=== PATIENT | female | born 1960 | race Caucasian/White ===

== ENCOUNTER 2019-08-27 16:49 | Observation (INO) ==
[2019-08-27 16:56] VITALS: BMI 25.0
[2019-08-27] MEDS ORDERED: NS 1000 ML 1,000 ML ONE ×2 (16:59→19:25)
[2019-08-27] MEDS ORDERED: NS 1000 ML 1,000 ML IV ONE ×2 (17:19→19:25)
--- NOTE | 2019-08-27 17:24 | DR.GENAD ---
HPI Time Seen Time Seen by Provider: 08/27/19 17:20 PCP Primary Care Physician: CHELA HPI Comment HPI Comment: PATIENT IS 59YR OLD FEMALE IN ER FOR EVALUATION FOR LOW BLOOD PRESSURE AND FREQUENT FALLS FOR 2 WEEKS. ALSO HAVING LEFT HIP PAIN. DENIES CHEST PAIN OR HEADACHE. NO FEVER OR DYSURIA. PATIENTS SYMTOMS GETTING WORSE. Complaint/Symptoms Chief Complaint Doctors Comments: LOW BLOOD PRESSURE AND FREQUENT FALLS FOR 2 WEEKS. Chief Complaint:: TIA FROM DR YORK OFFICE CALLED AND WANTED PATIENT WORKED UP FOR DEHYRATION AND LOW BLOOD PRESSURE. PT STATED SE HAS BEEN FALLING SEVERAL TIMES Nurses notes reviewed Nurses Notes Review: Yes Source History Provided: Patient Mode of Arrival Mode of Arrival: Ambulatory Timing Onset of Chief Complaint: 08/12/19 Came on: Suddenly Duration Duration: Constant Duration: Days Severity Severity: Moderate Modifying Factors Worsens:: EXERTION. Improves:: REST. PMH PMH Past Medical History: Yes Past Medical History: Hypothyroidism Past Surgical History: Yes Surgical History: , Cholecystectomy, Hysterectomy and Ortho Surgery Family History History of Family Medical Conditions: No Social History Does patient currently use any type of tobacco product: No Have you used tobacco products in the last 12 months: No Type of Tobacco Use: None Does any household member use tobacco: No Alcohol Use: None Do you use any recreational Drugs:: No Lives With: Family Lives Where: Home infectious screening In the last 2 months have you had wt loss of >10#?: NO Have you had fever, night sweats or hemotysis?: No Have you traveled outside the country in the last 6 months?: No Isolation: Standard ROS Review of Systems Constitutional: No Symptoms Reported and See HPI; negative Fever, Weakness and Fatigue Eyes: No Symptoms Reported and See HPI; negative Discharge ENTM: No Symptoms Reported and See HPI; negative Ear Pain, Nose Discharge, Nose Congestion and Throat Pain Respiratoy: No Symptoms Reported and See HPI; negative Moist Cough, Short of Breath and Wheezing Cardiovascular: No Symptoms Reported and See HPI; negative Chest Pain, Edema and Palpitations Gastrointestinal/Abdominal: No Symptoms Reported and See HPI; negative Abdominal Pain, Diarrhea, Nausea and Vomiting Genitourinary: No Symptoms Reported and See HPI; negative Dysuria, Frequency and Hematuria Neurological: See HPI, Headache, Weakness and Dizziness Musculoskeletal: No Symptoms Reported and See HPI Integumentary: No Symptoms Reported and See HPI; negative Change in Color, Rash and Juandice Hematologic/Lymphatic: No Symptoms Reported and See HPI Endocrine: No Symptoms Reported and See HPI; negative Increased Thirst, Increased Urine and Decreased Appetite Psychiatric: No Symptoms Reported and See HPI All Other Systems: Reviewed and Negative PE Vital Signs Vitals: Temperature 98.6 F Pulse Rate 55 Respiratory Rate 43 Blood Pressure 93/47 O2 Sat by Pulse Oximetry 99 General Limitations: No Limitations General Appearance: Alert and In No Apparent Distress Head Head Exam: Normal Inspection and Atraumatic Eyes Eye exam: Normal Appearance and PERRL; negative Scleral Icterus and Conjunctival Injection ENT ENT Exam: Normal Exam, Normal Oropharynx, Normal External Ear Exam and TM's Normal Bilaterally External Ear Exam: Normal External Inspection; negative Mastoid Tenderness TM/Canal Exam: Bilateral: Normal Nose Exam: Normal Nose Exam; negative Sinus Tenderness, Nasal Deviation and Septal Hematoma Mouth Exam: Normal Inspection Throat Exam: Normal Inspection; negative Tonsillar Erythema, Tonsillomegaly and Tonsillar Exudate Neck Neck Exam: Normal Inspection and Trachea Midline; negative Tenderness, Meningismus and Lymphadenopathy Chest Chest Inspection: Normal Inspection and Symmetric Chest Wall Rise; negative Tenderness Respiratory Respiratory Exam: Normal Lung Sounds Bilat; negative Accessory Muscle Use, Chest Wall Tenderness and Respiratory Distress Respiratory Exam: Bilateral: Rhonchi and Lower: Rhonchi Cardiovascular Cardiovascular Exam: Regular Rate, Normal Rhythm and Normal Heart Sounds; negative Systolic Murmur and Diastolic Murmur Abdominal Exam Abdominal Exam: Normal Inspection, Normal Bowel Sounds and Soft; negative Tenderness Extremities Extremities Exam: Full ROM (LEFT HIP WILDA.), Tenderness (LEFT HIP TENDER.) and Normal Capillary Refill; negative Calf Tenderness Back Back Exam: Normal Inspection Neurologic Neurological Exam: Alert, Oriented X3 and CN II-XII Intact; negative Motor Sensory Deficit Psychiatric Psychiatric Exam: Normal Affect and Normal Mood Skin Skin Exam: Warm, Dry, Intact and Normal Color MDM Differential Diagnosis Differential Diagnosis: SEVERE HYPOTENSION, DIZZINESS, LEFT HIP PAIN, UT, PNEUMONIA COURSE Treatment Treatment: see orders. Education/Counseling Education/Counseling: Patient Educated On: Diagnosis ROR Labs Reviewed Laboratory Results Reviewed?: Yes Result Diagrams: 08/29/19 05:30 08/29/19 05:30 Laboratory: WBC 7.0 X10^3/uL (3.6-10.0) 08/27/19 17:16 RBC 3.96 X10^6/uL (3.5-5.4) 08/27/19 17:16 Hgb 12.0 g/dL (12.0-16.0) 08/27/19 17:16 Hct 35.3 % (36.0-47.0) L 08/27/19 17:16 MCV 89.1 fL (80.0-100.0) 08/27/19 17:16 MCH 30.2 pg (27.0-34.0) 08/27/19 17:16 MCHC 33.9 g/dL (33.0-35.0) 08/27/19 17:16 RDW 12.6 % (11.6-16.5) 08/27/19 17:16 Plt Count 337 X10^3/uL (150.0-450.0) 08/27/19 17:16 MPV 8.0 fL (7.4-11.0) 08/27/19 17:16 Neut % (Auto) 64.1 % (42.0-75.0) 08/27/19 17:16 Lymph % (Auto) 25.9 % (21.0-51.0) 08/27/19 17:16 [place] % (Auto) 7.0 % (0.0-13.0) 08/27/19 17:16 Eos % (Auto) 1.3 % (0.9-2.9) 08/27/19 17:16 Baso % (Auto) 1.7 % (0.2-1.0) H 08/27/19 17:16 Neut # (Auto) 4.5 x10^3/uL (2.2-4.8) 08/27/19 17:16 Lymph # (Auto) 1.8 X10^3/uL (1.3-2.9) 08/27/19 17:16 [place] # (Auto) 0.5 x10^3/uL (0.3-0.8) 08/27/19 17:16 Eos # (Auto) 0.1 x10^3/uL (0.0-0.2) 08/27/19 17:16 Baso # (Auto) 0.1 X10^3/uL (0.0-0.1) 08/27/19 17:16 Absolute Nucleated RBC 0.0 /100WBC 08/27/19 17:16 Sodium 139 mmol/L (136-145) 08/27/19 17:16 Corrected Sodium 140 mmol/L (136-145) 08/27/19 17:16 Potassium 4.2 mmol/L (3.5-5.1) 08/27/19 17:16 Chloride 102 mmol/L (98-107) 08/27/19 17:16 Carbon Dioxide 26.4 mmol/L (21-32) 08/27/19 17:16 BUN 12 mg/dL (7-18) 08/27/19 17:16 Creatinine 1.27 mg/dL (0.55-1.02) H 08/27/19 17:16 Est GFR (MDRD) Af Amer 55 (>60) L 08/27/19 17:16 Est GFR (MDRD) Non-Af 45 (>60) L 08/27/19 17:16 Glucose 142 mg/dL (65-99) H 08/27/19 17:16 Calcium 8.5 mg/dL (8.5-10.1) 08/27/19 17:16 Corrected Calcium TNP 08/27/19 17:16 Total Bilirubin 0.30 mg/dL (0.2-1.0) 08/27/19 17:16 AST 19 Units/L (15-37) 08/27/19 17:16 ALT 18 Units/L (12-78) 08/27/19 17:16 Alkaline Phosphatase 76 Units/L (46-116) 08/27/19 17:16 Creatine Kinase 78 Units/L (26-192) 08/27/19 17:16 CK-MB (CK-2) < 1.0 ng/mL (0-4.0) 08/27/19 17:16 CK/CKMB % Calc 1.3 % (<4) 08/27/19 17:16 Troponin I < 0.02 ng/mL (0-1.5) 08/27/19 17:16 Total Protein 6.7 g/dL (6.4-8.2) 08/27/19 17:16 Albumin 3.5 g/dL (3.4-5.0) 08/27/19 17:16 Globulin 3.2 g/dL (2.5-4.5) 08/27/19 17:16 Albumin/Globulin Ratio 1.1 Ratio (1.1-2.1) 08/27/19 17:16 Specimen Type Clean catch urine 08/27/19 17:14 Urine Color Yellow (YELLOW) 08/27/19 17:14 Urine Appearance Clear (CLEAR) 08/27/19 17:14 Urine pH 6.0 (5.0 - 8.0) 08/27/19 17:14 Ur Specific [place] 1.015 (1.000-1.030) 08/27/19 17:14 Urine Protein Negative (NEGATIVE) 08/27/19 17:14 Urine Glucose (UA) Negative (NEGATIVE) 08/27/19 17:14 Urine Ketones Negative (NEGATIVE) 08/27/19 17:14 Urine Occult Blood Negative (NEGATIVE) 08/27/19 17:14 Urine Nitrite Negative (NEGATIVE) 08/27/19 17:14 Urine Bilirubin Negative (NEGATIVE) 08/27/19 17:14 Urine Urobilinogen Normal (NORMAL) 08/27/19 17:14 Ur Leukocyte Esterase Negative (NEGATIVE) 08/27/19 17:14 Other Results Comments: IMPRESSION: 1. No acute cardiopulmonary abnormality. XRAY XRAY Interpreted by: Radiologist and Self (no acute findings.) XRAY Findings: report noted and discussed with patient. EKG Rate: 52 [place]: Normal Rhythm: SB Block: None Hypertrophy: None ST: Old, Ant and Nonsp Opioid Opioid Risk Tool Age (Pratik box if 16-45): No Total: 0 Total Score Risk Category: Low Risk Copyright: [facility] predicting aberrant behaviors Diagnosis Discharge Problem: Severe hypotension, Dizziness, Hip pain, left Instructions Instructions: Hip Pain Hypotension, [id number] Dizziness, [id number] Forms: Excuse From Work or School Patient Portal
[2019-08-27 17:26] LABS: BILIRUBIN,URINE NEGATIVE (NEGATIVE); BLOOD/HEMOGLOBIN,URINE NEGATIVE (NEGATIVE); GLUCOSE, URINE NEGATIVE (NEGATIVE); KETONES,URINE NEGATIVE (NEGATIVE); LEUKOCYTE ESTERASE ,URINE NEGATIVE (NEGATIVE); NITRITES,URINE NEGATIVE (NEGATIVE); PROTEIN,URINE NEGATIVE (NEGATIVE); UROBILINOGEN,URINE NORMAL (NORMAL)
[2019-08-27 17:36] LABS: BASOPHILS # (AUTO) 0.1 X10^3/uL (0.0-0.1); BASOPHILS % (AUTO) 1.7 % (0.2-1.0); EOSINOPHILS # (AUTO) 0.1 x10^3/uL (0.0-0.2); EOSINOPHILS % (AUTO) 1.3 % (0.9-2.9); HEMATOCRIT 35.3 % (36.0-47.0); LYMPHOCYTES # (AUTO) 1.8 X10^3/uL (1.3-2.9); LYMPHOCYTES % (AUTO) 25.9 % (21.0-51.0); MEAN CORPUSCULAR HEMOGLOBIN 30.2 pg (27.0-34.0); MEAN CORPUSCULAR HGB CONC 33.9 g/dL (33.0-35.0); MEAN CORPUSCULAR VOLUME 89.1 fL (80.0-100.0); MONOCYTES # (AUTO) 0.5 x10^3/uL (0.3-0.8); NEUTROPHILS # (AUTO) 4.5 x10^3/uL (2.2-4.8); NEUTROPHILS % (AUTO) 64.1 % (42.0-75.0); PLATELET COUNT 337 X10^3/uL (150.0-450.0); RED BLOOD COUNT 3.96 X10^6/uL (3.5-5.4); RED CELL DISTRIBUTION WIDTH 12.6 % (11.6-16.5)
[2019-08-27 17:38] LABS: APPEARANCE,URINE CLEAR (CLEAR); COLOR,URINE YELLOW (YELLOW)
[2019-08-27 17:50] LABS: BLOOD UREA NITROGEN 12 mg/dL (7-18); CALCIUM 8.5 mg/dL (8.5-10.1); CARBON DIOXIDE 26.4 mmol/L (21-32); CHLORIDE 102 mmol/L (98-107); COR NA(FOR HYPERGLY) 140 mmol/L (136-145); CREATININE 1.27 mg/dL (0.55-1.02); SODIUM 139 mmol/L (136-145); TROPONIN I < 0.02 ng/mL (0-1.5); eGFR NON BLACK RACES 45 (>60)
[2019-08-27 17:54] LABS: ALANINE AMINOTRANSFERASE 18 Units/L (12-78); ALBUMIN 3.5 g/dL (3.4-5.0); ALKALINE PHOSPHATASE 76 Units/L (46-116); ASPARTATE AMINO TRANSFERASE 19 Units/L (15-37); CKMB % 1.3 % (<4); CREATINE KINASE 78 Units/L (26-192); CREATINE KINASE MB < 1.0 ng/mL (0-4.0); TOTAL PROTEIN 6.7 g/dL (6.4-8.2)
--- NOTE | 2019-08-27 18:14 | RAD ---
HISTORY:Cough, dehydratedStudy: Single view chestComparison:NoneFindings:No infiltrate, effusion, or pneumothorax identified .Cardiac and mediastinal contours are within normal limits .The soft tissues are intact .IMPRESSION:1. No acute cardiopulmonary abnormality.Electronically signed by: TYE AUGUSTE (Aug 27, 2019 18:12:51)
--- NOTE | 2019-08-27 18:46 | RAD ---
HISTORY:Pain after fallStudy:Two views left hipComparison: NoneFindings:Allignment is normal. No acute fracture or dislocation identified. The soft tissues are intact.IMPRESSION:1. No acute osseous abnormality.Electronically signed by: TYE AUGUSTE (Aug 27, 2019 18:44:51)
[2019-08-27] MEDS ORDERED: ZANAFLEX PO PRN (19:57)
[2019-08-27] MEDS: ATIVAN TAB 1 MG PO SCH (20:59)
[2019-08-27] MEDS: BUSPAR PO SCH (21:10)
[2019-08-27] MEDS: NEURONTIN CAP 100 MG PO SCH (21:10)
[2019-08-27] MEDS: NS 1000 ML 1,000 ML IV SCH (21:11)
[2019-08-27] MEDS ORDERED: TYLENOL 325 MG TAB PO PRN (22:06)
[2019-08-28] MEDS: NEURONTIN CAP 100 MG PO SCH ×3 (05:05→21:15)
[2019-08-28] MEDS: NS 1000 ML 1,000 ML IV SCH ×3 (05:31→23:08)
[2019-08-28 07:16] LABS: ALANINE AMINOTRANSFERASE 17 Units/L (12-78); ALBUMIN 3.1 g/dL (3.4-5.0); ALKALINE PHOSPHATASE 74 Units/L (46-116); ASPARTATE AMINO TRANSFERASE 12 Units/L (15-37); BLOOD UREA NITROGEN 11 mg/dL (7-18); CALCIUM 7.8 mg/dL (8.5-10.1); CARBON DIOXIDE 22.6 mmol/L (21-32); CHLORIDE 108 mmol/L (98-107); COR CA(FOR HYPOALB) 8.5 mg/dL (8.5-10.1); CREATININE 0.91 mg/dL (0.55-1.02); MAGNESIUM 1.8 mg/dL (1.7-2.9); SODIUM 142 mmol/L (136-145); eGFR NON BLACK RACES > 60 (>60)
[2019-08-28] MEDS: ESTRACE PO SCH (09:32)
[2019-08-28] MEDS: BUSPAR PO SCH ×2 (09:33→20:29)
[2019-08-28] MEDS: PAXIL PO SCH (09:33)
[2019-08-28] MEDS: ATIVAN TAB 1 MG PO SCH ×2 (09:33→20:29)
[2019-08-28] MEDS: PROTONIX INJ 40 MG VIAL IVP SCH ×2 (10:52→20:29)
--- NOTE | 2019-08-28 11:06 | DR.H&P ---
H&P - History & Physical for Day of: H&P Date: 08/27/19 - Chief Complaint Chief Complaint: LOW BLOOD PRESSURE, DIZZINESS, FREQUENT FALLS - History of Present Illness History of Present Illness: IS A 59 YEAR OLD PATIENT OF OURS WHO PRE SENTED TO THE ER WITH COMPLAINTS OF LOW BLOOD PRESSURE, DIZZINESS, AND FREQUENT FALLS AT HOME. SYMPOTMS STARTED APPROXIMATELY TWO WEEKS AGO AND HAVE PROGRESSIVELY GOTTEN WORSE. SHE ALSO REPORTS LEFT HIP PAIN. SHE HAS A PMH OF HYPOTHYROIDISM, ANXIETY, AND DEPRESSION. SHE HAS HAD A CHOLECYSTECTOMY, AND HYSTERECTOMY IN THE PAST. ON ARRIVAL TO THE HOSPITAL, VITALS WERE 98.8-00-90-98-68/39. LABS WERE OBTAINED. ABNORMAL LAB VALUES INCLUDE THE FOLLOWING: HCT 35.3, CREATININE 1.27, GLUCOSE 142. CARDIAC ENZYMES WITHIN NORMAL LIMITS. URINALYSIS IS UNREMARKABLE. A CHEST XRAY WAS OBTAINED AND REVEALED: NO ACUTE CARDIOPULMONARY ABNORMALITY. A LEFT HIP XRAY WAS OBTAINED AND REVEALED: NO ACUTE OSSEOUS ABNORMALITY. EKG REVEALED: SINUS RHYTHM WITH HR 52. SHE WAS GIVEN TWO NORMAL SALINE LITER BOLUSES. BLOOD PRESSURE DID INCREASE TO 110/54. SHE WAS ADMITTED FOR FURTHER EVALUATION AND TREATMENT OF SEVERE HYPOTENSION, DIZZINESS, AND LEFT HIP PAIN. SHE WAS STARTED ON NORMAL SALINE AT 125ML/HR, TORADOL 30MG IV Q6H PRN PAIN, PROTONIX 40MG IV BID, AND HOME MEDICATIOSN WERE RESUMED. WE WILL OBTAIN AN ECHO TODAY. OTHERWISE, WE WILL FOLLOW UP WITH AM LABS AND CONTINUE TO MONITOR. - Past Medical History Past Medical History: Anxiety, Depression, Hypothyroidism - Past Surgical History Surgical History: Abdominal Surgery, , Cholecystectomy, Hysterectomy, Ortho Surgery - Family History Family Medical History: Cancer, Coronary Artery Disease - Social History Does patient currently use any type of tobacco product: No Have you used tobacco products in the last 12 months: No Type of Tobacco Use: None Does any household member use tobacco: No Alcohol Use: None Drug Use: None - Medications Home Medications: No Known Drug Allergies Allergy (Verified 08/27/19 22:19) CONTINUE taking the following medications buspirone 15 mg PO BID 08/27/19 [History] estradiol 1 mg PO DAILY 08/27/19 [History] gabapentin 100 mg PO TID 08/27/19 [History] levothyroxine 100 mcg PO DAILY 08/27/19 [History] lorazepam 1 mg PO BID 08/27/19 [History] paroxetine HCl [Paxil] 20 mg PO DAILY 08/27/19 [History] quetiapine [Seroquel] 100 mg PO HS 08/27/19 [History] tizanidine 4 mg PO Q8H PRN 08/27/19 [History] - Review of Systems Constitutional: Weakness Eyes: No Symptoms Reported ENT: No Symptoms Reported Respiratory: No Symptoms Reported Cardiovascular: No Symptoms Reported, Light Headedness Gastrointestinal: No Symptoms Reported Genitourinary: No Symptoms Reported Musculoskeletal: No Symptoms Reported Skin: No Symptoms Reported Neurological: Weakness - Physical Exam Vital Signs: Temperature 97.7 F Pulse Rate [Left Brachial] 76 Pulse Rate [Right Radial] 59 Pulse Rate 54 Respiratory Rate 18 Blood Pressure [Left Arm] 126/59 Blood Pressure 110/54 O2 Sat by Pulse Oximetry 98 Oriented: Normal Eyes: Normal Ear: Normal Nose: Normal Throat: Normal Respiratory: Diminished Throughout Cardiovascular: Normal. negative: S3, S4, Murmur : Normal Auscultation: Bowel Sounds: Normal Palpation: Normal Tenderness: Normal Skin: Normal Musculoskeletal: Normal Psychiatric: Normal Mood Description: Calm Affect: Normal Speech Pattern: Clear - Assessment/Plan (1) Hypotension Qualifiers: Hypotension type: unspecified hypotension type Qualified Code(s): I95.9 - Hypotension, unspecified Status: Acute Plan: NORMAL SALINE AT 125ML/HR, OBTAIN ECHO, CONTINUE TO MONITOR (2) Dizziness Status: Acute (3) Left hip pain Status: Acute Plan: TORADOL 30MG IV Q6H PRN, CONTINUE TO MONITOR - Allergies Allergies/Adverse Reactions: Allergies Allergy/AdvReac Type Severity Reaction Status Date / Time No Known Drug Allergies Allergy Verified 08/27/19 22:19
[2019-08-28] MEDS: TORADOL 30 MG VIAL IVP PRN ×2 (13:33→21:19)
[2019-08-28] MEDS ORDERED: SYNTHROID 100 mcg TAB PO SCH (16:30)
[2019-08-29] MEDS: NEURONTIN CAP 100 MG PO SCH ×2 (05:17→13:03)
[2019-08-29 05:55] LABS: BASOPHILS % (AUTO) 0.3 % (0.2-1.0); EOSINOPHILS # (AUTO) 0.2 x10^3/uL (0.0-0.2); EOSINOPHILS % (AUTO) 5.2 % (0.9-2.9); HEMATOCRIT 29.6 % (36.0-47.0); HEMOGLOBIN 10.5 g/dL (12.0-16.0); LYMPHOCYTES # (AUTO) 1.5 X10^3/uL (1.3-2.9); LYMPHOCYTES % (AUTO) 32.6 % (21.0-51.0); MEAN CORPUSCULAR HEMOGLOBIN 30.9 pg (27.0-34.0); MEAN CORPUSCULAR HGB CONC 35.3 g/dL (33.0-35.0); MEAN CORPUSCULAR VOLUME 87.5 fL (80.0-100.0); MEAN PLATELET VOLUME 7.6 fL (7.4-11.0); MONOCYTES # (AUTO) 0.3 x10^3/uL (0.3-0.8); MONOCYTES % (AUTO) 7.5 % (0.0-13.0); NEUTROPHILS # (AUTO) 2.4 x10^3/uL (2.2-4.8); NEUTROPHILS % (AUTO) 54.4 % (42.0-75.0); PLATELET COUNT 233 X10^3/uL (150.0-450.0); RED BLOOD COUNT 3.39 X10^6/uL (3.5-5.4); RED CELL DISTRIBUTION WIDTH 12.9 % (11.6-16.5); WHITE BLOOD COUNT 4.5 X10^3/uL (3.6-10.0)
[2019-08-29 06:14] LABS: ALANINE AMINOTRANSFERASE 15 Units/L (12-78); ALBUMIN 2.9 g/dL (3.4-5.0); ALKALINE PHOSPHATASE 71 Units/L (46-116); ASPARTATE AMINO TRANSFERASE 13 Units/L (15-37); BLOOD UREA NITROGEN 8 mg/dL (7-18); CALCIUM 7.4 mg/dL (8.5-10.1); CARBON DIOXIDE 22.1 mmol/L (21-32); CHLORIDE 106 mmol/L (98-107); COR CA(FOR HYPOALB) 8.3 mg/dL (8.5-10.1); CREATININE 0.79 mg/dL (0.55-1.02); SODIUM 138 mmol/L (136-145); TOTAL PROTEIN 5.7 g/dL (6.4-8.2); eGFR NON BLACK RACES > 60 (>60)
[2019-08-29] MEDS: ESTRACE PO SCH (08:41)
[2019-08-29] MEDS: BUSPAR PO SCH (08:41)
[2019-08-29] MEDS: PROTONIX INJ 40 MG VIAL IVP SCH (08:42)
[2019-08-29] MEDS: ATIVAN TAB 1 MG PO SCH (08:42)
[2019-08-29] MEDS: PAXIL PO SCH (08:42)
[2019-08-29] MEDS: NS 1000 ML 1,000 ML IV SCH ×2 (08:44→13:03)
[2019-08-29 08:45] VITALS: BP 120/60
== END 2019-08-29 11:55 | disposition home or self-care (01) ==
LOC: MED/SURG 17:03 → ER 17:03 → MED/SURG 19:55
PROVIDERS: ADMIT Internal Medicine; ATTEND Internal Medicine
CPT/HCPCS: 36415; 71010; 71045; 73501; 80053; 81003; 82550; 82553; 83735; 84484; 85025; 85610; 93005; 93306; 94760; 96360; 96361; 96365; 96367; 96374; 99284; A4216; A4222; C9113; G0378; J1885; J7030

== ENCOUNTER 2019-12-13 14:00 | Observation (INO) ==
--- NOTE | 2019-12-13 14:55 | DR.DIZZY ---
HPI Time seen Time Seen by Provider: 12/13/19 14:30 PCP Primary Care Physician: CHELA Complaint Chief Complaint Doctor Comments: Patient is a 59 year old female who presents to the Ed with dizziness and syncopal episodes. She states these started in August and she has had them throughout her life. She states that over the past week she has had several syncopal episodes where she stood up from a seated position felt dizzy and was awoken by her trying to get her off the floor. Patient states that she does have some palpitations during the episodes but denies significant pain. She states that she cannot predict when these episodes happen ed. She states that she does have severe hypertension episodes and tracks them at home. This is correlated with her last admission which she was in the 60s over the 40s when she was admitted. She was scheduled and referred to Dr. Fransisco Hunter. The patient She was worked up and admitted in August 28 2019. At that time her EKG with sinus Marcial and her echocardiogram revealed an ejection fraction of 65%,no other significant abnormalities found during that admission. The patient also takes several sedating medications including Does apenes, muscle relaxers, SNRIs, and gabapentin. She has no other complaints and states she feels well otherwise. Chief Complaint:: PATIENT STATES " A COUPLE OF DAYS AGO I STARTED PASSING OUT AND FALLING DOWN FOR NO REASON. THIS HAPPENS OFTEN WITH ME. I HAVE BEEN ADMITTED FOT THE SAME THING IN THE PAST AND DR YORK TOLD ME TO COME HER IF IT STARTS HAPPENING AGAIN. THEN TODAY I STARTED GETTING A HEADACHE AND VOMITING." COVID-19 Coronavirus risk:travel/contact w/high risk person: No Has patient experienced Coronavirus symptoms: No Nurses Notes Reviewed Nurses Notes Review: Yes Source History Provided: Patient Mode of Arrival Mode of Arrival: Ambulatory Timing Onset of Chief Complaint: 12/13/19 Context Stroke Symptoms: Dizziness PMH PMH Past Medical History: Yes Past Medical History: Anemia, Anxiety, COPD, Depression and Hypothyroidism Past Surgical History: Yes Surgical History: Abdominal Surgery, , Cholecystectomy, Hysterectomy and Ortho Surgery Family History History of Family Medical Conditions: Yes Family Medical History: Cancer and Coronary Artery Disease Social History Do you use any recreational Drugs:: No Travel Risk Coronavirus risk:travel/contact w/high risk person: No Has patient experienced Coronavirus symptoms: No Infectious screening Have you traveled outside the country in the last 6 months?: No Isolation: Standard ROS Review of Systems Constitutional: Weakness Eyes: No Symptoms Reported ENTM: No Symptoms Reported Respiratoy: No Symptoms Reported Cardiovascular: No Symptoms Reported Gastrointestinal/Abdominal: No Symptoms Reported Genitourinary: No Symptoms Reported Neurological: No Symptoms Reported Musculoskeletal: No Symptoms Reported Integumentary: No Symptoms Reported Hematologic/Lymphatic: No Symptoms Reported Endocrine: No Symptoms Reported Psychiatric: No Symptoms Reported All Other Systems: Reviewed and Negative PE Vital Signs Vitals: Temperature 98.1 F Pulse Rate 96 Respiratory Rate 17 Blood Pressure [Right Arm] 120/60 Blood Pressure 116/59 O2 Sat by Pulse Oximetry 67 General Limitations: No Limitations General Appearance: Alert and In No Apparent Distress Head Head Exam: Normal Inspection, Atraumatic and Normocephalic Eyes Eye exam: Normal Appearance, PERRL and EOMI Pupils: Regular, Round: Bilateral and Reactive: Bilateral ENT ENT Exam: Normal Exam, Normal Oropharynx and Normal External Ear Exam Neck Neck Exam: Normal Inspection and Full ROM Chest Chest Inspection: Normal Inspection and Symmetric Chest Wall Rise Respiratory Respiratory Exam: Normal Lung Sounds Bilat and Accessory Muscle Use Respiratory Exam: Bilateral: Clear to Auscultation Cardiovascular Cardiovascular Exam: Regular Rate (70 bpm on assessment ) Abdominal Exam Abdominal Exam: Normal Inspection, Normal Bowel Sounds and Soft Extremeties Extremities Exam: Normal Inspection and Full ROM Back Back Exam: Normal Inspection, Full ROM and Tenderness Neurologic Neurological Exam: Alert, Oriented X3, CN II-XII Intact, Normal Gait and Motor Sensory Deficit Patient Oriented To: Person, Place and Time Speech: Fluid Speech Cerebellar Function: Normal Gait (pt assessed getting up and trying to walk to bathroom. I told pt to please let us know if she need to use the bathroom and we can help her get to the bathroom, she agreed and was helped to the bathroom, she did not show any signs of symptoms syncope. ) Motor Strength - LUE: 5/5 Motor Strength - RUE: 5/5 Motor Strength - LLE: 5/5 Motor Strength - RLE: 5/5 Psychiatric Psychiatric Exam: Normal Affect and Normal Mood Skin Skin Exam: Warm, Dry, Intact and Normal Color MDM Additional Information Obtained Additional Information Obtained From: Old Records Differential Diagnosis Differential Diagnosis: Anemia, Dehydration, Dysrhythmia, Electrolyte disorder, Hypoglycemia, Labyrinthitis, Myocardial infarction and TIA COURSE Treatment Treatment: IVF bolus, discussed case with Dr. York. Reevaluation 1st: Unchanged (15:20pt statbel ) 2nd: Unchanged (15:55 stable ) 3rd: Unchanged (16:30 pt stable ) Consultation Consultation Comments: Dr. York @ 16:20 discussed case and advised observation Education/Counseling Education/Counseling: Patient, Family, Education and Counseling Educated On: Treatment, Diagnosis, Prognosis and Needs for Follow Up ROR Labs Reviewed Laboratory Results Reviewed?: Yes Result Diagrams: 12/13/19 15:13 12/13/19 15:13 Laboratory: WBC 5.8 X10^3/uL (3.6-10.0) 12/13/19 15:13 RBC 4.11 X10^6/uL (3.5-5.4) 12/13/19 15:13 Hgb 12.5 g/dL (12.0-16.0) 12/13/19 15:13 Hct 35.9 % (36.0-47.0) L 12/13/19 15:13 MCV 87.2 fL (80.0-100.0) 12/13/19 15:13 MCH 30.4 pg (27.0-34.0) 12/13/19 15:13 MCHC 34.9 g/dL (33.0-35.0) 12/13/19 15:13 RDW 12.0 % (11.6-16.5) 12/13/19 15:13 Plt Count 256 X10^3/uL (150.0-450.0) 12/13/19 15:13 MPV 8.5 fL (7.4-11.0) 12/13/19 15:13 Neut % (Auto) 66.7 % (42.0-75.0) 12/13/19 15:13 Lymph % (Auto) 20.1 % (21.0-51.0) L 12/13/19 15:13 [place] % (Auto) 7.0 % (0.0-13.0) 12/13/19 15:13 Eos % (Auto) 3.5 % (0.9-2.9) H 12/13/19 15:13 Baso % (Auto) 2.7 % (0.2-1.0) H 12/13/19 15:13 Neut # (Auto) 3.9 x10^3/uL (2.2-4.8) 12/13/19 15:13 Lymph # (Auto) 1.2 X10^3/uL (1.3-2.9) L 12/13/19 15:13 [place] # (Auto) 0.4 x10^3/uL (0.3-0.8) 12/13/19 15:13 Eos # (Auto) 0.2 x10^3/uL (0.0-0.2) 12/13/19 15:13 Baso # (Auto) 0.2 X10^3/uL (0.0-0.1) H 12/13/19 15:13 Absolute Nucleated RBC 0.1 /100WBC 12/13/19 15:13 Sodium 136 mmol/L (136-145) 12/13/19 15:13 Corrected Sodium TNP 12/13/19 15:13 Potassium 4.6 mmol/L (3.5-5.1) 12/13/19 15:13 Chloride 100 mmol/L (98-107) 12/13/19 15:13 Carbon Dioxide 26.5 mmol/L (21-32) 12/13/19 15:13 BUN 12 mg/dL (7-18) 12/13/19 15:13 Creatinine 1.08 mg/dL (0.55-1.02) H 12/13/19 15:13 Est GFR (MDRD) Af Amer > 60 (>60) 12/13/19 15:13 Est GFR (MDRD) Non-Af 55 (>60) L 12/13/19 15:13 Glucose 100 mg/dL (65-99) H 12/13/19 15:13 Calcium 9.1 mg/dL (8.5-10.1) 12/13/19 15:13 Corrected Calcium TNP 12/13/19 15:13 Total Bilirubin 0.20 mg/dL (0.2-1.0) 12/13/19 15:13 AST 17 Units/L (15-37) 12/13/19 15:13 ALT 17 Units/L (12-78) 12/13/19 15:13 Alkaline Phosphatase 56 Units/L (46-116) 12/13/19 15:13 Creatine Kinase 81 Units/L (26-192) 12/13/19 15:13 CK-MB (CK-2) 1.1 ng/mL (0-4.0) 12/13/19 15:13 CK/CKMB % Calc 1.4 % (<4) 12/13/19 15:13 Troponin I < 0.02 ng/mL (0-1.5) 12/13/19 15:13 Total Protein 7.0 g/dL (6.4-8.2) 12/13/19 15:13 Albumin 3.6 g/dL (3.4-5.0) 12/13/19 15:13 Globulin 3.4 g/dL (2.5-4.5) 12/13/19 15:13 Albumin/Globulin Ratio 1.1 Ratio (1.1-2.1) 12/13/19 15:13 XRAY XRAY Interpreted by: Both X-ray Results: Chest AP xray: no acute pathology seen, mild cardiomega EKG Compared to prior EKG Dated: 08/27/19 (repeat EKG @ 16:04 sinus rhythm, rate 50 bpm, axis normal, no block or hypertrophy, normal ST -T waves both EKG's read by Shilo Melgar ) Rate: 49 [place]: Normal Rhythm: SB Block: None Hypertrophy: None ST: Normal Opioid Opioid Risk Tool Age (Pratik box if 16-45): No History of Preadolescent Sexual Abuse: No Total: 0 Total Score Risk Category: Low Risk Copyright: [facility] predicting aberrant behaviors Diagnosis Discharge Problem: Symptomatic bradycardia, Syncope Narrative Support Text: Today the patient was seen in the emergency department. All labs, imaging, consults with other specialists, and procedures were discussed with the patient and or patients family. All emergent needs such as pain mgmt, medical mgmt, Procedures, or consultations were addressed. The care plan has been discussed with the patient and or patients family. Patients and or family stated agreement and understanding of risks and benefits of care plans. Dr. York admitted to observation status
[2019-12-13] MEDS ORDERED: NS 1000 ML 1,000 ML IV ONE (15:04)
[2019-12-13] MEDS ORDERED: NS 1000 ML 1,000 ML ONE ×2 (15:07→16:58)
[2019-12-13 15:25] LABS: BASOPHILS # (AUTO) 0.2 X10^3/uL (0.0-0.1); BASOPHILS % (AUTO) 2.7 % (0.2-1.0); EOSINOPHILS # (AUTO) 0.2 x10^3/uL (0.0-0.2); EOSINOPHILS % (AUTO) 3.5 % (0.9-2.9); HEMATOCRIT 35.9 % (36.0-47.0); HEMOGLOBIN 12.5 g/dL (12.0-16.0); LYMPHOCYTES # (AUTO) 1.2 X10^3/uL (1.3-2.9); LYMPHOCYTES % (AUTO) 20.1 % (21.0-51.0); MEAN CORPUSCULAR HEMOGLOBIN 30.4 pg (27.0-34.0); MEAN CORPUSCULAR HGB CONC 34.9 g/dL (33.0-35.0); MEAN CORPUSCULAR VOLUME 87.2 fL (80.0-100.0); MEAN PLATELET VOLUME 8.5 fL (7.4-11.0); MONOCYTES # (AUTO) 0.4 x10^3/uL (0.3-0.8); NEUTROPHILS # (AUTO) 3.9 x10^3/uL (2.2-4.8); NEUTROPHILS % (AUTO) 66.7 % (42.0-75.0); PLATELET COUNT 256 X10^3/uL (150.0-450.0); RED BLOOD COUNT 4.11 X10^6/uL (3.5-5.4); WHITE BLOOD COUNT 5.8 X10^3/uL (3.6-10.0)
[2019-12-13 15:43] LABS: BLOOD UREA NITROGEN 12 mg/dL (7-18); CALCIUM 9.1 mg/dL (8.5-10.1); CARBON DIOXIDE 26.5 mmol/L (21-32); CHLORIDE 100 mmol/L (98-107); CREATININE 1.08 mg/dL (0.55-1.02); SODIUM 136 mmol/L (136-145); TROPONIN I < 0.02 ng/mL (0-1.5); eGFR NON BLACK RACES 55 (>60)
--- NOTE | 2019-12-13 15:43 | CT ---
HISTORYfell hit head x 6 months ago has headache and dizzinessSTUDYCT HEAD WITHOUT CONTRASTCOMPARISONJanuary 2019TECHNIQUEAxial CT of the head is performed from the base of the skull through the vertex without contrast . Multiplaner reformats are generated from the original axial data.FINDINGSNo acute intracranial hemorrhage or extra-axial fluid collection is identified. There is no mass effect or midline shift. There is no evidence of cerebral edema. There is no evidence of an acute stage, large artery territorial infarction. The calvarium is intact. The imaged paranasal sinuses and mastoid air cells are predominantly clear.IMPRESSIONNo acute intracranial abnormalities.Radiation dose reduction was achieved through individualized adjustment of kVP and/or mA, through adaptive statistical iterative reconstruction, and/or through automated tube current modulation.Electronically signed by: MILES TALAVERA (December 13, 2019 15:34:07)
[2019-12-13 15:47] LABS: ALANINE AMINOTRANSFERASE 17 Units/L (12-78); ALBUMIN 3.6 g/dL (3.4-5.0); ALKALINE PHOSPHATASE 56 Units/L (46-116); ASPARTATE AMINO TRANSFERASE 17 Units/L (15-37); CKMB % 1.4 % (<4); CREATINE KINASE 81 Units/L (26-192); CREATINE KINASE MB 1.1 ng/mL (0-4.0)
--- NOTE | 2019-12-13 16:17 | RAD ---
HISTORYSOB, LOCSTUDYCHEST, 1 [id number] is midline. Heart size is normal. Increased prominence of the interstitium without focal airspace opacity, pleural effusion or pneumothorax. No acute osseous abnormalityIMPRESSIONIncreased prominence of the interstitium is consistent with an acute pneumonitis or pulmonary edema. No bronchopneumonia. Clinical correlation is needed.Electronically signed by: SANCHEZ BERRY (December 13, 2019 16:16:13)
[2019-12-13] MEDS: NS 1000 ML 1,000 ML IV SCH (17:18)
[2019-12-13 21:48] LABS: CKMB % 1.1 % (<4); CREATINE KINASE 89 Units/L (26-192); TROPONIN I < 0.02 ng/mL (0-1.5)
[2019-12-13 22:12] LABS: BILIRUBIN,URINE NEGATIVE (NEGATIVE); BLOOD/HEMOGLOBIN,URINE NEGATIVE (NEGATIVE); GLUCOSE, URINE NEGATIVE (NEGATIVE); KETONES,URINE NEGATIVE (NEGATIVE); LEUKOCYTE ESTERASE ,URINE NEGATIVE (NEGATIVE); NITRITES,URINE NEGATIVE (NEGATIVE); PH,URINE 6.5 (5.0 - 8.0); PROTEIN,URINE NEGATIVE (NEGATIVE); UROBILINOGEN,URINE NORMAL (NORMAL)
[2019-12-13 22:21] LABS: APPEARANCE,URINE CLEAR (CLEAR); COLOR,URINE PALE YELLOW (YELLOW)
[2019-12-13] MEDS ORDERED: AMBIEN PO PRN (22:21)
[2019-12-13] MEDS: TYLENOL 325 MG TAB PO PRN (22:34)
[2019-12-14] MEDS: NS 1000 ML 1,000 ML IV SCH ×2 (05:45→18:02)
[2019-12-14] MEDS ORDERED: ZOFRAN INJ 4 MG VIAL IVP PRN (06:48)
[2019-12-14 07:20] LABS: BASOPHILS % (AUTO) 1.4 % (0.2-1.0); EOSINOPHILS # (AUTO) 0.2 x10^3/uL (0.0-0.2); EOSINOPHILS % (AUTO) 6.8 % (0.9-2.9); HEMATOCRIT 34.8 % (36.0-47.0); LYMPHOCYTES # (AUTO) 1.2 X10^3/uL (1.3-2.9); MEAN CORPUSCULAR HEMOGLOBIN 30.5 pg (27.0-34.0); MEAN CORPUSCULAR HGB CONC 34.6 g/dL (33.0-35.0); MEAN PLATELET VOLUME 8.4 fL (7.4-11.0); MONOCYTES # (AUTO) 0.3 x10^3/uL (0.3-0.8); MONOCYTES % (AUTO) 9.9 % (0.0-13.0); NEUTROPHILS # (AUTO) 1.6 x10^3/uL (2.2-4.8); NEUTROPHILS % (AUTO) 46.9 % (42.0-75.0); PLATELET COUNT 219 X10^3/uL (150.0-450.0); RED BLOOD COUNT 3.95 X10^6/uL (3.5-5.4); RED CELL DISTRIBUTION WIDTH 12.2 % (11.6-16.5); WHITE BLOOD COUNT 3.4 X10^3/uL (3.6-10.0)
[2019-12-14 07:54] LABS: ALANINE AMINOTRANSFERASE 14 Units/L (12-78); ALBUMIN 3.1 g/dL (3.4-5.0); ALKALINE PHOSPHATASE 50 Units/L (46-116); ASPARTATE AMINO TRANSFERASE 15 Units/L (15-37); BLOOD UREA NITROGEN 10 mg/dL (7-18); CALCIUM 8.3 mg/dL (8.5-10.1); CARBON DIOXIDE 27.8 mmol/L (21-32); CHLORIDE 106 mmol/L (98-107); CKMB % 1.7 % (<4); CREATINE KINASE 59 Units/L (26-192); CREATINE KINASE MB < 1.0 ng/mL (0-4.0); CREATININE 0.98 mg/dL (0.55-1.02); SODIUM 140 mmol/L (136-145); TOTAL PROTEIN 6.1 g/dL (6.4-8.2); TROPONIN I < 0.02 ng/mL (0-1.5); eGFR NON BLACK RACES > 60 (>60)
[2019-12-14] MEDS ORDERED: ZOFRAN TAB 4 MG PO PRN (08:51)
[2019-12-14 09:42] LABS: CKMB % 1.6 % (<4); CREATINE KINASE 63 Units/L (26-192); TROPONIN I < 0.02 ng/mL (0-1.5)
[2019-12-14] MEDS: BUSPAR PO SCH ×2 (10:23→20:28)
[2019-12-14] MEDS: CYMBALTA PO SCH (10:23)
[2019-12-14] MEDS: SYNTHROID 100 mcg TAB PO SCH (10:23)
--- NOTE | 2019-12-14 17:21 | DR.H&P ---
H&P - History & Physical for Day of: H&P Date: 12/13/19 - Chief Complaint Chief Complaint: DIZZINESS, SYNCOPE, HEADACHE, NAUSEA, VOMITING, PALPATATIONS - History of Present Illness History of Present Illness: IS A 59 YEAR OLD PATIENT OF OURS WHO PRESENTED TO THE ER WITH REPORTS OF DIZZINESS AND A SYNCOPAL EPISODE. SHE REPORTS PASSING OUT SEVERAL TIMES OVER THE PAST WEEK. SHE REPORTS THAT SHE FIRST PASSED OUT AFTER STANDING UP FROM A SEATED POSITION. SHE REPORTS PALPATATIONS, HEADACHES, NAUSEA, AND VOMITING. SHE REPORTS A HISTORY OF HYPOTENSION. SHE WAS IN THE HOSPITAL IN AUGUST FOR THE SAME SYMPTOMS. AT THAT TIME, , MILITARY TECHNOLOGY SPECIALIST CONSULTED WITH PATIENT. AT THAT TIME, EKG REVEALED SINUS BRADYCARDIA. ECHO REVEALED AN EJECTION FRACTION OF 65%. SHE IS CURRENTLY ON SEVERAL MEDICATIONS THAT COULD CONTRIBUTE TO THE DIZZINESS, SUCH CLONAZEPAM, GABAPENTIN, TIZANIDINE, AND QUETIAPINE. ON ARRIVAL TO THE ER, VITALS WERE 98.1-67-17-96%-116/59. LABS WERE OBTAINED. ABNORMAL LAB VALUES INCLUDE THE FOLLOWING: HCT 35.9, CREATININE 1.08, GLUCOSE 100. CARDIAC ENZYMES WITHIN NORMAL LIMITS. URINALYSIS WAS UNREMARKABLE. A URINE CULTURE WAS SET UP. A BRAIN CT WITHOUT CONTRAST WAS OBTAINED AND REVEALED NO ACUTE INTRACRANIAL ABNORMALITIES. AN EKG WAS OBTAINED AND REVEALED: SINUS BRADYCARDIA WITH HR 49. A CHEST XRAY WAS OBTAINED AND REVEALED: Increased prominence of the interstitium is consistent with an acute pneumonitis or pulmonary edema. No bronchopneumonia. SHE WAS GIVEN A NORMAL SALINE BOLUS WHILE IN THE ER. SHE WAS ADMITTED FOR FURTHER EVALUATION AND TREATMENT OF RECURRENT SYNCOPAL EPISODES AND SYMPTOMATIC BRADYCARDIA. SHE WAS STARTED ON NS AT 80 ML/HR, CYMBALTA 60MG PO DAILY, SEROQUEL WAS DECREASED TO 200MG PO HS, AND HER OTHER HOME MEDICATIONS WERE RESUMED. WE PLAN TO OBTAIN AM LABS AND CONTINUE TO MONITOR. - Past Medical History Past Medical History: Depression, Anxiety, Hypothyroidism, Anemia, COPD - Past Surgical History Surgical History: , Cholecystectomy, Hysterectomy, Ortho Surgery - Family History Family Medical History: Diabetes Mellitus, Cancer, Coronary Artery Disease, Heart Failure, Sudden Cardiac , Hypertension - Social History Does patient currently use any type of tobacco product: No Does any household member use tobacco: No Alcohol Use: None Drug Use: None - Medications Home Medications: No Known Drug Allergies Allergy (Verified 08/27/19 22:19) CONTINUE taking the following medications buspirone 15 mg PO BID 12/13/19 [History] duloxetine 30 mg PO DAILY 12/13/19 [History] gabapentin 100 mg PO TID 12/13/19 [History] levothyroxine [Euthyrox] 100 mcg PO DAILY 12/13/19 [History] quetiapine 400 mg PO DAILY 12/13/19 [History] tizanidine 4 mg PO BID 12/13/19 [History] clonazepam 1 mg PO BID 12/14/19 [History] estradiol 1 mg PO DAILY 12/14/19 [History] trihexyphenidyl 4 mg PO HS 12/14/19 [History] - Review of Systems Constitutional: See HPI, Weakness Eyes: No Symptoms Reported ENT: No Symptoms Reported Respiratory: No Symptoms Reported Cardiovascular: See HPI, Palpitations, Light Headedness Gastrointestinal: See HPI, Nausea, Vomiting Genitourinary: No Symptoms Reported Musculoskeletal: No Symptoms Reported Skin: No Symptoms Reported Neurological: See HPI, Weakness - Physical Exam Vital Signs: Temperature 97.8 F Pulse Rate [Left Brachial] 60 Pulse Rate [Brachial] 59 Pulse Rate 50 Respiratory Rate 18 Blood Pressure [Left Arm] 92/51 Blood Pressure [Right Arm] 83/45 Blood Pressure 116/59 O2 Sat by Pulse Oximetry 96 Oriented: Normal Eyes: Normal Ear: Normal Nose: Normal Throat: Normal Respiratory: Diminished Throughout Cardiovascular: Bradycardia. negative: S3, S4, Murmur : Normal Auscultation: Bowel Sounds: Normal Palpation: Normal Tenderness: Normal Skin: Normal Musculoskeletal: Normal Psychiatric: Normal Mood Description: Calm Affect: Normal Speech Pattern: Clear - Assessment/Plan (1) Syncope Qualifiers: Syncope type: unspecified Qualified Code(s): R55 - Syncope and collapse Status: Acute Plan: ADMIT, SERIAL CARDIAC ENZYMES AND EKGS, NS AT 80 ML/HR, CYMBALTA 60MG PO DAILY, SEROQUEL WAS DECREASED TO 200MG PO HS, AND HER OTHER HOME MEDICATIONS WERE RESUMED (2) Symptomatic bradycardia Status: Acute (3) Hypotension Qualifiers: Hypotension type: unspecified hypotension type Qualified Code(s): I95.9 - Hypotension, unspecified Status: Acute - Review Patient was examined?: Yes - Allergies Allergies/Adverse Reactions: Allergies Allergy/AdvReac Type Severity Reaction Status Date / Time No Known Drug Allergies Allergy Verified 08/27/19 22:19
[2019-12-15] MEDS: TYLENOL 325 MG TAB PO PRN (03:15)
[2019-12-15] MEDS: NS 1000 ML 1,000 ML IV SCH (05:54)
[2019-12-15 06:51] LABS: BASOPHILS # (AUTO) 0.1 X10^3/uL (0.0-0.1); BASOPHILS % (AUTO) 1.3 % (0.2-1.0); EOSINOPHILS # (AUTO) 0.2 x10^3/uL (0.0-0.2); EOSINOPHILS % (AUTO) 4.5 % (0.9-2.9); HEMATOCRIT 33.4 % (36.0-47.0); HEMOGLOBIN 11.8 g/dL (12.0-16.0); LYMPHOCYTES # (AUTO) 1.2 X10^3/uL (1.3-2.9); LYMPHOCYTES % (AUTO) 26.8 % (21.0-51.0); MEAN CORPUSCULAR HEMOGLOBIN 31.1 pg (27.0-34.0); MEAN CORPUSCULAR HGB CONC 35.4 g/dL (33.0-35.0); MEAN CORPUSCULAR VOLUME 87.7 fL (80.0-100.0); MEAN PLATELET VOLUME 8.8 fL (7.4-11.0); MONOCYTES # (AUTO) 0.4 x10^3/uL (0.3-0.8); MONOCYTES % (AUTO) 8.3 % (0.0-13.0); NEUTROPHILS # (AUTO) 2.6 x10^3/uL (2.2-4.8); NEUTROPHILS % (AUTO) 59.1 % (42.0-75.0); PLATELET COUNT 213 X10^3/uL (150.0-450.0); WHITE BLOOD COUNT 4.4 X10^3/uL (3.6-10.0)
[2019-12-15 06:55] LABS: ALANINE AMINOTRANSFERASE 14 Units/L (12-78); ALBUMIN 2.9 g/dL (3.4-5.0); ALKALINE PHOSPHATASE 44 Units/L (46-116); ASPARTATE AMINO TRANSFERASE 15 Units/L (15-37); BLOOD UREA NITROGEN 10 mg/dL (7-18); CALCIUM 8.3 mg/dL (8.5-10.1); CARBON DIOXIDE 25.7 mmol/L (21-32); CHLORIDE 107 mmol/L (98-107); COR CA(FOR HYPOALB) 9.2 mg/dL (8.5-10.1); CREATININE 1.03 mg/dL (0.55-1.02); SODIUM 141 mmol/L (136-145); TOTAL PROTEIN 5.7 g/dL (6.4-8.2); eGFR NON BLACK RACES 58 (>60)
[2019-12-15 08:56] VITALS: BP 113/55
[2019-12-15] MEDS: BUSPAR PO SCH (08:58)
[2019-12-15] MEDS: CYMBALTA PO SCH (08:59)
[2019-12-15] MEDS: SYNTHROID 100 mcg TAB PO SCH (08:59)
== END 2019-12-15 10:45 | disposition home or self-care (01) ==
LOC: ER 14:13 → OBS 14:13
PROVIDERS: ADMIT Internal Medicine; ATTEND Internal Medicine
DX: R00.1 Bradycardia, unspecified; R42 Dizziness and giddiness; R55 Syncope and collapse; R06.02 Shortness of breath; E03.8 Other specified hypothyroidism; I95.89 Other hypotension; R94.31 Abnormal electrocardiogram [ECG] [EKG]; J44.9 Chronic obstructive pulmonary disease, unspecified; R51 Headache; R11.2 Nausea with vomiting, unspecified; I10 Essential (primary) hypertension
CPT/HCPCS: 36415; 70450; 71010; 71045; 80053; 81003; 82550; 82553; 84484; 85025; 87086; 93005; 96360; 96361; 96365; 96367; 96374; 99284; A4222; G0378; J3490; J7030; S0119; S0181

== ENCOUNTER 2020-02-21 08:53 | Observation (INO) ==
[2020-02-21] MEDS ORDERED: ZOFRAN INJ 4 MG VIAL IVP PRN (10:02)
[2020-02-21 10:32] LABS: BASOPHILS % (AUTO) 0.8 % (0.2-1.0); EOSINOPHILS # (AUTO) 0.2 x10^3/uL (0.0-0.2); EOSINOPHILS % (AUTO) 3.2 % (0.9-2.9); HEMATOCRIT 32.5 % (36.0-47.0); HEMOGLOBIN 11.3 g/dL (12.0-16.0); LYMPHOCYTES % (AUTO) 18.5 % (21.0-51.0); MEAN CORPUSCULAR HGB CONC 34.7 g/dL (33.0-35.0); MEAN CORPUSCULAR VOLUME 86.4 fL (80.0-100.0); MEAN PLATELET VOLUME 7.4 fL (7.4-11.0); MONOCYTES # (AUTO) 0.5 x10^3/uL (0.3-0.8); MONOCYTES % (AUTO) 9.2 % (0.0-13.0); NEUTROPHILS # (AUTO) 3.6 x10^3/uL (2.2-4.8); NEUTROPHILS % (AUTO) 68.3 % (42.0-75.0); PLATELET COUNT 262 X10^3/uL (150.0-450.0); RED BLOOD COUNT 3.76 X10^6/uL (3.5-5.4); RED CELL DISTRIBUTION WIDTH 12.5 % (11.6-16.5); WHITE BLOOD COUNT 5.2 X10^3/uL (3.6-10.0)
[2020-02-21] MEDS: NS 1000 ML 1,000 ML IV SCH ×2 (10:39→19:53)
[2020-02-21 10:47] LABS: ALANINE AMINOTRANSFERASE 20 Units/L (12-78); ALBUMIN 3.3 g/dL (3.4-5.0); ALKALINE PHOSPHATASE 57 Units/L (46-116); AMYLASE 64 Units/L (25-115); ASPARTATE AMINO TRANSFERASE 15 Units/L (15-37); BLOOD UREA NITROGEN 17 mg/dL (7-18); CARBON DIOXIDE 27.8 mmol/L (21-32); CHLORIDE 101 mmol/L (98-107); COR CA(FOR HYPOALB) 9.6 mg/dL (8.5-10.1); COR NA(FOR HYPERGLY) 135 mmol/L (136-145); CREATININE 0.89 mg/dL (0.55-1.02); LIPASE 226 Units/L (73-393); SODIUM 135 mmol/L (136-145); TOTAL PROTEIN 6.4 g/dL (6.4-8.2); eGFR NON BLACK RACES > 60 (>60)
[2020-02-21] MEDS ORDERED: POTASSIUM CHL 40 MEQ/NS 0.45% 500 ML IV PRN (13:32)
[2020-02-21] MEDS ORDERED: MICRO K EXTEN CAP 10 MEQ PO PRN (13:32)
[2020-02-21] MEDS ORDERED: POTASSIUM CHLORIDE LIQ 20 MEQ UDC PO PRN (13:32)
[2020-02-21] MEDS ORDERED: K-RIDER 10 MEQ/NS 100 ML 10 MEQ/100 ML BAG IV PRN (13:32)
[2020-02-21] MEDS ORDERED: POTASSIUM CHL 60 MEQ/NS 0.45% 500 ML IV PRN (13:32)
[2020-02-21] MEDS ORDERED: KLOR-CON PO PRN (13:32)
[2020-02-21] MEDS ORDERED: K-DUR TAB 20 MEQ PO ONE (13:42)
[2020-02-21] MEDS ORDERED: MORPHINE SULFATE INJ 2 MG INJ ONE (13:42)
[2020-02-21] MEDS ORDERED: PHENERGAN INJ 25 MG IM ONE (13:42)
[2020-02-21] MEDS: MORPHINE SULFATE INJ 2 MG INJ IVP PRN ×2 (13:55→19:30)
[2020-02-21] MEDS: K-DUR TAB 20 MEQ PO PRN (13:55)
[2020-02-21] MEDS: PHENERGAN INJ 25 MG IM PRN ×2 (13:57→23:58)
--- NOTE | 2020-02-21 14:08 | DR.H&P ---
H&P - History & Physical for Day of: H&P Date: 02/21/20 - Chief Complaint Chief Complaint: NAUSEA, VOMITING, AND DIARRHEA - History of Present Illness History of Present Illness: IS A 59 YEAR OLD PATIENT OF OURS WHO PRESENTED TO THE HOSPITAL A DIRECT ADMISSION DUE TO DEHDRATION, AND INTRACTABLE NAUSEA, VOMITING, AND DIARRHEA. SYMPTOMS STARTED APPROXIMATELY 6 DAYS AGO AND HAVE PROGRESSIVELY GOTTEN WORSE. SHE ALSO ADMITS TO HEADACHE AND INTERMITTENT CHEST PAIN. CHEST PAIN IS DESCRIBED DULL AND IS RATED 4/10. THERE IS NO RADIATION OF PAIN. SHE WAS SWABBED FOR COVID-19 IN THE ER ON 02/18/20. RESULTS ARE PENDING. HER PMH INCLUDES: MV PROLAPSE, HYPOTENSION, COPD, GERD, KIDNEY STONES, HYSTERECTOMY, ARTHRITIS, DDD, HYPOTHYROIDISM, ANEMIA, CHOLECYSTECTOMY, AND . ON ARRIVAL, LABS WERE OBTAINED. ABNORMAL LAB VALUES INCLUDE THE FOLLOWING: HGB 11.3, HCT 32.5, SODIUM 135, POTASSIUM 3.2, GLUCOSE 114, ALBUMIN 3.3. WE STARTED HER ON NS AT 125 ML/HR, THE POTASSIUM AND MAGNESIUM PROTOCOL, MORPHINE 1-2MG IV Q4H PRN, PHENERGAN 12.5MG IM Q6H PRN, ZOFRAN 4MG IV Q4H PRN, PEPCID 40MG IV BID, AND PROTONIX 40MG IV BID. WE WILL OBTAIN STOOL STUDIES. OTHERWISE, WE WILL FOLLOW UP WITH AM LABS AND CONTINUE TO MONITOR. - Past Medical History Past Medical History: Hypothyroidism - Past Surgical History Surgical History: Cholecystectomy, , Hysterectomy - Family History Family Medical History: Hypertension - Social History Does patient currently use any type of tobacco product: No Have you used tobacco products in the last 12 months: No Type of Tobacco Use: None Does any household member use tobacco: No Alcohol Use: None Drug Use: None - Medications Home Medications: No Known Drug Allergies Allergy (Verified 08/27/19 22:19) CONTINUE taking the following medications hydroxyzine pamoate 50 mg PO HS 02/21/20 [History] lorazepam 1 mg PO BID 02/21/20 [History] - Review of Systems Constitutional: Weakness Eyes: No Symptoms Reported ENT: No Symptoms Reported Respiratory: No Symptoms Reported Cardiovascular: No Symptoms Reported Gastrointestinal: See HPI, Nausea, Vomiting, Diarrhea Genitourinary: No Symptoms Reported Musculoskeletal: No Symptoms Reported Skin: No Symptoms Reported Neurological: See HPI, Weakness - Physical Exam Vital Signs: Respiratory Rate 18 Blood Pressure [Left Arm] 148/80 - Allergies Allergies/Adverse Reactions: Allergies Allergy/AdvReac Type Severity Reaction Status Date / Time No Known Drug Allergies Allergy Verified 08/27/19 22:19
[2020-02-21] MEDS ORDERED: MAALOX or MYLANTA PO PRN (19:50)
[2020-02-21] MEDS ORDERED: VISTARIL PO PRN (22:12)
[2020-02-21] MEDS ORDERED: ATIVAN TAB 1 MG ONE (22:15)
[2020-02-21] MEDS ORDERED: VISTARIL PO ONE (22:15)
[2020-02-21] MEDS: ATIVAN TAB 1 MG PO SCH (22:45)
[2020-02-22] MEDS: MORPHINE SULFATE INJ 2 MG INJ IVP PRN ×5 (02:08→20:50)
[2020-02-22] MEDS: NS 1000 ML 1,000 ML IV SCH ×3 (04:37→20:46)
[2020-02-22 07:02] VITALS: BMI 28.6
[2020-02-22 07:10] LABS: ALANINE AMINOTRANSFERASE 22 Units/L (12-78); ALKALINE PHOSPHATASE 53 Units/L (46-116); ASPARTATE AMINO TRANSFERASE 26 Units/L (15-37); BLOOD UREA NITROGEN 11 mg/dL (7-18); CALCIUM 8.3 mg/dL (8.5-10.1); CARBON DIOXIDE 22.3 mmol/L (21-32); CHLORIDE 106 mmol/L (98-107); COR CA(FOR HYPOALB) 9.1 mg/dL (8.5-10.1); CREATININE 0.79 mg/dL (0.55-1.02); SODIUM 138 mmol/L (136-145); TOTAL PROTEIN 5.6 g/dL (6.4-8.2); eGFR NON BLACK RACES > 60 (>60)
[2020-02-22 07:12] LABS: BASOPHILS % (AUTO) 1.1 % (0.2-1.0); EOSINOPHILS # (AUTO) 0.2 x10^3/uL (0.0-0.2); EOSINOPHILS % (AUTO) 3.7 % (0.9-2.9); HEMATOCRIT 31.5 % (36.0-47.0); HEMOGLOBIN 10.8 g/dL (12.0-16.0); LYMPHOCYTES # (AUTO) 1.3 X10^3/uL (1.3-2.9); LYMPHOCYTES % (AUTO) 29.5 % (21.0-51.0); MEAN CORPUSCULAR HEMOGLOBIN 29.7 pg (27.0-34.0); MEAN CORPUSCULAR HGB CONC 34.2 g/dL (33.0-35.0); MEAN CORPUSCULAR VOLUME 86.7 fL (80.0-100.0); MEAN PLATELET VOLUME 7.5 fL (7.4-11.0); MONOCYTES # (AUTO) 0.4 x10^3/uL (0.3-0.8); MONOCYTES % (AUTO) 9.5 % (0.0-13.0); NEUTROPHILS # (AUTO) 2.4 x10^3/uL (2.2-4.8); NEUTROPHILS % (AUTO) 56.2 % (42.0-75.0); PLATELET COUNT 248 X10^3/uL (150.0-450.0); RED BLOOD COUNT 3.63 X10^6/uL (3.5-5.4); RED CELL DISTRIBUTION WIDTH 12.4 % (11.6-16.5); WHITE BLOOD COUNT 4.3 X10^3/uL (3.6-10.0)
[2020-02-22] MEDS: PHENERGAN INJ 25 MG IM PRN (10:08)
[2020-02-22] MEDS: ATIVAN TAB 1 MG PO SCH ×2 (10:08→20:47)
--- NOTE | 2020-02-22 11:20 | PCM.PROG ---
Progress Note Progress Note for Day of Date of Exam: 02/22/20 Subjective Subjective: Patient seen at bedside, no overnight events. She was admitted for dehydration with nausea, vomiting and diarrhea. Patient states she continues to have vomiting and diarrhea. COVID was checked on 02/18/20 which is still pending. She denies abdominal pain, fever or chills. No sick exposure. Patient reports having intermittent headaches, improved with morphine. Labs: K: 3.9 Mg: Hgb: 10.8 Stool WBC (-) Plan: follow up COVID testing, continue IVF, replace electrolytes as per protocol, check stool studies for culture and C.diff. Monitor AM labs. Past Medical Family Social History Past Med/Fam/Surg Hx: No changes since H&P Allergies: Allergies No Known Drug Allergies Allergy (Verified 08/27/19 22:19) Review of Systems ROS: No change since H&P Vital Signs and I&O's Vital Signs: Temperature 98.9 F Pulse Rate [Right Brachial] 61 Respiratory Rate 18 Blood Pressure [Left Arm] 97/52 O2 Sat by Pulse Oximetry 100 Intake and Output: Intake & Output 02/19/20 02/20/20 02/21/20 02/22/20 23:59 23:59 23:59 23:59 Intake Total 960 / 960 1220 / 1220 Output Total 2 / 2 Balance 958 / 958 1220 / 1220 Physical Exam Oriented: Normal Eyes: Normal Throat: Normal Respiratory: Diminished Cardiovascular: Normal Auscultation: Bowel Sounds: Normal Tenderness: Normal Skin: Normal Musculoskeletal: Normal Psychiatric: Normal Mood Description: Calm Affect: Normal Speech Pattern: Clear and Appropriate Laboratory and Diagnostics Result Diagrams: 02/22/20 06:47 02/22/20 06:47 Labs: Laboratory WBC 4.3 X10^3/uL (3.6-10.0) 02/22/20 06:47 RBC 3.63 X10^6/uL (3.5-5.4) 02/22/20 06:47 Hgb 10.8 g/dL (12.0-16.0) L 02/22/20 06:47 Hct 31.5 % (36.0-47.0) L 02/22/20 06:47 MCV 86.7 fL (80.0-100.0) 02/22/20 06:47 MCH 29.7 pg (27.0-34.0) 02/22/20 06:47 MCHC 34.2 g/dL (33.0-35.0) 02/22/20 06:47 RDW 12.4 % (11.6-16.5) 02/22/20 06:47 Plt Count 248 X10^3/uL (150.0-450.0) 02/22/20 06:47 MPV 7.5 fL (7.4-11.0) 02/22/20 06:47 Neut % (Auto) 56.2 % (42.0-75.0) 02/22/20 06:47 Lymph % (Auto) 29.5 % (21.0-51.0) 02/22/20 06:47 [place] % (Auto) 9.5 % (0.0-13.0) 02/22/20 06:47 Eos % (Auto) 3.7 % (0.9-2.9) H 02/22/20 06:47 Baso % (Auto) 1.1 % (0.2-1.0) H 02/22/20 06:47 Neut # (Auto) 2.4 x10^3/uL (2.2-4.8) 02/22/20 06:47 Lymph # (Auto) 1.3 X10^3/uL (1.3-2.9) 02/22/20 06:47 [place] # (Auto) 0.4 x10^3/uL (0.3-0.8) 02/22/20 06:47 Eos # (Auto) 0.2 x10^3/uL (0.0-0.2) 02/22/20 06:47 Baso # (Auto) 0.0 X10^3/uL (0.0-0.1) 02/22/20 06:47 Absolute Nucleated RBC 0.0 /100WBC 02/22/20 06:47 Sodium 138 mmol/L (136-145) 02/22/20 06:47 Corrected Sodium TNP 02/22/20 06:47 Potassium 3.9 mmol/L (3.5-5.1) 02/22/20 06:47 Chloride 106 mmol/L (98-107) 02/22/20 06:47 Carbon Dioxide 22.3 mmol/L (21-32) 02/22/20 06:47 BUN 11 mg/dL (7-18) 02/22/20 06:47 Creatinine 0.79 mg/dL (0.55-1.02) 02/22/20 06:47 Est GFR (MDRD) Af Amer > 60 (>60) 02/22/20 06:47 Est GFR (MDRD) Non-Af > 60 (>60) 02/22/20 06:47 Glucose 92 mg/dL (65-99) 02/22/20 06:47 Calcium 8.3 mg/dL (8.5-10.1) L 02/22/20 06:47 Corrected Calcium 9.1 mg/dL (8.5-10.1) 02/22/20 06:47 Magnesium 1.5 mg/dL (1.7-2.9) L 02/22/20 06:53 Ferritin 111 ng/mL (8-252) 02/21/20 10:17 Total Bilirubin 0.20 mg/dL (0.2-1.0) 02/22/20 06:47 AST 26 Units/L (15-37) 02/22/20 06:47 ALT 22 Units/L (12-78) 02/22/20 06:47 Alkaline Phosphatase 53 Units/L (46-116) 02/22/20 06:47 C-Reactive Protein 34.70 mg/L (0-3.0) H 02/21/20 10:17 Total Protein 5.6 g/dL (6.4-8.2) L 02/22/20 06:47 Albumin 3.0 g/dL (3.4-5.0) L 02/22/20 06:47 Globulin 2.6 g/dL (2.5-4.5) 02/22/20 06:47 Albumin/Globulin Ratio 1.2 Ratio (1.1-2.1) 02/22/20 06:47 Amylase 64 Units/L (25-115) 02/21/20 10:17 Lipase 226 Units/L (73-393) 02/21/20 10:17 Plan (1) Suspected COVID-19 virus infection: Status: Acute (2) Dehydration: Status: Acute (3) Nausea & vomiting: Status: Acute Qualifiers: Vomiting Intractability: non-intractable Vomiting type: unspecified Qualified Code(s): R11.2 - Nausea with vomiting, unspecified (4) Headache: Status: Acute Qualifiers: Headache chronicity pattern: acute headache Headache type: unspecified Intractability: not intractable Qualified Code(s): R51 - Headache (5) Diarrhea: Status: Acute Qualifiers: Diarrhea type: unspecified type Qualified Code(s): R19.7 - Diarrhea, unspecified
[2020-02-22] MEDS: PEPCID TAB 20 MG PO SCH (12:29)
[2020-02-22] MEDS ORDERED: ZANAFLEX ONE (20:02)
[2020-02-22] MEDS: ZANAFLEX PO SCH (20:48)
[2020-02-22] MEDS: TRIHEXYPHENIDYL PO SCH (20:49)
[2020-02-22] MEDS: MAGNESIUM SULFATE 1 GRAM/100 mL PREMIX 1 GM/100 ML BAG IV PRN (23:00)
[2020-02-22 23:30] LABS: BILIRUBIN,URINE NEGATIVE (NEGATIVE); BLOOD/HEMOGLOBIN,URINE NEGATIVE (NEGATIVE); GLUCOSE, URINE NEGATIVE (NEGATIVE); KETONES,URINE NEGATIVE (NEGATIVE); LEUKOCYTE ESTERASE ,URINE NEGATIVE (NEGATIVE); NITRITES,URINE NEGATIVE (NEGATIVE); PROTEIN,URINE NEGATIVE (NEGATIVE); UROBILINOGEN,URINE NORMAL (NORMAL)
[2020-02-22 23:31] LABS: APPEARANCE,URINE CLEAR (CLEAR); COLOR,URINE YELLOW (YELLOW)
[2020-02-23] MEDS: MAGNESIUM SULFATE 1 GRAM/100 mL PREMIX 1 GM/100 ML BAG IV PRN (00:12)
[2020-02-23] MEDS: NS 1000 ML 1,000 ML IV SCH ×5 (04:24→23:54)
[2020-02-23 09:05] LABS: ALANINE AMINOTRANSFERASE 31 Units/L (12-78); ALBUMIN 2.9 g/dL (3.4-5.0); ALKALINE PHOSPHATASE 59 Units/L (46-116); ASPARTATE AMINO TRANSFERASE 25 Units/L (15-37); BLOOD UREA NITROGEN 6 mg/dL (7-18); CALCIUM 7.8 mg/dL (8.5-10.1); CARBON DIOXIDE 26.6 mmol/L (21-32); CHLORIDE 107 mmol/L (98-107); COR CA(FOR HYPOALB) 8.7 mg/dL (8.5-10.1); CREATININE 0.77 mg/dL (0.55-1.02); SODIUM 140 mmol/L (136-145); TOTAL PROTEIN 5.6 g/dL (6.4-8.2); eGFR NON BLACK RACES > 60 (>60)
[2020-02-23] MEDS ORDERED: CYMBALTA PO ONE (09:26)
[2020-02-23] MEDS: PEPCID TAB 20 MG PO SCH (09:48)
[2020-02-23] MEDS: SYNTHROID 100 mcg TAB PO SCH (09:48)
[2020-02-23] MEDS: ATIVAN TAB 1 MG PO SCH ×2 (09:48→20:53)
[2020-02-23] MEDS: K-DUR TAB 20 MEQ PO PRN (09:49)
[2020-02-23] MEDS: CYMBALTA PO SCH (09:49)
[2020-02-23] MEDS: ZANAFLEX PO SCH ×2 (09:49→20:53)
[2020-02-23 10:29] LABS: BASOPHILS % (AUTO) 0.8 % (0.2-1.0); EOSINOPHILS # (AUTO) 0.2 x10^3/uL (0.0-0.2); EOSINOPHILS % (AUTO) 3.5 % (0.9-2.9); HEMOGLOBIN 11.1 g/dL (12.0-16.0); LYMPHOCYTES # (AUTO) 1.1 X10^3/uL (1.3-2.9); LYMPHOCYTES % (AUTO) 25.5 % (21.0-51.0); MEAN CORPUSCULAR HEMOGLOBIN 29.8 pg (27.0-34.0); MEAN CORPUSCULAR HGB CONC 33.8 g/dL (33.0-35.0); MEAN CORPUSCULAR VOLUME 88.4 fL (80.0-100.0); MONOCYTES # (AUTO) 0.4 x10^3/uL (0.3-0.8); NEUTROPHILS # (AUTO) 2.6 x10^3/uL (2.2-4.8); NEUTROPHILS % (AUTO) 61.2 % (42.0-75.0); PLATELET COUNT 244 X10^3/uL (150.0-450.0); RED BLOOD COUNT 3.73 X10^6/uL (3.5-5.4); RED CELL DISTRIBUTION WIDTH 12.6 % (11.6-16.5); WHITE BLOOD COUNT 4.3 X10^3/uL (3.6-10.0)
[2020-02-23] MEDS ORDERED: VENTOLIN or PROAIR HFA IN PRN (11:23)
[2020-02-23] MEDS ORDERED: MORPHINE SULFATE INJ 2 MG INJ IVP PRN (11:25)
[2020-02-23] MEDS ORDERED: IMODIUM CAP 2 MG PO PRN (11:26)
--- NOTE | 2020-02-23 11:30 | PCM.PROG ---
Progress Note Progress Note for Day of Date of Exam: 02/23/20 Subjective Subjective: Patient seen at bedside, overnight her BP did drop to SBP in 60s but this morning it is 91/50. She continues to have diarrhea, 4 BM's so far today. She states it has slowed down a bit but still watery. She states appetite is better. She has nausea with greasy foods. She also reports sore throat and congestion. She has been having dry cough and feels like she cannot cough up the mucus. She has been afebrile. Labs: Hgb: 11.1 Stool WBC (-) [place] (-) C.diff (-) Plan: follow up COVID testing, continue IVF, replace electrolytes as per protocol, will order CXR, muccinex, albuterol prn. Add loperamide for diarrhea. Will change diet to full liquids for now. Past Medical Family Social History Past Med/Fam/Surg Hx: No changes since H&P Allergies: Allergies No Known Drug Allergies Allergy (Verified 08/27/19 22:19) Review of Systems ROS: No change since H&P Vital Signs and I&O's Vital Signs: Temperature 97.5 F Pulse Rate [Right Brachial] 78 Respiratory Rate 18 Blood Pressure [Left Arm] 104/66 O2 Sat by Pulse Oximetry 99 Intake and Output: Intake & Output 02/20/20 02/21/20 02/22/20 02/23/20 23:59 23:59 23:59 23:59 Intake Total 960 / 960 2380 / 2380 1560 / 1560 Output Total 2 / 2 Balance 958 / 958 2380 / 2380 1560 / 1560 Physical Exam Oriented: Normal Eyes: Normal Throat: Normal Respiratory: Generalized, Diminished and Rhonchi Cardiovascular: Normal Auscultation: Bowel Sounds: Normal Tenderness: Normal Skin: Normal Musculoskeletal: Normal Psychiatric: Normal Mood Description: Calm Affect: Normal Speech Pattern: Clear and Appropriate Laboratory and Diagnostics Result Diagrams: 02/23/20 07:55 02/23/20 07:55 Labs: 02/22/20 21:41 Stool - Final Laboratory WBC 4.3 X10^3/uL (3.6-10.0) 02/23/20 07:55 RBC 3.73 X10^6/uL (3.5-5.4) 02/23/20 07:55 Hgb 11.1 g/dL (12.0-16.0) L 02/23/20 07:55 Hct 33.0 % (36.0-47.0) L 02/23/20 07:55 MCV 88.4 fL (80.0-100.0) 02/23/20 07:55 MCH 29.8 pg (27.0-34.0) 02/23/20 07:55 MCHC 33.8 g/dL (33.0-35.0) 02/23/20 07:55 RDW 12.6 % (11.6-16.5) 02/23/20 07:55 Plt Count 244 X10^3/uL (150.0-450.0) 02/23/20 07:55 MPV 8.0 fL (7.4-11.0) 02/23/20 07:55 Neut % (Auto) 61.2 % (42.0-75.0) 02/23/20 07:55 Lymph % (Auto) 25.5 % (21.0-51.0) 02/23/20 07:55 [place] % (Auto) 9.0 % (0.0-13.0) 02/23/20 07:55 Eos % (Auto) 3.5 % (0.9-2.9) H 02/23/20 07:55 Baso % (Auto) 0.8 % (0.2-1.0) 02/23/20 07:55 Neut # (Auto) 2.6 x10^3/uL (2.2-4.8) 02/23/20 07:55 Lymph # (Auto) 1.1 X10^3/uL (1.3-2.9) L 02/23/20 07:55 [place] # (Auto) 0.4 x10^3/uL (0.3-0.8) 02/23/20 07:55 Eos # (Auto) 0.2 x10^3/uL (0.0-0.2) 02/23/20 07:55 Baso # (Auto) 0.0 X10^3/uL (0.0-0.1) 02/23/20 07:55 Absolute Nucleated RBC 0.0 /100WBC 02/23/20 07:55 Sodium 140 mmol/L (136-145) 02/23/20 07:55 Corrected Sodium TNP 02/23/20 07:55 Potassium 3.6 mmol/L (3.5-5.1) 02/23/20 07:55 Chloride 107 mmol/L (98-107) 02/23/20 07:55 Carbon Dioxide 26.6 mmol/L (21-32) 02/23/20 07:55 BUN 6 mg/dL (7-18) L 02/23/20 07:55 Creatinine 0.77 mg/dL (0.55-1.02) 02/23/20 07:55 Est GFR (MDRD) Af Amer > 60 (>60) 02/23/20 07:55 Est GFR (MDRD) Non-Af > 60 (>60) 02/23/20 07:55 Glucose 82 mg/dL (65-99) 02/23/20 07:55 Calcium 7.8 mg/dL (8.5-10.1) L 02/23/20 07:55 Corrected Calcium 8.7 mg/dL (8.5-10.1) 02/23/20 07:55 Magnesium 1.5 mg/dL (1.7-2.9) L 02/22/20 06:53 Ferritin 111 ng/mL (8-252) 02/21/20 10:17 Total Bilirubin 0.10 mg/dL (0.2-1.0) L 02/23/20 07:55 AST 25 Units/L (15-37) 02/23/20 07:55 ALT 31 Units/L (12-78) 02/23/20 07:55 Alkaline Phosphatase 59 Units/L (46-116) 02/23/20 07:55 C-Reactive Protein 34.70 mg/L (0-3.0) H 02/21/20 10:17 Total Protein 5.6 g/dL (6.4-8.2) L 02/23/20 07:55 Albumin 2.9 g/dL (3.4-5.0) L 02/23/20 07:55 Globulin 2.7 g/dL (2.5-4.5) 02/23/20 07:55 Albumin/Globulin Ratio 1.1 Ratio (1.1-2.1) 02/23/20 07:55 Amylase 64 Units/L (25-115) 02/21/20 10:17 Lipase 226 Units/L (73-393) 02/21/20 10:17 Specimen Type Cancelled 02/22/20 23:18 Specimen Type Clean catch urine 02/22/20 23:18 Urine Color Cancelled 02/22/20 23:18 Urine Color Yellow (YELLOW) 02/22/20 23:18 Urine Appearance Cancelled 02/22/20 23:18 Urine Appearance Clear (CLEAR) 02/22/20 23:18 Urine pH 6.0 (5.0 - 8.0) 02/22/20 23:18 Urine pH Cancelled 02/22/20 23:18 Ur Specific [place] 1.010 (1.000-1.030) 02/22/20 23:18 Ur Specific [place] Cancelled 02/22/20 23:18 Urine Protein Cancelled 02/22/20 23:18 Urine Protein Negative (NEGATIVE) 02/22/20 23:18 Urine Glucose (UA) Cancelled 02/22/20 23:18 Urine Glucose (UA) Negative (NEGATIVE) 02/22/20 23:18 Urine Ketones Cancelled 02/22/20 23:18 Urine Ketones Negative (NEGATIVE) 02/22/20 23:18 Urine Occult Blood Cancelled 02/22/20 23:18 Urine Occult Blood Negative (NEGATIVE) 02/22/20 23:18 Urine Nitrite Cancelled 02/22/20 23:18 Urine Nitrite Negative (NEGATIVE) 02/22/20 23:18 Urine Bilirubin Cancelled 02/22/20 23:18 Urine Bilirubin Negative (NEGATIVE) 02/22/20 23:18 Urine Urobilinogen Cancelled 02/22/20 23:18 Urine Urobilinogen Normal (NORMAL) 02/22/20 23:18 Ur Leukocyte Esterase Cancelled 02/22/20 23:18 Ur Leukocyte Esterase Negative (NEGATIVE) 02/22/20 23:18 Stl C. diff Tox B Gene Negative (NEGATIVE) 02/22/20 21:41 Stl C. diff [id number] Negative (NEGATIVE) 02/22/20 21:41 Plan (1) Suspected COVID-19 virus infection: Status: Acute (2) Dehydration: Status: Acute (3) Nausea & vomiting: Status: Acute Qualifiers: Vomiting Intractability: non-intractable Vomiting type: unspecified Qualified Code(s): R11.2 - Nausea with vomiting, unspecified (4) Headache: Status: Acute Qualifiers: Headache chronicity pattern: acute headache Headache type: unspecified Intractability: not intractable Qualified Code(s): R51 - Headache (5) Diarrhea: Status: Acute Qualifiers: Diarrhea type: unspecified type Qualified Code(s): R19.7 - Diarrhea, unspecified (6) Hypokalemia: Status: Acute (7) Hypomagnesemia: Status: Acute
[2020-02-23] MEDS: MUCINEX EXPECTORANT PO SCH ×2 (15:11→20:53)
--- NOTE | 2020-02-23 15:11 | RAD ---
HISTORYSuspected COVID, coughSTUDYCHEST, 1 VIEWCOMPARISONMay 2019FINDINGSThe trachea is midline. The cardiac silhouette is unremarkable . The lungs are clear without focal infiltrate or effusion. The bony thorax is unremarkable.IMPRESSIONNo acute cardiopulmonary disease.Electronically signed by: SHANNAN ZHANG (Feb 23, 2020 15:09:48)
[2020-02-23] MEDS ORDERED: NORCO 5/325 MG TAB ONE (18:08)
[2020-02-23] MEDS: NORCO 5/325 MG TAB PO PRN (18:10)
[2020-02-23] MEDS: TRIHEXYPHENIDYL PO SCH (20:53)
[2020-02-24] MEDS: NS 1000 ML 1,000 ML IV SCH ×3 (03:40→11:26)
[2020-02-24 06:22] LABS: BASOPHILS % (AUTO) 1.2 % (0.2-1.0); EOSINOPHILS # (AUTO) 0.2 x10^3/uL (0.0-0.2); EOSINOPHILS % (AUTO) 5.2 % (0.9-2.9); HEMATOCRIT 30.3 % (36.0-47.0); HEMOGLOBIN 10.4 g/dL (12.0-16.0); LYMPHOCYTES % (AUTO) 31.5 % (21.0-51.0); MEAN CORPUSCULAR HEMOGLOBIN 29.9 pg (27.0-34.0); MEAN CORPUSCULAR HGB CONC 34.2 g/dL (33.0-35.0); MEAN CORPUSCULAR VOLUME 87.3 fL (80.0-100.0); MONOCYTES # (AUTO) 0.3 x10^3/uL (0.3-0.8); MONOCYTES % (AUTO) 10.7 % (0.0-13.0); NEUTROPHILS # (AUTO) 1.6 x10^3/uL (2.2-4.8); NEUTROPHILS % (AUTO) 51.4 % (42.0-75.0); PLATELET COUNT 216 X10^3/uL (150.0-450.0); RED BLOOD COUNT 3.47 X10^6/uL (3.5-5.4); RED CELL DISTRIBUTION WIDTH 12.6 % (11.6-16.5); WHITE BLOOD COUNT 3.2 X10^3/uL (3.6-10.0)
[2020-02-24 06:43] LABS: ALANINE AMINOTRANSFERASE 48 Units/L (12-78); ALBUMIN 2.7 g/dL (3.4-5.0); ALKALINE PHOSPHATASE 99 Units/L (46-116); ASPARTATE AMINO TRANSFERASE 46 Units/L (15-37); BLOOD UREA NITROGEN 9 mg/dL (7-18); CALCIUM 7.5 mg/dL (8.5-10.1); CARBON DIOXIDE 24.6 mmol/L (21-32); CHLORIDE 107 mmol/L (98-107); COR CA(FOR HYPOALB) 8.5 mg/dL (8.5-10.1); CREATININE 0.74 mg/dL (0.55-1.02); SODIUM 139 mmol/L (136-145); TOTAL PROTEIN 5.4 g/dL (6.4-8.2); eGFR NON BLACK RACES > 60 (>60)
[2020-02-24] MEDS: ATIVAN TAB 1 MG PO SCH (08:52)
[2020-02-24] MEDS: SYNTHROID 100 mcg TAB PO SCH (08:52)
[2020-02-24] MEDS: MUCINEX EXPECTORANT PO SCH (08:52)
[2020-02-24] MEDS: ZANAFLEX PO SCH (08:52)
[2020-02-24] MEDS: CYMBALTA PO SCH (08:52)
[2020-02-24] MEDS: PEPCID TAB 20 MG PO SCH (08:53)
[2020-02-24 11:40] VITALS: BP 100/57
[2020-02-24] MEDS: NORCO 5/325 MG TAB PO PRN (11:46)
== END 2020-02-24 14:45 | disposition home or self-care (01) ==
LOC: MED/SURG
PROVIDERS: ADMIT Internal Medicine; ATTEND Internal Medicine
DX: R79.82 Elevated C-reactive protein (CRP); R51 Headache; J44.9 Chronic obstructive pulmonary disease, unspecified; E83.42 Hypomagnesemia; R19.7 Diarrhea, unspecified; E87.6 Hypokalemia; R11.2 Nausea with vomiting, unspecified; E86.0 Dehydration; R07.89 Other chest pain; K21.9 Gastro-esophageal reflux disease without esophagitis; I95.89 Other hypotension; E03.8 Other specified hypothyroidism
CPT/HCPCS: 36415; 71010; 71045; 80053; 81003; 82150; 82728; 83690; 83735; 85025; 86140; 87045; 87427; 87449; 87493; 87899; A4216; A4222; G0378; J2270; J2550; J3475; J7030; Q0177

== ENCOUNTER 2020-08-18 11:21 | Inpatient (IN) ==
[2020-08-18] MEDS ORDERED: NS 1000 ML 1,000 ML ONE (11:38)
[2020-08-18] MEDS ORDERED: ZOFRAN INJ 4 MG VIAL IVP ONE (11:48)
[2020-08-18] MEDS ORDERED: NS 1000 ML 1,000 ML IV ONE (11:48)
--- NOTE | 2020-08-18 11:48 | DR.NAUSEAF ---
HPI Time Seen Time Seen by Provider: 08/18/20 11:47 Primary Care Physician Primary Care Physician: DR YORK HPI Comment HPI Comment: PATIENT COMPLAINS OF ACUTE ONSET OF NAUSEA, DRY HEAVES, EMESIS, DIARRHEA X 2 WEEKS, HAS ASSOCIATED ABDOMINAL PAIN, ALSO COMPLAINS OF A NONPRODUCTIVE COUGH, DYSPNEA AT REST AND MARKED GENERALIZED WEAKNESS. HAS POOR ORAL INTAKE, UNABLE TO TOLERATE ORAL LIQUIDS. Complaints Chief Complaint Doctors Comments: DYSPNEA, DRY COUGH, NAUSEA, EMESIS, DIARRHEA AND WEAKNESS PMH PMH Past Medical History: Hypothyroidism Past Surgical History: Yes Surgical History: , Cholecystectomy and Hysterectomy Family History Family Medical History: Hypertension Social History Do you use any recreational Drugs:: No ROS Review of Systems Constitutional: See HPI, Chills, Malaise, Weakness, Fatigue and Loss of Appetite Respiratoy: See HPI, Non-Productive Cough and Short of Breath Cardiovascular: No Symptoms Reported Gastrointestinal/Abdominal: See HPI, Abdominal Pain, Diarrhea, Nausea and Vomiting Neurological: Weakness PE Vital Signs Vitals: Temperature 99.4 F Pulse Rate 78 Respiratory Rate 20 Blood Pressure [Left Arm] 100/57 Blood Pressure 105/59 O2 Sat by Pulse Oximetry 95 General Limitations: No Limitations General Appearance: Alert and In No Apparent Distress Head Head Exam: Normal Inspection Eyes Eye exam: Normal Appearance, PERRL and EOMI ENT ENT Exam: Normal Exam Neck Neck Exam: Normal Inspection and Full ROM Chest Chest Inspection: Normal Inspection Respiratory Respiratory Exam: Normal Lung Sounds Bilat Respiratory Exam: Bilateral: Clear to Auscultation Cardiovascular Cardiovascular Exam: Normal Rhythm and Tachycardia Abdominal Exam Abdominal Exam: Normal Inspection, Normal Bowel Sounds, Soft and Tenderness Abdominal Tenderness: Diffuse Rectal Rectal Exam: Deferred External Exam: Female: Normal External Exam : Speculum Exam (Female): Deferred : Bimanual Exam (female): Deferred Extremities Extremities Exam: Normal Inspection Back Back Exam: Normal Inspection and Full ROM Neurologic Neurological Exam: Alert and Oriented X3 Psychiatric Psychiatric Exam: Normal Affect and Normal Mood Skin Skin Exam: Warm, Dry, Intact and Normal Color MDM Differential Diagnosis Differential Diagnosis: Considerations may Include:: Bowel Obstruction, Gastroenteritis, Inflammatory BD and Urolithiasis Differential Diagnosis Comment: COVID PNEUMONIA, DEHYDRATION, INTRACTABLE EMESIS COURSE Treatment Treatment: IV BOLUS NORMAL SALINE 1LITER/HR, ZOFRAN 4MG IV, AFTER 1 LITER NORMAL SALINE BP 88/42 IMPROVED TO BP 114/72, ROR Labs Reviewed Result Diagrams: 08/18/20 11:40 08/18/20 11:40 Laboratory: WBC 12.6 X10^3/uL (3.6-10.0) H 08/18/20 11:40 RBC 3.75 X10^6/uL (3.5-5.4) 08/18/20 11:40 Hgb 11.0 g/dL (12.0-16.0) L 08/18/20 11:40 Hct 32.1 % (36.0-47.0) L 08/18/20 11:40 MCV 85.7 fL (80.0-100.0) 08/18/20 11:40 MCH 29.3 pg (27.0-34.0) 08/18/20 11:40 MCHC 34.2 g/dL (33.0-35.0) 08/18/20 11:40 RDW 12.5 % (11.6-16.5) 08/18/20 11:40 Plt Count 650 X10^3/uL (150.0-450.0) H 08/18/20 11:40 MPV 7.2 fL (7.4-11.0) L 08/18/20 11:40 Neut % (Auto) 88.8 % (42.0-75.0) H 08/18/20 11:40 Lymph % (Auto) 5.0 % (21.0-51.0) L 08/18/20 11:40 [place] % (Auto) 5.4 % (0.0-13.0) 08/18/20 11:40 Eos % (Auto) 0.4 % (0.9-2.9) L 08/18/20 11:40 Baso % (Auto) 0.4 % (0.2-1.0) 08/18/20 11:40 Neut # (Auto) 11.2 x10^3/uL (2.2-4.8) H 08/18/20 11:40 Lymph # (Auto) 0.6 X10^3/uL (1.3-2.9) L 08/18/20 11:40 [place] # (Auto) 0.7 x10^3/uL (0.3-0.8) 08/18/20 11:40 Eos # (Auto) 0.1 x10^3/uL (0.0-0.2) 08/18/20 11:40 Baso # (Auto) 0.1 X10^3/uL (0.0-0.1) 08/18/20 11:40 Absolute Nucleated RBC 0.1 /100WBC 08/18/20 11:40 D-Dimer 1.17 ug/ml (0.0-0.57) H* 08/18/20 11:40 Sample Site Left radial 08/18/20 11:46 ABG pH 7.530 (7.35-7.45) H 08/18/20 11:46 ABG pCO2 31.0 mmHg (35.0-45.0) L 08/18/20 11:46 ABG pO2 44.0 mmHg (80.0-100.0) L* 08/18/20 11:46 ABG HCO3 25.9 mmol/L (22-26) 08/18/20 11:46 ABG O2 Saturation 86.0 % (90-100) L 08/18/20 11:46 ABG Base Excess 3.6 mmol/L (-2.0-2.0) H 08/18/20 11:46 Juan Test Pos 08/18/20 11:46 A-a Gradient 67.0 mmHg 08/18/20 11:46 FiO2 21.0 08/18/20 11:46 Blood Gas Comments [place] well aw 08/18/20 11:46 Sodium 137 mmol/L (136-145) 08/18/20 11:40 Corrected Sodium TNP 08/18/20 11:40 Potassium 3.4 mmol/L (3.5-5.1) L 08/18/20 11:40 Chloride 100 mmol/L (98-107) 08/18/20 11:40 Carbon Dioxide 23.7 mmol/L (21-32) 08/18/20 11:40 BUN 23 mg/dL (7-18) H 08/18/20 11:40 Creatinine 1.12 mg/dL (0.55-1.02) H 08/18/20 11:40 Est GFR (MDRD) Af Amer > 60 (>60) 08/18/20 11:40 Est GFR (MDRD) Non-Af 52 (>60) L 08/18/20 11:40 Glucose 101 mg/dL (65-99) H 08/18/20 11:40 Lactic Acid 1.0 mmol/L (0.4-2.0) 08/18/20 11:40 Calcium 8.6 mg/dL (8.5-10.1) 08/18/20 11:40 Corrected Calcium 10.1 mg/dL (8.5-10.1) 08/18/20 11:40 Magnesium 2.0 mg/dL (1.7-2.9) 08/18/20 11:40 Total Bilirubin 0.50 mg/dL (0.2-1.0) 08/18/20 11:40 AST 50 Units/L (15-37) H 08/18/20 11:40 ALT 41 Units/L (12-78) 08/18/20 11:40 Alkaline Phosphatase 85 Units/L (46-116) 08/18/20 11:40 Troponin I < 0.02 ng/mL (0-1.5) 08/18/20 11:40 C-Reactive Protein 207.90 mg/L (0-3.0) H 08/18/20 11:40 Total Protein 7.2 g/dL (6.4-8.2) 08/18/20 11:40 Albumin 2.1 g/dL (3.4-5.0) L 08/18/20 11:40 Globulin 5.1 g/dL (2.5-4.5) H 08/18/20 11:40 Albumin/Globulin Ratio 0.4 Ratio (1.1-2.1) L 08/18/20 11:40 Amylase 50 Units/L (25-115) 08/18/20 11:40 Lipase 137 Units/L (73-393) 08/18/20 11:40 Influenza Type A (PCR) Negative (NEGATIVE) 08/18/20 12:46 Influenza Type B (PCR) Negative (NEGATIVE) 08/18/20 12:46 XRAY XRAY Interpreted by: Radiologist (CHEST XRAY -DIFFUSE BILATERAL OPACITIES, ABDOMINAL PELVIC CT WITHOUT IV CONTRAST CONSISTENT WITH A SMALL HIATAL HERNIA, NO BOWEL OBSTRUCTION OR FREE AIR) EKG Rate: 87 [place]: Normal Rhythm: NSR Block: None Hypertrophy: None ST: Normal Opioid Opioid Risk Tool Age (Pratik box if 16-45): No History of Preadolescent Sexual Abuse: No Total: 0 Total Score Risk Category: Low Risk Copyright: Omar PARRY predicting aberrant behaviors Diagnosis Discharge Problem: Pneumonia due to COVID-19 virus, Intractable vomiting Instructions Forms: Precautions for COVID19 Patient Portal Social Distancing
[2020-08-18 11:52] LABS: ABG BASE EXCESS 3.6 mmol/L (-2.0-2.0); ABG HCO3 25.9 mmol/L (22-26)
[2020-08-18 11:53] LABS: ABG ALLEN TEST POS
[2020-08-18 11:56] VITALS: BMI 28.3
[2020-08-18 12:20] LABS: BASOPHILS # (AUTO) 0.1 X10^3/uL (0.0-0.1); BASOPHILS % (AUTO) 0.4 % (0.2-1.0); EOSINOPHILS # (AUTO) 0.1 x10^3/uL (0.0-0.2); EOSINOPHILS % (AUTO) 0.4 % (0.9-2.9); HEMATOCRIT 32.1 % (36.0-47.0); LYMPHOCYTES # (AUTO) 0.6 X10^3/uL (1.3-2.9); MEAN CORPUSCULAR HEMOGLOBIN 29.3 pg (27.0-34.0); MEAN CORPUSCULAR HGB CONC 34.2 g/dL (33.0-35.0); MEAN CORPUSCULAR VOLUME 85.7 fL (80.0-100.0); MEAN PLATELET VOLUME 7.2 fL (7.4-11.0); MONOCYTES # (AUTO) 0.7 x10^3/uL (0.3-0.8); MONOCYTES % (AUTO) 5.4 % (0.0-13.0); NEUTROPHILS # (AUTO) 11.2 x10^3/uL (2.2-4.8); NEUTROPHILS % (AUTO) 88.8 % (42.0-75.0); PLATELET COUNT 650 X10^3/uL (150.0-450.0); RED BLOOD COUNT 3.75 X10^6/uL (3.5-5.4); RED CELL DISTRIBUTION WIDTH 12.5 % (11.6-16.5); WHITE BLOOD COUNT 12.6 X10^3/uL (3.6-10.0)
[2020-08-18] MEDS ORDERED: ZOFRAN INJ 4 MG VIAL ONE (12:24)
[2020-08-18 12:40] LABS: ALANINE AMINOTRANSFERASE 41 Units/L (12-78); ALKALINE PHOSPHATASE 85 Units/L (46-116); AMYLASE 50 Units/L (25-115); ASPARTATE AMINO TRANSFERASE 50 Units/L (15-37); BLOOD UREA NITROGEN 23 mg/dL (7-18); CALCIUM 8.6 mg/dL (8.5-10.1); CARBON DIOXIDE 23.7 mmol/L (21-32); CHLORIDE 100 mmol/L (98-107); CREATININE 1.12 mg/dL (0.55-1.02); LIPASE 137 Units/L (73-393); SODIUM 137 mmol/L (136-145); TOTAL PROTEIN 7.2 g/dL (6.4-8.2); TROPONIN I < 0.02 ng/mL (0-1.5); eGFR NON BLACK RACES 52 (>60)
[2020-08-18] MEDS ORDERED: ROBITUSSIN DM PO STA (12:41)
--- NOTE | 2020-08-18 12:44 | RAD ---
HISTORYnausea,vomiting, and diarrhea with a history of covid positive on a rapid test. non productive coughSTUDYCHEST, 1 [id number]/12/2020FINDINGSThe trachea is midline. The cardiac silhouette is stable. Diffuse bilateral airspace opacities. The bony thorax is unremarkable.IMPRESSIONBilateral airspace opacities consistent with history of COVID-19.Electronically signed by: BEN ONTIVEROS (Aug 18, 2020 12:43:34)
[2020-08-18] MEDS ORDERED: ROBITUSSIN DM ONE (12:45)
--- NOTE | 2020-08-18 12:52 | CT ---
HISTORYnausea,vomiting, and diarrhea with a history of covid positive on a rapid test. non productive coughSTUDYABDOMEN/PELVIS without IV contrastCOMPARISONX-rays 02/18/2020TECHNIQUEMultiple axial images of the abdomen and pelvis were obtained from the lung bases to the pubic symphysis without the administration of IV contrast. Dose reduction techniques including Automated Exposure Control (AEC) and adjustment of mA and kV were utilized.FINDINGSThe visualized portions of the lung bases reveal bilateral ground-glass and interstitial infiltrates with subpleural sparing. Findings are concerning for moderate to prominent COVID-19 pneumonia. Patient has breast implants. Adjacent to the right implant is a rounded 2.6 cm focus could be from leak of implant. Abnormal appearance of the soft tissues adjacent to the left breast implant may be from leak or prior silicone ejection.The liver and spleen display no abnormalities.Prior cholecystectomy. No biliary ductal dilation.No pancreatic abnormality is seen.The adrenal glands appear normal.No hydronephrosis or renal abnormality is seen. Ureters and bladder appear normal. Multiple phleboliths are seen in the pelvis.Appendix is not seen but no pericecal inflammation is seen. No suggestion of diverticulitis or colitis. No small bowel obstruction. Small hiatus hernia. No obvious enteritis changes.No adnexal masses.Abdominal aorta is normal in size.No suspicious lymphadenopathy.No free intraperitoneal air or fluid is seen.No acute bony abnormality is seen. Likely benign bone island in the right sacral ala, unchanged from prior x-ray.IMPRESSIONModerate to prominent bilateral COVID-19 pneumonia is suspected.Possible changes associated with breast implant leaks are seen.Small hiatus hernia is seen but no acute abdomen or pelvic abnormality is seen.Electronically signed by: Beau Galvan (Aug 18, 2020 12:50:38)
[2020-08-18 12:58] LABS: ALBUMIN 2.1 g/dL (3.4-5.0); COR CA(FOR HYPOALB) 10.1 mg/dL (8.5-10.1)
[2020-08-18] MEDS ORDERED: ROCEPHIN 1 GRAM IV PREMIX 1 G/50 ML IV.SOLN. IV ONE ×2 (14:55→15:17)
[2020-08-18] MEDS ORDERED: TUSSIONEX PENNKINETIC SUSP PO PRN (18:17)
[2020-08-18 19:45] LABS: CKMB % 1.2 % (<4); CREATINE KINASE 83 Units/L (26-192); TROPONIN I < 0.02 ng/mL (0-1.5)
[2020-08-18] MEDS ORDERED: SOLU-Medrol 125 MG VIAL ONE (19:58)
[2020-08-18] MEDS ORDERED: PEPCID TAB 20 MG ONE (19:58)
[2020-08-18] MEDS ORDERED: REMDESIVIR IV ONE (19:59)
[2020-08-18] MEDS ORDERED: NS 250 ML IV 250 ML IV ONE (19:59)
[2020-08-18] MEDS ORDERED: LOVENOX INJ 30 MG SYR SC ONE (19:59)
[2020-08-18] MEDS ORDERED: TESSALON PERLES PO ONE (19:59)
[2020-08-18] MEDS: NS 1/2 1000 ML IV 1,000 ML IV SCH (20:00)
[2020-08-18] MEDS ORDERED: LEVAQUIN PREMIX IV 750 MG 750 MG/150 ML BAG IV ONE (20:00)
[2020-08-18] MEDS ORDERED: REMDESIVIR 200 MG in NS 250 ML IV 250 ML IV ONE (20:00)
[2020-08-18] MEDS ORDERED: ASCORBIC ACID INJ MULTI-DOSE VIAL IV ONE (20:00)
[2020-08-18] MEDS ORDERED: NS 100 ML IV 100 ML IV ONE (20:01)
[2020-08-18] MEDS ORDERED: NS 1/2 1000 ML IV 1,000 ML IV ONE (20:12)
[2020-08-18] MEDS: SOLU-Medrol 125 MG VIAL IVP SCH (20:30)
[2020-08-18] MEDS: ASCORBIC ACID INJ MULTI-DOSE VIAL 1,500 MG in NS 50 ML IV 50 ML IV SCH ×3 (20:38→21:00)
[2020-08-18] MEDS: PEPCID TAB 20 MG PO SCH (20:39)
[2020-08-18] MEDS: LEVAQUIN PREMIX IV 750 MG 750 MG/150 ML BAG IV SCH (20:42)
[2020-08-18] MEDS ORDERED: MELATONIN PO SCH (21:00)
[2020-08-18] MEDS ORDERED: LOVENOX INJ 30 MG SYR SC SCH (21:00)
[2020-08-18] MEDS ORDERED: MUCOMYST 20% 200 MG/ML ONE (21:41)
[2020-08-18] MEDS ORDERED: DUONEB 0.5 MG/3 MG (3 mL) NEB ONE (21:41)
[2020-08-18] MEDS: MUCOMYST 20% 200 MG/ML NEB SCH (21:50)
[2020-08-18] MEDS: DUONEB 0.5 MG/3 MG (3 mL) NEB SCH (21:50)
[2020-08-18] MEDS: TESSALON PERLES PO SCH (22:40)
[2020-08-18 23:15] LABS: BILIRUBIN,URINE NEGATIVE (NEGATIVE); BLOOD/HEMOGLOBIN,URINE NEGATIVE (NEGATIVE); GLUCOSE, URINE NEGATIVE (NEGATIVE); KETONES,URINE 1+ (NEGATIVE); LEUKOCYTE ESTERASE ,URINE NEGATIVE (NEGATIVE); NITRITES,URINE NEGATIVE (NEGATIVE); PROTEIN,URINE 2+ (NEGATIVE); UROBILINOGEN,URINE 1+ (NORMAL)
[2020-08-18 23:25] LABS: APPEARANCE,URINE CLEAR (CLEAR); COLOR,URINE DARK YELLOW (YELLOW)
[2020-08-18 23:26] LABS: BACTERIA,URINE NEGATIVE /HPF (NEGATIVE); RBC,URINE NONE SEEN /HPF (0-3); SQUAMOUS EPITHELIAL CELL,UR RARE /HPF (NEGATIVE)
[2020-08-18] MEDS: VSL#3 PO SCH (23:49)
[2020-08-18] MEDS: VITAMIN D3 125 mcg (5,000 UNITS) PO SCH (23:49)
[2020-08-19] MEDS ORDERED: DUONEB 0.5 MG/3 MG (3 mL) NEB ONE (00:02)
[2020-08-19] MEDS: DUONEB 0.5 MG/3 MG (3 mL) NEB SCH ×2 (00:22→21:15)
[2020-08-19] MEDS ORDERED: TYLENOL 325 MG TAB PO PRN (00:26)
[2020-08-19] MEDS ORDERED: TYLENOL 325 MG TAB PO ONE (00:32)
[2020-08-19] MEDS ORDERED: ASCORBIC ACID INJ MULTI-DOSE VIAL IV ONE (02:44)
[2020-08-19] MEDS ORDERED: NS 100 ML IV 100 ML IV ONE (02:48)
[2020-08-19] MEDS: ASCORBIC ACID INJ MULTI-DOSE VIAL 1,500 MG in NS 50 ML IV 50 ML IV SCH ×4 (03:18→21:05)
[2020-08-19 05:13] LABS: ABG BASE EXCESS 0.3 mmol/L (-2.0-2.0); ABG HCO3 24.6 mmol/L (22-26)
[2020-08-19 05:14] LABS: ABG ALLEN TEST POS
[2020-08-19] MEDS ORDERED: SOLU-Medrol 125 MG VIAL ONE (05:29)
[2020-08-19] MEDS ORDERED: TESSALON PERLES PO ONE (05:30)
[2020-08-19] MEDS: SOLU-Medrol 125 MG VIAL IVP SCH ×4 (06:14→23:23)
[2020-08-19] MEDS: TESSALON PERLES PO SCH ×3 (06:15→22:13)
[2020-08-19 06:52] LABS: BASOPHILS % (AUTO) 0.3 % (0.2-1.0); EOSINOPHILS % (AUTO) 0.1 % (0.9-2.9); HEMATOCRIT 28.9 % (36.0-47.0); HEMOGLOBIN 10.2 g/dL (12.0-16.0); LYMPHOCYTES # (AUTO) 0.2 X10^3/uL (1.3-2.9); LYMPHOCYTES % (AUTO) 2.4 % (21.0-51.0); MEAN CORPUSCULAR HEMOGLOBIN 30.1 pg (27.0-34.0); MEAN CORPUSCULAR HGB CONC 35.3 g/dL (33.0-35.0); MEAN CORPUSCULAR VOLUME 85.1 fL (80.0-100.0); MONOCYTES # (AUTO) 0.1 x10^3/uL (0.3-0.8); MONOCYTES % (AUTO) 1.2 % (0.0-13.0); NEUTROPHILS # (AUTO) 8.5 x10^3/uL (2.2-4.8); PLATELET COUNT 612 X10^3/uL (150.0-450.0); RED CELL DISTRIBUTION WIDTH 12.5 % (11.6-16.5); WHITE BLOOD COUNT 8.8 X10^3/uL (3.6-10.0)
[2020-08-19 07:06] LABS: ALANINE AMINOTRANSFERASE 34 Units/L (12-78); ALKALINE PHOSPHATASE 93 Units/L (46-116); ASPARTATE AMINO TRANSFERASE 44 Units/L (15-37); BLOOD UREA NITROGEN 13 mg/dL (7-18); CALCIUM 7.8 mg/dL (8.5-10.1); CARBON DIOXIDE 22.6 mmol/L (21-32); CHLORIDE 103 mmol/L (98-107); COR CA(FOR HYPOALB) 9.4 mg/dL (8.5-10.1); COR NA(FOR HYPERGLY) 139 mmol/L (136-145); CREATININE 0.89 mg/dL (0.55-1.02); SODIUM 138 mmol/L (136-145); TOTAL PROTEIN 6.7 g/dL (6.4-8.2); eGFR NON BLACK RACES > 60 (>60)
--- NOTE | 2020-08-19 07:29 | RAD ---
HISTORYSOBSTUDYCHEST, 1 VIEWCOMPARISONOne day prior.TECHNIQUEAP view of the chestFINDINGSCardiac and mediastinal contours are within normal limits. Mild improvement in bilateral airspace and interstitial opacities. No definite pleural effusion or pneumothorax.IMPRESSIONMild improved bilateral airspace disease.Electronically signed by: Jose M Stockton (Aug 19, 2020 07:24:34)
[2020-08-19 07:51] LABS: BAND NEUTROPHILS % 2 % (0-10); PLATELET MORPHOLOGY COMMENT NORMAL (NORMAL)
[2020-08-19] MEDS: PROTONIX TAB 40 MG PO SCH (09:07)
[2020-08-19] MEDS: PEPCID TAB 20 MG PO SCH ×2 (09:07→21:04)
[2020-08-19] MEDS: NS 1/2 1000 ML IV 1,000 ML IV SCH ×2 (09:07→23:41)
[2020-08-19] MEDS: VITAMIN D3 125 mcg (5,000 UNITS) PO SCH (09:08)
[2020-08-19] MEDS: VSL#3 PO SCH (09:08)
[2020-08-19] MEDS: ZINC SULFATE PO SCH (09:47)
[2020-08-19] MEDS ORDERED: IVERMECTIN PO SCH ×2 (10:58→15:00)
--- NOTE | 2020-08-19 14:17 | DR.H&P ---
H&P - History & Physical for Day of: H&P Date: 08/18/20 - Chief Complaint Chief Complaint: COUGH, SOB, FEVER, WEAKNESS, N/V/D - History of Present Illness History of Present Illness: IS A 60 YEAR OLD PATIENT OF OURS. SHE PRESENTED TO THE ER WITH COMPLAINTS OF COUGH, SHORTNESS OF BREATH, FEVER, NAUSEA, VOMITING, DIARRHEA, AND WEAKNESS. HER SYMPTOMS STARTED ABOUT TWO WEEKS AGO. SHE HAS HAD POOR INTAKE AND HAS BEEN UNABLE TO TOLERATE ORAL LIQUIDS. AUSCULTATION OF LUNG HERNANDEZ REVEALED DIMINISHED LUNG SOUNDS THROUGHOUT. ON ARRIVAL, VITALS WERE 99.4-97-13-79%-83/54. LABS WERE OBTAINED. ABNORMAL LAB VALUES INCLUDE THE FOLLOWING: WBC 12.6, HGB 11.0, HCT 32.1, PLT COUNT 650, D- DIMER 1.17, POTASSIUM 3.4, BUN 23, CREATININE 1.12, GLUCOSE 101, AST 50, ALBUMIN 2.1, GLOBULIN 5.1, CRP 207.90. CARDIAC ENZYMES ARE WITHIN NORMAL LIMITS. AN ABG WAS OBTAINED AND REVEALED: PH 7.530, PC02 31, P02 44, HC03 25.9, 02 SAT 86, BASE EXCESS 3.6, A-A GRADIENT 67, FI02 21. URINALYSIS IS UNRAMARKABLE. INFLUENZA NEGATIVE. COVID-19 POSITIVE. BLOOD CULTURES WERE SET UP. EKG REVEALED: SINUS RHYTHM WITH HR 87. A CHEST XRAY WAS OBTAINED AND REVEALED: BILATERAL AIRSPACE OPACITIES CONSISTENT WITH HISTORY OF COVID-19. ABDOMEN/PELVIS CT WAS OBTAINED AND REVEALED: Moderate to prominent bilateral COVID-19 pneumonia is suspected. Possible changes associated with breast implant leaks are seen. Small hiatus hernia is seen but no acute abdomen or pelvic abnormality is seen. OXYGEN VIA NASAL CANNULA WAS APPLIED AT 2 LPM. HER OXYGEN SATURATIONS INCREASED TO 94%. IN THE ER, SHE WAS GIVEN A NORMAL SALINE BOLUS, ROBITUSSIN DM 10 ML PO X 1 DOSE, AND REMDESIVIR 200MG IV X 1 DOSE. SHE WAS ADMITTED TO THE HOSPITAL FOR FURTHER EVALUATION AND TREATMENT OF PNEUMONIA DUE TO COVID-19. SHE WAS STARTED ON 1/2NS AT 75 ML/HR, REMDESIVIR 100MG IV DAILY, LEVAQUIN 750MG IV HS, ASCORBIC ACID 1500MG IV Q6H, DUONEBS QID, MUCOMYST IN NEBS BID, SOLU-MEDROL 125 MG IV Q6H, PROTONIX 40MG PO DAILY, PEPCID 20MG PO BID, VSL 2 CAPS PO DAILY, TUSSIONEX 5ML PO Q12H PRN, TESSALON PERLES 200MG PO TID, IVERMECTIN 15MG PO EVERY OTHER DAY, AND ZINC SULFATE 220MG PO DAILY. WE WILL OBTAIN AN ECHOCARDIOGRAM AND A CHEST CTA. OTHERWISE, WE WILL FOLLOW UP WITH AM LABS, CHEST XRAY, ABG, AND CONTINUE TO MONITOR. TIME SPENT ON CLINICAL ASSESSMENT, REVIEWING LABS AND IMAGING, DECISION MAKING, AND DOCUMENTATION GREATER THAN 75 MINUTES. - Past Medical History Past Medical History: Depression, Hypothyroidism - Past Surgical History Surgical History: , Cholecystectomy, Hysterectomy - Family History Family Medical History: Hypertension - Social History Does patient currently use any type of tobacco product: No Have you used tobacco products in the last 12 months: No Type of Tobacco Use: None Does any household member use tobacco: No Alcohol Use: None Drug Use: None - Medications Home Medications: No Known Drug Allergies Allergy (Verified 08/27/19 22:19) CONTINUE taking the following medications albuterol sulfate [Proventil HFA] 2 puff INHALATION BID 08/18/20 [History] - Review of Systems Constitutional: Fever, Chills, Weakness Eyes: No Symptoms Reported ENT: No Symptoms Reported Respiratory: See HPI, Cough, Shortness of Breath, SOB with Excertion. denies: Sputum, Wheezing Cardiovascular: No Symptoms Reported Gastrointestinal: Nausea, Vomiting, Abdominal Pain Genitourinary: No Symptoms Reported Musculoskeletal: No Symptoms Reported Skin: No Symptoms Reported Neurological: Weakness - Physical Exam Vital Signs: Temperature 98.1 F Pulse Rate [Bilateral Radial] 75 Pulse Rate 90 Respiratory Rate 26 Blood Pressure [Left Arm] 142/74 Blood Pressure 101/49 O2 Sat by Pulse Oximetry 91 Oriented: Normal Eyes: Normal Ear: Normal Nose: Normal Throat: Normal Respiratory: Diminished Throughout Cardiovascular: Normal : Normal Auscultation: Bowel Sounds: Normal Palpation: Normal Tenderness: Normal Skin: Normal Musculoskeletal: Normal Psychiatric: Normal Mood Description: Calm Affect: Normal Speech Pattern: Clear - Assessment/Plan (1) Pneumonia due to 2019 novel coronavirus Status: Acute Plan: ADMIT, 1/2NS AT 75 ML/HR, REMDESIVIR 100MG IV DAILY, LEVAQUIN 750MG IV HS, ASCORBIC ACID 1500MG IV Q6H, DUONEBS QID, MUCOMYST IN NEBS BID, SOLU-MEDROL 125 MG IV Q6H, PROTONIX 40MG PO DAILY, PEPCID 20MG PO BID, VSL 2 CAPS PO DAILY, TUSSIONEX 5ML PO Q12H PRN, TESSALON PERLES 200MG PO TID, IVERMECTIN 15MG PO EVERY OTHER DAY, AND ZINC SULFATE 220MG PO DAILY. ECHO AND CHEST CTA. SUPPLEMENTAL OXYGEN (2) Hypoxia Status: Acute - Allergies Allergies/Adverse Reactions: Allergies Allergy/AdvReac Type Severity Reaction Status Date / Time No Known Drug Allergies Allergy Verified 08/27/19 22:19
[2020-08-19] MEDS: LOVENOX INJ 30 MG SYR SC SCH ×2 (14:58→21:07)
[2020-08-19] MEDS ORDERED: NS 1/2 1000 ML IV 1,000 ML IV ONE (15:30)
[2020-08-19] MEDS: REMDESIVIR 100 MG in NS 250 ML IV 250 ML IV SCH (20:00)
[2020-08-19] MEDS ORDERED: NS 50 ML IV 50 ML IV ONE (20:48)
[2020-08-19] MEDS ORDERED: MELATONIN PO SCH (21:00)
[2020-08-19] MEDS: MELATONIN PO SCH (21:04)
[2020-08-19] MEDS: MUCOMYST 20% 200 MG/ML NEB SCH (21:15)
[2020-08-19] MEDS: LEVAQUIN PREMIX IV 750 MG 750 MG/150 ML BAG IV SCH (22:12)
[2020-08-20] MEDS ORDERED: TYLENOL 325 MG TAB PO PRN (00:05)
[2020-08-20] MEDS ORDERED: NS 50 ML IV 50 ML IV ONE (02:27)
[2020-08-20] MEDS: ASCORBIC ACID INJ MULTI-DOSE VIAL 1,500 MG in NS 50 ML IV 50 ML IV SCH ×4 (02:35→21:28)
[2020-08-20] MEDS: SOLU-Medrol 125 MG VIAL IVP SCH ×4 (04:55→22:13)
[2020-08-20] MEDS: TESSALON PERLES PO SCH ×3 (05:50→21:30)
[2020-08-20 06:03] LABS: ABG BASE EXCESS 2.2 mmol/L (-2.0-2.0); ABG HCO3 26.5 mmol/L (22-26)
[2020-08-20 06:05] LABS: ABG ALLEN TEST POSS
--- NOTE | 2020-08-20 06:51 | RAD ---
HISTORYSOBSTUDYCHEST, 1 VIEWCOMPARISONOne day prior.TECHNIQUEAP view of the chestFINDINGSCardiac and mediastinal contours are within normal limits. No significant change in bilateral airspace and interstitial opacities. No definite pleural effusion or pneumothorax.IMPRESSIONNo significant change.Electronically signed by: Jose M Stockton (Aug 20, 2020 06:50:12)
[2020-08-20 07:48] LABS: BASOPHILS % (AUTO) 0.2 % (0.2-1.0); EOSINOPHILS % (AUTO) 0.2 % (0.9-2.9); HEMATOCRIT 30.2 % (36.0-47.0); HEMOGLOBIN 10.3 g/dL (12.0-16.0); LYMPHOCYTES # (AUTO) 0.3 X10^3/uL (1.3-2.9); LYMPHOCYTES % (AUTO) 2.5 % (21.0-51.0); MEAN CORPUSCULAR HEMOGLOBIN 29.3 pg (27.0-34.0); MEAN CORPUSCULAR HGB CONC 34.2 g/dL (33.0-35.0); MEAN CORPUSCULAR VOLUME 85.7 fL (80.0-100.0); MONOCYTES # (AUTO) 0.4 x10^3/uL (0.3-0.8); NEUTROPHILS # (AUTO) 10.3 x10^3/uL (2.2-4.8); NEUTROPHILS % (AUTO) 93.1 % (42.0-75.0); PLATELET COUNT 650 X10^3/uL (150.0-450.0); RED BLOOD COUNT 3.52 X10^6/uL (3.5-5.4); RED CELL DISTRIBUTION WIDTH 12.2 % (11.6-16.5); WHITE BLOOD COUNT 11.1 X10^3/uL (3.6-10.0)
[2020-08-20 07:58] LABS: ALANINE AMINOTRANSFERASE 34 Units/L (12-78); ALBUMIN 1.9 g/dL (3.4-5.0); ALKALINE PHOSPHATASE 81 Units/L (46-116); ASPARTATE AMINO TRANSFERASE 33 Units/L (15-37); BLOOD UREA NITROGEN 15 mg/dL (7-18); CALCIUM 7.8 mg/dL (8.5-10.1); CARBON DIOXIDE 26.4 mmol/L (21-32); CHLORIDE 103 mmol/L (98-107); COR CA(FOR HYPOALB) 9.5 mg/dL (8.5-10.1); COR NA(FOR HYPERGLY) 139 mmol/L (136-145); CREATININE 0.73 mg/dL (0.55-1.02); SODIUM 138 mmol/L (136-145); TOTAL PROTEIN 6.4 g/dL (6.4-8.2); eGFR NON BLACK RACES > 60 (>60)
[2020-08-20 08:02] LABS: BAND NEUTROPHILS % 2 % (0-10); PLATELET MORPHOLOGY COMMENT NORMAL (NORMAL)
[2020-08-20] MEDS ORDERED: ZOFRAN INJ 4 MG VIAL IVP PRN (09:16)
[2020-08-20] MEDS: DUONEB 0.5 MG/3 MG (3 mL) NEB SCH ×4 (10:05→20:55)
[2020-08-20] MEDS: MUCOMYST 20% 200 MG/ML NEB SCH ×2 (10:05→20:55)
[2020-08-20] MEDS ORDERED: NS 1/2 1000 ML IV 1,000 ML IV ONE (10:48)
[2020-08-20] MEDS: ZINC SULFATE PO SCH (11:40)
[2020-08-20] MEDS: ESTRACE PO SCH (11:40)
[2020-08-20] MEDS: ATIVAN TAB 1 MG PO SCH ×2 (11:40→21:28)
[2020-08-20] MEDS: VITAMIN D3 125 mcg (5,000 UNITS) PO SCH (11:41)
[2020-08-20] MEDS: PEPCID TAB 20 MG PO SCH ×2 (11:41→21:29)
[2020-08-20] MEDS: CYMBALTA PO SCH (11:42)
[2020-08-20] MEDS: VSL#3 PO SCH (11:42)
[2020-08-20] MEDS: SYNTHROID 100 mcg TAB PO SCH (11:42)
[2020-08-20] MEDS: LOVENOX INJ 30 MG SYR SC SCH ×2 (11:43→21:29)
[2020-08-20] MEDS: PROTONIX TAB 40 MG PO SCH (11:43)
--- NOTE | 2020-08-20 14:14 | DR.UPDATE ---
H&P Update History and Physical Update: History and Physical reviewed and patient examined. Changes noted: NO Yes with the following:will place central line H&P Reviewed: Yes Patient was examined?: Yes Procedures (ALL) - Central Line Placement PCM.CLCO: written consent Time out performed: Yes Patient placed pm monitor/pulse ox: Yes MD prep: mask, gown, gloves, other Centrial line prep: povidone-iodine 1%, sterile drapes applied Local anesthsia used: lidocane 1% Ultrasound used for placement: Yes (right ij id'd via u/s) Central line lumen ininserted: triple Post procedure: sutured in place, good blood return, all ports aspirated, flushed,capped, sterile dressing applied Post procedure xray: tip oc catheter in good position, no pneumothorax seen Patient tolerated procedure: Yes Complications: none
--- NOTE | 2020-08-20 14:21 | RAD ---
HISTORYCENTRAL LINE PLACEMENTSTUDYCHEST, 1 VIEWCOMPARISONPortable chest August 20, 2020 at 3:40 a.m.FINDINGSThe trachea is midline. The cardiac silhouette is unremarkable. A new right internal jugular central venous catheter is been placed tip in the superior aspect of the right atrium. There is no pneumothorax. The bilateral predominantly central and peripheral infiltrates are stable compared to this morning's film. There is no pneumothorax effusions the lungs are clear without focal infiltrate or effusion. The bony thorax is unremarkable.IMPRESSIONStable appearance of the bilateral central and peripheral infiltrates compared to this morning's film.Right internal jugular line placed without pneumothorax.Electronically signed by: PATY CONTRERAS (Aug 20, 2020 14:18:58)
[2020-08-20] MEDS: ALBUMIN HUMAN 25%- 100 ML 100 ML IV SCH (15:34)
[2020-08-20] MEDS: NS 1/2 1000 ML IV 1,000 ML IV SCH (15:37)
[2020-08-20] MEDS: REMDESIVIR 100 MG in NS 250 ML IV 250 ML IV SCH (21:00)
[2020-08-20] MEDS: LEVAQUIN PREMIX IV 750 MG 750 MG/150 ML BAG IV SCH (21:28)
[2020-08-20] MEDS: MELATONIN PO SCH (21:29)
[2020-08-21] MEDS: ASCORBIC ACID INJ MULTI-DOSE VIAL 1,500 MG in NS 50 ML IV 50 ML IV SCH ×4 (03:00→22:35)
[2020-08-21] MEDS: NS 1/2 1000 ML IV 1,000 ML IV SCH ×3 (03:27→16:55)
[2020-08-21] MEDS: SOLU-Medrol 125 MG VIAL IVP SCH ×4 (04:36→23:05)
[2020-08-21] MEDS: TESSALON PERLES PO SCH ×3 (05:21→23:10)
[2020-08-21 05:33] LABS: ABG BASE EXCESS 4.2 mmol/L (-2.0-2.0); ABG HCO3 28.4 mmol/L (22-26)
[2020-08-21 05:34] LABS: ABG ALLEN TEST POS
[2020-08-21 07:21] LABS: BASOPHILS % (AUTO) 0.1 % (0.2-1.0); HEMATOCRIT 26.1 % (36.0-47.0); HEMOGLOBIN 8.8 g/dL (12.0-16.0); LYMPHOCYTES # (AUTO) 0.2 X10^3/uL (1.3-2.9); LYMPHOCYTES % (AUTO) 1.9 % (21.0-51.0); MEAN CORPUSCULAR HEMOGLOBIN 28.9 pg (27.0-34.0); MEAN CORPUSCULAR HGB CONC 33.7 g/dL (33.0-35.0); MEAN CORPUSCULAR VOLUME 85.7 fL (80.0-100.0); MEAN PLATELET VOLUME 7.1 fL (7.4-11.0); MONOCYTES # (AUTO) 0.7 x10^3/uL (0.3-0.8); MONOCYTES % (AUTO) 5.9 % (0.0-13.0); NEUTROPHILS # (AUTO) 11.7 x10^3/uL (2.2-4.8); NEUTROPHILS % (AUTO) 92.1 % (42.0-75.0); PLATELET COUNT 522 X10^3/uL (150.0-450.0); RED BLOOD COUNT 3.04 X10^6/uL (3.5-5.4); RED CELL DISTRIBUTION WIDTH 12.6 % (11.6-16.5); WHITE BLOOD COUNT 12.7 X10^3/uL (3.6-10.0)
[2020-08-21 07:32] LABS: ALANINE AMINOTRANSFERASE 25 Units/L (12-78); ALBUMIN 2.2 g/dL (3.4-5.0); ALKALINE PHOSPHATASE 65 Units/L (46-116); ASPARTATE AMINO TRANSFERASE 29 Units/L (15-37); BLOOD UREA NITROGEN 16 mg/dL (7-18); CALCIUM 7.5 mg/dL (8.5-10.1); CARBON DIOXIDE 26.6 mmol/L (21-32); CHLORIDE 105 mmol/L (98-107); COR CA(FOR HYPOALB) 8.9 mg/dL (8.5-10.1); COR NA(FOR HYPERGLY) 141 mmol/L (136-145); CREATININE 0.77 mg/dL (0.55-1.02); SODIUM 140 mmol/L (136-145); TOTAL PROTEIN 5.5 g/dL (6.4-8.2); eGFR NON BLACK RACES > 60 (>60)
--- NOTE | 2020-08-21 07:33 | RAD ---
HISTORYSOBSTUDYCHEST, 1 VIEWCOMPARISONJanuary 7thTECHNIQUEPortable chest x-rayFINDINGSHeart size is normal. There are persistent diffuse bilateral airspace opacities consisting of coarsened interstitial infiltrates as well as peribronchial and peripheral ground-glass opacities with intervening areas of more dense consolidation in the setting of an atypical pneumonia pattern. No accumulating pleural fluid collections are identified. There is no evidence of free air or pneumothorax. Right internal jugular central venous catheter position remains adequate.IMPRESSIONUnchanged diffuse bilateral pulmonary opacities/infiltrates favoring an atypical pneumonia patternElectronically signed by: MILES TALAVERA (Aug 21, 2020 07:33:44)
[2020-08-21] MEDS: MUCOMYST 20% 200 MG/ML NEB SCH (08:00)
[2020-08-21] MEDS: DUONEB 0.5 MG/3 MG (3 mL) NEB SCH ×4 (08:00→20:50)
[2020-08-21 08:08] LABS: BAND NEUTROPHILS % 2 % (0-10)
[2020-08-21 08:09] LABS: PLATELET MORPHOLOGY COMMENT NORMAL (NORMAL)
[2020-08-21] MEDS: PEPCID TAB 20 MG PO SCH ×2 (10:39→22:35)
[2020-08-21] MEDS: PROTONIX TAB 40 MG PO SCH (10:49)
[2020-08-21] MEDS: VITAMIN D3 125 mcg (5,000 UNITS) PO SCH (10:50)
[2020-08-21] MEDS: VSL#3 PO SCH (10:50)
[2020-08-21] MEDS: ZINC SULFATE PO SCH (10:50)
--- NOTE | 2020-08-21 11:01 | PCM.PROG ---
Progress Note - Progress Note for Day of Date of Exam: 08/20/20 - Subjective Subjective: IS BEING TREATED FOR PNEUMONIA DUE TO COVID-19 AND HYPOXIA. TODAY, SHE IS ALERT, LYING IN BED ON MORNING ROUNDS. SHE CONTINUES WITH COMPLAINTS OF COUGH, SHORNTESS OF BREATH, NAUSEA, AND GENERALIZED WEAKNESS. SHE REPORTS FEELING MORE SHORT OF BREATH TODAY. 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 HER OXYGEN SATURATIONS HAVE BEEN 96-100% THIS MORNING AND THROUGHOUT THE NIGHT. ON EXAMINATION, HEART IS REGULAR IN RATE AND RHYTHM. BILATERAL LUNGS ARE NOTED WITH RALES THROUGHOUT. ABDOMEN IS ROUND, SOFT, AND NON-TENDER WITH NORMAL BOWEL SOUNDS NOTED IN ALL QUADRANTS. NO EDEMA NOTED TO UPPER OR LOWER EXTREMITIES. HER VITALS THIS MORNING ARE: 97.6-78-22-100%-125/62. LABS WERE OBTAINED. ABNORMAL LAB VALUES INCLUDE THE FOLLOWING: WBC 11.1, HGB 10.3, HCT 30.2, PLT COUNT 650, GLUCOSE 160, CALCIUM 7.8, FERRITIN 763, CRP 104.80, ALBUMIN 1.9. ABG REVEALED: PH 7.440, PC02 39, P02 180, HC03 26.5, 02 SAT 100, BASE EXCESS 2.2, A-A GRADIENT 484, FI02 100. BLOOD CULTURES ARE PENDING. A CHEST XRAY WAS OBTAINED AND REVEALED: Cardiac and mediastinal contours are within normal limits. No significant change in bilateral airspace and interstitial opacities. No definite pleural effusion or pneumothorax. AN ECHO WAS OBTAINED YESTERDAY AND REVEALED AN EJECTION FRACTION OF 72% AND MILD PULMONARY HYPERTENSION. SHE IS CURRENTLY RECEIVING 1/2NS AT 75 ML/HR, REMDESIVIR 100MG IV DAILY, LEVAQUIN 750MG IV HS, ASCORBIC ACID 1500MG IV Q6H, DUONEBS QID, MUCOMYST IN NEBS BID, SOLU-MEDROL 125 MG IV Q6H, PROTONIX 40MG PO DAILY, PEPCID 20MG PO BID, VSL 2 CAPS PO DAILY, TUSSIONEX 5ML PO Q12H PRN, TESSALON PERLES 200MG PO TID, IVERMECTIN 15MG PO EVERY OTHER DAY, AND ZINC SULFATE 220MG PO DAILY. TODAY, WE WILL ADD ZOFRAN 4MG IV Q4H PRN AND ATTEMPT TO WEAN OXYGEN DOWN HER SATURATIONS PERMIT. OTHERWISE, WE WILL FOLLOW UP WITH AM LABS, CHEST XRAY, ABG, AND CONTINUE TO MONITOR. TIME SPENT ON CLINICAL ASSESSMENT, REVIEWING LABS AND IMAGING, DECISION MAKING, AND DOCUMENTATION GREATER THAN 75 MINUTES. - Past Medical Family Social History Past Med/Fam/Surg Hx: No changes since H&P Allergies: Allergies No Known Drug Allergies Allergy (Verified 08/27/19 22:19) - Review of Systems ROS: No change since H&P - Vital Signs and I&O's Vital Signs: Temperature 98.0 F Pulse Rate [Bilateral Radial] 79 Pulse Rate 93 Respiratory Rate 22 Blood Pressure [Left Arm] 96/51 Blood Pressure 101/49 O2 Sat by Pulse Oximetry 96 Intake and Output: Intake & Output 08/18/20 08/19/20 08/20/20 08/21/20 11:59 11:59 11:59 11:59 Intake Total 1342 / 1342 3413 / 3413 2899 / 2899 Output Total 450 / 450 1625 / 1625 1025 / 1025 Balance 892 / 892 1788 / 1788 1874 / 1874 - Physical Exam Oriented: Normal Eyes: Normal Ear: Normal Nose: Normal Throat: Normal Respiratory: Generalized, Diminished, Rales Cardiovascular: Normal : Normal Auscultation: Bowel Sounds: Normal Palpation: Normal Tenderness: Normal Skin: Normal Musculoskeletal: Normal Psychiatric: Normal Mood Description: Calm Affect: Normal Speech Pattern: Clear - Laboratory and Diagnostics Result Diagrams: 08/21/20 05:26 08/21/20 05:26 Labs: 08/18/20 12:00 Blood Blood Culture - Preliminary 08/18/20 11:40 Blood Blood Culture - Preliminary Laboratory WBC 12.7 X10^3/uL (3.6-10.0) H 08/21/20 05:26 RBC 3.04 X10^6/uL (3.5-5.4) L 08/21/20 05:26 Hgb 8.8 g/dL (12.0-16.0) L 08/21/20 05:26 Hct 26.1 % (36.0-47.0) L 08/21/20 05:26 MCV 85.7 fL (80.0-100.0) 08/21/20 05:26 MCH 28.9 pg (27.0-34.0) 08/21/20 05:26 MCHC 33.7 g/dL (33.0-35.0) 08/21/20 05:26 RDW 12.6 % (11.6-16.5) 08/21/20 05:26 Plt Count 522 X10^3/uL (150.0-450.0) H 08/21/20 05:26 Plt Count Comment Increased (ADEQUATE) A 08/21/20 05:26 MPV 7.1 fL (7.4-11.0) L 08/21/20 05:26 Neut % (Auto) 92.1 % (42.0-75.0) H 08/21/20 05:26 Lymph % (Auto) 1.9 % (21.0-51.0) L 08/21/20 05:26 [place] % (Auto) 5.9 % (0.0-13.0) 08/21/20 05:26 Eos % (Auto) 0.0 % (0.9-2.9) L 08/21/20 05:26 Baso % (Auto) 0.1 % (0.2-1.0) L 08/21/20 05:26 Neut # (Auto) 11.7 x10^3/uL (2.2-4.8) H 08/21/20 05:26 Lymph # (Auto) 0.2 X10^3/uL (1.3-2.9) L 08/21/20 05:26 [place]ergus # (Auto) 0.7 x10^3/uL (0.3-0.8) 08/21/20 05:26 Eos # (Auto) 0.0 x10^3/uL (0.0-0.2) 08/21/20 05:26 Baso # (Auto) 0.0 X10^3/uL (0.0-0.1) 08/21/20 05:26 Absolute Nucleated RBC 0.1 /100WBC 08/21/20 05:26 Total Counted 100 08/21/20 05:26 Neutrophils % (Manual) 91 % (39-76) H 08/21/20 05:26 Band Neutrophils % 2 % (0-10) 08/21/20 05:26 Lymphocytes % (Manual) 1 % (13-43) L 08/21/20 05:26 Monocytes % (Manual) 6 % (4-9) 08/21/20 05:26 Plt Morphology Comment Normal (NORMAL) 08/21/20 05:26 RBC Morphology Normal (NORMAL) 08/21/20 05:26 D-Dimer 1.25 ug/ml (0.0-0.57) H* 08/21/20 05:26 Sample Site Lr 08/21/20 05:25 ABG pH 7.460 (7.35-7.45) H 08/21/20 05:25 ABG pCO2 40.0 mmHg (35.0-45.0) 08/21/20 05:25 ABG pO2 59.0 mmHg (80.0-100.0) L 08/21/20 05:25 ABG HCO3 28.4 mmol/L (22-26) H 08/21/20 05:25 ABG O2 Saturation 92.0 % (90-100) 08/21/20 05:25 ABG Base Excess 4.2 mmol/L (-2.0-2.0) H 08/21/20 05:25 Juan Test Pos 08/21/20 05:25 A-a Gradient 604.0 mmHg 08/21/20 05:25 FiO2 100.0 08/21/20 05:25 Blood Gas Comments [place] well ae 08/21/20 05:25 Sodium 140 mmol/L (136-145) 08/21/20 05:26 Corrected Sodium 141 mmol/L (136-145) 08/21/20 05:26 Potassium 3.6 mmol/L (3.5-5.1) 08/21/20 05:26 Chloride 105 mmol/L (98-107) 08/21/20 05:26 Carbon Dioxide 26.6 mmol/L (21-32) 08/21/20 05:26 BUN 16 mg/dL (7-18) 08/21/20 05:26 Creatinine 0.77 mg/dL (0.55-1.02) 08/21/20 05:26 Est GFR (MDRD) Af Amer > 60 (>60) 08/21/20 05:26 Est GFR (MDRD) Non-Af > 60 (>60) 08/21/20 05:26 Glucose 133 mg/dL (65-99) H 08/21/20 05:26 Lactic Acid 1.0 mmol/L (0.4-2.0) 08/18/20 11:40 Calcium 7.5 mg/dL (8.5-10.1) L 08/21/20 05:26 Corrected Calcium 8.9 mg/dL (8.5-10.1) 08/21/20 05:26 Magnesium 2.0 mg/dL (1.7-2.9) 08/18/20 11:40 Ferritin 475 ng/mL (8-252) H 08/21/20 05:26 Total Bilirubin 0.20 mg/dL (0.2-1.0) 08/21/20 05:26 AST 29 Units/L (15-37) 08/21/20 05:26 ALT 25 Units/L (12-78) 08/21/20 05:26 Alkaline Phosphatase 65 Units/L (46-116) 08/21/20 05:26 Creatine Kinase 83 Units/L (26-192) 08/18/20 19:07 CK-MB (CK-2) 1.0 ng/mL (0-4.0) 08/18/20 19:07 CK/CKMB % Calc 1.2 % (<4) 08/18/20 19:07 Troponin I < 0.02 ng/mL (0-1.5) 08/18/20 19:07 C-Reactive Protein 32.50 mg/L (0-3.0) H 08/21/20 05:26 B-Natriuretic Peptide 36.0 pg/mL (0-79) 08/18/20 19:07 Total Protein 5.5 g/dL (6.4-8.2) L 08/21/20 05:26 Albumin 2.2 g/dL (3.4-5.0) L 08/21/20 05:26 Globulin 3.3 g/dL (2.5-4.5) 08/21/20 05:26 Albumin/Globulin Ratio 0.7 Ratio (1.1-2.1) L 08/21/20 05:26 Amylase 50 Units/L (25-115) 08/18/20 11:40 Lipase 137 Units/L (73-393) 08/18/20 11:40 Specimen Type Catherized urine 08/18/20 23:07 Urine Color Dark yellow (YELLOW) 08/18/20 23:07 Urine Appearance Clear (CLEAR) 08/18/20 23:07 Urine pH 7.0 (5.0 - 8.0) 08/18/20 23:07 Ur Specific Gardner 1.010 (1.000-1.030) 08/18/20 23:07 Urine Protein 2+ (NEGATIVE) 08/18/20 23:07 Urine Glucose (UA) Negative (NEGATIVE) 08/18/20 23:07 Urine Ketones 1+ (NEGATIVE) 08/18/20 23:07 Urine Occult Blood Negative (NEGATIVE) 08/18/20 23:07 Urine Nitrite Negative (NEGATIVE) 08/18/20 23:07 Urine Bilirubin Negative (NEGATIVE) 08/18/20 23:07 Urine Urobilinogen 1+ (NORMAL) 08/18/20 23:07 Ur Leukocyte Esterase Negative (NEGATIVE) 08/18/20 23:07 Urine RBC None seen /HPF (0-3) 08/18/20 23:07 Urine WBC None seen /HPF (0-5) 08/18/20 23:07 Ur Squamous Epith Cells Rare /HPF (NEGATIVE) 08/18/20 23:07 Urine Bacteria Negative /HPF (NEGATIVE) 08/18/20 23:07 Ur Culture Indicated? No/not indicated 08/18/20 23:07 Influenza Type A (PCR) Negative (NEGATIVE) 08/18/20 12:46 Influenza Type B (PCR) Negative (NEGATIVE) 08/18/20 12:46 SARS CoV-2 RNA Rapid LUIS Positive (NEGATIVE) A 08/18/20 18:12 - Plan (1) Pneumonia due to 2019 novel coronavirus Status: Acute Plan: 1/2NS AT 75 ML/HR, REMDESIVIR 100MG IV DAILY, LEVAQUIN 750MG IV HS, ASCORBIC ACID 1500MG IV Q6H, DUONEBS QID, MUCOMYST IN NEBS BID, SOLU-MEDROL 125 MG IV Q6H, PROTONIX 40MG PO DAILY, PEPCID 20MG PO BID, VSL 2 CAPS PO DAILY, TUSSIONEX 5ML PO Q12H PRN, TESSALON PERLES 200MG PO TID, ZOFRAN 4MG IV Q4H PRN, IVERMECTIN 15MG PO EVERY OTHER DAY, AND ZINC SULFATE 220MG PO DAILY. (2) Hypoxia Status: Acute
--- NOTE | 2020-08-21 11:07 | PCM.PROG ---
Progress Note - Progress Note for Day of Date of Exam: 08/21/20 - Subjective Subjective: IS BEING TREATED FOR PNEUMONIA DUE TO COVID-19 AND HYPOXIA. TODAY, SHE IS ALERT, LYING IN BED ON MORNING ROUNDS. SHE CONTINUES WITH COMPLAINTS OF COUGH, SHORNTESS OF BREATH, NAUSEA, AND GENERALIZED WEAKNESS. SHE DENIES SIGNIFICANT IMPROVEMENT IN SYMPTOMS SINCE ONE DAY PRIOR. SHE IS CURRENTLY UTILIZING THE NON-REBREATHER AT 10 LPM. HER OXYGEN SATURATIONS HAVE BEEN 94-100% THIS MORNING AND THROUGHOUT THE NIGHT. ON EXAMINATION, HEART IS REGULAR IN RATE AND RHYTHM. BILATERAL LUNGS ARE NOTED WITH RALES THROUGHOUT. ABDOMEN IS ROUND, SOFT, AND NON-TENDER WITH NORMAL BOWEL SOUNDS NOTED IN ALL QUADRANTS. NO EDEMA NOTED TO UPPER OR LOWER EXTREMITIES. HER VITALS THIS MORNING ARE: 98.0-79-22-96%-96/51. LABS WERE OBTAINED. ABNORMAL LAB VALUES INCLUDE THE FOLLOWING: WBC 12.7, RBC 3.04, HGB 8.8, HCT 26.1, PLT COUNT 522, D-DIMER 1.25, GLUCOSE 133, CALCIUM 7.5, FERRITIN 475, CRP 32.50, TOTAL PROTEIN 5.5, ALBUMIN 2.2. BLOOD CULTURES ARE PENDING. ABG WAS OBTAINED AND REVEALED: PH 7.460, PC02 40, PC02 59, HC03 28.4, 02 SAT 92, BASE EXCESS 4.2, A-A GRADIENT 604, FI02 100. A CHEST XRAY WAS OBTAINED AND REVEALED: Unchanged diffuse bilateral pulmonary opacities/infiltrates favoring an atypical pneumonia pattern. SHE IS CURRENTLY RECEIVING 1/2NS AT 75 ML/HR, REMDESIVIR 100MG IV DAILY, LEVAQUIN 750MG IV HS, ASCORBIC ACID 1500MG IV Q6H, DUONEBS QID, MUCOMYST IN NEBS BID, SOLU-MEDROL 125 MG IV Q6H, PROTONIX 40MG PO DAILY, PEPCID 20MG PO BID, VSL 2 CAPS PO DAILY, TUSSIONEX 5ML PO Q12H PRN, TESSALON PERLES 200MG PO TID, ZOFRAN 4MG IV Q4H PRN, AND ZINC SULFATE 220MG PO DAILY. WE WILL CONTINUE TO DECREASE OXYGEN HER SATURATIONS PERMIT. OTHERWISE, WE WILL FOLLOW UP WITH AM LABS, CHEST XRAY, ABG, AND CONTINUE TO MONITOR. TIME SPENT ON CLINICAL ASSESSMENT, REVIEWING LABS AND IMAGING, DECISION MAKING, AND DOCUMENTATION GREATER THAN 75 MINUTES. - Past Medical Family Social History Past Med/Fam/Surg Hx: No changes since H&P Allergies: Allergies No Known Drug Allergies Allergy (Verified 08/27/19 22:19) - Review of Systems ROS: No change since H&P - Vital Signs and I&O's Vital Signs: Temperature 98.0 F Pulse Rate [Bilateral Radial] 79 Pulse Rate 93 Respiratory Rate 22 Blood Pressure [Left Arm] 96/51 Blood Pressure 101/49 O2 Sat by Pulse Oximetry 96 Intake and Output: Intake & Output 08/18/20 08/19/20 08/20/20 08/21/20 11:59 11:59 11:59 11:59 Intake Total 1342 / 1342 3413 / 3413 2899 / 2899 Output Total 450 / 450 1625 / 1625 1025 / 1025 Balance 892 / 892 1788 / 1788 1874 / 1874 - Physical Exam Oriented: Normal Eyes: Normal Ear: Normal Nose: Normal Throat: Normal Respiratory: Generalized, Diminished, Rales Cardiovascular: Normal : Normal Auscultation: Bowel Sounds: Normal Palpation: Normal Tenderness: Normal Skin: Normal Musculoskeletal: Normal Psychiatric: Normal Mood Description: Calm Affect: Normal Speech Pattern: Clear - Laboratory and Diagnostics Result Diagrams: 08/21/20 05:26 08/21/20 05:26 Labs: 08/18/20 12:00 Blood Blood Culture - Preliminary 08/18/20 11:40 Blood Blood Culture - Preliminary Laboratory WBC 12.7 X10^3/uL (3.6-10.0) H 08/21/20 05:26 RBC 3.04 X10^6/uL (3.5-5.4) L 08/21/20 05:26 Hgb 8.8 g/dL (12.0-16.0) L 08/21/20 05:26 Hct 26.1 % (36.0-47.0) L 08/21/20 05:26 MCV 85.7 fL (80.0-100.0) 08/21/20 05:26 MCH 28.9 pg (27.0-34.0) 08/21/20 05:26 MCHC 33.7 g/dL (33.0-35.0) 08/21/20 05:26 RDW 12.6 % (11.6-16.5) 08/21/20 05:26 Plt Count 522 X10^3/uL (150.0-450.0) H 08/21/20 05:26 Plt Count Comment Increased (ADEQUATE) A 08/21/20 05:26 MPV 7.1 fL (7.4-11.0) L 08/21/20 05:26 Neut % (Auto) 92.1 % (42.0-75.0) H 08/21/20 05:26 Lymph % (Auto) 1.9 % (21.0-51.0) L 08/21/20 05:26 [place] % (Auto) 5.9 % (0.0-13.0) 08/21/20 05:26 Eos % (Auto) 0.0 % (0.9-2.9) L 08/21/20 05:26 Baso % (Auto) 0.1 % (0.2-1.0) L 08/21/20 05:26 Neut # (Auto) 11.7 x10^3/uL (2.2-4.8) H 08/21/20 05:26 Lymph # (Auto) 0.2 X10^3/uL (1.3-2.9) L 08/21/20 05:26 [place] # (Auto) 0.7 x10^3/uL (0.3-0.8) 08/21/20 05:26 Eos # (Auto) 0.0 x10^3/uL (0.0-0.2) 08/21/20 05:26 Baso # (Auto) 0.0 X10^3/uL (0.0-0.1) 08/21/20 05:26 Absolute Nucleated RBC 0.1 /100WBC 08/21/20 05:26 Total Counted 100 08/21/20 05:26 Neutrophils % (Manual) 91 % (39-76) H 08/21/20 05:26 Band Neutrophils % 2 % (0-10) 08/21/20 05:26 Lymphocytes % (Manual) 1 % (13-43) L 08/21/20 05:26 Monocytes % (Manual) 6 % (4-9) 08/21/20 05:26 Plt Morphology Comment Normal (NORMAL) 08/21/20 05:26 RBC Morphology Normal (NORMAL) 08/21/20 05:26 D-Dimer 1.25 ug/ml (0.0-0.57) H* 08/21/20 05:26 Sample Site Lr 08/21/20 05:25 ABG pH 7.460 (7.35-7.45) H 08/21/20 05:25 ABG pCO2 40.0 mmHg (35.0-45.0) 08/21/20 05:25 ABG pO2 59.0 mmHg (80.0-100.0) L 08/21/20 05:25 ABG HCO3 28.4 mmol/L (22-26) H 08/21/20 05:25 ABG O2 Saturation 92.0 % (90-100) 08/21/20 05:25 ABG Base Excess 4.2 mmol/L (-2.0-2.0) H 08/21/20 05:25 Juan Test Pos 08/21/20 05:25 A-a Gradient 604.0 mmHg 08/21/20 05:25 FiO2 100.0 08/21/20 05:25 Blood Gas Comments [place] well ae 08/21/20 05:25 Sodium 140 mmol/L (136-145) 08/21/20 05:26 Corrected Sodium 141 mmol/L (136-145) 08/21/20 05:26 Potassium 3.6 mmol/L (3.5-5.1) 08/21/20 05:26 Chloride 105 mmol/L (98-107) 08/21/20 05:26 Carbon Dioxide 26.6 mmol/L (21-32) 08/21/20 05:26 BUN 16 mg/dL (7-18) 08/21/20 05:26 Creatinine 0.77 mg/dL (0.55-1.02) 08/21/20 05:26 Est GFR (MDRD) Af Amer > 60 (>60) 08/21/20 05:26 Est GFR (MDRD) Non-Af > 60 (>60) 08/21/20 05:26 Glucose 133 mg/dL (65-99) H 08/21/20 05:26 Lactic Acid 1.0 mmol/L (0.4-2.0) 08/18/20 11:40 Calcium 7.5 mg/dL (8.5-10.1) L 08/21/20 05:26 Corrected Calcium 8.9 mg/dL (8.5-10.1) 08/21/20 05:26 Magnesium 2.0 mg/dL (1.7-2.9) 08/18/20 11:40 Ferritin 475 ng/mL (8-252) H 08/21/20 05:26 Total Bilirubin 0.20 mg/dL (0.2-1.0) 08/21/20 05:26 AST 29 Units/L (15-37) 08/21/20 05:26 ALT 25 Units/L (12-78) 08/21/20 05:26 Alkaline Phosphatase 65 Units/L (46-116) 08/21/20 05:26 Creatine Kinase 83 Units/L (26-192) 08/18/20 19:07 CK-MB (CK-2) 1.0 ng/mL (0-4.0) 08/18/20 19:07 CK/CKMB % Calc 1.2 % (<4) 08/18/20 19:07 Troponin I < 0.02 ng/mL (0-1.5) 08/18/20 19:07 C-Reactive Protein 32.50 mg/L (0-3.0) H 08/21/20 05:26 B-Natriuretic Peptide 36.0 pg/mL (0-79) 08/18/20 19:07 Total Protein 5.5 g/dL (6.4-8.2) L 08/21/20 05:26 Albumin 2.2 g/dL (3.4-5.0) L 08/21/20 05:26 Globulin 3.3 g/dL (2.5-4.5) 08/21/20 05:26 Albumin/Globulin Ratio 0.7 Ratio (1.1-2.1) L 08/21/20 05:26 Amylase 50 Units/L (25-115) 08/18/20 11:40 Lipase 137 Units/L (73-393) 08/18/20 11:40 Specimen Type Catherized urine 08/18/20 23:07 Urine Color Dark yellow (YELLOW) 08/18/20 23:07 Urine Appearance Clear (CLEAR) 08/18/20 23:07 Urine pH 7.0 (5.0 - 8.0) 08/18/20 23:07 Ur Specific [place] 1.010 (1.000-1.030) 08/18/20 23:07 Urine Protein 2+ (NEGATIVE) 08/18/20 23:07 Urine Glucose (UA) Negative (NEGATIVE) 08/18/20 23:07 Urine Ketones 1+ (NEGATIVE) 08/18/20 23:07 Urine Occult Blood Negative (NEGATIVE) 08/18/20 23:07 Urine Nitrite Negative (NEGATIVE) 08/18/20 23:07 Urine Bilirubin Negative (NEGATIVE) 08/18/20 23:07 Urine Urobilinogen 1+ (NORMAL) 08/18/20 23:07 Ur Leukocyte Esterase Negative (NEGATIVE) 08/18/20 23:07 Urine RBC None seen /HPF (0-3) 08/18/20 23:07 Urine WBC None seen /HPF (0-5) 08/18/20 23:07 Ur Squamous Epith Cells Rare /HPF (NEGATIVE) 08/18/20 23:07 Urine Bacteria Negative /HPF (NEGATIVE) 08/18/20 23:07 Ur Culture Indicated? No/not indicated 08/18/20 23:07 Influenza Type A (PCR) Negative (NEGATIVE) 08/18/20 12:46 Influenza Type B (PCR) Negative (NEGATIVE) 08/18/20 12:46 SARS CoV-2 RNA Rapid LUIS Positive (NEGATIVE) A 08/18/20 18:12 - Plan (1) Pneumonia due to 2019 novel coronavirus Status: Acute Plan: 1/2NS AT 75 ML/HR, REMDESIVIR 100MG IV DAILY, LEVAQUIN 750MG IV HS, ASCORBIC ACID 1500MG IV Q6H, DUONEBS QID, MUCOMYST IN NEBS BID, SOLU-MEDROL 125 MG IV Q6H, PROTONIX 40MG PO DAILY, PEPCID 20MG PO BID, VSL 2 CAPS PO DAILY, TUSSIONEX 5ML PO Q12H PRN, TESSALON PERLES 200MG PO TID, ZOFRAN 4MG IV Q4H PRN, AND ZINC SULFATE 220MG PO DAILY. (2) Hypoxia Status: Acute
[2020-08-21] MEDS ORDERED: NS 1/2 1000 ML IV 1,000 ML IV ONE ×2 (11:28→11:56)
[2020-08-21] MEDS: ALBUMIN HUMAN 25%- 100 ML 100 ML IV SCH (12:27)
[2020-08-21] MEDS: FORTAZ or TAZICEF VIAL INJ 1 G in NS 100 ML IV + SPIKE MINIBAG* 100 ML IV SCH ×3 (12:28→23:10)
[2020-08-21] MEDS: ELIQUIS PO SCH ×2 (12:28→22:35)
[2020-08-21] MEDS: ESTRACE PO SCH (12:28)
[2020-08-21] MEDS: ATIVAN TAB 1 MG PO SCH ×2 (12:28→22:35)
[2020-08-21] MEDS: SYNTHROID 100 mcg TAB PO SCH (12:29)
[2020-08-21] MEDS: CYMBALTA PO SCH (12:31)
[2020-08-21] MEDS: MUCOMYST (RESPIRATORY USE ONLY) NEB SCH (20:50)
[2020-08-21] MEDS: REMDESIVIR 100 MG in NS 250 ML IV 250 ML IV SCH (21:31)
[2020-08-21] MEDS: MELATONIN PO SCH (22:35)
[2020-08-22] MEDS: LEVAQUIN PREMIX IV 750 MG 750 MG/150 ML BAG IV SCH ×2 (00:05→22:15)
[2020-08-22] MEDS ORDERED: NS 1/2 1000 ML IV 1,000 ML IV ONE (01:04)
[2020-08-22] MEDS: ASCORBIC ACID INJ MULTI-DOSE VIAL 1,500 MG in NS 50 ML IV 50 ML IV SCH ×4 (02:56→21:45)
[2020-08-22] MEDS: SOLU-Medrol 125 MG VIAL IVP SCH ×4 (05:00→22:15)
[2020-08-22] MEDS: FORTAZ or TAZICEF VIAL INJ 1 G in NS 100 ML IV + SPIKE MINIBAG* 100 ML IV SCH ×2 (05:00→13:59)
[2020-08-22] MEDS: TESSALON PERLES PO SCH ×3 (05:00→21:30)
[2020-08-22 05:16] LABS: ABG ALLEN TEST POS; ABG BASE EXCESS 5.5 mmol/L (-2.0-2.0); ABG HCO3 29.9 mmol/L (22-26)
[2020-08-22] MEDS: NS 1/2 1000 ML IV 1,000 ML IV SCH ×2 (05:56→10:13)
--- NOTE | 2020-08-22 06:20 | RAD ---
Chest AP portableIndication: COVID-19 pneumonia. DyspneaFINDINGSThere is no pneumothorax. Right IJ catheter tip is over the cavoatrial junction. Heart size is prominent. Bilateral pulmonary opacities are similar to the prior.IMPRESSIONUnchanged dense bilateral pulmonary opacities, compatible with viral pneumonitis/ARDS.Electronically signed by: RODRICK TUBBS (Aug 22, 2020 06:18:15)
[2020-08-22 06:50] LABS: BASOPHILS % (AUTO) 0.1 % (0.2-1.0); HEMATOCRIT 26.9 % (36.0-47.0); HEMOGLOBIN 9.2 g/dL (12.0-16.0); LYMPHOCYTES # (AUTO) 0.2 X10^3/uL (1.3-2.9); MEAN CORPUSCULAR HEMOGLOBIN 29.3 pg (27.0-34.0); MEAN CORPUSCULAR HGB CONC 34.2 g/dL (33.0-35.0); MEAN CORPUSCULAR VOLUME 85.7 fL (80.0-100.0); MONOCYTES # (AUTO) 0.5 x10^3/uL (0.3-0.8); MONOCYTES % (AUTO) 5.2 % (0.0-13.0); NEUTROPHILS # (AUTO) 9.2 x10^3/uL (2.2-4.8); NEUTROPHILS % (AUTO) 92.7 % (42.0-75.0); PLATELET COUNT 311 X10^3/uL (150.0-450.0); RED BLOOD COUNT 3.14 X10^6/uL (3.5-5.4); RED CELL DISTRIBUTION WIDTH 12.8 % (11.6-16.5); WHITE BLOOD COUNT 9.9 X10^3/uL (3.6-10.0)
[2020-08-22 07:08] LABS: ALANINE AMINOTRANSFERASE 21 Units/L (12-78); ALBUMIN 2.4 g/dL (3.4-5.0); ALKALINE PHOSPHATASE 78 Units/L (46-116); ASPARTATE AMINO TRANSFERASE 22 Units/L (15-37); BLOOD UREA NITROGEN 17 mg/dL (7-18); CALCIUM 7.5 mg/dL (8.5-10.1); CARBON DIOXIDE 28.3 mmol/L (21-32); CHLORIDE 104 mmol/L (98-107); COR CA(FOR HYPOALB) 8.8 mg/dL (8.5-10.1); COR NA(FOR HYPERGLY) 141 mmol/L (136-145); SODIUM 140 mmol/L (136-145); TOTAL PROTEIN 5.5 g/dL (6.4-8.2); eGFR NON BLACK RACES > 60 (>60)
[2020-08-22 07:51] LABS: BAND NEUTROPHILS % 2 % (0-10); PLATELET MORPHOLOGY COMMENT NORMAL (NORMAL)
[2020-08-22] MEDS: ALBUMIN HUMAN 25%- 100 ML 100 ML IV SCH (10:13)
[2020-08-22] MEDS: ZINC SULFATE PO SCH (10:14)
[2020-08-22] MEDS: ATIVAN TAB 1 MG PO SCH ×2 (10:14→21:30)
[2020-08-22] MEDS: SYNTHROID 100 mcg TAB PO SCH (10:15)
[2020-08-22] MEDS: PEPCID TAB 20 MG PO SCH ×2 (10:20→21:30)
[2020-08-22] MEDS: VSL#3 PO SCH (10:20)
[2020-08-22] MEDS: CYMBALTA PO SCH (10:20)
[2020-08-22] MEDS: ELIQUIS PO SCH (10:21)
[2020-08-22] MEDS: PROTONIX TAB 40 MG PO SCH (10:25)
[2020-08-22] MEDS: ESTRACE PO SCH (10:26)
[2020-08-22] MEDS: VITAMIN D3 125 mcg (5,000 UNITS) PO SCH (10:26)
[2020-08-22] MEDS: MUCOMYST (RESPIRATORY USE ONLY) NEB SCH ×2 (10:30→20:50)
[2020-08-22] MEDS: DUONEB 0.5 MG/3 MG (3 mL) NEB SCH (10:30)
[2020-08-22] MEDS: DIFLUCAN PO SCH (13:00)
[2020-08-22] MEDS: MAGIC MOUTHWASH MT SCH ×2 (13:00→17:31)
[2020-08-22] MEDS ORDERED: MUCOMYST (RESPIRATORY USE ONLY) NEB SCH (13:00)
[2020-08-22] MEDS ORDERED: NS 100 ML IV 100 ML IV ONE ×2 (13:57→20:24)
--- NOTE | 2020-08-22 14:18 | PCM.PROG ---
Progress Note Progress Note for Day of Date of Exam: 08/22/20 Subjective Subjective: IS BEING TREATED FOR PNEUMONIA DUE TO COVID-19 AND HYPOXIA. THIS MORNING SHE REPORTS MINIMAL IMPROVEMENT IN HER BREATHING. SHE CONTINUES TO HAVE COUGH AND SHORTNESS OF BREATH. SHE IS CURRENTLY UTILIZING THE NON-REBREATHER AT 24 LPM. HER OXYGEN SATURATIONS HAVE BEEN 87-90% ON EXAMINATION, HEART IS REGULAR IN RATE AND RHYTHM. BILATERAL LUNGS ARE NOTED WITH RALES THROUGHOUT. ABDOMEN IS ROUND, SOFT, AND NON-TENDER WITH NORMAL BOWEL SOUNDS NOTED IN ALL QUADRANTS. NO EDEMA NOTED TO UPPER OR LOWER EXTREMITIES. HER VITALS THIS MORNING ARE: 98.2-93-20-89%-131/62. LABS/IMAGING INCLUDE THE FOLLOWING: WBC 9.9, HGB 9.2, HCT 26, PLT COUNT 311, D-DIMER 18, NA 140, K 3.6, CR 0.70, GLUCOSE 134, CRP 37, BLOOD CULTURES ARE PENDING. ABG WAS OBTAINED AND REVEALED: PH 7.46, PC02 42, PC02 61, HC03 29, 02 SAT 92, FI02 100. A CHEST XRAY WAS OBTAINED AND REVEALED: Unchanged dense bilateral pulmonary opacities, compatible with viral pneumonitis/ARDS. HER HOSPITAL/TREATMENT COURSE INCLUDES RECEIVING 1/2NS AT 75 ML/HR, REMDESIVIR 100MG IV DAILY, LEVAQUIN 750MG IV HS, ASCORBIC ACID 1500MG IV Q6H, DUONEBS QID, MUCOMYST IN NEBS BID, SOLU-MEDROL 125 MG IV Q6H, PROTONIX 40MG PO DAILY, PEPCID 20MG PO BID, VSL 2 CAPS PO DAILY, TUSSIONEX 5ML PO Q12H PRN, TESSALON PERLES 200MG PO TID, ZOFRAN 4MG IV Q4H PRN, AND ZINC SULFATE 220MG PO DAILY. CONTINUE TO DECREASE OXYGEN HER SATURATIONS PERMIT. D-DIMER SIGNIFICANTLY ELEVATED, WILL GET CTA CHEST TO EVALUATE FOR PULMONARY EMBOLISM. OTHERWISE, CONTINUE WITH CURRENT TREATMENT PLAN. WILL CONTINUE TO MONITOR AND FOLLOW UP LABS/IMAGING IN THE MORNING. Past Medical Family Social History Past Med/Fam/Surg Hx: No changes since H&P Allergies: Allergies No Known Drug Allergies Allergy (Verified 08/27/19 22:19) Review of Systems ROS: No change since H&P Vital Signs and I&O's Vital Signs: Temperature 98.2 F Pulse Rate [Bilateral Radial] 93 Pulse Rate 99 Respiratory Rate 20 Blood Pressure [Left Arm] 131/62 Blood Pressure 101/49 O2 Sat by Pulse Oximetry 87 Intake and Output: Intake & Output 08/19/20 08/20/20 08/21/20 08/22/20 23:59 23:59 23:59 23:59 Intake Total 3659 / 3659 2556 / 2556 3401 / 3401 1081 / 1081 Output Total 1850 / 1850 750 / 750 1400 / 1400 450 / 450 Balance 1809 / 1809 1806 / 1806 2000 631 / 631 Physical Exam Oriented: Normal Eyes: Normal Ear: Normal Nose: Normal Throat: Normal Respiratory: Generalized, Diminished and Rales Cardiovascular: Normal : Normal Auscultation: Bowel Sounds: Normal Tenderness: Normal Skin: Normal Musculoskeletal: Normal Psychiatric: Normal Mood Description: Calm Affect: Normal Speech Pattern: Clear Laboratory and Diagnostics Result Diagrams: 08/22/20 05:48 08/22/20 05:48 Labs: 08/18/20 12:00 Blood Blood Culture - Preliminary 08/18/20 11:40 Blood Blood Culture - Preliminary Laboratory WBC 9.9 X10^3/uL (3.6-10.0) 08/22/20 05:48 RBC 3.14 X10^6/uL (3.5-5.4) L 08/22/20 05:48 Hgb 9.2 g/dL (12.0-16.0) L 08/22/20 05:48 Hct 26.9 % (36.0-47.0) L 08/22/20 05:48 MCV 85.7 fL (80.0-100.0) 08/22/20 05:48 MCH 29.3 pg (27.0-34.0) 08/22/20 05:48 MCHC 34.2 g/dL (33.0-35.0) 08/22/20 05:48 RDW 12.8 % (11.6-16.5) 08/22/20 05:48 Plt Count 311 X10^3/uL (150.0-450.0) 08/22/20 05:48 Plt Count Comment Adequate (ADEQUATE) 08/22/20 05:48 MPV 7.0 fL (7.4-11.0) L 08/22/20 05:48 Neut % (Auto) 92.7 % (42.0-75.0) H 08/22/20 05:48 Lymph % (Auto) 2.0 % (21.0-51.0) L 08/22/20 05:48 [place] % (Auto) 5.2 % (0.0-13.0) 08/22/20 05:48 Eos % (Auto) 0.0 % (0.9-2.9) L 08/22/20 05:48 Baso % (Auto) 0.1 % (0.2-1.0) L 08/22/20 05:48 Neut # (Auto) 9.2 x10^3/uL (2.2-4.8) H 08/22/20 05:48 Lymph # (Auto) 0.2 X10^3/uL (1.3-2.9) L 08/22/20 05:48 [place] # (Auto) 0.5 x10^3/uL (0.3-0.8) 08/22/20 05:48 Eos # (Auto) 0.0 x10^3/uL (0.0-0.2) 08/22/20 05:48 Baso # (Auto) 0.0 X10^3/uL (0.0-0.1) 08/22/20 05:48 Absolute Nucleated RBC 0.0 /100WBC 08/22/20 05:48 Total Counted 100 08/22/20 05:48 Neutrophils % (Manual) 92 % (39-76) H 08/22/20 05:48 Band Neutrophils % 2 % (0-10) 08/22/20 05:48 Lymphocytes % (Manual) 2 % (13-43) L 08/22/20 05:48 Monocytes % (Manual) 4 % (4-9) 08/22/20 05:48 Plt Morphology Comment Normal (NORMAL) 08/22/20 05:48 RBC Morphology Normal (NORMAL) 08/22/20 05:48 D-Dimer 18.59 ug/ml (0.0-0.57) H* 08/22/20 05:54 Sample Site Lr 08/22/20 05:00 ABG pH 7.460 (7.35-7.45) H 08/22/20 05:00 ABG pCO2 42.0 mmHg (35.0-45.0) 08/22/20 05:00 ABG pO2 61.0 mmHg (80.0-100.0) L 08/22/20 05:00 ABG HCO3 29.9 mmol/L (22-26) H 08/22/20 05:00 ABG O2 Saturation 92.0 % (90-100) 08/22/20 05:00 ABG Base Excess 5.5 mmol/L (-2.0-2.0) H 08/22/20 05:00 Juan Test Pos 08/22/20 05:00 A-a Gradient 600.0 mmHg 08/22/20 05:00 FiO2 100.0 08/22/20 05:00 Blood Gas Comments [place] well sw 08/22/20 05:00 Sodium 140 mmol/L (136-145) 08/22/20 05:48 Corrected Sodium 141 mmol/L (136-145) 08/22/20 05:48 Potassium 3.6 mmol/L (3.5-5.1) 08/22/20 05:48 Chloride 104 mmol/L (98-107) 08/22/20 05:48 Carbon Dioxide 28.3 mmol/L (21-32) 08/22/20 05:48 BUN 17 mg/dL (7-18) 08/22/20 05:48 Creatinine 0.70 mg/dL (0.55-1.02) 08/22/20 05:48 Est GFR (MDRD) Af Amer > 60 (>60) 08/22/20 05:48 Est GFR (MDRD) Non-Af > 60 (>60) 08/22/20 05:48 Glucose 134 mg/dL (65-99) H 08/22/20 05:48 Lactic Acid 1.0 mmol/L (0.4-2.0) 08/18/20 11:40 Calcium 7.5 mg/dL (8.5-10.1) L 08/22/20 05:48 Corrected Calcium 8.8 mg/dL (8.5-10.1) 08/22/20 05:48 Magnesium 2.0 mg/dL (1.7-2.9) 08/18/20 11:40 Ferritin 337 ng/mL (8-252) H 08/22/20 05:48 Total Bilirubin 0.30 mg/dL (0.2-1.0) 08/22/20 05:48 AST 22 Units/L (15-37) 08/22/20 05:48 ALT 21 Units/L (12-78) 08/22/20 05:48 Alkaline Phosphatase 78 Units/L (46-116) 08/22/20 05:48 Creatine Kinase 83 Units/L (26-192) 08/18/20 19:07 CK-MB (CK-2) 1.0 ng/mL (0-4.0) 08/18/20 19:07 CK/CKMB % Calc 1.2 % (<4) 08/18/20 19:07 Troponin I < 0.02 ng/mL (0-1.5) 08/18/20 19:07 C-Reactive Protein 37.70 mg/L (0-3.0) H 08/22/20 05:48 B-Natriuretic Peptide 36.0 pg/mL (0-79) 08/18/20 19:07 Total Protein 5.5 g/dL (6.4-8.2) L 08/22/20 05:48 Albumin 2.4 g/dL (3.4-5.0) L 08/22/20 05:48 Globulin 3.1 g/dL (2.5-4.5) 08/22/20 05:48 Albumin/Globulin Ratio 0.8 Ratio (1.1-2.1) L 08/22/20 05:48 Amylase 50 Units/L (25-115) 08/18/20 11:40 Lipase 137 Units/L (73-393) 08/18/20 11:40 Specimen Type Catherized urine 08/18/20 23:07 Urine Color Dark yellow (YELLOW) 08/18/20 23:07 Urine Appearance Clear (CLEAR) 08/18/20 23:07 Urine pH 7.0 (5.0 - 8.0) 08/18/20 23:07 Ur Specific [place] 1.010 (1.000-1.030) 08/18/20 23:07 Urine Protein 2+ (NEGATIVE) 08/18/20 23:07 Urine Glucose (UA) Negative (NEGATIVE) 08/18/20 23:07 Urine Ketones 1+ (NEGATIVE) 08/18/20 23:07 Urine Occult Blood Negative (NEGATIVE) 08/18/20 23:07 Urine Nitrite Negative (NEGATIVE) 08/18/20 23:07 Urine Bilirubin Negative (NEGATIVE) 08/18/20 23:07 Urine Urobilinogen 1+ (NORMAL) 08/18/20 23:07 Ur Leukocyte Esterase Negative (NEGATIVE) 08/18/20 23:07 Urine RBC None seen /HPF (0-3) 08/18/20 23:07 Urine WBC None seen /HPF (0-5) 08/18/20 23:07 Ur Squamous Epith Cells Rare /HPF (NEGATIVE) 08/18/20 23:07 Urine Bacteria Negative /HPF (NEGATIVE) 08/18/20 23:07 Ur Culture Indicated? No/not indicated 08/18/20 23:07 Influenza Type A (PCR) Negative (NEGATIVE) 08/18/20 12:46 Influenza Type B (PCR) Negative (NEGATIVE) 08/18/20 12:46 SARS CoV-2 RNA Rapid LUIS Positive (NEGATIVE) A 08/18/20 18:12 Blood Type B POSITIVE 08/21/20 14:30 Plan (1) Pneumonia due to 2019 novel coronavirus: Status: Acute Plan: 1/2NS AT 75 ML/HR, REMDESIVIR 100MG IV DAILY, LEVAQUIN 750MG IV HS, ASCORBIC ACID 1500MG IV Q6H, DUONEBS QID, MUCOMYST IN NEBS BID, SOLU-MEDROL 125 MG IV Q6H, PROTONIX 40MG PO DAILY, PEPCID 20MG PO BID, VSL 2 CAPS PO DAILY, TUSSIONEX 5ML PO Q12H PRN, TESSALON PERLES 200MG PO TID, ZOFRAN 4MG IV Q4H PRN, AND ZINC SULFATE 220MG PO DAILY. (2) Hypoxia: Status: Acute
[2020-08-22] MEDS ORDERED: HEPARIN SODIUM IN D5W 25,000 UNITS/500 ML BAG IV ONE (15:42)
[2020-08-22] MEDS: ACCUNEB 1.25 MG NEBULE NEB SCH ×3 (17:25→20:50)
[2020-08-22] MEDS ORDERED: BENADRYL INJ 50 MG VIAL IVP ONE (18:06)
[2020-08-22] MEDS: PULMICORT NEB TX 0.5 MG NEB SCH ×2 (18:06→20:50)
[2020-08-22] MEDS ORDERED: NS 250 ML IV 250 ML IV ONE (20:24)
[2020-08-22] MEDS: REMDESIVIR 100 MG in NS 250 ML IV 250 ML IV SCH (20:40)
[2020-08-22] MEDS: MELATONIN PO SCH (21:30)
[2020-08-22] MEDS ORDERED: HEPARIN SODIUM INJ 5000 UNITS IVP ONE (23:04)
[2020-08-23] MEDS: NS 1/2 1000 ML IV 1,000 ML IV SCH ×3 (00:10→17:12)
[2020-08-23] MEDS: FORTAZ or TAZICEF VIAL INJ 1 G in NS 100 ML IV + SPIKE MINIBAG* 100 ML IV SCH ×4 (00:13→21:34)
[2020-08-23] MEDS: HEPARIN SODIUM IN D5W 25,000 UNITS/500 ML BAG IV PRN ×3 (00:50→22:01)
[2020-08-23] MEDS: ASCORBIC ACID INJ MULTI-DOSE VIAL 1,500 MG in NS 50 ML IV 50 ML IV SCH ×4 (02:10→21:30)
[2020-08-23] MEDS: MAGIC MOUTHWASH MT SCH ×5 (03:08→21:32)
[2020-08-23] MEDS ORDERED: NS 1/2 1000 ML IV 1,000 ML IV ONE ×2 (03:09→19:50)
[2020-08-23] MEDS: TESSALON PERLES PO SCH ×3 (06:19→21:34)
[2020-08-23] MEDS: SOLU-Medrol 125 MG VIAL IVP SCH ×4 (06:19→22:00)
--- NOTE | 2020-08-23 06:35 | RAD ---
Chest AP portableIndication: COVID-19 infection.Comparison August 22, 2020FINDINGSPatchy bilateral pulmonary opacities are fairly dense, similar to the prior. Monitor leads obscure detail. Right IJ catheter tip is over the SVC. There is no pneumothorax.IMPRESSIONPersistent pulmonary opacities, compatible with ARDS/viral pneumonitis.Electronically signed by: RODRICK TUBBS (Aug 23, 2020 06:34:02)
[2020-08-23 07:33] LABS: BASOPHILS % (AUTO) 0 % (0.2-1.0); HEMATOCRIT 26.8 % (36.0-47.0); HEMOGLOBIN 9.2 g/dL (12.0-16.0); LYMPHOCYTES # (AUTO) 0.2 X10^3/uL (1.3-2.9); LYMPHOCYTES % (AUTO) 2.3 % (21.0-51.0); MEAN CORPUSCULAR HEMOGLOBIN 29.5 pg (27.0-34.0); MEAN CORPUSCULAR HGB CONC 34.5 g/dL (33.0-35.0); MEAN CORPUSCULAR VOLUME 85.6 fL (80.0-100.0); MEAN PLATELET VOLUME 7.3 fL (7.4-11.0); MONOCYTES # (AUTO) 0.4 x10^3/uL (0.3-0.8); MONOCYTES % (AUTO) 4.5 % (0.0-13.0); NEUTROPHILS # (AUTO) 8.9 x10^3/uL (2.2-4.8); NEUTROPHILS % (AUTO) 93.2 % (42.0-75.0); PLATELET COUNT 215 X10^3/uL (150.0-450.0); RED BLOOD COUNT 3.13 X10^6/uL (3.5-5.4); RED CELL DISTRIBUTION WIDTH 12.7 % (11.6-16.5); WHITE BLOOD COUNT 9.6 X10^3/uL (3.6-10.0)
[2020-08-23 07:35] LABS: ALANINE AMINOTRANSFERASE 16 Units/L (12-78); ALBUMIN 2.6 g/dL (3.4-5.0); ALKALINE PHOSPHATASE 112 Units/L (46-116); ASPARTATE AMINO TRANSFERASE 23 Units/L (15-37); BLOOD UREA NITROGEN 20 mg/dL (7-18); CALCIUM 7.6 mg/dL (8.5-10.1); CARBON DIOXIDE 27.1 mmol/L (21-32); CHLORIDE 105 mmol/L (98-107); COR CA(FOR HYPOALB) 8.7 mg/dL (8.5-10.1); COR NA(FOR HYPERGLY) 144 mmol/L (136-145); SODIUM 143 mmol/L (136-145); TOTAL PROTEIN 5.4 g/dL (6.4-8.2); eGFR NON BLACK RACES > 60 (>60)
[2020-08-23 08:03] LABS: BAND NEUTROPHILS % 4 % (0-10); PLATELET MORPHOLOGY COMMENT NORMAL (NORMAL)
[2020-08-23] MEDS: PULMICORT NEB TX 0.5 MG NEB SCH ×2 (08:27→20:45)
[2020-08-23] MEDS: MUCOMYST (RESPIRATORY USE ONLY) NEB SCH ×2 (08:27→20:45)
[2020-08-23] MEDS: ACCUNEB 1.25 MG NEBULE NEB SCH ×4 (08:27→20:45)
[2020-08-23] MEDS: ESTRACE PO SCH (09:30)
[2020-08-23] MEDS: DIFLUCAN PO SCH (09:30)
[2020-08-23] MEDS: SYNTHROID 100 mcg TAB PO SCH (09:30)
[2020-08-23] MEDS: ATIVAN TAB 1 MG PO SCH ×2 (09:30→21:31)
[2020-08-23] MEDS: VITAMIN D3 125 mcg (5,000 UNITS) PO SCH (09:30)
[2020-08-23] MEDS: PROTONIX TAB 40 MG PO SCH (09:30)
[2020-08-23] MEDS: ZINC SULFATE PO SCH (09:30)
[2020-08-23] MEDS: VSL#3 PO SCH (09:30)
[2020-08-23] MEDS: CYMBALTA PO SCH (09:30)
[2020-08-23 10:19] LABS: ABG BASE EXCESS 6.6 mmol/L (-2.0-2.0)
[2020-08-23 10:20] LABS: ABG ALLEN TEST POS; ABG HCO3 30.5 mmol/L (22-26)
--- NOTE | 2020-08-23 11:20 | PCM.PROG ---
Progress Note Progress Note for Day of Date of Exam: 08/23/20 Subjective Subjective: IS ADMITTED AND BEING TREATED FOR PNEUMONIA DUE TO COVID-19 AND HYPOXIA. THIS MORNING SHE REPORTS HER BREATHING HAS WORSENED AND REMAINS VERY SHORT OF BREATH. SHE HAD TO BE PLACED ON BIPAP SUPPORT YESTERDAY. SHE IS OXGENATING WELL ON BIPAP. ON EXAMINATION, HEART IS REGULAR IN RATE AND RHYTHM. BILATERAL LUNGS ARE NOTED WITH RALES THROUGHOUT. ABDOMEN IS ROUND, SOFT, AND NON-TENDER WITH NORMAL BOWEL SOUNDS NOTED IN ALL QUADRANTS. NO EDEMA NOTED TO UPPER OR LOWER EXTREMITIES. HER VITALS THIS MORNING ARE: 98-91-45-96%-131/62. LABS/IMAGING INCLUDE THE FOLLOWING: WBC 9.6, HGB 9.2, HCT 26, PLT COUNT 215, D- DIMER 18.91, NA 143, K 3.4, CR 0.70, GLUCOSE 145, CRP 37, BLOOD CULTURES NO GROWTH TO DATE. ABG WAS OBTAINED AND REVEALED: PH 7.49, PC02 40, PC02 78, HC03 30.5, 02 SAT 96, FI02 100. A CHEST XRAY WAS OBTAINED AND REVEALED: Persistent pulmonary opacities, compatible with ARDS/viral pneumonitis. HER HOSPITAL/TREATMENT COURSE INCLUDES RECEIVING 1/2NS AT 75 ML/HR, REMDESIVIR 100MG IV DAILY, LEVAQUIN 750MG IV HS, ASCORBIC ACID 1500MG IV Q6H, DUONEBS QID, MUCOMYST IN NEBS BID, SOLU-MEDROL 125 MG IV Q6H, PROTONIX 40MG PO DAILY, PEPCID 20MG PO BID, VSL 2 CAPS PO DAILY, TUSSIONEX 5ML PO Q12H PRN, TESSALON PERLES 200MG PO TID, ZOFRAN 4MG IV Q4H PRN, AND ZINC SULFATE 220MG PO DAILY. SHE DOES HAVE CONVALESCENT PLASMA ORDERED. RADIOLOGY DEPARTEMENT STATES UNABLE TO DO CTA OF CHEST DUE TO CENTRAL LINE PLACEMENT. PATIENT IS CURRENTLY ON HEPARIN GTT, AND BIPAP SUPPORT WITH FIO2 100%. WILL CONTINUE WITH CURRENT TREATMENT PLAN, MONITOR, AND FOLLOW UP LABS/IMAGING IN THE MORNING. CRITICAL CARE TIME SPENT 30-74 MINUTES IN CLINCAL ASSESSMENT, REVIEWING LABS/IMAGING, DECISION MAKING, AND DOCUMENTATION. Past Medical Family Social History Past Med/Fam/Surg Hx: No changes since H&P Allergies: Allergies No Known Drug Allergies Allergy (Verified 08/27/19 22:19) Review of Systems ROS: No change since H&P Vital Signs and I&O's Vital Signs: Temperature 98.1 F Pulse Rate [Left] 91 Pulse Rate [Bilateral Radial] 92 Pulse Rate 98 Respiratory Rate 45 Blood Pressure [Left Arm] 131/62 Blood Pressure 101/49 O2 Sat by Pulse Oximetry 96 Intake and Output: Intake & Output 08/20/20 08/21/20 08/22/20 08/23/20 23:59 23:59 23:59 23:59 Intake Total 2556 / 2556 3401 / 3401 3062 / 3062 500 / 500 Output Total 750 / 750 1400 / 1400 1850 / 1850 300 / 300 Balance 1806 / 1806 2000 / 2000 1212 / 1212 200 / 200 Physical Exam Oriented: Normal Eyes: Normal Ear: Normal Nose: Normal Throat: Normal Respiratory: Generalized, Diminished and Rales Cardiovascular: Normal : Normal Auscultation: Bowel Sounds: Normal Tenderness: Normal Skin: Normal Musculoskeletal: Normal Psychiatric: Normal Mood Description: Calm Affect: Normal Speech Pattern: Clear Laboratory and Diagnostics Result Diagrams: 08/23/20 07:08 08/23/20 07:08 Labs: 08/18/20 12:00 Blood Blood Culture - Preliminary 08/18/20 11:40 Blood Blood Culture - Preliminary Laboratory WBC 9.6 X10^3/uL (3.6-10.0) 08/23/20 07:08 RBC 3.13 X10^6/uL (3.5-5.4) L 08/23/20 07:08 Hgb 9.2 g/dL (12.0-16.0) L 08/23/20 07:08 Hct 26.8 % (36.0-47.0) L 08/23/20 07:08 MCV 85.6 fL (80.0-100.0) 08/23/20 07:08 MCH 29.5 pg (27.0-34.0) 08/23/20 07:08 MCHC 34.5 g/dL (33.0-35.0) 08/23/20 07:08 RDW 12.7 % (11.6-16.5) 08/23/20 07:08 Plt Count 215 X10^3/uL (150.0-450.0) 08/23/20 07:08 Plt Count Comment Adequate (ADEQUATE) 08/23/20 07:08 MPV 7.3 fL (7.4-11.0) L 08/23/20 07:08 Neut % (Auto) 93.2 % (42.0-75.0) H 08/23/20 07:08 Lymph % (Auto) 2.3 % (21.0-51.0) L 08/23/20 07:08 [place] % (Auto) 4.5 % (0.0-13.0) 08/23/20 07:08 Eos % (Auto) 0.0 % (0.9-2.9) L 08/23/20 07:08 Baso % (Auto) 0 % (0.2-1.0) L 08/23/20 07:08 Neut # (Auto) 8.9 x10^3/uL (2.2-4.8) H 08/23/20 07:08 Lymph # (Auto) 0.2 X10^3/uL (1.3-2.9) L 08/23/20 07:08 [place] # (Auto) 0.4 x10^3/uL (0.3-0.8) 08/23/20 07:08 Eos # (Auto) 0.0 x10^3/uL (0.0-0.2) 08/23/20 07:08 Baso # (Auto) 0.0 X10^3/uL (0.0-0.1) 08/23/20 07:08 Absolute Nucleated RBC 0.0 /100WBC 08/23/20 07:08 Total Counted 100 08/23/20 07:08 Neutrophils % (Manual) 90 % (39-76) H 08/23/20 07:08 Band Neutrophils % 4 % (0-10) 08/23/20 07:08 Lymphocytes % (Manual) 5 % (13-43) L 08/23/20 07:08 Monocytes % (Manual) 1 % (4-9) L 08/23/20 07:08 Plt Morphology Comment Normal (NORMAL) 08/23/20 07:08 RBC Morphology Normal (NORMAL) 08/23/20 07:08 PT 17.9 SECONDS (11.8-14.3) 08/22/20 17:00 INR Target Range - 08/22/20 17:00 INR 1.53 (0.8-1.3) H 08/22/20 17:00 APTT 73.7 SECONDS (22.9-36.5) H 08/23/20 07:08 PTT Comment - 08/23/20 07:08 D-Dimer 18.91 ug/ml (0.0-0.57) H* 08/23/20 07:08 Sample Site Lr 08/23/20 10:15 ABG pH 7.490 (7.35-7.45) H 08/23/20 10:15 ABG pCO2 40.0 mmHg (35.0-45.0) 08/23/20 10:15 ABG pO2 78.0 mmHg (80.0-100.0) L 08/23/20 10:15 ABG HCO3 30.5 mmol/L (22-26) H* 08/23/20 10:15 ABG O2 Saturation 96.0 % (90-100) 08/23/20 10:15 ABG Base Excess 6.6 mmol/L (-2.0-2.0) H 08/23/20 10:15 Juan Test Pos 08/23/20 10:15 A-a Gradient 585.0 mmHg 08/23/20 10:15 FiO2 100.0 08/23/20 10:15 Blood Gas Comments [place] well cb lj 08/23/20 10:15 Sodium 143 mmol/L (136-145) 08/23/20 07:08 Corrected Sodium 144 mmol/L (136-145) 08/23/20 07:08 Potassium 3.4 mmol/L (3.5-5.1) L 08/23/20 07:08 Chloride 105 mmol/L (98-107) 08/23/20 07:08 Carbon Dioxide 27.1 mmol/L (21-32) 08/23/20 07:08 BUN 20 mg/dL (7-18) H 08/23/20 07:08 Creatinine 0.70 mg/dL (0.55-1.02) 08/23/20 07:08 Est GFR (MDRD) Af Amer > 60 (>60) 08/23/20 07:08 Est GFR (MDRD) Non-Af > 60 (>60) 08/23/20 07:08 Glucose 145 mg/dL (65-99) H 08/23/20 07:08 Lactic Acid 1.0 mmol/L (0.4-2.0) 08/18/20 11:40 Calcium 7.6 mg/dL (8.5-10.1) L 08/23/20 07:08 Corrected Calcium 8.7 mg/dL (8.5-10.1) 08/23/20 07:08 Magnesium 2.0 mg/dL (1.7-2.9) 08/18/20 11:40 Ferritin 353 ng/mL (8-252) H 08/23/20 07:08 Total Bilirubin 0.30 mg/dL (0.2-1.0) 08/23/20 07:08 AST 23 Units/L (15-37) 08/23/20 07:08 ALT 16 Units/L (12-78) 08/23/20 07:08 Alkaline Phosphatase 112 Units/L (46-116) 08/23/20 07:08 Creatine Kinase 83 Units/L (26-192) 08/18/20 19:07 CK-MB (CK-2) 1.0 ng/mL (0-4.0) 08/18/20 19:07 CK/CKMB % Calc 1.2 % (<4) 08/18/20 19:07 Troponin I < 0.02 ng/mL (0-1.5) 08/18/20 19:07 C-Reactive Protein 37.00 mg/L (0-3.0) H 08/23/20 07:08 B-Natriuretic Peptide 36.0 pg/mL (0-79) 08/18/20 19:07 Total Protein 5.4 g/dL (6.4-8.2) L 08/23/20 07:08 Albumin 2.6 g/dL (3.4-5.0) L 08/23/20 07:08 Globulin 2.8 g/dL (2.5-4.5) 08/23/20 07:08 Albumin/Globulin Ratio 0.9 Ratio (1.1-2.1) L 08/23/20 07:08 Amylase 50 Units/L (25-115) 08/18/20 11:40 Lipase 137 Units/L (73-393) 08/18/20 11:40 Specimen Type Catherized urine 08/18/20 23:07 Urine Color Dark yellow (YELLOW) 08/18/20 23:07 Urine Appearance Clear (CLEAR) 08/18/20 23:07 Urine pH 7.0 (5.0 - 8.0) 08/18/20 23:07 Ur Specific [place] 1.010 (1.000-1.030) 08/18/20 23:07 Urine Protein 2+ (NEGATIVE) 08/18/20 23:07 Urine Glucose (UA) Negative (NEGATIVE) 08/18/20 23:07 Urine Ketones 1+ (NEGATIVE) 08/18/20 23:07 Urine Occult Blood Negative (NEGATIVE) 08/18/20 23:07 Urine Nitrite Negative (NEGATIVE) 08/18/20 23:07 Urine Bilirubin Negative (NEGATIVE) 08/18/20 23:07 Urine Urobilinogen 1+ (NORMAL) 08/18/20 23:07 Ur Leukocyte Esterase Negative (NEGATIVE) 08/18/20 23:07 Urine RBC None seen /HPF (0-3) 08/18/20 23:07 Urine WBC None seen /HPF (0-5) 08/18/20 23:07 Ur Squamous Epith Cells Rare /HPF (NEGATIVE) 08/18/20 23:07 Urine Bacteria Negative /HPF (NEGATIVE) 08/18/20 23:07 Ur Culture Indicated? No/not indicated 08/18/20 23:07 Influenza Type A (PCR) Negative (NEGATIVE) 08/18/20 12:46 Influenza Type B (PCR) Negative (NEGATIVE) 08/18/20 12:46 SARS CoV-2 RNA Rapid LUIS Positive (NEGATIVE) A 08/18/20 18:12 Blood Type B POSITIVE 08/21/20 14:30 Plan (1) Pneumonia due to 2019 novel coronavirus: Status: Acute Plan: 1/2NS AT 75 ML/HR, REMDESIVIR 100MG IV DAILY, LEVAQUIN 750MG IV HS, ASCORBIC ACID 1500MG IV Q6H, DUONEBS QID, MUCOMYST IN NEBS BID, SOLU-MEDROL 125 MG IV Q6H, PROTONIX 40MG PO DAILY, PEPCID 20MG PO BID, VSL 2 CAPS PO DAILY, TUSSIONEX 5ML PO Q12H PRN, TESSALON PERLES 200MG PO TID, ZOFRAN 4MG IV Q4H PRN, AND ZINC SULFATE 220MG PO DAILY. (2) Hypoxia: Status: Acute
[2020-08-23] MEDS: ALBUMIN HUMAN 25%- 100 ML 100 ML IV SCH (13:16)
[2020-08-23] MEDS ORDERED: HEPARIN SODIUM INJ 5000 UNITS IVP ONE (15:01)
[2020-08-23] MEDS: PEPCID 20 MG IV PREMIX* 20 MG/50 ML BAG IV SCH (21:31)
[2020-08-23] MEDS: COLACE CAP 100 MG PO SCH (21:31)
[2020-08-23] MEDS: LEVAQUIN PREMIX IV 750 MG 750 MG/150 ML BAG IV SCH (21:32)
[2020-08-23] MEDS: MELATONIN PO SCH (21:32)
[2020-08-23] MEDS: MILK OF MAGNESIA PO SCH (21:33)
[2020-08-24] MEDS: NS 1/2 1000 ML IV 1,000 ML IV SCH ×2 (00:47→17:34)
[2020-08-24] MEDS: ASCORBIC ACID INJ MULTI-DOSE VIAL 1,500 MG in NS 50 ML IV 50 ML IV SCH ×4 (02:23→21:15)
[2020-08-24 04:22] LABS: BASOPHILS % (AUTO) 0.3 % (0.2-1.0); EOSINOPHILS # (AUTO) 0.1 x10^3/uL (0.0-0.2); EOSINOPHILS % (AUTO) 0.6 % (0.9-2.9); HEMATOCRIT 26.4 % (36.0-47.0); HEMOGLOBIN 8.8 g/dL (12.0-16.0); LYMPHOCYTES # (AUTO) 0.3 X10^3/uL (1.3-2.9); LYMPHOCYTES % (AUTO) 2.3 % (21.0-51.0); MEAN CORPUSCULAR HEMOGLOBIN 28.8 pg (27.0-34.0); MEAN CORPUSCULAR HGB CONC 33.4 g/dL (33.0-35.0); MEAN CORPUSCULAR VOLUME 86.2 fL (80.0-100.0); MEAN PLATELET VOLUME 7.6 fL (7.4-11.0); MONOCYTES # (AUTO) 0.4 x10^3/uL (0.3-0.8); MONOCYTES % (AUTO) 3.5 % (0.0-13.0); NEUTROPHILS # (AUTO) 11.1 x10^3/uL (2.2-4.8); NEUTROPHILS % (AUTO) 93.3 % (42.0-75.0); PLATELET COUNT 224 X10^3/uL (150.0-450.0); RED BLOOD COUNT 3.06 X10^6/uL (3.5-5.4); RED CELL DISTRIBUTION WIDTH 12.6 % (11.6-16.5); WHITE BLOOD COUNT 11.9 X10^3/uL (3.6-10.0)
[2020-08-24 04:29] LABS: ALANINE AMINOTRANSFERASE 17 Units/L (12-78); ALBUMIN 2.7 g/dL (3.4-5.0); ALKALINE PHOSPHATASE 129 Units/L (46-116); ASPARTATE AMINO TRANSFERASE 22 Units/L (15-37); BLOOD UREA NITROGEN 19 mg/dL (7-18); CALCIUM 7.5 mg/dL (8.5-10.1); CARBON DIOXIDE 27.3 mmol/L (21-32); CHLORIDE 104 mmol/L (98-107); COR CA(FOR HYPOALB) 8.5 mg/dL (8.5-10.1); COR NA(FOR HYPERGLY) 143 mmol/L (136-145); CREATININE 0.81 mg/dL (0.55-1.02); SODIUM 142 mmol/L (136-145); TOTAL PROTEIN 5.4 g/dL (6.4-8.2); eGFR NON BLACK RACES > 60 (>60)
[2020-08-24] MEDS ORDERED: HEPARIN SODIUM INJ 5000 UNITS IVP ONE ×2 (05:08→13:46)
[2020-08-24 05:11] LABS: ABG ALLEN TEST POS; ABG BASE EXCESS 7.1 mmol/L (-2.0-2.0); ABG HCO3 31.3 mmol/L (22-26)
[2020-08-24] MEDS ORDERED: MICRO K EXTEN CAP 10 MEQ PO PRN (05:19)
[2020-08-24] MEDS ORDERED: K-DUR TAB 20 MEQ PO PRN (05:19)
[2020-08-24] MEDS ORDERED: POTASSIUM CHLORIDE LIQ 20 MEQ UDC PO PRN (05:19)
[2020-08-24] MEDS ORDERED: POTASSIUM CHL 40 MEQ/NS 0.45% 500 ML IV PRN (05:19)
[2020-08-24] MEDS ORDERED: KLOR-CON PO PRN (05:19)
[2020-08-24] MEDS ORDERED: POTASSIUM CHL 60 MEQ/NS 0.45% 500 ML IV PRN (05:19)
[2020-08-24 05:22] LABS: PLATELET MORPHOLOGY COMMENT NORMAL (NORMAL)
[2020-08-24] MEDS: FORTAZ or TAZICEF VIAL INJ 1 G in NS 100 ML IV + SPIKE MINIBAG* 100 ML IV SCH ×3 (05:35→21:43)
[2020-08-24] MEDS: SOLU-Medrol 125 MG VIAL IVP SCH ×4 (05:35→23:18)
[2020-08-24] MEDS: TESSALON PERLES PO SCH ×3 (05:35→21:44)
--- NOTE | 2020-08-24 05:43 | RAD ---
PROCEDURE: Chest X-ray 1 View .HISTORY: COVID19 .TECHNIQUE: AP view .COMPARISON: 08/23/2020.TECHNICAL QUALITY: Satisfactory .FINDINGS:Right internal jugular central venous line tip projected over the superior cavoatrial junction.Unchanged cardiomediastinal silhouette.Bilateral moderate diffuse consolidation both lung tarango that appears similar to previous studies study allowing for technical differences. No pleural fluid or pneumothorax.IMPRESSION:Unchanged bilateral pneumonia.Electronically signed by: Pasha Werner (Aug 24, 2020 05:41:34)
[2020-08-24] MEDS: ALBUMIN HUMAN 25%- 100 ML 100 ML IV SCH (08:17)
[2020-08-24] MEDS: ESTRACE PO SCH (08:18)
[2020-08-24] MEDS: ATIVAN TAB 1 MG PO SCH ×2 (08:18→21:40)
[2020-08-24] MEDS: ZINC SULFATE PO SCH (08:19)
[2020-08-24] MEDS: VSL#3 PO SCH (08:19)
[2020-08-24] MEDS: VITAMIN D3 125 mcg (5,000 UNITS) PO SCH (08:20)
[2020-08-24] MEDS: SYNTHROID 100 mcg TAB PO SCH (08:20)
[2020-08-24] MEDS: CYMBALTA PO SCH (08:21)
[2020-08-24] MEDS: MAGIC MOUTHWASH MT SCH ×4 (08:21→21:41)
[2020-08-24] MEDS: PROTONIX TAB 40 MG PO SCH (08:21)
[2020-08-24] MEDS: PEPCID 20 MG IV PREMIX* 20 MG/50 ML BAG IV SCH ×2 (08:21→21:42)
[2020-08-24] MEDS: MUCOMYST (RESPIRATORY USE ONLY) NEB SCH ×4 (08:49→21:01)
[2020-08-24] MEDS: PULMICORT NEB TX 0.5 MG NEB SCH ×2 (08:49→21:01)
[2020-08-24] MEDS: ACCUNEB 1.25 MG NEBULE NEB SCH ×4 (08:49→21:01)
[2020-08-24] MEDS: DIFLUCAN PO SCH (11:00)
--- NOTE | 2020-08-24 13:14 | PCM.PROG ---
Progress Note - Progress Note for Day of Date of Exam: 08/24/20 - Subjective Subjective: IS BEING TREATED FOR PNEUMONIA DUE TO COVID-19 AND HYPOXIA. TODAY, SHE IS ALERT, LYING IN BED ON MORNING ROUNDS. SHE CONTINUES WITH COMPLAINTS OF COUGH, SHORTNESS OF BREATH, AND WEAKNESS. SHE ADMITS TO SLIGHT IMPROVEMENT IN SYMPTOMS SINCE YESTERDAY. SHE IS CURRENTLY UTILIZING THE BIPAP WITH FI02 87-96% THIS MORNING AND THROUGHOUT THE NIGHT. ON EXAMINATION, HEART IS REGULAR IN RATE AND RHYTHM. BILATERAL LUNGS ARE NOTED WITH RALES THROUGHOUT. ABDOMEN IS ROUND, SOFT, AND NON-TENDER WITH NORMAL BOWEL SOUNDS NOTED IN ALL QUADRANTS. NO EDEMA NOTED TO UPPER OR LOWER EXTREMITIES. HER VITALS THIS MORNING ARE: 98.7-81-26-90%-131/61. LABS WERE OBTAINED. ABNORMAL LAB VALUES INCLUDE THE FOLLOWING: WBC 11.9, RBC 3.06, HGB 8.8, HCT 26.4, D-DIMER 7.70, POTASSIUM 3.0, BUN 19, GLUCOSE 143, CALCIUM 7.5, ALK PHOS 129, CRP 36.80, TOTAL PROTEIN 5.4, ALBUMIN 2.7. BLOOD CULTURES ARE PENDING. ABG WAS OBTAINED THIS MORNING AND REVEALED: PH 7.480, PC02 42, P02 61, HC03 31.3, 02 SAT 93, BASE EXCESS 7.1, A-A GRADIENT 600, FI02 100. A CHEST XRAY WAS OBTAINED AND REVEALED: Unchanged bilateral pneumonia. SHE IS CURRENTLY RECEIVING 1/2NS AT 75 ML/HR, LEVAQUIN 750MG IV HS, FORTAZ 1G IV Q8H, ASCORBIC ACID 1500MG IV Q6H, ALBUTEROL NEBS QID, MUCOMYST IN NEBS BID, SOLU-MEDROL 125 MG IV Q6H, PROTONIX 40MG PO DAILY, PEPCID 20MG PO BID, VSL 2 CAPS PO DAILY, TUSSIONEX 5ML PO Q12H PRN, TESSALON PERLES 200MG PO TID, ZOFRAN 4MG IV Q4H PRN, ZINC SULFATE 220MG PO DAILY, DIFLUCAN 100MG PO DAILY, MAGIC MOUTHWASH QID, HEPARIN DRIP, AND POTASSIUM AND MAGNESIUM PROTOCOLS. WE WILL CONTINUE WITH CURRENT PLAN OF CARE TODAY AND ADD ROBITUSSIN DM 10 ML QID, SINGULAIR 10MG PO HS, ZYRTEC 10MG PO DAILY, AND THIAMINE 200MG IV BID. OTHERWISE, WE WILL FOLLOW UP WITH AM LABS, CHEST XRAY, ABG, AND CONTINUE TO MONITOR. TIME SPENT ON CLINICAL ASSESSMENT, REVIEWING LABS AND IMAGING, DECISION MAKING, AND DOCUMENTATION GREATER THAN 75 MINUTES. - Past Medical Family Social History Past Med/Fam/Surg Hx: No changes since H&P Allergies: Allergies No Known Drug Allergies Allergy (Verified 08/27/19 22:19) - Review of Systems ROS: No change since H&P - Vital Signs and I&O's Vital Signs: Temperature 98.7 F Pulse Rate [Left] 86 Pulse Rate [Bilateral Radial] 92 Pulse Rate 88 Respiratory Rate 27 Blood Pressure [Left Arm] 155/68 Blood Pressure 101/49 O2 Sat by Pulse Oximetry 86 Intake and Output: Intake & Output 08/22/20 08/23/20 08/24/20 08/25/20 11:59 11:59 11:59 11:59 Intake Total 3608 / 3608 2481 / 2481 5468 / 5468 Output Total 1350 / 1350 1700 / 1700 1260 / 1260 Balance 2258 / 2258 781 / 781 4208 / 4208 - Physical Exam Oriented: Normal Eyes: Normal Ear: Normal Nose: Normal Throat: Normal Respiratory: Generalized, Diminished, Rales Cardiovascular: Normal : Normal Auscultation: Bowel Sounds: Normal Palpation: Normal Tenderness: Normal Skin: Normal Musculoskeletal: Normal Psychiatric: Normal Mood Description: Calm Affect: Normal Speech Pattern: Clear - Laboratory and Diagnostics Result Diagrams: 08/24/20 04:00 08/24/20 04:00 Labs: 08/18/20 11:40 Blood Blood Culture - Final 08/18/20 12:00 Blood Blood Culture - Final Laboratory WBC 11.9 X10^3/uL (3.6-10.0) H 08/24/20 04:00 RBC 3.06 X10^6/uL (3.5-5.4) L 08/24/20 04:00 Hgb 8.8 g/dL (12.0-16.0) L 08/24/20 04:00 Hct 26.4 % (36.0-47.0) L 08/24/20 04:00 MCV 86.2 fL (80.0-100.0) 08/24/20 04:00 MCH 28.8 pg (27.0-34.0) 08/24/20 04:00 MCHC 33.4 g/dL (33.0-35.0) 08/24/20 04:00 RDW 12.6 % (11.6-16.5) 08/24/20 04:00 Plt Count 224 X10^3/uL (150.0-450.0) 08/24/20 04:00 Plt Count Comment Adequate (ADEQUATE) 08/24/20 04:00 MPV 7.6 fL (7.4-11.0) 08/24/20 04:00 Neut % (Auto) 93.3 % (42.0-75.0) H 08/24/20 04:00 Lymph % (Auto) 2.3 % (21.0-51.0) L 08/24/20 04:00 [place] % (Auto) 3.5 % (0.0-13.0) 08/24/20 04:00 Eos % (Auto) 0.6 % (0.9-2.9) L 08/24/20 04:00 Baso % (Auto) 0.3 % (0.2-1.0) 08/24/20 04:00 Neut # (Auto) 11.1 x10^3/uL (2.2-4.8) H 08/24/20 04:00 Lymph # (Auto) 0.3 X10^3/uL (1.3-2.9) L 08/24/20 04:00 [place] # (Auto) 0.4 x10^3/uL (0.3-0.8) 08/24/20 04:00 Eos # (Auto) 0.1 x10^3/uL (0.0-0.2) 08/24/20 04:00 Baso # (Auto) 0.0 X10^3/uL (0.0-0.1) 08/24/20 04:00 Absolute Nucleated RBC 0.1 /100WBC 08/24/20 04:00 Total Counted 100 08/24/20 04:00 Neutrophils % (Manual) 95 % (39-76) H 08/24/20 04:00 Band Neutrophils % 4 % (0-10) 08/23/20 07:08 Lymphocytes % (Manual) 4 % (13-43) L 08/24/20 04:00 Monocytes % (Manual) 1 % (4-9) L 08/24/20 04:00 Plt Morphology Comment Normal (NORMAL) 08/24/20 04:00 RBC Morphology Normal (NORMAL) 08/24/20 04:00 PT 17.9 SECONDS (11.8-14.3) 08/22/20 17:00 INR Target Range - 08/22/20 17:00 INR 1.53 (0.8-1.3) H 08/22/20 17:00 APTT 60.4 SECONDS (22.9-36.5) H 08/24/20 12:31 PTT Comment - 08/24/20 12:31 D-Dimer 7.70 ug/ml (0.0-0.57) H* 08/24/20 04:00 Sample Site Rrad 08/24/20 05:08 ABG pH 7.480 (7.35-7.45) H 08/24/20 05:08 ABG pCO2 42.0 mmHg (35.0-45.0) 08/24/20 05:08 ABG pO2 61.0 mmHg (80.0-100.0) L 08/24/20 05:08 ABG HCO3 31.3 mmol/L (22-26) H* 08/24/20 05:08 ABG O2 Saturation 93.0 % (90-100) 08/24/20 05:08 ABG Base Excess 7.1 mmol/L (-2.0-2.0) H 08/24/20 05:08 Juan Test Pos 08/24/20 05:08 A-a Gradient 600.0 mmHg 08/24/20 05:08 FiO2 100.0 08/24/20 05:08 Blood Gas Comments [place] abg well-mtf 08/24/20 05:08 Sodium 142 mmol/L (136-145) 08/24/20 04:00 Corrected Sodium 143 mmol/L (136-145) 08/24/20 04:00 Potassium 3.3 mmol/L (3.5-5.1) L 08/24/20 04:00 Chloride 104 mmol/L (98-107) 08/24/20 04:00 Carbon Dioxide 27.3 mmol/L (21-32) 08/24/20 04:00 BUN 19 mg/dL (7-18) H 08/24/20 04:00 Creatinine 0.81 mg/dL (0.55-1.02) 08/24/20 04:00 Est GFR (MDRD) Af Amer > 60 (>60) 08/24/20 04:00 Est GFR (MDRD) Non-Af > 60 (>60) 08/24/20 04:00 Glucose 143 mg/dL (65-99) H 08/24/20 04:00 Lactic Acid 1.0 mmol/L (0.4-2.0) 08/18/20 11:40 Calcium 7.5 mg/dL (8.5-10.1) L 08/24/20 04:00 Corrected Calcium 8.5 mg/dL (8.5-10.1) 08/24/20 04:00 Magnesium 2.1 mg/dL (1.7-2.9) 08/24/20 04:00 Ferritin 353 ng/mL (8-252) H 08/23/20 07:08 Total Bilirubin 0.40 mg/dL (0.2-1.0) 08/24/20 04:00 AST 22 Units/L (15-37) 08/24/20 04:00 ALT 17 Units/L (12-78) 08/24/20 04:00 Alkaline Phosphatase 129 Units/L (46-116) H 08/24/20 04:00 Creatine Kinase 83 Units/L (26-192) 08/18/20 19:07 CK-MB (CK-2) 1.0 ng/mL (0-4.0) 08/18/20 19:07 CK/CKMB % Calc 1.2 % (<4) 08/18/20 19:07 Troponin I < 0.02 ng/mL (0-1.5) 08/18/20 19:07 C-Reactive Protein 36.80 mg/L (0-3.0) H 08/24/20 04:00 B-Natriuretic Peptide 203 pg/mL (0-79) H 08/24/20 04:00 Total Protein 5.4 g/dL (6.4-8.2) L 08/24/20 04:00 Albumin 2.7 g/dL (3.4-5.0) L 08/24/20 04:00 Globulin 2.7 g/dL (2.5-4.5) 08/24/20 04:00 Albumin/Globulin Ratio 1.0 Ratio (1.1-2.1) L 08/24/20 04:00 Amylase 50 Units/L (25-115) 08/18/20 11:40 Lipase 137 Units/L (73-393) 08/18/20 11:40 Specimen Type Catherized urine 08/18/20 23:07 Urine Color Dark yellow (YELLOW) 08/18/20 23:07 Urine Appearance Clear (CLEAR) 08/18/20 23:07 Urine pH 7.0 (5.0 - 8.0) 08/18/20 23:07 Ur Specific [place] 1.010 (1.000-1.030) 08/18/20 23:07 Urine Protein 2+ (NEGATIVE) 08/18/20 23:07 Urine Glucose (UA) Negative (NEGATIVE) 08/18/20 23:07 Urine Ketones 1+ (NEGATIVE) 08/18/20 23:07 Urine Occult Blood Negative (NEGATIVE) 08/18/20 23:07 Urine Nitrite Negative (NEGATIVE) 08/18/20 23:07 Urine Bilirubin Negative (NEGATIVE) 08/18/20 23:07 Urine Urobilinogen 1+ (NORMAL) 08/18/20 23:07 Ur Leukocyte Esterase Negative (NEGATIVE) 08/18/20 23:07 Urine RBC None seen /HPF (0-3) 08/18/20 23:07 Urine WBC None seen /HPF (0-5) 08/18/20 23:07 Ur Squamous Epith Cells Rare /HPF (NEGATIVE) 08/18/20 23:07 Urine Bacteria Negative /HPF (NEGATIVE) 08/18/20 23:07 Ur Culture Indicated? No/not indicated 08/18/20 23:07 Influenza Type A (PCR) Negative (NEGATIVE) 08/18/20 12:46 Influenza Type B (PCR) Negative (NEGATIVE) 08/18/20 12:46 SARS CoV-2 RNA Rapid LUIS Positive (NEGATIVE) A 08/18/20 18:12 Blood Type B POSITIVE 08/21/20 14:30 - Plan (1) Pneumonia due to 2019 novel coronavirus Status: Acute Plan: 1/2NS AT 75 ML/HR, LEVAQUIN 750MG IV HS, FORTAZ 1G IV Q8H, ASCORBIC ACID 1500MG IV Q6H, ALBUTEROL NEBS QID, MUCOMYST IN NEBS BID, SOLU-MEDROL 125 MG IV Q6H, PROTONIX 40MG PO DAILY, PEPCID 20MG PO BID, VSL 2 CAPS PO DAILY, TUSSIONEX 5ML PO Q12H PRN, TESSALON PERLES 200MG PO TID, ZOFRAN 4MG IV Q4H PRN, ZINC SULFATE 220MG PO DAILY, DIFLUCAN 100MG PO DAILY, MAGIC MOUTHWASH QID, HEPARIN DRIP, ROBITUSSIN DM 10 ML QID, SINGULAIR 10MG PO HS, ZYRTEC 10MG PO DAILY, AND THIAMINE 200MG IV BID, AND POTASSIUM AND MAGNESIUM PROTOCOLS. (2) Hypoxia Status: Acute
[2020-08-24] MEDS: HEPARIN SODIUM IN D5W 25,000 UNITS/500 ML BAG IV PRN (16:03)
[2020-08-24] MEDS ORDERED: NS 1/2 1000 ML IV 1,000 ML IV ONE (17:14)
[2020-08-24] MEDS: ROBITUSSIN DM PO SCH ×2 (17:34→21:42)
[2020-08-24] MEDS ORDERED: SINGULAIR TAB 10 MG PO SCH (21:00)
[2020-08-24] MEDS: MELATONIN PO SCH (21:41)
[2020-08-24] MEDS: LEVAQUIN PREMIX IV 750 MG 750 MG/150 ML BAG IV SCH (21:41)
[2020-08-24] MEDS: COLACE CAP 100 MG PO SCH (21:41)
[2020-08-24] MEDS: MILK OF MAGNESIA PO SCH (21:42)
[2020-08-24] MEDS: THIAMINE HCL INJ IVP SCH (21:43)
[2020-08-25] MEDS: ASCORBIC ACID INJ MULTI-DOSE VIAL 1,500 MG in NS 50 ML IV 50 ML IV SCH ×2 (02:00→09:18)
[2020-08-25] MEDS: ATIVAN TAB 1 MG PO SCH (03:18)
[2020-08-25 03:20] LABS: BASOPHILS % (AUTO) 0.3 % (0.2-1.0); HEMATOCRIT 29.2 % (36.0-47.0); HEMOGLOBIN 9.6 g/dL (12.0-16.0); LYMPHOCYTES # (AUTO) 0.2 X10^3/uL (1.3-2.9); LYMPHOCYTES % (AUTO) 1.4 % (21.0-51.0); MEAN CORPUSCULAR HEMOGLOBIN 28.5 pg (27.0-34.0); MEAN CORPUSCULAR VOLUME 86.6 fL (80.0-100.0); MEAN PLATELET VOLUME 7.8 fL (7.4-11.0); MONOCYTES # (AUTO) 0.6 x10^3/uL (0.3-0.8); MONOCYTES % (AUTO) 4.2 % (0.0-13.0); NEUTROPHILS # (AUTO) 14.2 x10^3/uL (2.2-4.8); NEUTROPHILS % (AUTO) 94.1 % (42.0-75.0); PLATELET COUNT 233 X10^3/uL (150.0-450.0); RED BLOOD COUNT 3.37 X10^6/uL (3.5-5.4); RED CELL DISTRIBUTION WIDTH 12.7 % (11.6-16.5); WHITE BLOOD COUNT 15.1 X10^3/uL (3.6-10.0)
[2020-08-25 03:28] LABS: ALANINE AMINOTRANSFERASE 17 Units/L (12-78); ALKALINE PHOSPHATASE 246 Units/L (46-116); ASPARTATE AMINO TRANSFERASE 22 Units/L (15-37); BLOOD UREA NITROGEN 17 mg/dL (7-18); CALCIUM 7.9 mg/dL (8.5-10.1); CARBON DIOXIDE 25.9 mmol/L (21-32); CHLORIDE 104 mmol/L (98-107); COR CA(FOR HYPOALB) 8.7 mg/dL (8.5-10.1); COR NA(FOR HYPERGLY) 143 mmol/L (136-145); CREATININE 0.82 mg/dL (0.55-1.02); SODIUM 142 mmol/L (136-145); TOTAL PROTEIN 5.8 g/dL (6.4-8.2); eGFR NON BLACK RACES > 60 (>60)
[2020-08-25] MEDS ORDERED: HEPARIN SODIUM INJ 5000 UNITS IVP ONE (03:33)
[2020-08-25 03:47] LABS: PLATELET MORPHOLOGY COMMENT NORMAL (NORMAL)
[2020-08-25] MEDS: HEPARIN SODIUM IN D5W 25,000 UNITS/500 ML BAG IV PRN ×2 (04:05→12:53)
[2020-08-25] MEDS: NS 1/2 1000 ML IV 1,000 ML IV SCH ×2 (04:12→23:28)
[2020-08-25] MEDS: SOLU-Medrol 125 MG VIAL IVP SCH ×4 (05:10→23:27)
[2020-08-25] MEDS: TESSALON PERLES PO SCH (05:11)
[2020-08-25] MEDS: FORTAZ or TAZICEF VIAL INJ 1 G in NS 100 ML IV + SPIKE MINIBAG* 100 ML IV SCH (05:11)
[2020-08-25 05:25] LABS: ABG BASE EXCESS 8.8 mmol/L (-2.0-2.0)
[2020-08-25 05:26] LABS: ABG ALLEN TEST POS; ABG HCO3 32.7 mmol/L (22-26)
--- NOTE | 2020-08-25 06:24 | RAD ---
HISTORYSOBSTUDYCHEST, 1 VIEWCOMPARISONOne day prior.TECHNIQUEAP view of the chestFINDINGSRight IJ central line in good position. Cardiac silhouette is partially obscured but appears stable in size compared to prior. No significant change in diffuse bilateral airspace and interstitial opacities. No definite pleural effusion or pneumothorax.IMPRESSIONNo significant change.Electronically signed by: Jose M Stockton (Aug 25, 2020 06:22:18)
[2020-08-25] MEDS: PEPCID 20 MG IV PREMIX* 20 MG/50 ML BAG IV SCH ×2 (08:30→23:28)
[2020-08-25] MEDS: ALBUMIN HUMAN 25%- 100 ML 100 ML IV SCH (08:30)
[2020-08-25] MEDS ORDERED: ZyrTEC TAB 10 MG PO SCH (09:00)
[2020-08-25] MEDS: THIAMINE HCL INJ IVP SCH ×2 (09:19→21:22)
[2020-08-25] MEDS: ACCUNEB 1.25 MG NEBULE NEB SCH ×4 (09:55→20:15)
[2020-08-25] MEDS: MUCOMYST (RESPIRATORY USE ONLY) NEB SCH ×4 (09:55→20:15)
[2020-08-25] MEDS: PULMICORT NEB TX 0.5 MG NEB SCH ×2 (09:55→20:15)
[2020-08-25] MEDS ORDERED: NS IV PRN (10:07)
[2020-08-25] MEDS ORDERED: ZEMURON IV PRN (10:07)
[2020-08-25] MEDS ORDERED: QUELICIN (OR ANECTINE) IVP NR (11:00)
[2020-08-25] MEDS ORDERED: KETALAR ONE (11:50)
[2020-08-25] MEDS ORDERED: NS 500 ML IV 500 ML IV ONE (11:50)
[2020-08-25] MEDS ORDERED: DIPRIVAN VIAL ONE (11:50)
[2020-08-25] MEDS ORDERED: NORCURON INJ 10 MG VIAL ONE (11:50)
[2020-08-25] MEDS ORDERED: QUELICIN (OR ANECTINE) ONE (11:50)
[2020-08-25] MEDS: VERSED 100 MG in NS 100 ML IV 80 ML IV SCH (12:01)
--- NOTE | 2020-08-25 12:30 | RAD ---
HISTORYET TUBE PLACEMENTSTUDYCHEST, 1 VIEWCOMPARISONSame day chest radiographTECHNIQUEAP view of the chestFINDINGSET tube in good position. Right IJ central line in good position. Cardiac and mediastinal contours are within normal limits. Mildly improved diffuse airspace disease. No definite pleural effusion or pneumothorax.IMPRESSIONET tube in good position. Mildly improved diffuse airspace disease.Electronically signed by: Jose M Stockton (Aug 25, 2020 12:28:50)
[2020-08-25] MEDS: ZEMURON IV PRN ×2 (12:57→23:26)
[2020-08-25] MEDS: NS IV PRN ×2 (12:57→23:26)
--- NOTE | 2020-08-25 13:48 | DR.UPDATE ---
H&P Update History and Physical Update: History and Physical reviewed and patient examined. Changes noted: NO Yes with the following:will intubate and place arterial line H&P Reviewed: Yes Patient was examined?: Yes Procedures (ALL) - Arterial Line Consent obtained: verbal consent Time out performed: Yes Size(gauge): 20 Technique used: guided wire technique Post-procedure: dry sterile dressing placed Patient tolerated procedure: Yes Site: right, radial - Intubation Time out performed: Yes Sedative: ketamine Mg given: 50mg, propofol 70mg paralytic: succinylchline (100mg, then norcuron 8mg after return of spontaneous resp) Laryngoscope: fiber optic video scope (glidescope 3, grade 1 view) ET tube size: 7.5 Tube secured depth: 21 Tube secured location: teeth Tube placement confirmation: visualized tube passing through cords, equal breath sounds bilaterally, no breath sounds over epigastrium, comfirmation by capnometer Patient tolerated procedure: Yes Intubation complications: none
[2020-08-25 14:16] LABS: ABG BASE EXCESS 7.3 mmol/L (-2.0-2.0)
[2020-08-25 14:17] LABS: ABG HCO3 32.6 mmol/L (22-26)
[2020-08-25] MEDS: AMINOPHYLLINE INJ 1,000 MG in DEXTROSE 5% 460 ML IV PRN (14:38)
--- NOTE | 2020-08-25 20:21 | PCM.PROG ---
Progress Note - Progress Note for Day of Date of Exam: 08/25/20 - Subjective Subjective: IS BEING TREATED FOR PNEUMONIA DUE TO COVID-19 AND HYPOXIA. TODAY, SHE IS ALERT, LYING IN BED ON MORNING ROUNDS. SHE CONTINUES WITH COMPLAINTS OF COUGH, SHORTNESS OF BREATH, AND WEAKNESS. SHE REPORTS INCREASE IN SHORTNESS OF BREATH THIS MORNING AND IS NOTED WITH LABORED BREATHING. HER SATURATIONS HAVE FALLEN TO THE 70s WHILE ON THE BIPAP THIS MORNING. SHE DID RECOVER TO THE 80s. SHE IS CURRENTLY ON 100% FIO2. ON EXAMINATION, HEART IS REGULAR IN RATE AND RHYTHM. BILATERAL LUNGS ARE NOTED WITH RALES THROUGHOUT. ABDOMEN IS ROUND, SOFT, AND NON-TENDER WITH NORMAL BOWEL SOUNDS NOTED IN ALL QUADRANTS. NO EDEMA NOTED TO UPPER OR LOWER EXTREMITIES. HER VITALS THIS MORNING ARE: 98.4-85-17-84%-150/68. LABS WERE OBTAINED. ABNORMAL LAB VALUES INCLUDE THE FOLLOWING: WBC 15.1, RBC 3.37, HGB 9.6, HCT 29.2, D-DIMER 5.36, POTASSIUM 3.3, GLUCSOE 149, CALCIUM 7.9, ALK PHOS 246, CRP 64.30, BNP 262, TOTAL PROTEIN 5.8, ALBUMIN 3.0. BLOOD CULTURES ARE PENDING. ABG WAS OBTAINED THIS MORNING AND REVEALED: PH 7.440, PC02 48, P02 76, HC03 32.6, 02 SAT 96, BASE EXCESS 7.3, A-A GRADIENT 577, FI02 100. A CHEST XRAY WAS OBTAINED AND REVEALED: Right IJ central line in good position. Cardiac silhouette is partially obscured but appears stable in size compared to prior. No significant change in diffuse bilateral airspace and interstitial opacities. No definite pleural effusion or pneumothorax. SHE IS CURRENTLY RECEIVING 1/2NS AT 75 ML/HR, LEVAQUIN 750MG IV HS, FORTAZ 1G IV Q8H, ASCORBIC ACID 1500MG IV Q6H, ALBUTEROL NEBS QID, MUCOMYST IN NEBS BID, SOLU-MEDROL 125 MG IV Q6H, PROTONIX 40MG PO DAILY, PEPCID 20MG PO BID, VSL 2 CAPS PO DAILY, TUSSIONEX 5ML PO Q12H PRN, TESSALON PERLES 200MG PO TID, ROBITUSSIN DM 10 ML QID, SINGULAIR 10MG PO HS, ZYRTEC 10MG PO DAILY, THIAMINE 200MG IV BID, ZOFRAN 4MG IV Q4H PRN, ZINC SULFATE 220MG PO DAILY, DIFLUCAN 100MG PO DAILY, MAGIC MOUTHWASH QID, HEPARIN DRIP, AND POTASSIUM AND MAGNESIUM PROTOCOLS. WE WILL CONSULT ANESTHESIA AND RESPIRATORY THERAPY FOR INTUBATION OF PATIENT THIS MORNING. WE WILL ADD AN AMINOPHYLLINE DRIP AND CONVERT MOST MEDS TO IV. OTHERWISE, WE WILL FOLLOW UP WITH AM LABS, CHEST XRAY, ABG, AND CONTINUE TO MONITOR. TIME SPENT ON CLINICAL ASSESSMENT, REVIEWING LABS AND IMAGING, DECISION MAKING, AND DOCUMENTATION GREATER THAN 75 MINUTES. - Past Medical Family Social History Past Med/Fam/Surg Hx: No changes since H&P Allergies: Allergies No Known Drug Allergies Allergy (Verified 08/27/19 22:19) - Review of Systems ROS: No change since H&P - Vital Signs and I&O's Vital Signs: Temperature 98.0 F Pulse Rate [Left] 100 Pulse Rate [Bilateral Radial] 92 Pulse Rate 88 Respiratory Rate 25 Blood Pressure [Right Radial 161/63 Artery] Blood Pressure [Left Arm] 156/73 Blood Pressure 101/49 O2 Sat by Pulse Oximetry 99 Intake and Output: Intake & Output 08/23/20 08/24/20 08/25/20 08/26/20 11:59 11:59 11:59 11:59 Intake Total 2481 / 2481 5468 / 5468 3032 / 3032 2508 / 2508 Output Total 1700 / 1700 1260 / 1260 1700 / 1700 400 / 400 Balance 781 / 781 4208 / 4208 1332 / 1332 2108 / 2108 - Physical Exam Oriented: Normal Eyes: Normal Ear: Normal Nose: Normal Throat: Normal Respiratory: Generalized, Diminished, Rales Cardiovascular: Normal : Normal Auscultation: Bowel Sounds: Normal Palpation: Normal Tenderness: Normal Skin: Normal Musculoskeletal: Normal Psychiatric: Normal Mood Description: Calm Affect: Normal Speech Pattern: Clear - Laboratory and Diagnostics Result Diagrams: 08/25/20 02:50 08/25/20 02:50 Labs: 08/18/20 11:40 Blood Blood Culture - Final 08/18/20 12:00 Blood Blood Culture - Final Laboratory WBC 15.1 X10^3/uL (3.6-10.0) H 08/25/20 02:50 RBC 3.37 X10^6/uL (3.5-5.4) L 08/25/20 02:50 Hgb 9.6 g/dL (12.0-16.0) L 08/25/20 02:50 Hct 29.2 % (36.0-47.0) L 08/25/20 02:50 MCV 86.6 fL (80.0-100.0) 08/25/20 02:50 MCH 28.5 pg (27.0-34.0) 08/25/20 02:50 MCHC 33.0 g/dL (33.0-35.0) 08/25/20 02:50 RDW 12.7 % (11.6-16.5) 08/25/20 02:50 Plt Count 233 X10^3/uL (150.0-450.0) 08/25/20 02:50 Plt Count Comment Adequate (ADEQUATE) 08/25/20 02:50 MPV 7.8 fL (7.4-11.0) 08/25/20 02:50 Neut % (Auto) 94.1 % (42.0-75.0) H 08/25/20 02:50 Lymph % (Auto) 1.4 % (21.0-51.0) L 08/25/20 02:50 [place] % (Auto) 4.2 % (0.0-13.0) 08/25/20 02:50 Eos % (Auto) 0.0 % (0.9-2.9) L 08/25/20 02:50 Baso % (Auto) 0.3 % (0.2-1.0) 08/25/20 02:50 Neut # (Auto) 14.2 x10^3/uL (2.2-4.8) H 08/25/20 02:50 Lymph # (Auto) 0.2 X10^3/uL (1.3-2.9) L 08/25/20 02:50 [place] # (Auto) 0.6 x10^3/uL (0.3-0.8) 08/25/20 02:50 Eos # (Auto) 0.0 x10^3/uL (0.0-0.2) 08/25/20 02:50 Baso # (Auto) 0.0 X10^3/uL (0.0-0.1) 08/25/20 02:50 Absolute Nucleated RBC 0.1 /100WBC 08/25/20 02:50 Total Counted 100 08/25/20 02:50 Neutrophils % (Manual) 94 % (39-76) H 08/25/20 02:50 Band Neutrophils % 4 % (0-10) 08/23/20 07:08 Lymphocytes % (Manual) 2 % (13-43) L 08/25/20 02:50 Monocytes % (Manual) 4 % (4-9) 08/25/20 02:50 Plt Morphology Comment Normal (NORMAL) 08/25/20 02:50 RBC Morphology Normal (NORMAL) 08/25/20 02:50 PT 17.9 SECONDS (11.8-14.3) 08/22/20 17:00 INR Target Range - 08/22/20 17:00 INR 1.53 (0.8-1.3) H 08/22/20 17:00 APTT 120.6 SECONDS (22.9-36.5) H 08/25/20 17:30 PTT Comment - 08/25/20 17:30 D-Dimer 5.36 ug/ml (0.0-0.57) H* 08/25/20 02:50 Sample Site A-line 08/25/20 14:11 ABG pH 7.440 (7.35-7.45) 08/25/20 14:11 ABG pCO2 48.0 mmHg (35.0-45.0) H 08/25/20 14:11 ABG pO2 76.0 mmHg (80.0-100.0) L 08/25/20 14:11 ABG HCO3 32.6 mmol/L (22-26) H* 08/25/20 14:11 ABG O2 Saturation 96.0 % (90-100) 08/25/20 14:11 ABG Base Excess 7.3 mmol/L (-2.0-2.0) H 08/25/20 14:11 Juan Test Na 08/25/20 14:11 A-a Gradient 577.0 mmHg 08/25/20 14:11 FiO2 100.0 08/25/20 14:11 Blood Gas Comments Arianna flushed 08/25/20 14:11 Sodium 142 mmol/L (136-145) 08/25/20 02:50 Corrected Sodium 143 mmol/L (136-145) 08/25/20 02:50 Potassium 3.3 mmol/L (3.5-5.1) L 08/25/20 02:50 Chloride 104 mmol/L (98-107) 08/25/20 02:50 Carbon Dioxide 25.9 mmol/L (21-32) 08/25/20 02:50 BUN 17 mg/dL (7-18) 08/25/20 02:50 Creatinine 0.82 mg/dL (0.55-1.02) 08/25/20 02:50 Est GFR (MDRD) Af Amer > 60 (>60) 08/25/20 02:50 Est GFR (MDRD) Non-Af > 60 (>60) 08/25/20 02:50 Glucose 149 mg/dL (65-99) H 08/25/20 02:50 Lactic Acid 1.0 mmol/L (0.4-2.0) 08/18/20 11:40 Calcium 7.9 mg/dL (8.5-10.1) L 08/25/20 02:50 Corrected Calcium 8.7 mg/dL (8.5-10.1) 08/25/20 02:50 Magnesium 2.1 mg/dL (1.7-2.9) 08/24/20 04:00 Ferritin 353 ng/mL (8-252) H 08/23/20 07:08 Total Bilirubin 0.60 mg/dL (0.2-1.0) 08/25/20 02:50 AST 22 Units/L (15-37) 08/25/20 02:50 ALT 17 Units/L (12-78) 08/25/20 02:50 Alkaline Phosphatase 246 Units/L (46-116) H 08/25/20 02:50 Creatine Kinase 83 Units/L (26-192) 08/18/20 19:07 CK-MB (CK-2) 1.0 ng/mL (0-4.0) 08/18/20 19:07 CK/CKMB % Calc 1.2 % (<4) 08/18/20 19:07 Troponin I < 0.02 ng/mL (0-1.5) 08/18/20 19:07 C-Reactive Protein 64.30 mg/L (0-3.0) H 08/25/20 02:50 B-Natriuretic Peptide 262 pg/mL (0-79) H 08/25/20 02:50 Total Protein 5.8 g/dL (6.4-8.2) L 08/25/20 02:50 Albumin 3.0 g/dL (3.4-5.0) L 08/25/20 02:50 Globulin 2.8 g/dL (2.5-4.5) 08/25/20 02:50 Albumin/Globulin Ratio 1.1 Ratio (1.1-2.1) 08/25/20 02:50 Amylase 50 Units/L (25-115) 08/18/20 11:40 Lipase 137 Units/L (73-393) 08/18/20 11:40 Specimen Type Catherized urine 08/18/20 23:07 Urine Color Dark yellow (YELLOW) 08/18/20 23:07 Urine Appearance Clear (CLEAR) 08/18/20 23:07 Urine pH 7.0 (5.0 - 8.0) 08/18/20 23:07 Ur Specific [place] 1.010 (1.000-1.030) 08/18/20 23:07 Urine Protein 2+ (NEGATIVE) 08/18/20 23:07 Urine Glucose (UA) Negative (NEGATIVE) 08/18/20 23:07 Urine Ketones 1+ (NEGATIVE) 08/18/20 23:07 Urine Occult Blood Negative (NEGATIVE) 08/18/20 23:07 Urine Nitrite Negative (NEGATIVE) 08/18/20 23:07 Urine Bilirubin Negative (NEGATIVE) 08/18/20 23:07 Urine Urobilinogen 1+ (NORMAL) 08/18/20 23:07 Ur Leukocyte Esterase Negative (NEGATIVE) 08/18/20 23:07 Urine RBC None seen /HPF (0-3) 08/18/20 23:07 Urine WBC None seen /HPF (0-5) 08/18/20 23:07 Ur Squamous Epith Cells Rare /HPF (NEGATIVE) 08/18/20 23:07 Urine Bacteria Negative /HPF (NEGATIVE) 08/18/20 23:07 Ur Culture Indicated? No/not indicated 08/18/20 23:07 Influenza Type A (PCR) Negative (NEGATIVE) 08/18/20 12:46 Influenza Type B (PCR) Negative (NEGATIVE) 08/18/20 12:46 SARS CoV-2 RNA Rapid LUIS Positive (NEGATIVE) A 08/18/20 18:12 Blood Type B POSITIVE 08/21/20 14:30 - Plan (1) Pneumonia due to 2019 novel coronavirus Status: Acute Plan: INTUBATE TODAY, 1/2NS AT 75 ML/HR, AMINOPHYLLINE DRIP, VERSED DRIP, LE [place]QUIN 750MG IV HS, FORTAZ 1G IV Q8H, ASCORBIC ACID 1500MG IV Q6H, ALBUTEROL NEBS QID, MUCOMYST IN NEBS BID, SOLU-MEDROL 125 MG IV Q6H, PROTONIX 40MG PO DAILY, PEPCID 20MG PO BID, VSL 2 CAPS PO DAILY, TUSSIONEX 5ML PO Q12H PRN, TESSALON PERLES 200MG PO TID, ZOFRAN 4MG IV Q4H PRN, ZINC SULFATE 220MG PO DAILY, DIFLUCAN 100MG PO DAILY, MAGIC MOUTHWASH QID, HEPARIN DRIP, ROBITUSSIN DM 10 ML QID, SINGULAIR 10MG PO HS, ZYRTEC 10MG PO DAILY, AND THIAMINE 200MG IV BID, AND POTASSIUM AND MAGNESIUM PROTOCOLS. (2) Hypoxia Status: Acute
[2020-08-25] MEDS ORDERED: NS 1/2 1000 ML IV 1,000 ML IV ONE (21:11)
[2020-08-25] MEDS: LEVAQUIN PREMIX IV 750 MG 750 MG/150 ML BAG IV SCH ×2 (21:22→23:27)
[2020-08-25] MEDS: LACRI-LUBE S.O.P. AFFEYE SCH (21:22)
[2020-08-25] MEDS ORDERED: ACTIVASE CATHFLO IJ ONE (21:28)
[2020-08-25] MEDS ORDERED: NS 1000 ML 1,000 ML ONE (22:21)
[2020-08-25] MEDS ORDERED: GEODON INJ IM ONE (22:32)
[2020-08-25] MEDS: GEODON INJ IM SCH (23:27)
[2020-08-25] MEDS: FORTAZ or TAZICEF VIAL INJ IVP SCH (23:28)
[2020-08-26 04:11] LABS: ABG BASE EXCESS 7.9 mmol/L (-2.0-2.0)
[2020-08-26 04:12] LABS: ABG HCO3 33.3 mmol/L (22-26)
[2020-08-26] MEDS: SOLU-Medrol 125 MG VIAL IVP SCH ×3 (05:40→19:00)
[2020-08-26] MEDS: FORTAZ or TAZICEF VIAL INJ IVP SCH ×2 (05:40→14:19)
--- NOTE | 2020-08-26 06:06 | RAD ---
HISTORYShortness of breathSTUDYChest AP [id number] is an endotracheal tube in good position. There is a right IJ line in good position. The heart is within normal limits in size. The alicia are normal. Diffuse radha ateral predominantly alveolar infiltrates are unchanged in degree or distribution from the prior exam ination. No pleural effusions are identified. Bony thorax is unremarkable.IMPRESSIONNo change diffuse bilateral alveolar infiltratesElectronically signed by: BEN ONTIVEROS (Aug 26, 2020 06:03:47)
[2020-08-26 06:22] LABS: BASOPHILS % (AUTO) 0.2 % (0.2-1.0); EOSINOPHILS # (AUTO) 0.1 x10^3/uL (0.0-0.2); EOSINOPHILS % (AUTO) 0.4 % (0.9-2.9); HEMATOCRIT 30.9 % (36.0-47.0); HEMOGLOBIN 10.4 g/dL (12.0-16.0); LYMPHOCYTES # (AUTO) 0.3 X10^3/uL (1.3-2.9); LYMPHOCYTES % (AUTO) 1.6 % (21.0-51.0); MEAN CORPUSCULAR HEMOGLOBIN 28.9 pg (27.0-34.0); MEAN CORPUSCULAR HGB CONC 33.7 g/dL (33.0-35.0); MEAN CORPUSCULAR VOLUME 85.9 fL (80.0-100.0); MEAN PLATELET VOLUME 8.3 fL (7.4-11.0); MONOCYTES # (AUTO) 0.6 x10^3/uL (0.3-0.8); MONOCYTES % (AUTO) 3.4 % (0.0-13.0); NEUTROPHILS # (AUTO) 16.3 x10^3/uL (2.2-4.8); NEUTROPHILS % (AUTO) 94.4 % (42.0-75.0); PLATELET COUNT 223 X10^3/uL (150.0-450.0); RED CELL DISTRIBUTION WIDTH 12.9 % (11.6-16.5); WHITE BLOOD COUNT 17.3 X10^3/uL (3.6-10.0)
[2020-08-26 06:26] LABS: ALANINE AMINOTRANSFERASE 10 Units/L (12-78); ALBUMIN 2.8 g/dL (3.4-5.0); ALKALINE PHOSPHATASE 187 Units/L (46-116); ASPARTATE AMINO TRANSFERASE 14 Units/L (15-37); BLOOD UREA NITROGEN 15 mg/dL (7-18); CALCIUM 7.8 mg/dL (8.5-10.1); CARBON DIOXIDE 29.6 mmol/L (21-32); CHLORIDE 99 mmol/L (98-107); COR CA(FOR HYPOALB) 8.8 mg/dL (8.5-10.1); COR NA(FOR HYPERGLY) 140 mmol/L (136-145); SODIUM 138 mmol/L (136-145); TOTAL PROTEIN 5.8 g/dL (6.4-8.2); eGFR NON BLACK RACES > 60 (>60)
[2020-08-26 07:11] LABS: BAND NEUTROPHILS % 3 % (0-10); PLATELET MORPHOLOGY COMMENT NORMAL (NORMAL)
[2020-08-26] MEDS: HEPARIN SODIUM IN D5W 25,000 UNITS/500 ML BAG IV PRN (07:27)
[2020-08-26] MEDS: ALBUMIN HUMAN 25%- 100 ML 100 ML IV SCH (08:45)
[2020-08-26] MEDS: GEODON INJ IM SCH (08:46)
[2020-08-26] MEDS: PEPCID 20 MG IV PREMIX* 20 MG/50 ML BAG IV SCH (08:46)
[2020-08-26] MEDS: LACRI-LUBE S.O.P. AFFEYE SCH (08:46)
[2020-08-26] MEDS: NS 1/2 1000 ML IV 1,000 ML IV SCH (08:46)
[2020-08-26] MEDS: PROTONIX INJ 40 MG VIAL IVP SCH (08:47)
[2020-08-26] MEDS: THIAMINE HCL INJ IVP SCH (08:47)
[2020-08-26] MEDS: SYNTHROID INJ 100 mcg VIAL IM SCH (10:30)
[2020-08-26] MEDS: DIFLUCAN 200 MG IV PREMIX* 200 MG/100 ML BAG IV SCH (10:30)
[2020-08-26] MEDS: AMINOPHYLLINE INJ 1,000 MG in DEXTROSE 5% 460 ML IV PRN (10:42)
[2020-08-26] MEDS: ZEMURON IV SCH (11:13)
[2020-08-26] MEDS: NS IV SCH (11:13)
[2020-08-26] MEDS: K-RIDER 10 MEQ/NS 100 ML 10 MEQ/100 ML BAG IV PRN (13:40)
[2020-08-26] MEDS: ACCUNEB 1.25 MG NEBULE NEB SCH ×4 (14:46→20:50)
[2020-08-26] MEDS: MUCOMYST (RESPIRATORY USE ONLY) NEB SCH ×4 (14:46→20:50)
[2020-08-26] MEDS: PULMICORT NEB TX 0.5 MG NEB SCH ×2 (14:47→20:50)
[2020-08-26] MEDS: VERSED 100 MG in NS 100 ML IV 80 ML IV SCH (15:43)
--- NOTE | 2020-08-26 22:08 | PCM.PROG ---
Progress Note - Progress Note for Day of Date of Exam: 08/26/20 - Subjective Subjective: IS BEING TREATED FOR PNEUMONIA DUE TO COVID-19 AND HYPOXIA. SHE WAS PLACED ON THE MECHANINCAL VENT YESTERDAY. TODAY, HER SETTINGS ON THE VENT ARE: A/C, VENT RATE 22, TIDAL VOLUME 400, PEAK FLOW 31, PEEP 15, FI02 100. HER SATURATIONS HAVE BEEN 97-99% THIS MORNING AND THROUGHOUT THE NIGHT. ON EXAMINATION, HEART IS REGULAR IN RATE AND RHYTHM. BILATERAL LUNGS ARE NOTED WITH RALES THROUGHOUT. ABDOMEN IS ROUND, SOFT, AND NON-TENDER WITH NORMAL BOWEL SOUNDS NOTED IN ALL QUADRANTS. NO EDEMA NOTED TO UPPER OR LOWER EXTREMITIES. HER VITALS THIS MORNING ARE: 97.2-79-22-98%-131/61. LABS WERE OBTAINED. ABNORMAL LAB VALUES INCLUDE THE FOLLOWING: WBC 17.3, HGB 10.4, HCT 30.9, D-DIMER 1.54, POTASSIUM 3.4, GLUCOSE 171, CALCIUM 7.8, FERRITIN 309, AST 14, ALT 10, ALK PHOS 187, CRP 38, BNP 105, TOTAL PROTEIN 5.8, ALBUMIN 2.8. BLOOD CULTURES ARE PENDING. ABG WAS OBTAINED THIS MORNING AND REVEALED: PH 7.440, PC02 48, P02 76, HC03 32.6, 02 SAT 96, BASE EXCESS 7.3, A-A GRADIENT 577, FI02 100. A CHEST XRAY WAS OBTAINED AND REVEALED: There is an endotracheal tube in good position. There is a right IJ line in good position. The heart is within normal limits in size. The alicia are normal. Diffuse bilateral predominantly alveolar infiltrates are unchanged in degree or distribution from the prior examination. No pleural effusions are identified. Bony thorax is unremarkable. SHE IS CU RRENTLY RECEIVING 1/2NS AT 75 ML/HR, LEVAQUIN 750MG IV HS, FORTAZ 1G IV Q8H, AMINOPHYLLINE DRIP, ASCORBIC ACID 1500MG IV Q6H, ALBUTEROL NEBS QID, MUCOMYST IN NEBS BID, SOLU-MEDROL 125 MG IV Q6H, PROTONIX 40MG IV DAILY, PEPCID 20MG IV BID, THIAMINE 200MG IV BID, ZOFRAN 4MG IV Q4H PRN, DIFLUCAN 100MG IV DAILY, HEPARIN DRIP, AND POTASSIUM AND MAGNESIUM PROTOCOLS. WE WILL CONTINUE WITH CURRENT PLAN OF CARE TODAY. OTHERWISE, WE WILL FOLLOW UP WITH AM LABS, CHEST XRAY, ABG, AND CONTINUE TO MONITOR. TIME SPENT ON CLINICAL ASSESSMENT, REVIEWING LABS AND IMAGING, DECISION MAKING, AND DOCUMENTATION GREATER THAN 75 MINUTES. - Past Medical Family Social History Past Med/Fam/Surg Hx: No changes since H&P Allergies: Allergies No Known Drug Allergies Allergy (Verified 08/27/19 22:19) - Review of Systems ROS: No change since H&P - Vital Signs and I&O's Vital Signs: Temperature 97.5 F Pulse Rate [Left] 78 Pulse Rate [Bilateral Radial] 92 Pulse Rate 75 Respiratory Rate 22 Blood Pressure [Right Radial 149/60 Artery] Blood Pressure [Left Arm] 150/71 Blood Pressure 144/67 O2 Sat by Pulse Oximetry 97 Intake and Output: Intake & Output 08/24/20 08/25/20 08/26/20 08/27/20 11:59 11:59 11:59 11:59 Intake Total 5468 / 5468 3032 / 3032 6492 / 6492 1240 / 1240 Output Total 1260 / 1260 1700 / 1700 1900 / 1900 1200 / 1200 Balance 4208 / 4208 1332 / 1332 4592 / 4592 40 / 40 - Physical Exam Oriented: Normal Eyes: Normal Ear: Normal Nose: Normal Throat: Normal Respiratory: Generalized, Diminished, Rales Cardiovascular: Normal : Normal Auscultation: Bowel Sounds: Normal Palpation: Normal Tenderness: Normal Skin: Normal Musculoskeletal: Normal Psychiatric: Normal Mood Description: Calm Affect: Normal Speech Pattern: Artificially Ventilated - Laboratory and Diagnostics Result Diagrams: 08/26/20 04:10 08/26/20 04:10 Labs: 08/18/20 11:40 Blood Blood Culture - Final 08/18/20 12:00 Blood Blood Culture - Final Laboratory WBC 17.3 X10^3/uL (3.6-10.0) H 08/26/20 04:10 RBC 3.60 X10^6/uL (3.5-5.4) 08/26/20 04:10 Hgb 10.4 g/dL (12.0-16.0) L 08/26/20 04:10 Hct 30.9 % (36.0-47.0) L 08/26/20 04:10 MCV 85.9 fL (80.0-100.0) 08/26/20 04:10 MCH 28.9 pg (27.0-34.0) 08/26/20 04:10 MCHC 33.7 g/dL (33.0-35.0) 08/26/20 04:10 RDW 12.9 % (11.6-16.5) 08/26/20 04:10 Plt Count 223 X10^3/uL (150.0-450.0) 08/26/20 04:10 Plt Count Comment Adequate (ADEQUATE) 08/26/20 04:10 MPV 8.3 fL (7.4-11.0) 08/26/20 04:10 Neut % (Auto) 94.4 % (42.0-75.0) H 08/26/20 04:10 Lymph % (Auto) 1.6 % (21.0-51.0) L 08/26/20 04:10 [place] % (Auto) 3.4 % (0.0-13.0) 08/26/20 04:10 Eos % (Auto) 0.4 % (0.9-2.9) L 08/26/20 04:10 Baso % (Auto) 0.2 % (0.2-1.0) 08/26/20 04:10 Neut # (Auto) 16.3 x10^3/uL (2.2-4.8) H 08/26/20 04:10 Lymph # (Auto) 0.3 X10^3/uL (1.3-2.9) L 08/26/20 04:10 [place] # (Auto) 0.6 x10^3/uL (0.3-0.8) 08/26/20 04:10 Eos # (Auto) 0.1 x10^3/uL (0.0-0.2) 08/26/20 04:10 Baso # (Auto) 0.0 X10^3/uL (0.0-0.1) 08/26/20 04:10 Absolute Nucleated RBC 0.0 /100WBC 08/26/20 04:10 Total Counted 100 08/26/20 04:10 Neutrophils % (Manual) 89 % (39-76) H 08/26/20 04:10 Band Neutrophils % 3 % (0-10) 08/26/20 04:10 Lymphocytes % (Manual) 4 % (13-43) L 08/26/20 04:10 Monocytes % (Manual) 4 % (4-9) 08/26/20 04:10 Plt Morphology Comment Normal (NORMAL) 08/26/20 04:10 RBC Morphology Normal (NORMAL) 08/26/20 04:10 PT 17.9 SECONDS (11.8-14.3) 08/22/20 17:00 INR Target Range - 08/22/20 17:00 INR 1.53 (0.8-1.3) H 08/22/20 17:00 APTT 118.0 SECONDS (22.9-36.5) H 08/26/20 20:50 PTT Comment - 08/26/20 20:50 D-Dimer 1.54 ug/ml (0.0-0.57) H* 08/26/20 15:13 Sample Site Drain 08/26/20 04:06 ABG pH 7.440 (7.35-7.45) 08/26/20 04:06 ABG pCO2 49.0 mmHg (35.0-45.0) H 08/26/20 04:06 ABG pO2 92.0 mmHg (80.0-100.0) 08/26/20 04:06 ABG HCO3 33.3 mmol/L (22-26) H* 08/26/20 04:06 ABG O2 Saturation 97.0 % (90-100) 08/26/20 04:06 ABG Base Excess 7.9 mmol/L (-2.0-2.0) H 08/26/20 04:06 Juan Test N/a 08/26/20 04:06 A-a Gradient 560.0 mmHg 08/26/20 04:06 FiO2 100.0 08/26/20 04:06 Blood Gas Comments [place] well ae 08/26/20 04:06 Sodium 138 mmol/L (136-145) 08/26/20 04:10 Corrected Sodium 140 mmol/L (136-145) 08/26/20 04:10 Potassium 3.4 mmol/L (3.5-5.1) L 08/26/20 04:10 Chloride 99 mmol/L (98-107) 08/26/20 04:10 Carbon Dioxide 29.6 mmol/L (21-32) 08/26/20 04:10 BUN 15 mg/dL (7-18) 08/26/20 04:10 Creatinine 0.60 mg/dL (0.55-1.02) 08/26/20 04:10 Est GFR (MDRD) Af Amer > 60 (>60) 08/26/20 04:10 Est GFR (MDRD) Non-Af > 60 (>60) 08/26/20 04:10 Glucose 171 mg/dL (65-99) H 08/26/20 04:10 Lactic Acid 1.0 mmol/L (0.4-2.0) 08/18/20 11:40 Calcium 7.8 mg/dL (8.5-10.1) L 08/26/20 04:10 Corrected Calcium 8.8 mg/dL (8.5-10.1) 08/26/20 04:10 Magnesium 2.1 mg/dL (1.7-2.9) 08/24/20 04:00 Ferritin 309 ng/mL (8-252) H 08/26/20 04:10 Total Bilirubin 0.60 mg/dL (0.2-1.0) 08/26/20 04:10 AST 14 Units/L (15-37) L 08/26/20 04:10 ALT 10 Units/L (12-78) L 08/26/20 04:10 Alkaline Phosphatase 187 Units/L (46-116) H 08/26/20 04:10 Creatine Kinase 83 Units/L (26-192) 08/18/20 19:07 CK-MB (CK-2) 1.0 ng/mL (0-4.0) 08/18/20 19:07 CK/CKMB % Calc 1.2 % (<4) 08/18/20 19:07 Troponin I < 0.02 ng/mL (0-1.5) 08/18/20 19:07 C-Reactive Protein 38.00 mg/L (0-3.0) H 08/26/20 04:10 B-Natriuretic Peptide 105 pg/mL (0-79) H 08/26/20 04:10 Total Protein 5.8 g/dL (6.4-8.2) L 08/26/20 04:10 Albumin 2.8 g/dL (3.4-5.0) L 08/26/20 04:10 Globulin 3.0 g/dL (2.5-4.5) 08/26/20 04:10 Albumin/Globulin Ratio 0.9 Ratio (1.1-2.1) L 08/26/20 04:10 Amylase 50 Units/L (25-115) 08/18/20 11:40 Lipase 137 Units/L (73-393) 08/18/20 11:40 Specimen Type Catherized urine 08/18/20 23:07 Urine Color Dark yellow (YELLOW) 08/18/20 23:07 Urine Appearance Clear (CLEAR) 08/18/20 23:07 Urine pH 7.0 (5.0 - 8.0) 08/18/20 23:07 Ur Specific [place] 1.010 (1.000-1.030) 08/18/20 23:07 Urine Protein 2+ (NEGATIVE) 08/18/20 23:07 Urine Glucose (UA) Negative (NEGATIVE) 08/18/20 23:07 Urine Ketones 1+ (NEGATIVE) 08/18/20 23:07 Urine Occult Blood Negative (NEGATIVE) 08/18/20 23:07 Urine Nitrite Negative (NEGATIVE) 08/18/20 23:07 Urine Bilirubin Negative (NEGATIVE) 08/18/20 23:07 Urine Urobilinogen 1+ (NORMAL) 08/18/20 23:07 Ur Leukocyte Esterase Negative (NEGATIVE) 08/18/20 23:07 Urine RBC None seen /HPF (0-3) 08/18/20 23:07 Urine WBC None seen /HPF (0-5) 08/18/20 23:07 Ur Squamous Epith Cells Rare /HPF (NEGATIVE) 08/18/20 23:07 Urine Bacteria Negative /HPF (NEGATIVE) 08/18/20 23:07 Ur Culture Indicated? No/not indicated 08/18/20 23:07 Theophylline 10.0 ug/mL (10-20) 08/26/20 04:10 Influenza Type A (PCR) Negative (NEGATIVE) 08/18/20 12:46 Influenza Type B (PCR) Negative (NEGATIVE) 08/18/20 12:46 SARS CoV-2 RNA Rapid LUIS Positive (NEGATIVE) A 08/18/20 18:12 Blood Type B POSITIVE 08/21/20 14:30 - Plan (1) Pneumonia due to 2019 novel coronavirus Status: Acute Plan: MECHANICAL VENT, 1/2NS AT 75 ML/HR, LEVAQUIN 750MG IV HS, FORTAZ 1G IV Q8H, AMINOPHYLLINE DRIP, ASCORBIC ACID 1500MG IV Q6H, ALBUTEROL NEBS QID, MUCOMYST IN NEBS BID, SOLU-MEDROL 125 MG IV Q6H, PROTONIX 40MG IV DAILY, PEPCID 20MG IV BID, THIAMINE 200MG IV BID, ZOFRAN 4MG IV Q4H PRN, DIFLUCAN 100MG IV DAILY, HEPARIN DRIP, AND POTASSIUM AND MAGNESIUM PROTOCOLS. (2) Hypoxia Status: Acute
[2020-08-27] MEDS: NS IV SCH ×5 (00:33→22:12)
[2020-08-27] MEDS: ZEMURON IV SCH ×5 (00:33→22:12)
[2020-08-27] MEDS: LEVAQUIN PREMIX IV 750 MG 750 MG/150 ML BAG IV SCH ×2 (00:48→20:30)
[2020-08-27] MEDS: LACRI-LUBE S.O.P. AFFEYE SCH ×3 (00:48→20:00)
[2020-08-27] MEDS: GEODON INJ IM SCH ×3 (00:48→20:00)
[2020-08-27] MEDS: THIAMINE HCL INJ IVP SCH ×3 (00:49→20:00)
[2020-08-27] MEDS: PEPCID 20 MG IV PREMIX* 20 MG/50 ML BAG IV SCH ×3 (00:49→20:00)
[2020-08-27] MEDS: FORTAZ or TAZICEF VIAL INJ IVP SCH ×4 (00:49→22:15)
[2020-08-27] MEDS: NS 1/2 1000 ML IV 1,000 ML IV SCH ×2 (00:51→12:59)
[2020-08-27] MEDS: SOLU-Medrol 125 MG VIAL IVP SCH ×5 (00:51→22:30)
[2020-08-27 03:24] LABS: BASOPHILS % (AUTO) 0 % (0.2-1.0); EOSINOPHILS % (AUTO) 0.1 % (0.9-2.9); HEMATOCRIT 27.9 % (36.0-47.0); HEMOGLOBIN 9.2 g/dL (12.0-16.0); LYMPHOCYTES # (AUTO) 0.3 X10^3/uL (1.3-2.9); LYMPHOCYTES % (AUTO) 1.9 % (21.0-51.0); MEAN CORPUSCULAR HEMOGLOBIN 28.6 pg (27.0-34.0); MEAN CORPUSCULAR VOLUME 86.6 fL (80.0-100.0); MEAN PLATELET VOLUME 8.4 fL (7.4-11.0); MONOCYTES % (AUTO) 6.5 % (0.0-13.0); NEUTROPHILS # (AUTO) 13.9 x10^3/uL (2.2-4.8); NEUTROPHILS % (AUTO) 91.5 % (42.0-75.0); PLATELET COUNT 198 X10^3/uL (150.0-450.0); RED BLOOD COUNT 3.22 X10^6/uL (3.5-5.4); RED CELL DISTRIBUTION WIDTH 12.8 % (11.6-16.5); WHITE BLOOD COUNT 15.2 X10^3/uL (3.6-10.0)
[2020-08-27 03:34] LABS: ALANINE AMINOTRANSFERASE 13 Units/L (12-78); ALBUMIN 2.7 g/dL (3.4-5.0); ALKALINE PHOSPHATASE 102 Units/L (46-116); ASPARTATE AMINO TRANSFERASE 12 Units/L (15-37); BLOOD UREA NITROGEN 15 mg/dL (7-18); CALCIUM 7.8 mg/dL (8.5-10.1); CARBON DIOXIDE 30.9 mmol/L (21-32); CHLORIDE 100 mmol/L (98-107); COR CA(FOR HYPOALB) 8.8 mg/dL (8.5-10.1); COR NA(FOR HYPERGLY) 140 mmol/L (136-145); CREATININE 0.73 mg/dL (0.55-1.02); SODIUM 139 mmol/L (136-145); TOTAL PROTEIN 5.4 g/dL (6.4-8.2); eGFR NON BLACK RACES > 60 (>60)
[2020-08-27 03:38] LABS: PLATELET MORPHOLOGY COMMENT NORMAL (NORMAL)
[2020-08-27] MEDS: HEPARIN SODIUM IN D5W 25,000 UNITS/500 ML BAG IV PRN ×2 (03:47→23:59)
[2020-08-27 05:20] LABS: ABG BASE EXCESS 10.8 mmol/L (-2.0-2.0)
[2020-08-27 05:21] LABS: ABG HCO3 35.1 mmol/L (22-26)
[2020-08-27] MEDS: K-RIDER 10 MEQ/NS 100 ML 10 MEQ/100 ML BAG IV PRN ×4 (06:51→14:06)
--- NOTE | 2020-08-27 07:32 | RAD ---
Chest AP portableIndication: Ventilator protocol.Comparison August 26, 2020FINDINGSETT tip is at the lower border the clavicles. Right IJ catheter tip is over the SVC. There is no pneumothorax. There is patchy bilateral pulmonary opacities, worse in the right lower lung. Left costophrenic angle is obscured. Monitoring leads obscure minimal detail.IMPRESSIONLines and tubes are stable, with patchy pulmonary opacities also relatively unchanged, perhaps slightly improving in the left lung.Electronically signed by: RODRICK TUBBS (Aug 27, 2020 07:29:31)
[2020-08-27] MEDS: PULMICORT NEB TX 0.5 MG NEB SCH ×2 (08:43→20:35)
[2020-08-27] MEDS: ACCUNEB 1.25 MG NEBULE NEB SCH ×4 (08:43→20:35)
[2020-08-27] MEDS: MUCOMYST (RESPIRATORY USE ONLY) NEB SCH ×4 (08:43→20:35)
[2020-08-27] MEDS: DIFLUCAN 200 MG IV PREMIX* 200 MG/100 ML BAG IV SCH (09:40)
[2020-08-27] MEDS: ALBUMIN HUMAN 25%- 100 ML 100 ML IV SCH (09:40)
[2020-08-27] MEDS: SYNTHROID INJ 100 mcg VIAL IM SCH (09:42)
[2020-08-27] MEDS: PROTONIX INJ 40 MG VIAL IVP SCH (09:42)
--- NOTE | 2020-08-27 19:48 | PCM.PROG ---
Progress Note - Progress Note for Day of Date of Exam: 08/27/20 - Subjective Subjective: IS BEING TREATED FOR PNEUMONIA DUE TO COVID-19 AND HYPOXIA. SHE REMAINS ON THE MECHANICAL VENT. TODAY, HER SETTINGS ON THE VENT ARE: A/C, VENT RATE 22, TIDAL VOLUME 400, PEAK FLOW 31, PEEP 15, FI02 80. HER SATURATIONS HAVE BEEN 94-98% THIS MORNING AND THROUGHOUT THE NIGHT. ON EXAMINATION, HEART IS REGULAR IN RATE AND RHYTHM. BILATERAL LUNGS ARE NOTED WITH RALES THROUGHOUT. ABDOMEN IS ROUND, SOFT, AND NON-TENDER WITH NORMAL BOWEL SOUNDS NOTED IN ALL QUADRANTS. NO EDEMA NOTED TO UPPER OR LOWER EXTREMITIES. HER VITALS THIS MORNING ARE: 98.2-79-24-95%-156/67. LABS WERE OBTAINED. ABNORMAL LAB VALUES INCLUDE THE FOLLOWING: WBC 15.2, RBC 3.22, HGB 9.2, HCT 27.9, D-DIMER 1.16, POTASSIUM 3.1, GLUCOSE 155, CALCIUM 7.8, FERRITIN 337, AST 12, CRP 30.20, TOTAL PROTEIN 5.4, ALBUMIN 2.7. BLOOD CULTURES ARE PENDING. ABG WAS OBTAINED THIS MORNING AND REVEALED: PH 7.440, PC02 48, P02 76, HC03 32.6, 02 SAT 96, BASE EXCESS 7.3, A-A GRADIENT 577, FI02 100. A CHEST XRAY WAS OBTAINED AND REVEALED: Lines and tubes are stable, with patchy pulmonary opacities also relatively unchanged, perhaps slightly improving in the left lung. SHE IS CURRENTLY RECEIVING 1/2NS AT 75 ML/HR, LEVAQUIN 750MG IV HS, FORTAZ 1G IV Q8H, AMINOPHYLLINE DRIP, ASCORBIC ACID 1500MG IV Q6H, ALBUTEROL NEBS QID, MUCOMYST IN NEBS BID, SOLU-MEDROL 125 MG IV Q6H, PROTONIX 40MG IV DAILY, PEPCID 20MG IV BID, THIAMINE 200MG IV BID, ZOFRAN 4MG IV Q4H PRN, DIFLUCAN 100MG IV DAILY, HEPARIN DRIP, AND POTASSIUM AND MAGNESIUM PROTOCOLS. WE WILL CONTINUE WITH CURRENT PLAN OF CARE TODAY. OTHERWISE, WE WILL FOLLOW UP WITH AM LABS, CHEST XRAY, ABG, AND CONTINUE TO MONITOR. TIME SPENT ON CLINICAL ASSESSMENT, REVIEWING LABS AND IMAGING, DECISION MAKING, AND DOCUMENTATION GREATER THAN 75 MINUTES. - Past Medical Family Social History Past Med/Fam/Surg Hx: No changes since H&P Allergies: Allergies No Known Drug Allergies Allergy (Verified 08/27/19 22:19) - Review of Systems ROS: No change since H&P - Vital Signs and I&O's Vital Signs: Temperature 97.9 F Pulse Rate [Left] 78 Pulse Rate [Bilateral Radial] 92 Pulse Rate 79 Respiratory Rate 22 Blood Pressure [Right Radial 193/77 Artery] Blood Pressure [Left Arm] 173/62 Blood Pressure 125/61 O2 Sat by Pulse Oximetry 95 Intake and Output: Intake & Output 08/25/20 08/26/20 08/27/20 08/28/20 11:59 11:59 11:59 11:59 Intake Total 3032 / 3032 6492 / 6492 3706 / 3706 1110 / 1110 Output Total 1700 / 1700 1900 / 1900 2200 / 2200 1999 / 1999 Balance 1332 / 1332 4592 / 4592 1506 / 1506 -890 / -890 - Physical Exam Oriented: Unable to test Eyes: Normal Ear: Normal Nose: Normal Throat: Normal Respiratory: Generalized, Diminished, Rales Cardiovascular: Normal : Normal Auscultation: Bowel Sounds: Normal Palpation: Normal Tenderness: Normal Skin: Normal Musculoskeletal: Normal Psychiatric: Other (SEDATED ) Mood Description: Calm Affect: Normal Speech Pattern: Artificially Ventilated - Laboratory and Diagnostics Result Diagrams: 08/27/20 02:55 08/27/20 02:55 Labs: 08/18/20 11:40 Blood Blood Culture - Final 08/18/20 12:00 Blood Blood Culture - Final Laboratory WBC 15.2 X10^3/uL (3.6-10.0) H 08/27/20 02:55 RBC 3.22 X10^6/uL (3.5-5.4) L 08/27/20 02:55 Hgb 9.2 g/dL (12.0-16.0) L 08/27/20 02:55 Hct 27.9 % (36.0-47.0) L 08/27/20 02:55 MCV 86.6 fL (80.0-100.0) 08/27/20 02:55 MCH 28.6 pg (27.0-34.0) 08/27/20 02:55 MCHC 33.0 g/dL (33.0-35.0) 08/27/20 02:55 RDW 12.8 % (11.6-16.5) 08/27/20 02:55 Plt Count 198 X10^3/uL (150.0-450.0) 08/27/20 02:55 Plt Count Comment Adequate (ADEQUATE) 08/27/20 02:55 MPV 8.4 fL (7.4-11.0) 08/27/20 02:55 Neut % (Auto) 91.5 % (42.0-75.0) H 08/27/20 02:55 Lymph % (Auto) 1.9 % (21.0-51.0) L 08/27/20 02:55 [place] % (Auto) 6.5 % (0.0-13.0) 08/27/20 02:55 Eos % (Auto) 0.1 % (0.9-2.9) L 08/27/20 02:55 Baso % (Auto) 0 % (0.2-1.0) L 08/27/20 02:55 Neut # (Auto) 13.9 x10^3/uL (2.2-4.8) H 08/27/20 02:55 Lymph # (Auto) 0.3 X10^3/uL (1.3-2.9) L 08/27/20 02:55 [place] # (Auto) 1.0 x10^3/uL (0.3-0.8) H 08/27/20 02:55 Eos # (Auto) 0.0 x10^3/uL (0.0-0.2) 08/27/20 02:55 Baso # (Auto) 0.0 X10^3/uL (0.0-0.1) 08/27/20 02:55 Absolute Nucleated RBC 0.0 /100WBC 08/27/20 02:55 Total Counted 100 08/27/20 02:55 Neutrophils % (Manual) 91 % (39-76) H 08/27/20 02:55 Band Neutrophils % 3 % (0-10) 08/26/20 04:10 Lymphocytes % (Manual) 6 % (13-43) L 08/27/20 02:55 Monocytes % (Manual) 3 % (4-9) L 08/27/20 02:55 Plt Morphology Comment Normal (NORMAL) 08/27/20 02:55 RBC Morphology Normal (NORMAL) 08/27/20 02:55 PT 17.9 SECONDS (11.8-14.3) 08/22/20 17:00 INR Target Range - 08/22/20 17:00 INR 1.53 (0.8-1.3) H 08/22/20 17:00 APTT 80.3 SECONDS (22.9-36.5) H 08/27/20 16:13 PTT Comment - 08/27/20 16:13 D-Dimer 1.16 ug/ml (0.0-0.57) H* 08/27/20 03:05 Sample Site A line 08/27/20 05:00 ABG pH 7.510 (7.35-7.45) H 08/27/20 05:00 ABG pCO2 44.0 mmHg (35.0-45.0) 08/27/20 05:00 ABG pO2 124.0 mmHg (80.0-100.0) H 08/27/20 05:00 ABG HCO3 35.1 mmol/L (22-26) H* 08/27/20 05:00 ABG O2 Saturation 99.0 % (90-100) 08/27/20 05:00 ABG Base Excess 10.8 mmol/L (-2.0-2.0) H 08/27/20 05:00 Juan Test Na 08/27/20 05:00 A-a Gradient 534.0 mmHg 08/27/20 05:00 FiO2 100.0 08/27/20 05:00 Blood Gas Comments [place] well sw 08/27/20 05:00 Sodium 139 mmol/L (136-145) 08/27/20 02:55 Corrected Sodium 140 mmol/L (136-145) 08/27/20 02:55 Potassium 3.1 mmol/L (3.5-5.1) L 08/27/20 02:55 Chloride 100 mmol/L (98-107) 08/27/20 02:55 Carbon Dioxide 30.9 mmol/L (21-32) 08/27/20 02:55 BUN 15 mg/dL (7-18) 08/27/20 02:55 Creatinine 0.73 mg/dL (0.55-1.02) 08/27/20 02:55 Est GFR (MDRD) Af Amer > 60 (>60) 08/27/20 02:55 Est GFR (MDRD) Non-Af > 60 (>60) 08/27/20 02:55 Glucose 155 mg/dL (65-99) H 08/27/20 02:55 Lactic Acid 1.0 mmol/L (0.4-2.0) 08/18/20 11:40 Calcium 7.8 mg/dL (8.5-10.1) L 08/27/20 02:55 Corrected Calcium 8.8 mg/dL (8.5-10.1) 08/27/20 02:55 Magnesium 2.1 mg/dL (1.7-2.9) 08/27/20 02:55 Ferritin 337 ng/mL (8-252) H 08/27/20 02:55 Total Bilirubin 0.50 mg/dL (0.2-1.0) 08/27/20 02:55 AST 12 Units/L (15-37) L 08/27/20 02:55 ALT 13 Units/L (12-78) 08/27/20 02:55 Alkaline Phosphatase 102 Units/L (46-116) 08/27/20 02:55 Creatine Kinase 83 Units/L (26-192) 08/18/20 19:07 CK-MB (CK-2) 1.0 ng/mL (0-4.0) 08/18/20 19:07 CK/CKMB % Calc 1.2 % (<4) 08/18/20 19:07 Troponin I < 0.02 ng/mL (0-1.5) 08/18/20 19:07 C-Reactive Protein 30.20 mg/L (0-3.0) H 08/27/20 02:55 B-Natriuretic Peptide 105 pg/mL (0-79) H 08/26/20 04:10 Total Protein 5.4 g/dL (6.4-8.2) L 08/27/20 02:55 Albumin 2.7 g/dL (3.4-5.0) L 08/27/20 02:55 Globulin 2.7 g/dL (2.5-4.5) 08/27/20 02:55 Albumin/Globulin Ratio 1.0 Ratio (1.1-2.1) L 08/27/20 02:55 Amylase 50 Units/L (25-115) 08/18/20 11:40 Lipase 137 Units/L (73-393) 08/18/20 11:40 Specimen Type Catherized urine 08/18/20 23:07 Urine Color Dark yellow (YELLOW) 08/18/20 23:07 Urine Appearance Clear (CLEAR) 08/18/20 23:07 Urine pH 7.0 (5.0 - 8.0) 08/18/20 23:07 Ur Specific [place] 1.010 (1.000-1.030) 08/18/20 23:07 Urine Protein 2+ (NEGATIVE) 08/18/20 23:07 Urine Glucose (UA) Negative (NEGATIVE) 08/18/20 23:07 Urine Ketones 1+ (NEGATIVE) 08/18/20 23:07 Urine Occult Blood Negative (NEGATIVE) 08/18/20 23:07 Urine Nitrite Negative (NEGATIVE) 08/18/20 23:07 Urine Bilirubin Negative (NEGATIVE) 08/18/20 23:07 Urine Urobilinogen 1+ (NORMAL) 08/18/20 23:07 Ur Leukocyte Esterase Negative (NEGATIVE) 08/18/20 23:07 Urine RBC None seen /HPF (0-3) 08/18/20 23:07 Urine WBC None seen /HPF (0-5) 08/18/20 23:07 Ur Squamous Epith Cells Rare /HPF (NEGATIVE) 08/18/20 23:07 Urine Bacteria Negative /HPF (NEGATIVE) 08/18/20 23:07 Ur Culture Indicated? No/not indicated 08/18/20 23:07 Theophylline 10.0 ug/mL (10-20) 08/26/20 04:10 Influenza Type A (PCR) Negative (NEGATIVE) 08/18/20 12:46 Influenza Type B (PCR) Negative (NEGATIVE) 08/18/20 12:46 SARS CoV-2 RNA Rapid LUIS Positive (NEGATIVE) A 08/18/20 18:12 Blood Type B POSITIVE 08/21/20 14:30 - Plan (1) Pneumonia due to 2019 novel coronavirus Status: Acute Plan: MECHANICAL VENT, 1/2NS AT 75 ML/HR, LEVAQUIN 750MG IV HS, FORTAZ 1G IV Q8H, AMINOPHYLLINE DRIP, ASCORBIC ACID 1500MG IV Q6H, ALBUTEROL NEBS QID, MUCOMYST IN NEBS BID, SOLU-MEDROL 125 MG IV Q6H, PROTONIX 40MG IV DAILY, PEPCID 20MG IV BID, THIAMINE 200MG IV BID, ZOFRAN 4MG IV Q4H PRN, DIFLUCAN 100MG IV DAILY, HEPARIN DRIP, AND POTASSIUM AND MAGNESIUM PROTOCOLS. (2) Hypoxia Status: Acute
--- NOTE | 2020-08-27 21:36 | RAD ---
KUBHistory: OG TUBE PLACEMENTComparison: NoneFindings/Impression: Tip of the OG tube terminates beneath the left hemidiaphragm with side port just distal to the GE junction. Recommend advancing the tube 5 cm for more optimal positioning. Imaged upper abdominal bowel gas pattern is nonobstructive.Electronically signed by: SHEBA HAMILTON (Aug 27, 2020 21:34:49)
[2020-08-28] MEDS: NS IV SCH (02:12)
[2020-08-28] MEDS: ZEMURON IV SCH (02:12)
[2020-08-28] MEDS: NS 1/2 1000 ML IV 1,000 ML IV SCH (03:23)
[2020-08-28 04:50] LABS: ABG BASE EXCESS 10.4 mmol/L (-2.0-2.0)
[2020-08-28 04:52] LABS: ABG HCO3 35.1 mmol/L (22-26)
[2020-08-28 05:30] LABS: BASOPHILS % (AUTO) 0.2 % (0.2-1.0); EOSINOPHILS % (AUTO) 0.1 % (0.9-2.9); HEMATOCRIT 27.7 % (36.0-47.0); HEMOGLOBIN 9.1 g/dL (12.0-16.0); LYMPHOCYTES # (AUTO) 0.3 X10^3/uL (1.3-2.9); LYMPHOCYTES % (AUTO) 2.3 % (21.0-51.0); MEAN CORPUSCULAR HEMOGLOBIN 28.7 pg (27.0-34.0); MEAN CORPUSCULAR VOLUME 86.9 fL (80.0-100.0); MEAN PLATELET VOLUME 8.4 fL (7.4-11.0); MONOCYTES # (AUTO) 0.2 x10^3/uL (0.3-0.8); MONOCYTES % (AUTO) 2.2 % (0.0-13.0); NEUTROPHILS # (AUTO) 10.4 x10^3/uL (2.2-4.8); NEUTROPHILS % (AUTO) 95.2 % (42.0-75.0); PLATELET COUNT 193 X10^3/uL (150.0-450.0); RED BLOOD COUNT 3.19 X10^6/uL (3.5-5.4); RED CELL DISTRIBUTION WIDTH 13.1 % (11.6-16.5); WHITE BLOOD COUNT 10.9 X10^3/uL (3.6-10.0)
[2020-08-28 05:38] LABS: ALANINE AMINOTRANSFERASE 13 Units/L (12-78); ALBUMIN 2.9 g/dL (3.4-5.0); ALKALINE PHOSPHATASE 75 Units/L (46-116); ASPARTATE AMINO TRANSFERASE 12 Units/L (15-37); BLOOD UREA NITROGEN 14 mg/dL (7-18); CALCIUM 8.2 mg/dL (8.5-10.1); CARBON DIOXIDE 31.3 mmol/L (21-32); CHLORIDE 101 mmol/L (98-107); COR CA(FOR HYPOALB) 9.1 mg/dL (8.5-10.1); COR NA(FOR HYPERGLY) 142 mmol/L (136-145); CREATININE 0.62 mg/dL (0.55-1.02); SODIUM 141 mmol/L (136-145); TOTAL PROTEIN 5.7 g/dL (6.4-8.2); eGFR NON BLACK RACES > 60 (>60)
[2020-08-28] MEDS: SOLU-Medrol 125 MG VIAL IVP SCH ×4 (05:40→22:15)
[2020-08-28] MEDS: FORTAZ or TAZICEF VIAL INJ IVP SCH ×3 (05:46→22:05)
--- NOTE | 2020-08-28 05:57 | RAD ---
HISTORYSOBSTUDYCHEST, 1 [id number]/14/2021FINDINGSAn enteric tube has been placed in the interval, projects beyond the inferior margin of the study. Heart size is stable. Improved aeration of the bilateral upper lung zone with persistent pulmonary opacity/infiltrates of the middle and lower lung zone. No pleural effusion. No pneumothorax.IMPRESSIONImproved aeration of the bilateral upper lung zones.Interval placement of a enteric tube.Electronically signed by: Lauren St (Aug 28, 2020 05:55:27)
[2020-08-28 06:25] LABS: BAND NEUTROPHILS % 3 % (0-10); PLATELET MORPHOLOGY COMMENT NORMAL (NORMAL)
[2020-08-28] MEDS: VERSED 100 MG in NS 100 ML IV 80 ML IV SCH (06:44)
--- NOTE | 2020-08-28 07:11 | RAD ---
HISTORYNG tube [id number]/14/2021FINDINGSNasogastric tube has been advanced. The tip and side hol e or well within the expected position of the stomach. The abdominal gas pattern is nonspecific and n onobstructive. No abnormal masses or abnormal calcifications are identified.IMPRESSIONNG tube tip and side hole well within the expected position of the stomachElectronically signed by: BEN ONTIVEROS (J an 2020 07:08:57)
[2020-08-28] MEDS: THIAMINE HCL INJ IVP SCH ×2 (08:41→22:30)
[2020-08-28] MEDS: DIFLUCAN 200 MG IV PREMIX* 200 MG/100 ML BAG IV SCH (08:41)
[2020-08-28] MEDS: SYNTHROID INJ 100 mcg VIAL IM SCH (08:42)
[2020-08-28] MEDS: PROTONIX INJ 40 MG VIAL IVP SCH (08:43)
[2020-08-28] MEDS: ACCUNEB 1.25 MG NEBULE NEB SCH ×4 (09:31→21:00)
[2020-08-28] MEDS: PULMICORT NEB TX 0.5 MG NEB SCH ×2 (09:31→21:00)
[2020-08-28] MEDS: MUCOMYST (RESPIRATORY USE ONLY) NEB SCH ×4 (09:31→21:00)
[2020-08-28] MEDS: ALBUMIN HUMAN 25%- 100 ML 100 ML IV SCH (09:49)
[2020-08-28] MEDS: LACRI-LUBE S.O.P. AFFEYE SCH ×2 (09:50→20:30)
[2020-08-28] MEDS: GEODON INJ IM SCH ×2 (09:51→20:30)
[2020-08-28] MEDS: AMINOPHYLLINE INJ 1,000 MG in DEXTROSE 5% 460 ML IV PRN (10:00)
[2020-08-28] MEDS: PEPCID 20 MG IV PREMIX* 20 MG/50 ML BAG IV SCH ×2 (10:30→20:30)
[2020-08-28] MEDS: CATAPRES-TTS-2 TD SCH (13:21)
[2020-08-28] MEDS: LEVAQUIN PREMIX IV 750 MG 750 MG/150 ML BAG IV SCH (20:30)
[2020-08-28] MEDS ORDERED: ATIVAN 20 MG/10 ML VIAL ONE (23:59)
[2020-08-29] MEDS ORDERED: NS 100 ML IV 100 ML IV ONE
[2020-08-29] MEDS: ATIVAN 20 MG/10 ML VIAL 20 MG in NS 100 ML IV 90 ML IV PRN ×3 (00:17→18:35)
[2020-08-29] MEDS: HEPARIN SODIUM IN D5W 25,000 UNITS/500 ML BAG IV PRN (00:26)
[2020-08-29] MEDS: NS 1/2 1000 ML IV 1,000 ML IV SCH ×3 (01:38→23:41)
[2020-08-29] MEDS ORDERED: NS 500 ML IV 500 ML IV ONE (03:13)
[2020-08-29] MEDS: NS IV SCH ×2 (03:55→07:14)
[2020-08-29] MEDS: ZEMURON IV SCH ×2 (03:55→07:14)
[2020-08-29 04:21] LABS: BASOPHILS % (AUTO) 0.1 % (0.2-1.0); HEMATOCRIT 28.9 % (36.0-47.0); HEMOGLOBIN 9.6 g/dL (12.0-16.0); LYMPHOCYTES # (AUTO) 0.4 X10^3/uL (1.3-2.9); LYMPHOCYTES % (AUTO) 1.9 % (21.0-51.0); MEAN CORPUSCULAR HEMOGLOBIN 28.6 pg (27.0-34.0); MEAN CORPUSCULAR HGB CONC 33.3 g/dL (33.0-35.0); MEAN CORPUSCULAR VOLUME 85.9 fL (80.0-100.0); MEAN PLATELET VOLUME 8.2 fL (7.4-11.0); MONOCYTES # (AUTO) 0.8 x10^3/uL (0.3-0.8); MONOCYTES % (AUTO) 4.5 % (0.0-13.0); NEUTROPHILS # (AUTO) 17.4 x10^3/uL (2.2-4.8); NEUTROPHILS % (AUTO) 93.5 % (42.0-75.0); PLATELET COUNT 206 X10^3/uL (150.0-450.0); RED BLOOD COUNT 3.36 X10^6/uL (3.5-5.4); RED CELL DISTRIBUTION WIDTH 13.1 % (11.6-16.5); WHITE BLOOD COUNT 18.6 X10^3/uL (3.6-10.0)
[2020-08-29 04:30] LABS: ALANINE AMINOTRANSFERASE 14 Units/L (12-78); ALBUMIN 2.8 g/dL (3.4-5.0); ALKALINE PHOSPHATASE 68 Units/L (46-116); ASPARTATE AMINO TRANSFERASE 12 Units/L (15-37); BLOOD UREA NITROGEN 16 mg/dL (7-18); CARBON DIOXIDE 31.9 mmol/L (21-32); CHLORIDE 100 mmol/L (98-107); COR NA(FOR HYPERGLY) 142 mmol/L (136-145); CREATININE 0.56 mg/dL (0.55-1.02); SODIUM 140 mmol/L (136-145); TOTAL PROTEIN 5.6 g/dL (6.4-8.2); eGFR NON BLACK RACES > 60 (>60)
[2020-08-29 04:37] LABS: BAND NEUTROPHILS % 2 % (0-10); PLATELET MORPHOLOGY COMMENT NORMAL (NORMAL)
[2020-08-29] MEDS: K-RIDER 10 MEQ/NS 100 ML 10 MEQ/100 ML BAG IV PRN ×6 (04:55→18:36)
[2020-08-29 05:24] LABS: ABG HCO3 35.8 mmol/L (22-26)
[2020-08-29] MEDS: SOLU-Medrol 125 MG VIAL IVP SCH ×4 (05:46→22:19)
[2020-08-29] MEDS: FORTAZ or TAZICEF VIAL INJ IVP SCH ×3 (05:47→21:05)
[2020-08-29] MEDS: MAGNESIUM SULFATE 1 GRAM/100 mL PREMIX 1 GM/100 ML BAG IV PRN ×2 (05:59→07:13)
--- NOTE | 2020-08-29 07:37 | RAD ---
History: Shortness of breath, COVID-19Study: Single view chestComparison: 08/28/2020FINDINGS/IMPRESSION:No significant interval change in appearance of lungs and support lines allowing for differences in technique. Stable bilateral infiltrates. No pneumothorax identified. Heart size is normal.Electronically signed by: TYE AUGUSTE (Aug 29, 2020 07:35:56)
[2020-08-29] MEDS: PEPCID 20 MG IV PREMIX* 20 MG/50 ML BAG IV SCH ×3 (08:44→21:30)
[2020-08-29] MEDS: PULMICORT NEB TX 0.5 MG NEB SCH ×2 (09:15→20:57)
[2020-08-29] MEDS: MUCOMYST (RESPIRATORY USE ONLY) NEB SCH ×4 (09:15→20:57)
[2020-08-29] MEDS: ACCUNEB 1.25 MG NEBULE NEB SCH ×4 (09:15→20:57)
[2020-08-29] MEDS: SYNTHROID INJ 100 mcg VIAL IM SCH (09:35)
[2020-08-29] MEDS: PROTONIX INJ 40 MG VIAL IVP SCH (09:35)
[2020-08-29] MEDS: THIAMINE HCL INJ IVP SCH ×2 (09:36→21:10)
[2020-08-29] MEDS: LACRI-LUBE S.O.P. AFFEYE SCH ×2 (09:36→21:00)
[2020-08-29] MEDS: ALBUMIN HUMAN 25%- 100 ML 100 ML IV SCH (09:36)
[2020-08-29] MEDS: DIFLUCAN 200 MG IV PREMIX* 200 MG/100 ML BAG IV SCH (09:37)
[2020-08-29] MEDS: GEODON INJ IM SCH ×2 (09:44→23:44)
[2020-08-29] MEDS: APRESOLINE INJ 20 MG VIAL IVP PRN (15:22)
[2020-08-29] MEDS ORDERED: NS 1/2 1000 ML IV 1,000 ML IV ONE (17:37)
[2020-08-29] MEDS: ELIQUIS PO SCH (21:00)
[2020-08-29] MEDS: LEVAQUIN PREMIX IV 750 MG 750 MG/150 ML BAG IV SCH (21:22)
[2020-08-30] MEDS: AMINOPHYLLINE INJ 1,000 MG in DEXTROSE 5% 460 ML IV PRN (00:53)
[2020-08-30] MEDS: ATIVAN 20 MG/10 ML VIAL 20 MG in NS 100 ML IV 90 ML IV PRN ×3 (04:35→21:50)
[2020-08-30] MEDS: SOLU-Medrol 125 MG VIAL IVP SCH ×4 (04:50→23:11)
[2020-08-30] MEDS: FORTAZ or TAZICEF VIAL INJ IVP SCH ×3 (05:14→21:34)
[2020-08-30 05:25] LABS: ABG BASE EXCESS 12.6 mmol/L (-2.0-2.0)
[2020-08-30 05:28] LABS: ABG HCO3 36.8 mmol/L (22-26)
--- NOTE | 2020-08-30 06:54 | RAD ---
HISTORY:Pneumonia, COVID-19Study: Single view chestComparison:08/29/2020FINDINGS/IMPRESSION:Allowing for differences in positioning, support lines and bilateral lung infiltrates are not significantly changed. No pneumothorax identified. Heart size is normal. Soft tissues are intact.Electronically signed by: TYE AUGUSTE (Aug 30, 2020 06:52:04)
[2020-08-30 07:04] LABS: BASOPHILS % (AUTO) 0.1 % (0.2-1.0); EOSINOPHILS % (AUTO) 0.1 % (0.9-2.9); HEMATOCRIT 26.6 % (36.0-47.0); LYMPHOCYTES # (AUTO) 0.2 X10^3/uL (1.3-2.9); LYMPHOCYTES % (AUTO) 1.2 % (21.0-51.0); MEAN CORPUSCULAR HEMOGLOBIN 29.1 pg (27.0-34.0); MEAN CORPUSCULAR HGB CONC 33.8 g/dL (33.0-35.0); MEAN CORPUSCULAR VOLUME 86.2 fL (80.0-100.0); MEAN PLATELET VOLUME 8.4 fL (7.4-11.0); MONOCYTES # (AUTO) 0.9 x10^3/uL (0.3-0.8); MONOCYTES % (AUTO) 5.3 % (0.0-13.0); NEUTROPHILS # (AUTO) 15.3 x10^3/uL (2.2-4.8); NEUTROPHILS % (AUTO) 93.3 % (42.0-75.0); PLATELET COUNT 191 X10^3/uL (150.0-450.0); RED BLOOD COUNT 3.08 X10^6/uL (3.5-5.4); RED CELL DISTRIBUTION WIDTH 12.9 % (11.6-16.5); WHITE BLOOD COUNT 16.4 X10^3/uL (3.6-10.0)
[2020-08-30 07:12] LABS: ALANINE AMINOTRANSFERASE 13 Units/L (12-78); ALBUMIN 2.9 g/dL (3.4-5.0); ALKALINE PHOSPHATASE 56 Units/L (46-116); ASPARTATE AMINO TRANSFERASE 15 Units/L (15-37); BLOOD UREA NITROGEN 18 mg/dL (7-18); CARBON DIOXIDE 31.2 mmol/L (21-32); CHLORIDE 101 mmol/L (98-107); COR CA(FOR HYPOALB) 8.9 mg/dL (8.5-10.1); COR NA(FOR HYPERGLY) 143 mmol/L (136-145); MAGNESIUM 2.2 mg/dL (1.7-2.9); SODIUM 141 mmol/L (136-145); TOTAL PROTEIN 5.6 g/dL (6.4-8.2); eGFR NON BLACK RACES > 60 (>60)
[2020-08-30] MEDS: K-RIDER 10 MEQ/NS 100 ML 10 MEQ/100 ML BAG IV PRN ×4 (07:35→14:50)
[2020-08-30 07:37] LABS: BAND NEUTROPHILS % 5 % (0-10)
[2020-08-30 07:38] LABS: PLATELET MORPHOLOGY COMMENT NORMAL (NORMAL)
[2020-08-30] MEDS: PEPCID 20 MG IV PREMIX* 20 MG/50 ML BAG IV SCH (08:47)
[2020-08-30] MEDS: ACCUNEB 1.25 MG NEBULE NEB SCH ×3 (09:30→20:30)
[2020-08-30] MEDS: MUCOMYST (RESPIRATORY USE ONLY) NEB SCH (09:30)
[2020-08-30] MEDS: PULMICORT NEB TX 0.5 MG NEB SCH ×2 (09:30→20:30)
[2020-08-30] MEDS: DIFLUCAN 200 MG IV PREMIX* 200 MG/100 ML BAG IV SCH (09:41)
[2020-08-30] MEDS: ALBUMIN HUMAN 25%- 100 ML 100 ML IV SCH (09:44)
[2020-08-30] MEDS: ELIQUIS PO SCH ×2 (09:45→21:30)
[2020-08-30] MEDS: SYNTHROID INJ 100 mcg VIAL IM SCH (09:45)
[2020-08-30] MEDS: THIAMINE HCL INJ IVP SCH ×2 (09:45→21:30)
[2020-08-30] MEDS: LACRI-LUBE S.O.P. AFFEYE SCH ×2 (09:46→21:45)
[2020-08-30] MEDS: PROTONIX INJ 40 MG VIAL IVP SCH (09:46)
[2020-08-30] MEDS: ZEMURON IV SCH (12:51)
[2020-08-30] MEDS: NS IV SCH (12:51)
[2020-08-30] MEDS: GEODON INJ IM SCH ×2 (12:52→23:05)
[2020-08-30] MEDS: APRESOLINE INJ 20 MG VIAL IVP PRN ×2 (15:00→19:45)
[2020-08-30] MEDS: LEVAQUIN PREMIX IV 750 MG 750 MG/150 ML BAG IV SCH (21:50)
[2020-08-30] MEDS: NS 1/2 1000 ML IV 1,000 ML IV SCH (23:04)
[2020-08-31] MEDS: NS 1/2 1000 ML IV 1,000 ML IV SCH ×2 (01:18→21:49)
[2020-08-31] MEDS: APRESOLINE INJ 20 MG VIAL IVP PRN ×2 (01:24→21:15)
[2020-08-31 04:48] LABS: ABG BASE EXCESS 8.7 mmol/L (-2.0-2.0)
[2020-08-31 04:49] LABS: ABG HCO3 34.1 mmol/L (22-26)
[2020-08-31] MEDS: SOLU-Medrol 125 MG VIAL IVP SCH ×4 (05:40→22:48)
[2020-08-31] MEDS: FORTAZ or TAZICEF VIAL INJ IVP SCH ×3 (05:45→21:52)
[2020-08-31] MEDS: ATIVAN 20 MG/10 ML VIAL 20 MG in NS 100 ML IV 90 ML IV PRN ×3 (06:48→16:33)
[2020-08-31 06:50] LABS: ALANINE AMINOTRANSFERASE 14 Units/L (12-78); ALBUMIN 3.5 g/dL (3.4-5.0); ALKALINE PHOSPHATASE 58 Units/L (46-116); ASPARTATE AMINO TRANSFERASE 12 Units/L (15-37); BLOOD UREA NITROGEN 22 mg/dL (7-18); CALCIUM 8.5 mg/dL (8.5-10.1); CARBON DIOXIDE 31.2 mmol/L (21-32); CHLORIDE 102 mmol/L (98-107); COR NA(FOR HYPERGLY) 143 mmol/L (136-145); CREATININE 0.67 mg/dL (0.55-1.02); SODIUM 141 mmol/L (136-145); TOTAL PROTEIN 6.2 g/dL (6.4-8.2); eGFR NON BLACK RACES > 60 (>60)
[2020-08-31 06:56] LABS: BASOPHILS % (AUTO) 0.1 % (0.2-1.0); EOSINOPHILS % (AUTO) 0.1 % (0.9-2.9); HEMATOCRIT 28.9 % (36.0-47.0); HEMOGLOBIN 9.6 g/dL (12.0-16.0); LYMPHOCYTES # (AUTO) 0.3 X10^3/uL (1.3-2.9); LYMPHOCYTES % (AUTO) 1.2 % (21.0-51.0); MEAN CORPUSCULAR HGB CONC 33.2 g/dL (33.0-35.0); MEAN CORPUSCULAR VOLUME 87.4 fL (80.0-100.0); MEAN PLATELET VOLUME 8.4 fL (7.4-11.0); MONOCYTES # (AUTO) 1.1 x10^3/uL (0.3-0.8); MONOCYTES % (AUTO) 5.1 % (0.0-13.0); NEUTROPHILS # (AUTO) 20.7 x10^3/uL (2.2-4.8); NEUTROPHILS % (AUTO) 93.5 % (42.0-75.0); PLATELET COUNT 240 X10^3/uL (150.0-450.0); RED BLOOD COUNT 3.31 X10^6/uL (3.5-5.4); RED CELL DISTRIBUTION WIDTH 13.6 % (11.6-16.5); WHITE BLOOD COUNT 22.2 X10^3/uL (3.6-10.0)
--- NOTE | 2020-08-31 07:42 | RAD ---
HISTORYPNEUMONIA, COVID+STUDYCHEST, 1 [id number]/17/2021FINDINGSThe lungs are not as well inflated as on the prior study. Patchy bronchopneumonia is present. This may have progressed on the right side but improved on the left side.No pneumothorax or pleural effusion.Heart size is normal.Bones are unremarkable.The endotracheal tube is anatomic in position in the trachea. The enteric tube extends into the upper abdomen. Right jugular central venous catheter is in the expected location of the superior vena cava. EKG leads are noted.IMPRESSION1. BronchopneumoniaElectronically signed by: Thiago Naranjo (Aug 31, 2020 07:41:05)
[2020-08-31 07:49] LABS: BAND NEUTROPHILS % 6 % (0-10); METAMYELOCYTES % 2; PLATELET MORPHOLOGY COMMENT NORMAL (NORMAL)
[2020-08-31] MEDS: PULMICORT NEB TX 0.5 MG NEB SCH ×2 (09:20→20:50)
[2020-08-31] MEDS: ACCUNEB 1.25 MG NEBULE NEB SCH ×5 (09:20→22:15)
[2020-08-31] MEDS: ALBUMIN HUMAN 25%- 100 ML 100 ML IV SCH (10:32)
[2020-08-31] MEDS: THIAMINE HCL INJ IVP SCH ×2 (10:35→21:52)
[2020-08-31] MEDS: SYNTHROID INJ 100 mcg VIAL IM SCH (10:35)
[2020-08-31] MEDS: LACRI-LUBE S.O.P. AFFEYE SCH ×2 (10:37→21:51)
[2020-08-31] MEDS: PROTONIX INJ 40 MG VIAL IVP SCH (10:37)
[2020-08-31] MEDS: PEPCID 20 MG IV PREMIX* 20 MG/50 ML BAG IV SCH ×2 (10:37→21:52)
[2020-08-31] MEDS: GEODON INJ IM SCH ×2 (10:38→22:15)
[2020-08-31] MEDS: ELIQUIS PO SCH ×2 (10:38→21:50)
--- NOTE | 2020-08-31 14:52 | PCM.PROG ---
Progress Note - Progress Note for Day of Date of Exam: 08/28/20 - Subjective Subjective: IS BEING TREATED FOR PNEUMONIA DUE TO COVID-19 AND HYPOXIA. SHE REMAINS ON THE MECHANICAL VENT. TODAY, HER SETTINGS ON THE VENT ARE: A/C, VENT RATE 22, TIDAL VOLUME 400, PEEP 15, FI02 70. HER SATURATIONS HAVE BEEN 94-98% THIS MORNING AND THROUGHOUT THE NIGHT. ON EXAMINATION, HEART IS REGULAR IN RATE AND RHYTHM. BILATERAL LUNGS ARE NOTED WITH RALES THROUGHOUT. ABDOMEN IS ROUND, SOFT, AND NON-TENDER WITH NORMAL BOWEL SOUNDS NOTED IN ALL QUADRANTS. NO EDEMA NOTED TO UPPER OR LOWER EXTREMITIES. HER VITALS THIS MORNING ARE: 98.7-83-24-94%-183/88. LABS WERE OBTAINED. ABNORMAL LAB VALUES INCLUDE THE FOLLOWING: WBC 10.9, RBC 3.19, HGB 9.1, HCT 27.7, GLUCOSE 154, CALCIUM 8.2, FERRITIN 351, AST 12, CRP 54.40, TOTAL PROTEIN 5.7, ALBUMIN 2.9. BLOOD CULTURES ARE PENDING. ABG WAS OBTAINED THIS MORNING AND REVEALED: PH 7.490, PC02 46, P02 105, HC03 35.1, 02 SAT 98, BASE EXCESS 10.4, A-A GRADIENT 337, FI02 70. A CHEST XRAY WAS OBTAINED AND REVEALED: IMPROVED AERATION OF THE BILATERAL UPPER LUNG ZONES. INTERVAL PLACEMENT OF A ENTERIC TUBE. SHE IS CURRENTLY RECEIVING 1/2NS AT 75 ML/HR, LEVAQUIN 750MG IV HS, FORTAZ 1G IV Q8H, AMINOPHYLLINE DRIP, ASCORBIC ACID 1500MG IV Q6H, ALBUTEROL NEBS QID, MUCOMYST IN NEBS BID, SOLU-MEDROL 125 MG IV Q6H, PROTONIX 40MG IV DAILY, PEPCID 20MG IV BID, THIAMINE 200MG IV BID, ZOFRAN 4MG IV Q4H PRN, DIFLUCAN 100MG IV DAILY, HEPARIN DRIP, AND POTASSIUM AND MAGNESIUM PROTOCOLS. WE WILL CONTINUE WITH CURRENT PLAN OF CARE TODAY. WE WILL ALSO START PLACING PATIENT IN THE PRONE POSITION. WE WILL PLACE HER IN THE PRONE POSITION FOR APPROXIMATELY 16 HOURS A DAY. WHILE PATIENT IS ON HER BACK, WE SARAH DECREASE HER SEDATION. OTHERWISE, WE WILL FOLLOW UP WITH AM LABS, CHEST XRAY, ABG, AND CONTINUE TO MONITOR. TIME SPENT ON CLINICAL ASSESSMENT, REVIEWING LABS AND IMAGING, DECISION MAKING, AND DOCUMENTATION GREATER THAN 75 MINUTES. - Past Medical Family Social History Past Med/Fam/Surg Hx: No changes since H&P Allergies: Allergies No Known Drug Allergies Allergy (Verified 08/27/19 22:19) - Review of Systems ROS: No change since H&P - Vital Signs and I&O's Vital Signs: Temperature 99.2 F Pulse Rate [Left] 78 Pulse Rate [Bilateral Radial] 92 Pulse Rate 107 Respiratory Rate 27 Blood Pressure [Right Radial 193/77 Artery] Blood Pressure [Left Arm] 173/62 Blood Pressure 157/82 O2 Sat by Pulse Oximetry 80 Intake and Output: Intake & Output 08/29/20 08/30/20 08/31/20 09/01/20 11:59 11:59 11:59 11:59 Intake Total 3296 / 3296 2507 / 2507 4894 / 4894 0 / 0 Output Total 1775 / 1775 3425 / 3425 2189 / 2189 Balance 1521 / 1521 -918 / -918 2705 / 2705 0 / 0 - Physical Exam Oriented: Unable to test Eyes: Normal Ear: Normal Nose: Normal Throat: Normal Respiratory: Generalized, Diminished, Rales Cardiovascular: Normal : Normal Auscultation: Bowel Sounds: Normal Palpation: Normal Tenderness: Normal Skin: Normal Musculoskeletal: Normal Psychiatric: Other (SEDATED ) Mood Description: Calm Affect: Normal Speech Pattern: Artificially Ventilated - Laboratory and Diagnostics Result Diagrams: 08/31/20 05:50 08/31/20 05:50 Labs: 08/18/20 11:40 Blood Blood Culture - Final 08/18/20 12:00 Blood Blood Culture - Final Laboratory WBC 22.2 X10^3/uL (3.6-10.0) H 08/31/20 05:50 RBC 3.31 X10^6/uL (3.5-5.4) L 08/31/20 05:50 Hgb 9.6 g/dL (12.0-16.0) L 08/31/20 05:50 Hct 28.9 % (36.0-47.0) L 08/31/20 05:50 MCV 87.4 fL (80.0-100.0) 08/31/20 05:50 MCH 29.0 pg (27.0-34.0) 08/31/20 05:50 MCHC 33.2 g/dL (33.0-35.0) 08/31/20 05:50 RDW 13.6 % (11.6-16.5) 08/31/20 05:50 Plt Count 240 X10^3/uL (150.0-450.0) 08/31/20 05:50 Plt Count Comment Adequate (ADEQUATE) 08/31/20 05:50 MPV 8.4 fL (7.4-11.0) 08/31/20 05:50 Neut % (Auto) 93.5 % (42.0-75.0) H 08/31/20 05:50 Lymph % (Auto) 1.2 % (21.0-51.0) L 08/31/20 05:50 [place] % (Auto) 5.1 % (0.0-13.0) 08/31/20 05:50 Eos % (Auto) 0.1 % (0.9-2.9) L 08/31/20 05:50 Baso % (Auto) 0.1 % (0.2-1.0) L 08/31/20 05:50 Neut # (Auto) 20.7 x10^3/uL (2.2-4.8) H 08/31/20 05:50 Lymph # (Auto) 0.3 X10^3/uL (1.3-2.9) L 08/31/20 05:50 [place] # (Auto) 1.1 x10^3/uL (0.3-0.8) H 08/31/20 05:50 Eos # (Auto) 0.0 x10^3/uL (0.0-0.2) 08/31/20 05:50 Baso # (Auto) 0.0 X10^3/uL (0.0-0.1) 08/31/20 05:50 Absolute Nucleated RBC 0.0 /100WBC 08/31/20 05:50 Total Counted 100 08/31/20 05:50 Neutrophils % (Manual) 88 % (39-76) H 08/31/20 05:50 Band Neutrophils % 6 % (0-10) 08/31/20 05:50 Lymphocytes % (Manual) 1 % (13-43) L 08/31/20 05:50 Monocytes % (Manual) 2 % (4-9) L 08/31/20 05:50 Eosinophils % (Manual) 1 % (0-6) 08/31/20 05:50 Metamyelocytes % 2 08/31/20 05:50 Plt Morphology Comment Normal (NORMAL) 08/31/20 05:50 RBC Morphology Normal (NORMAL) 08/31/20 05:50 PT 17.9 SECONDS (11.8-14.3) 08/22/20 17:00 INR Target Range - 08/22/20 17:00 INR 1.53 (0.8-1.3) H 08/22/20 17:00 APTT 22.8 SECONDS (22.9-36.5) L 08/30/20 06:30 PTT Comment - 08/30/20 06:30 D-Dimer 0.70 ug/ml (0.0-0.57) H* 08/31/20 06:50 Sample Site [place] 08/31/20 04:43 ABG pH 7.450 (7.35-7.45) 08/31/20 04:43 ABG pCO2 49.0 mmHg (35.0-45.0) H 08/31/20 04:43 ABG pO2 71.0 mmHg (80.0-100.0) L 08/31/20 04:43 ABG HCO3 34.1 mmol/L (22-26) H* 08/31/20 04:43 ABG O2 Saturation 95.0 % (90-100) 08/31/20 04:43 ABG Base Excess 8.7 mmol/L (-2.0-2.0) H 08/31/20 04:43 Juan Test N/a 08/31/20 04:43 A-a Gradient 153.0 mmHg 08/31/20 04:43 FiO2 40.0 08/31/20 04:43 Blood Gas Comments [place] well ae 08/31/20 04:43 Sodium 141 mmol/L (136-145) 08/31/20 05:50 Corrected Sodium 143 mmol/L (136-145) 08/31/20 05:50 Potassium 3.8 mmol/L (3.5-5.1) 08/31/20 05:50 Chloride 102 mmol/L (98-107) 08/31/20 05:50 Carbon Dioxide 31.2 mmol/L (21-32) 08/31/20 05:50 BUN 22 mg/dL (7-18) H 08/31/20 05:50 Creatinine 0.67 mg/dL (0.55-1.02) 08/31/20 05:50 Est GFR (MDRD) Af Amer > 60 (>60) 08/31/20 05:50 Est GFR (MDRD) Non-Af > 60 (>60) 08/31/20 05:50 Glucose 176 mg/dL (65-99) H 08/31/20 05:50 Lactic Acid 1.0 mmol/L (0.4-2.0) 08/18/20 11:40 Calcium 8.5 mg/dL (8.5-10.1) 08/31/20 05:50 Corrected Calcium TNP 08/31/20 05:50 Magnesium 2.2 mg/dL (1.7-2.9) 08/30/20 06:30 Ferritin 309 ng/mL (8-252) H 08/31/20 05:50 Total Bilirubin 0.50 mg/dL (0.2-1.0) 08/31/20 05:50 AST 12 Units/L (15-37) L 08/31/20 05:50 ALT 14 Units/L (12-78) 08/31/20 05:50 Alkaline Phosphatase 58 Units/L (46-116) 08/31/20 05:50 Creatine Kinase 83 Units/L (26-192) 08/18/20 19:07 CK-MB (CK-2) 1.0 ng/mL (0-4.0) 08/18/20 19:07 CK/CKMB % Calc 1.2 % (<4) 08/18/20 19:07 Troponin I < 0.02 ng/mL (0-1.5) 08/18/20 19:07 C-Reactive Protein 5.00 mg/L (0-3.0) H 08/31/20 05:50 B-Natriuretic Peptide 179 pg/mL (0-79) H 08/31/20 05:50 Total Protein 6.2 g/dL (6.4-8.2) L 08/31/20 05:50 Albumin 3.5 g/dL (3.4-5.0) 08/31/20 05:50 Globulin 2.7 g/dL (2.5-4.5) 08/31/20 05:50 Albumin/Globulin Ratio 1.3 Ratio (1.1-2.1) 08/31/20 05:50 Amylase 50 Units/L (25-115) 08/18/20 11:40 Lipase 137 Units/L (73-393) 08/18/20 11:40 Specimen Type Catherized urine 08/18/20 23:07 Urine Color Dark yellow (YELLOW) 08/18/20 23:07 Urine Appearance Clear (CLEAR) 08/18/20 23:07 Urine pH 7.0 (5.0 - 8.0) 08/18/20 23:07 Ur Specific [place] 1.010 (1.000-1.030) 08/18/20 23:07 Urine Protein 2+ (NEGATIVE) 08/18/20 23:07 Urine Glucose (UA) Negative (NEGATIVE) 08/18/20 23:07 Urine Ketones 1+ (NEGATIVE) 08/18/20 23:07 Urine Occult Blood Negative (NEGATIVE) 08/18/20 23:07 Urine Nitrite Negative (NEGATIVE) 08/18/20 23:07 Urine Bilirubin Negative (NEGATIVE) 08/18/20 23:07 Urine Urobilinogen 1+ (NORMAL) 08/18/20 23:07 Ur Leukocyte Esterase Negative (NEGATIVE) 08/18/20 23:07 Urine RBC None seen /HPF (0-3) 08/18/20 23:07 Urine WBC None seen /HPF (0-5) 08/18/20 23:07 Ur Squamous Epith Cells Rare /HPF (NEGATIVE) 08/18/20 23:07 Urine Bacteria Negative /HPF (NEGATIVE) 08/18/20 23:07 Ur Culture Indicated? No/not indicated 08/18/20 23:07 Theophylline 15.2 ug/mL (10-20) 08/30/20 06:30 Influenza Type A (PCR) Negative (NEGATIVE) 08/18/20 12:46 Influenza Type B (PCR) Negative (NEGATIVE) 08/18/20 12:46 SARS CoV-2 RNA Rapid LUIS Positive (NEGATIVE) A 08/18/20 18:12 Blood Type B POSITIVE 08/21/20 14:30 - Plan (1) Pneumonia due to 2019 novel coronavirus Status: Acute Plan: MECHANICAL VENT, 1/2NS AT 75 ML/HR, LEVAQUIN 750MG IV HS, FORTAZ 1G IV Q8H, AMINOPHYLLINE DRIP, ASCORBIC ACID 1500MG IV Q6H, ALBUTEROL NEBS QID, MUCOM YST IN NEBS BID, SOLU-MEDROL 125 MG IV Q6H, PROTONIX 40MG IV DAILY, PEPCID 20MG IV BID, THIAMINE 200MG IV BID, ZOFRAN 4MG IV Q4H PRN, DIFLUCAN 100MG IV DAILY, HEPARIN DRIP, AND POTASSIUM AND MAGNESIUM PROTOCOLS. (2) Hypoxia Status: Acute
--- NOTE | 2020-08-31 17:25 | PCM.PROG ---
Progress Note - Progress Note for Day of Date of Exam: 08/31/20 - Subjective Subjective: IS BEING TREATED FOR PNEUMONIA DUE TO COVID-19 AND HYPOXIA. SHE REMAINS ON THE MECHANICAL VENT. TODAY, HER SETTINGS ON THE VENT ARE: A/C, VENT RATE 22, PEAK FLOW 32, TIDAL VOLUME 400, PEEP 7, FI02 34. HER SATURATIONS HAVE BEEN 91-94% THIS MORNING AND THROUGHOUT THE NIGHT. ON EXAMINATION, HEART IS REGULAR IN RATE AND RHYTHM. BILATERAL LUNGS ARE NOTED WITH RALES THROUGHOUT. ABDOMEN IS ROUND, SOFT, AND NON-TENDER WITH NORMAL BOWEL SOUNDS NOTED IN ALL QUADRANTS. NO EDEMA NOTED TO UPPER OR LOWER EXTREMITIES. HER VITALS THIS MORNING ARE:99.2-98-22-92%-172/77. LABS WERE OBTAINED. ABNORMAL LAB VALUES INCLUDE THE FOLLOWING: WBC 22.2, RBC 3.31, HGB 9.6, HCT 28.9, D-DIMER 0.70, BUN 22, GLUCOSE 176, FERRITIN 309, AST 12, CRP 5.00, BNP 179, TOTAL PROTEIN 6.2. ABG WAS OBTAINED THIS MORNING AND REVEALED: PH 7.450, PC02 49, PC02 71, HC03 31.4, 02 SAT 95, BASE EXCESS 8.7, A-A GRADIENT 153, FI02 40. A CHEST XRAY WAS OBTAINED AND REVEALED: BRONCHOPNEUMONIA. SHE IS CURRENTLY RECEIVING 1/2NS AT 75 ML/HR, LEVAQUIN 750MG IV HS, FORTAZ 1G IV Q8H, AMINOPHYLLINE DRIP, ASCORBIC ACID 1500MG IV Q6H, ALBUTEROL NEBS QID, MUCOMYST IN NEBS BID, SOLU- MEDROL 125 MG IV Q6H, PROTONIX 40MG IV DAILY, PEPCID 20MG IV BID, CATAPRES 0.5MG/HR TD PATCH, APRESOLINE 10MG IV Q4H PRN, THIAMINE 200MG IV BID, ZOFRAN 4MG IV Q4H PRN, DIFLUCAN 100MG IV DAILY, ELIQUIS 5MG PO BID, POTASSIUM AND MAGNESIUM PROTOCOLS, AN ATIVAN DRIP, AND ROCURONIUM DRIP FOR SEDATION. TODAY, WE WILL DECREASE SEDATION AND ATTEMPT TO EXTUBATE PATIENT. OTHERWISE, WE WILL FOLLOW UP WITH AM LABS, CHEST XRAY, ABG, AND CONTINUE TO MONITOR. TIME SPENT ON CLINICAL ASSESSMENT, REVIEWING LABS AND IMAGING, DECISION MAKING, AND DOCUME NTATION GREATER THAN 75 MINUTES. - Past Medical Family Social History Past Med/Fam/Surg Hx: No changes since H&P Allergies: Allergies No Known Drug Allergies Allergy (Verified 08/27/19 22:19) - Review of Systems ROS: No change since H&P - Vital Signs and I&O's Vital Signs: Temperature 99.2 F Pulse Rate [Left] 78 Pulse Rate [Bilateral Radial] 92 Pulse Rate 108 Respiratory Rate 30 Blood Pressure [Right Radial 193/77 Artery] Blood Pressure [Left Arm] 173/62 Blood Pressure 185/81 O2 Sat by Pulse Oximetry 85 Intake and Output: Intake & Output 08/29/20 08/30/20 08/31/20 09/01/20 11:59 11:59 11:59 11:59 Intake Total 3296 / 3296 2507 / 2507 4894 / 4894 900 / 900 Output Total 1775 / 1775 3425 / 3425 2189 / 2189 1450 / 1450 Balance 1521 / 1521 -918 / -918 2705 / 2705 -550 / -550 - Physical Exam Oriented: Unable to test Eyes: Normal Ear: Normal Nose: Normal Throat: Normal Respiratory: Generalized, Diminished, Rales Cardiovascular: Normal : Normal Auscultation: Bowel Sounds: Normal Palpation: Normal Tenderness: Normal Skin: Normal Musculoskeletal: Normal Psychiatric: Other (SEDATED ) Mood Description: Calm Affect: Normal Speech Pattern: Artificially Ventilated - Laboratory and Diagnostics Result Diagrams: 08/31/20 05:50 08/31/20 05:50 Labs: 08/18/20 11:40 Blood Blood Culture - Final 08/18/20 12:00 Blood Blood Culture - Final Laboratory WBC 22.2 X10^3/uL (3.6-10.0) H 08/31/20 05:50 RBC 3.31 X10^6/uL (3.5-5.4) L 08/31/20 05:50 Hgb 9.6 g/dL (12.0-16.0) L 08/31/20 05:50 Hct 28.9 % (36.0-47.0) L 08/31/20 05:50 MCV 87.4 fL (80.0-100.0) 08/31/20 05:50 MCH 29.0 pg (27.0-34.0) 08/31/20 05:50 MCHC 33.2 g/dL (33.0-35.0) 08/31/20 05:50 RDW 13.6 % (11.6-16.5) 08/31/20 05:50 Plt Count 240 X10^3/uL (150.0-450.0) 08/31/20 05:50 Plt Count Comment Adequate (ADEQUATE) 08/31/20 05:50 MPV 8.4 fL (7.4-11.0) 08/31/20 05:50 Neut % (Auto) 93.5 % (42.0-75.0) H 08/31/20 05:50 Lymph % (Auto) 1.2 % (21.0-51.0) L 08/31/20 05:50 [place] % (Auto) 5.1 % (0.0-13.0) 08/31/20 05:50 Eos % (Auto) 0.1 % (0.9-2.9) L 08/31/20 05:50 Baso % (Auto) 0.1 % (0.2-1.0) L 08/31/20 05:50 Neut # (Auto) 20.7 x10^3/uL (2.2-4.8) H 08/31/20 05:50 Lymph # (Auto) 0.3 X10^3/uL (1.3-2.9) L 08/31/20 05:50 [place] # (Auto) 1.1 x10^3/uL (0.3-0.8) H 08/31/20 05:50 Eos # (Auto) 0.0 x10^3/uL (0.0-0.2) 08/31/20 05:50 Baso # (Auto) 0.0 X10^3/uL (0.0-0.1) 08/31/20 05:50 Absolute Nucleated RBC 0.0 /100WBC 08/31/20 05:50 Total Counted 100 08/31/20 05:50 Neutrophils % (Manual) 88 % (39-76) H 08/31/20 05:50 Band Neutrophils % 6 % (0-10) 08/31/20 05:50 Lymphocytes % (Manual) 1 % (13-43) L 08/31/20 05:50 Monocytes % (Manual) 2 % (4-9) L 08/31/20 05:50 Eosinophils % (Manual) 1 % (0-6) 08/31/20 05:50 Metamyelocytes % 2 08/31/20 05:50 Plt Morphology Comment Normal (NORMAL) 08/31/20 05:50 RBC Morphology Normal (NORMAL) 08/31/20 05:50 PT 17.9 SECONDS (11.8-14.3) 08/22/20 17:00 INR Target Range - 08/22/20 17:00 INR 1.53 (0.8-1.3) H 08/22/20 17:00 APTT 22.8 SECONDS (22.9-36.5) L 08/30/20 06:30 PTT Comment - 08/30/20 06:30 D-Dimer 0.70 ug/ml (0.0-0.57) H* 08/31/20 06:50 Sample Site [place] 08/31/20 04:43 ABG pH 7.450 (7.35-7.45) 08/31/20 04:43 ABG pCO2 49.0 mmHg (35.0-45.0) H 08/31/20 04:43 ABG pO2 71.0 mmHg (80.0-100.0) L 08/31/20 04:43 ABG HCO3 34.1 mmol/L (22-26) H* 08/31/20 04:43 ABG O2 Saturation 95.0 % (90-100) 08/31/20 04:43 ABG Base Excess 8.7 mmol/L (-2.0-2.0) H 08/31/20 04:43 Juan Test N/a 08/31/20 04:43 A-a Gradient 153.0 mmHg 08/31/20 04:43 FiO2 40.0 08/31/20 04:43 Blood Gas Comments [place] [facility] 08/31/20 04:43 Sodium 141 mmol/L (136-145) 08/31/20 05:50 Corrected Sodium 143 mmol/L (136-145) 08/31/20 05:50 Potassium 3.8 mmol/L (3.5-5.1) 08/31/20 05:50 Chloride 102 mmol/L (98-107) 08/31/20 05:50 Carbon Dioxide 31.2 mmol/L (21-32) 08/31/20 05:50 BUN 22 mg/dL (7-18) H 08/31/20 05:50 Creatinine 0.67 mg/dL (0.55-1.02) 08/31/20 05:50 Est GFR (MDRD) Af Amer > 60 (>60) 08/31/20 05:50 Est GFR (MDRD) Non-Af > 60 (>60) 08/31/20 05:50 Glucose 176 mg/dL (65-99) H 08/31/20 05:50 Lactic Acid 1.0 mmol/L (0.4-2.0) 08/18/20 11:40 Calcium 8.5 mg/dL (8.5-10.1) 08/31/20 05:50 Corrected Calcium TNP 08/31/20 05:50 Magnesium 2.2 mg/dL (1.7-2.9) 08/30/20 06:30 Ferritin 309 ng/mL (8-252) H 08/31/20 05:50 Total Bilirubin 0.50 mg/dL (0.2-1.0) 08/31/20 05:50 AST 12 Units/L (15-37) L 08/31/20 05:50 ALT 14 Units/L (12-78) 08/31/20 05:50 Alkaline Phosphatase 58 Units/L (46-116) 08/31/20 05:50 Creatine Kinase 83 Units/L (26-192) 08/18/20 19:07 CK-MB (CK-2) 1.0 ng/mL (0-4.0) 08/18/20 19:07 CK/CKMB % Calc 1.2 % (<4) 08/18/20 19:07 Troponin I < 0.02 ng/mL (0-1.5) 08/18/20 19:07 C-Reactive Protein 5.00 mg/L (0-3.0) H 08/31/20 05:50 B-Natriuretic Peptide 179 pg/mL (0-79) H 08/31/20 05:50 Total Protein 6.2 g/dL (6.4-8.2) L 08/31/20 05:50 Albumin 3.5 g/dL (3.4-5.0) 08/31/20 05:50 Globulin 2.7 g/dL (2.5-4.5) 08/31/20 05:50 Albumin/Globulin Ratio 1.3 Ratio (1.1-2.1) 08/31/20 05:50 Amylase 50 Units/L (25-115) 08/18/20 11:40 Lipase 137 Units/L (73-393) 08/18/20 11:40 Specimen Type Catherized urine 08/18/20 23:07 Urine Color Dark yellow (YELLOW) 08/18/20 23:07 Urine Appearance Clear (CLEAR) 08/18/20 23:07 Urine pH 7.0 (5.0 - 8.0) 08/18/20 23:07 Ur Specific [place] 1.010 (1.000-1.030) 08/18/20 23:07 Urine Protein 2+ (NEGATIVE) 08/18/20 23:07 Urine Glucose (UA) Negative (NEGATIVE) 08/18/20 23:07 Urine Ketones 1+ (NEGATIVE) 08/18/20 23:07 Urine Occult Blood Negative (NEGATIVE) 08/18/20 23:07 Urine Nitrite Negative (NEGATIVE) 08/18/20 23:07 Urine Bilirubin Negative (NEGATIVE) 08/18/20 23:07 Urine Urobilinogen 1+ (NORMAL) 08/18/20 23:07 Ur Leukocyte Esterase Negative (NEGATIVE) 08/18/20 23:07 Urine RBC None seen /HPF (0-3) 08/18/20 23:07 Urine WBC None seen /HPF (0-5) 08/18/20 23:07 Ur Squamous Epith Cells Rare /HPF (NEGATIVE) 08/18/20 23:07 Urine Bacteria Negative /HPF (NEGATIVE) 08/18/20 23:07 Ur Culture Indicated? No/not indicated 08/18/20 23:07 Theophylline 15.2 ug/mL (10-20) 08/30/20 06:30 Influenza Type A (PCR) Negative (NEGATIVE) 08/18/20 12:46 Influenza Type B (PCR) Negative (NEGATIVE) 08/18/20 12:46 SARS CoV-2 RNA Rapid LUIS Positive (NEGATIVE) A 08/18/20 18:12 Blood Type B POSITIVE 08/21/20 14:30 - Plan (1) Pneumonia due to 2019 novel coronavirus Status: Acute Plan: ATTEMPT TO EXTUBATE TODAY, 1/2NS AT 75 ML/HR, LEVAQUIN 750MG IV HS, FORTAZ 1G IV Q8H, AMINOPHYLLINE DRIP, ASCORBIC ACID 1500MG IV Q6H, ALBUTEROL NEBS QID, MUCOMYST IN NEBS BID, SOLU-MEDROL 125 MG IV Q6H, PROTONIX 40MG IV DAILY, PEPCID 20MG IV BID, THIAMINE 200MG IV BID, ZOFRAN 4MG IV Q4H PRN, DIFLUCAN 100MG IV DAILY, ELIQUIS, HYDRALAZINE PRN, CATAPRES PATCH, AND POTASSIUM AND MAGNESIUM PROTOCOLS. (2) Hypoxia Status: Acute
[2020-08-31] MEDS: AMINOPHYLLINE INJ 1,000 MG in DEXTROSE 5% 460 ML IV PRN (17:35)
[2020-08-31] MEDS ORDERED: NS 1/2 1000 ML IV 1,000 ML IV ONE (20:11)
[2020-08-31] MEDS: LEVAQUIN PREMIX IV 750 MG 750 MG/150 ML BAG IV SCH (21:51)
[2020-08-31] MEDS ORDERED: GEODON INJ IM ONE (21:57)
[2020-09-01] MEDS ORDERED: LEVOPHED INJ ONE ×2 (02:26→02:28)
[2020-09-01] MEDS ORDERED: D5W 250 ML IV 250 ML IV ONE (02:27)
[2020-09-01] MEDS ORDERED: LEVOPHED INJ 8 MG in D5W 250 ML IV 242 ML IV PRN (02:30)
[2020-09-01 04:09] LABS: ABG BASE EXCESS 12.5 mmol/L (-2.0-2.0)
[2020-09-01 04:10] LABS: ABG HCO3 37.4 mmol/L (22-26)
[2020-09-01] MEDS ORDERED: NS 500 ML IV 500 ML IV ONE (04:21)
[2020-09-01] MEDS: FORTAZ or TAZICEF VIAL INJ IVP SCH ×3 (05:59→22:07)
[2020-09-01] MEDS: NS 1/2 1000 ML IV 1,000 ML IV SCH ×2 (05:59→20:25)
[2020-09-01] MEDS: SOLU-Medrol 125 MG VIAL IVP SCH ×4 (05:59→22:07)
[2020-09-01 06:27] LABS: ALANINE AMINOTRANSFERASE 18 Units/L (12-78); ALBUMIN 2.9 g/dL (3.4-5.0); ALKALINE PHOSPHATASE 48 Units/L (46-116); ASPARTATE AMINO TRANSFERASE 24 Units/L (15-37); BLOOD UREA NITROGEN 30 mg/dL (7-18); CALCIUM 8.3 mg/dL (8.5-10.1); CARBON DIOXIDE 32.8 mmol/L (21-32); CHLORIDE 107 mmol/L (98-107); COR CA(FOR HYPOALB) 9.2 mg/dL (8.5-10.1); COR NA(FOR HYPERGLY) 146 mmol/L (136-145); CREATININE 0.67 mg/dL (0.55-1.02); SODIUM 145 mmol/L (136-145); TOTAL PROTEIN 5.2 g/dL (6.4-8.2); eGFR NON BLACK RACES > 60 (>60)
[2020-09-01 06:57] LABS: BASOPHILS % (AUTO) 0.2 % (0.2-1.0); HEMATOCRIT 24.3 % (36.0-47.0); HEMOGLOBIN 7.8 g/dL (12.0-16.0); LYMPHOCYTES # (AUTO) 0.3 X10^3/uL (1.3-2.9); LYMPHOCYTES % (AUTO) 1.6 % (21.0-51.0); MEAN CORPUSCULAR HEMOGLOBIN 28.3 pg (27.0-34.0); MEAN CORPUSCULAR HGB CONC 32.3 g/dL (33.0-35.0); MEAN CORPUSCULAR VOLUME 87.9 fL (80.0-100.0); MEAN PLATELET VOLUME 8.9 fL (7.4-11.0); MONOCYTES # (AUTO) 0.5 x10^3/uL (0.3-0.8); MONOCYTES % (AUTO) 2.9 % (0.0-13.0); NEUTROPHILS # (AUTO) 17.2 x10^3/uL (2.2-4.8); NEUTROPHILS % (AUTO) 95.3 % (42.0-75.0); PLATELET COUNT 134 X10^3/uL (150.0-450.0); RED BLOOD COUNT 2.76 X10^6/uL (3.5-5.4); RED CELL DISTRIBUTION WIDTH 13.5 % (11.6-16.5)
[2020-09-01 07:15] LABS: BAND NEUTROPHILS % 5 % (0-10); PLATELET MORPHOLOGY COMMENT NORMAL (NORMAL)
--- NOTE | 2020-09-01 07:27 | RAD ---
HISTORYFollow-up COVID-19STUDYChest AP [id number] is an endotracheal tube in good position. There is a nasoga stric tube coursing below the left hemidiaphragm. Its tip is not visible. There is a right IJ line in good position. The heart size is normal. Bilateral interstitial and ground-glass infiltrates are unc hanged. No pleural effusions are identified. Bony thorax is unremarkable.IMPRESSIONNo change bilatera l infiltrates when compared to the prior examinationElectronically signed by: BEN ONTIVEROS (Sep 01, 2020 07:24:45)
[2020-09-01] MEDS: ACCUNEB 1.25 MG NEBULE NEB SCH ×4 (08:28→21:36)
[2020-09-01] MEDS: PULMICORT NEB TX 0.5 MG NEB SCH ×2 (08:28→21:36)
[2020-09-01] MEDS: ATIVAN 20 MG/10 ML VIAL 20 MG in NS 100 ML IV 90 ML IV PRN (09:27)
[2020-09-01] MEDS: GEODON INJ IM SCH ×2 (09:39→22:06)
[2020-09-01] MEDS: ALBUMIN HUMAN 25%- 100 ML 100 ML IV SCH (09:55)
[2020-09-01] MEDS: ELIQUIS PO SCH ×2 (09:56→20:25)
[2020-09-01] MEDS: PROTONIX INJ 40 MG VIAL IVP SCH (09:57)
[2020-09-01] MEDS: LACRI-LUBE S.O.P. AFFEYE SCH ×2 (09:57→20:25)
[2020-09-01] MEDS: PEPCID 20 MG IV PREMIX* 20 MG/50 ML BAG IV SCH ×3 (09:57→22:30)
[2020-09-01] MEDS: SYNTHROID INJ 100 mcg VIAL IM SCH ×2 (09:58→10:11)
[2020-09-01] MEDS: THIAMINE HCL INJ IVP SCH ×2 (09:58→20:26)
[2020-09-01] MEDS: DIPRIVAN PREMIX 1 GRAM IV 1,000 MG/100 ML VIAL IV PRN (14:10)
[2020-09-01] MEDS: APRESOLINE INJ 20 MG VIAL IVP PRN (14:53)
[2020-09-01 19:03] LABS: HEMATOCRIT 26.3 % (36.0-47.0); HEMOGLOBIN 8.7 g/dL (12.0-16.0)
--- NOTE | 2020-09-01 20:16 | PCM.PROG ---
Progress Note - Progress Note for Day of Date of Exam: 09/01/20 - Subjective Subjective: IS BEING TREATED FOR PNEUMONIA DUE TO COVID-19 AND HYPOXIA. SHE REMAINS ON THE MECHANICAL VENT. TODAY, HER SETTINGS ON THE VENT ARE: SIMV, VENT RATE 16, TIDAL VOLUME 400, PEEP 10, FI0 50. HER SATURATIONS HAVE BEEN 96-98% THIS MORNING AND THROUGHOUT THE NIGHT. ON EXAMINATION, SHE HAS EYES OPEN AND IS MOVING HEAD FROM SIDE TO SIDE. HEART IS REGULAR IN RATE AND RHYTHM. BILATERAL LUNGS ARE NOTED WITH RALES THROUGHOUT. ABDOMEN IS ROUND, SOFT, AND NON-TENDER WITH NORMAL BOWEL SOUNDS NOTED IN ALL QUADRANTS. NO EDEMA NOTED TO UPPER OR LOWER EXTREMITIES. HER VITALS THIS MORNING ARE: 98.3-63-16-97%-149/65. LABS WERE OBTAINED. ABNORMAL LAB VALUES INCLUDE THE FOLLOWING: WBC 18.0, RBC 2.76, HGB 7.8, HCT 24.3, PLT COUNT 134, CARBON DIOXIDE 32.8, BUN 30, GLUCOSE 148, CALCIUM 8.3, FERRITIN 334, CRP 21.80, BNP 265, TOTAL PROTEIN 5.2, ALBUMIN 2.9, GLOBULIN 2.3. ABG WAS OBTAINED THIS MORNING AND REVEALED: PH 7.500, PC02 48, P02 133, HC03 37.4, 02 SAT 99, BASE EXCESS 12.5, A-A GRADIENT 306, FI02 70. A CHEST XRAY WAS OBTAINED AND REVEALED: No change bilateral infiltrates when compared to the prior examination. SHE IS CURRENTLY RECEIVING 1/2NS AT 75 ML/HR, LEVAQUIN 750MG IV HS, FORTAZ 1G IV Q8H, AMINOPHYLLINE DRIP, ASCORBIC ACID 1500MG IV Q6H, ALBUTEROL NEBS QID, MUCOMYST IN NEBS BID, SOLU-MEDROL 125 MG IV Q6H, PROTONIX 40MG IV DAILY, PEPCID 20MG IV BID, CATAPRES 0.5MG/HR TD PATCH, APRESOLINE 10MG IV Q4H PRN, THIAMINE 200MG IV BID, ZOFRAN 4MG IV Q4H PRN, DIFLUCAN 100MG IV DAILY, ELIQUIS 5MG PO BID, POTASSIUM AND MAGNESIUM PROTOCOLS, AN ATIVAN DRIP FOR SEDATION. TODAY, WE WILL CONTINUE TO DECREASE SEDATION AND ATTEMPT TO EXTUBATE PATIENT TODAY. OTHERWISE, WE WILL FOLLOW UP WITH AM LABS, CHEST XRAY, ABG, AND CONTINUE TO MONITOR. TIME SPENT ON CLINICAL ASSESSMENT, REVIEWING LABS AND IMAGING, DECISION MAKING, AND DOCUMENTATION GREATER THAN 75 MINUTES. - Past Medical Family Social History Past Med/Fam/Surg Hx: No changes since H&P Allergies: Allergies No Known Drug Allergies Allergy (Verified 08/27/19 22:19) - Review of Systems ROS: No change since H&P - Vital Signs and I&O's Vital Signs: Temperature 99.3 F Pulse Rate [Left] 78 Pulse Rate [Bilateral Radial] 92 Pulse Rate 97 Respiratory Rate 22 Blood Pressure [Right Radial 193/77 Artery] Blood Pressure [Left Arm] 173/62 Blood Pressure 161/74 O2 Sat by Pulse Oximetry 93 Intake and Output: Intake & Output 08/30/20 08/31/20 09/01/20 09/02/20 11:59 11:59 11:59 11:59 Intake Total 2507 / 2507 4894 / 4894 2401 / 2401 933 / 933 Output Total 3425 / 3425 2189 / 2189 2350 / 2350 1175 / 1175 Balance -918 / -918 2705 / 2705 51 / 51 -242 / -242 - Physical Exam Oriented: Unable to test Eyes: Normal Ear: Normal Nose: Normal Throat: Normal Respiratory: Generalized, Diminished, Rales Cardiovascular: Normal : Normal Auscultation: Bowel Sounds: Normal Palpation: Normal Tenderness: Normal Skin: Normal Musculoskeletal: Normal Psychiatric: Other (SEDATED ) Mood Description: Calm Affect: Normal Speech Pattern: Artificially Ventilated - Laboratory and Diagnostics Result Diagrams: 09/01/20 18:50 09/01/20 05:54 Labs: 08/18/20 11:40 Blood Blood Culture - Final 08/18/20 12:00 Blood Blood Culture - Final Laboratory WBC 18.0 X10^3/uL (3.6-10.0) H 09/01/20 05:54 RBC 2.76 X10^6/uL (3.5-5.4) L 09/01/20 05:54 Hgb 8.7 g/dL (12.0-16.0) L 09/01/20 18:50 Hct 26.3 % (36.0-47.0) L 09/01/20 18:50 MCV 87.9 fL (80.0-100.0) 09/01/20 05:54 MCH 28.3 pg (27.0-34.0) 09/01/20 05:54 MCHC 32.3 g/dL (33.0-35.0) L 09/01/20 05:54 RDW 13.5 % (11.6-16.5) 09/01/20 05:54 Plt Count 134 X10^3/uL (150.0-450.0) L 09/01/20 05:54 Plt Count Comment Decreased (ADEQUATE) A 09/01/20 05:54 MPV 8.9 fL (7.4-11.0) 09/01/20 05:54 Neut % (Auto) 95.3 % (42.0-75.0) H 09/01/20 05:54 Lymph % (Auto) 1.6 % (21.0-51.0) L 09/01/20 05:54 [place] % (Auto) 2.9 % (0.0-13.0) 09/01/20 05:54 Eos % (Auto) 0.0 % (0.9-2.9) L 09/01/20 05:54 Baso % (Auto) 0.2 % (0.2-1.0) 09/01/20 05:54 Neut # (Auto) 17.2 x10^3/uL (2.2-4.8) H 09/01/20 05:54 Lymph # (Auto) 0.3 X10^3/uL (1.3-2.9) L 09/01/20 05:54 [place] # (Auto) 0.5 x10^3/uL (0.3-0.8) 09/01/20 05:54 Eos # (Auto) 0.0 x10^3/uL (0.0-0.2) 09/01/20 05:54 Baso # (Auto) 0.0 X10^3/uL (0.0-0.1) 09/01/20 05:54 Absolute Nucleated RBC 0.1 /100WBC 09/01/20 05:54 Total Counted 100 09/01/20 05:54 Neutrophils % (Manual) 87 % (39-76) H 09/01/20 05:54 Band Neutrophils % 5 % (0-10) 09/01/20 05:54 Lymphocytes % (Manual) 5 % (13-43) L 09/01/20 05:54 Monocytes % (Manual) 3 % (4-9) L 09/01/20 05:54 Eosinophils % (Manual) 1 % (0-6) 08/31/20 05:50 Metamyelocytes % 2 08/31/20 05:50 Plt Morphology Comment Normal (NORMAL) 09/01/20 05:54 RBC Morphology Normal (NORMAL) 09/01/20 05:54 PT 17.9 SECONDS (11.8-14.3) 08/22/20 17:00 INR Target Range - 08/22/20 17:00 INR 1.53 (0.8-1.3) H 08/22/20 17:00 APTT 22.8 SECONDS (22.9-36.5) L 08/30/20 06:30 PTT Comment - 08/30/20 06:30 D-Dimer 0.53 ug/ml (0.0-0.57) 09/01/20 05:54 Sample Site A line 09/01/20 05:00 ABG pH 7.500 (7.35-7.45) H 09/01/20 05:00 ABG pCO2 48.0 mmHg (35.0-45.0) H 09/01/20 05:00 ABG pO2 133.0 mmHg (80.0-100.0) H 09/01/20 05:00 ABG HCO3 37.4 mmol/L (22-26) H* 09/01/20 05:00 ABG O2 Saturation 99.0 % (90-100) 09/01/20 05:00 ABG Base Excess 12.5 mmol/L (-2.0-2.0) H 09/01/20 05:00 Juan Test Na 09/01/20 05:00 A-a Gradient 306.0 mmHg 09/01/20 05:00 FiO2 70.0 09/01/20 05:00 Blood Gas Comments [place] 09/01/20 05:00 Sodium 145 mmol/L (136-145) 09/01/20 05:54 Corrected Sodium 146 mmol/L (136-145) H 09/01/20 05:54 Potassium 3.9 mmol/L (3.5-5.1) 09/01/20 05:54 Chloride 107 mmol/L (98-107) 09/01/20 05:54 Carbon Dioxide 32.8 mmol/L (21-32) H 09/01/20 05:54 BUN 30 mg/dL (7-18) H 09/01/20 05:54 Creatinine 0.67 mg/dL (0.55-1.02) 09/01/20 05:54 Est GFR (MDRD) Af Amer > 60 (>60) 09/01/20 05:54 Est GFR (MDRD) Non-Af > 60 (>60) 09/01/20 05:54 Glucose 148 mg/dL (65-99) H 09/01/20 05:54 Lactic Acid 1.0 mmol/L (0.4-2.0) 08/18/20 11:40 Calcium 8.3 mg/dL (8.5-10.1) L 09/01/20 05:54 Corrected Calcium 9.2 mg/dL (8.5-10.1) 09/01/20 05:54 Magnesium 2.2 mg/dL (1.7-2.9) 08/30/20 06:30 Ferritin 334 ng/mL (8-252) H 09/01/20 05:54 Total Bilirubin 0.50 mg/dL (0.2-1.0) 09/01/20 05:54 AST 24 Units/L (15-37) 09/01/20 05:54 ALT 18 Units/L (12-78) 09/01/20 05:54 Alkaline Phosphatase 48 Units/L (46-116) 09/01/20 05:54 Creatine Kinase 83 Units/L (26-192) 08/18/20 19:07 CK-MB (CK-2) 1.0 ng/mL (0-4.0) 08/18/20 19:07 CK/CKMB % Calc 1.2 % (<4) 08/18/20 19:07 Troponin I < 0.02 ng/mL (0-1.5) 08/18/20 19:07 C-Reactive Protein 21.80 mg/L (0-3.0) H 09/01/20 05:54 B-Natriuretic Peptide 265 pg/mL (0-79) H 09/01/20 05:54 Total Protein 5.2 g/dL (6.4-8.2) L 09/01/20 05:54 Albumin 2.9 g/dL (3.4-5.0) L 09/01/20 05:54 Globulin 2.3 g/dL (2.5-4.5) L 09/01/20 05:54 Albumin/Globulin Ratio 1.3 Ratio (1.1-2.1) 09/01/20 05:54 Amylase 50 Units/L (25-115) 08/18/20 11:40 Lipase 137 Units/L (73-393) 08/18/20 11:40 Specimen Type Catherized urine 08/18/20 23:07 Urine Color Dark yellow (YELLOW) 08/18/20 23:07 Urine Appearance Clear (CLEAR) 08/18/20 23:07 Urine pH 7.0 (5.0 - 8.0) 08/18/20 23:07 Ur Specific [place] 1.010 (1.000-1.030) 08/18/20 23:07 Urine Protein 2+ (NEGATIVE) 08/18/20 23:07 Urine Glucose (UA) Negative (NEGATIVE) 08/18/20 23:07 Urine Ketones 1+ (NEGATIVE) 08/18/20 23:07 Urine Occult Blood Negative (NEGATIVE) 08/18/20 23:07 Urine Nitrite Negative (NEGATIVE) 08/18/20 23:07 Urine Bilirubin Negative (NEGATIVE) 08/18/20 23:07 Urine Urobilinogen 1+ (NORMAL) 08/18/20 23:07 Ur Leukocyte Esterase Negative (NEGATIVE) 08/18/20 23:07 Urine RBC None seen /HPF (0-3) 08/18/20 23:07 Urine WBC None seen /HPF (0-5) 08/18/20 23:07 Ur Squamous Epith Cells Rare /HPF (NEGATIVE) 08/18/20 23:07 Urine Bacteria Negative /HPF (NEGATIVE) 08/18/20 23:07 Ur Culture Indicated? No/not indicated 08/18/20 23:07 Theophylline 15.2 ug/mL (10-20) 08/30/20 06:30 Influenza Type A (PCR) Negative (NEGATIVE) 08/18/20 12:46 Influenza Type B (PCR) Negative (NEGATIVE) 08/18/20 12:46 SARS CoV-2 RNA Rapid LUIS Positive (NEGATIVE) A 08/18/20 18:12 Blood Type B POSITIVE 08/21/20 14:30 - Plan (1) Pneumonia due to 2019 novel coronavirus Status: Acute Plan: ATTEMPT TO EXTUBATE TODAY, 1/2NS AT 75 ML/HR, LEVAQUIN 750MG IV HS, FORTAZ 1G IV Q8H, AMINOPHYLLINE DRIP, ASCORBIC ACID 1500MG IV Q6H, ALBUTEROL NEBS QID, MUCOMYST IN NEBS BID, SOLU-MEDROL 125 MG IV Q6H, PROTONIX 40MG IV DAILY, PEPCID 20MG IV BID, CATAPRES 0.5MG/HR TD PATCH, APRESOLINE 10MG IV Q4H PRN, THIAMINE 200MG IV BID, ZOFRAN 4MG IV Q4H PRN, DIFLUCAN 100MG IV DAILY, ELIQUIS 5MG PO BID, POTASSIUM AND MAGNESIUM PROTOCOLS, AN ATIVAN DRIP FOR SEDATION. (2) Hypoxia Status: Acute
[2020-09-01] MEDS: LEVAQUIN PREMIX IV 750 MG 750 MG/150 ML BAG IV SCH (20:25)
[2020-09-02] MEDS ORDERED: NS 100 ML IV + SPIKE MINIBAG* 100 ML IV ONE (05:16)
[2020-09-02 05:34] LABS: ABG BASE EXCESS 11.5 mmol/L (-2.0-2.0)
[2020-09-02 05:35] LABS: ABG ALLEN TEST POS; ABG HCO3 37.5 mmol/L (22-26)
[2020-09-02] MEDS: SOLU-Medrol 125 MG VIAL IVP SCH ×4 (05:38→22:40)
[2020-09-02] MEDS: FORTAZ or TAZICEF VIAL INJ IVP SCH ×3 (05:38→22:35)
[2020-09-02] MEDS ORDERED: NS 1/2 1000 ML IV 1,000 ML IV ONE ×2 (05:49→22:16)
[2020-09-02 06:19] LABS: BASOPHILS % (AUTO) 0.3 % (0.2-1.0); HEMATOCRIT 25.9 % (36.0-47.0); HEMOGLOBIN 8.7 g/dL (12.0-16.0); LYMPHOCYTES # (AUTO) 0.2 X10^3/uL (1.3-2.9); LYMPHOCYTES % (AUTO) 1.3 % (21.0-51.0); MEAN CORPUSCULAR HEMOGLOBIN 29.4 pg (27.0-34.0); MEAN CORPUSCULAR HGB CONC 33.5 g/dL (33.0-35.0); MEAN CORPUSCULAR VOLUME 87.8 fL (80.0-100.0); MEAN PLATELET VOLUME 8.6 fL (7.4-11.0); MONOCYTES # (AUTO) 0.9 x10^3/uL (0.3-0.8); MONOCYTES % (AUTO) 4.7 % (0.0-13.0); NEUTROPHILS # (AUTO) 18.1 x10^3/uL (2.2-4.8); NEUTROPHILS % (AUTO) 93.7 % (42.0-75.0); PLATELET COUNT 129 X10^3/uL (150.0-450.0); RED BLOOD COUNT 2.95 X10^6/uL (3.5-5.4); RED CELL DISTRIBUTION WIDTH 13.5 % (11.6-16.5); WHITE BLOOD COUNT 19.3 X10^3/uL (3.6-10.0)
[2020-09-02 06:34] LABS: ALANINE AMINOTRANSFERASE 16 Units/L (12-78); ALBUMIN 3.4 g/dL (3.4-5.0); ALKALINE PHOSPHATASE 55 Units/L (46-116); ASPARTATE AMINO TRANSFERASE 21 Units/L (15-37); BLOOD UREA NITROGEN 28 mg/dL (7-18); CALCIUM 8.5 mg/dL (8.5-10.1); CARBON DIOXIDE 32.4 mmol/L (21-32); CHLORIDE 105 mmol/L (98-107); COR NA(FOR HYPERGLY) 147 mmol/L (136-145); CREATININE 0.55 mg/dL (0.55-1.02); SODIUM 146 mmol/L (136-145); eGFR NON BLACK RACES > 60 (>60)
--- NOTE | 2020-09-02 06:35 | RAD ---
HISTORYCOVID, SOBSTUDYCHEST, 1 VIEWCOMPARISONOne day prior.TECHNIQUEAP view of the chestFINDINGSET tube in good position. NG tube courses below the visualized field of view. Right IJ central line in good position. Cardiac and mediastinal contours are within normal limits. No significant change in bilateral airspace and interstitial opacities. No definite pleural effusion or pneumothorax.IMPRESSIONNo significant change.Electronically signed by: Jose M Stockton (Sep 02, 2020 06:34:15)
[2020-09-02 07:14] LABS: BAND NEUTROPHILS % 1 % (0-10)
[2020-09-02 07:15] LABS: PLATELET MORPHOLOGY COMMENT NORMAL (NORMAL)
[2020-09-02] MEDS: PEPCID 20 MG IV PREMIX* 20 MG/50 ML BAG IV SCH (08:00)
[2020-09-02] MEDS: ACCUNEB 1.25 MG NEBULE NEB SCH ×4 (08:46→20:39)
[2020-09-02] MEDS: PULMICORT NEB TX 0.5 MG NEB SCH ×2 (08:46→20:39)
[2020-09-02] MEDS: ALBUMIN HUMAN 25%- 100 ML 100 ML IV SCH (08:51)
[2020-09-02] MEDS: LACRI-LUBE S.O.P. AFFEYE SCH ×2 (09:30→22:30)
[2020-09-02] MEDS: PROTONIX INJ 40 MG VIAL IVP SCH (09:30)
[2020-09-02] MEDS: THIAMINE HCL INJ IVP SCH ×2 (09:30→22:32)
[2020-09-02] MEDS: ELIQUIS PO SCH ×2 (09:30→22:40)
[2020-09-02] MEDS: SYNTHROID INJ 100 mcg VIAL IM SCH (10:52)
[2020-09-02] MEDS: K-RIDER 10 MEQ/NS 100 ML 10 MEQ/100 ML BAG IV PRN ×3 (11:15→15:35)
[2020-09-02] MEDS: AMINOPHYLLINE INJ 1,000 MG in DEXTROSE 5% 460 ML IV PRN (16:12)
[2020-09-02] MEDS: GEODON INJ IM SCH ×2 (16:12→23:15)
[2020-09-02] MEDS: DIPRIVAN PREMIX 1 GRAM IV 1,000 MG/100 ML VIAL IV PRN (17:32)
[2020-09-02] MEDS: NS 1/2 1000 ML IV 1,000 ML IV SCH ×2 (19:50→22:30)
[2020-09-02] MEDS: LEVAQUIN PREMIX IV 750 MG 750 MG/150 ML BAG IV SCH (23:07)
[2020-09-03] MEDS: DIPRIVAN PREMIX 1 GRAM IV 1,000 MG/100 ML VIAL IV PRN (00:28)
[2020-09-03] MEDS: SOLU-Medrol 125 MG VIAL IVP SCH ×4 (05:02→22:45)
[2020-09-03] MEDS: FORTAZ or TAZICEF VIAL INJ IVP SCH ×3 (05:10→22:40)
[2020-09-03 07:05] LABS: BASOPHILS % (AUTO) 0.1 % (0.2-1.0); HEMATOCRIT 23.6 % (36.0-47.0); LYMPHOCYTES # (AUTO) 0.2 X10^3/uL (1.3-2.9); MEAN CORPUSCULAR HEMOGLOBIN 29.7 pg (27.0-34.0); MEAN CORPUSCULAR HGB CONC 33.8 g/dL (33.0-35.0); MEAN CORPUSCULAR VOLUME 87.8 fL (80.0-100.0); MONOCYTES # (AUTO) 0.5 x10^3/uL (0.3-0.8); MONOCYTES % (AUTO) 4.5 % (0.0-13.0); NEUTROPHILS # (AUTO) 9.4 x10^3/uL (2.2-4.8); NEUTROPHILS % (AUTO) 93.4 % (42.0-75.0); PLATELET COUNT 106 X10^3/uL (150.0-450.0); RED BLOOD COUNT 2.68 X10^6/uL (3.5-5.4); RED CELL DISTRIBUTION WIDTH 13.6 % (11.6-16.5); WHITE BLOOD COUNT 10.1 X10^3/uL (3.6-10.0)
[2020-09-03 07:12] LABS: ABG BASE EXCESS 9.8 mmol/L (-2.0-2.0)
[2020-09-03 07:14] LABS: ABG HCO3 34.9 mmol/L (22-26)
[2020-09-03 07:15] LABS: ALANINE AMINOTRANSFERASE 16 Units/L (12-78); ALBUMIN 3.1 g/dL (3.4-5.0); ALKALINE PHOSPHATASE 51 Units/L (46-116); ASPARTATE AMINO TRANSFERASE 18 Units/L (15-37); BLOOD UREA NITROGEN 32 mg/dL (7-18); CALCIUM 8.7 mg/dL (8.5-10.1); CARBON DIOXIDE 30.6 mmol/L (21-32); CHLORIDE 103 mmol/L (98-107); COR CA(FOR HYPOALB) 9.4 mg/dL (8.5-10.1); COR NA(FOR HYPERGLY) 144 mmol/L (136-145); MAGNESIUM 2.2 mg/dL (1.7-2.9); SODIUM 142 mmol/L (136-145); TOTAL PROTEIN 5.5 g/dL (6.4-8.2); eGFR NON BLACK RACES > 60 (>60)
--- NOTE | 2020-09-03 07:15 | RAD ---
HISTORYShortness of breathSTUDYChest AP [id number] is an endotracheal tube in good position. There is a right IJ line in good position. There is a NG tube coursing below the left hemidiaphragm. Its tip is not vi sible. Heart is within normal limits in size. Diffuse bilateral interstitial and ground-glass infiltr ates are unchanged considering a difference in film technique. No pleural effusions are identified. B bonny thorax is unremarkable.IMPRESSIONNo change diffuse bilateral interstitial and ground-glass infilt ratesElectronically signed by: BEN ONTIVEROS (Sep 03, 2020 07:14:17)
[2020-09-03 07:37] LABS: BAND NEUTROPHILS % 6 % (0-10); PLATELET MORPHOLOGY COMMENT NORMAL (NORMAL)
[2020-09-03] MEDS: PULMICORT NEB TX 0.5 MG NEB SCH ×2 (08:33→20:15)
[2020-09-03] MEDS: ACCUNEB 1.25 MG NEBULE NEB SCH ×4 (08:33→20:15)
[2020-09-03] MEDS: PRECEDEX 400 MCG/100 ML PREMIX 400 MCG/100 ML INFUS..BTL IV PRN ×2 (09:06→21:45)
[2020-09-03] MEDS: ALBUMIN HUMAN 25%- 100 ML 100 ML IV SCH (09:14)
[2020-09-03] MEDS: LACRI-LUBE S.O.P. AFFEYE SCH ×2 (09:15→22:48)
[2020-09-03] MEDS: ELIQUIS PO SCH (09:15)
[2020-09-03] MEDS: THIAMINE HCL INJ IVP SCH (09:16)
[2020-09-03] MEDS: PROTONIX INJ 40 MG VIAL IVP SCH (09:16)
[2020-09-03] MEDS: SYNTHROID INJ 100 mcg VIAL IM SCH (09:16)
[2020-09-03] MEDS: GEODON INJ IM SCH ×2 (09:17→20:40)
[2020-09-03] MEDS: PEPCID 20 MG IV PREMIX* 20 MG/50 ML BAG IV SCH ×2 (10:00→22:45)
[2020-09-03] MEDS: K-RIDER 10 MEQ/NS 100 ML 10 MEQ/100 ML BAG IV PRN (10:51)
[2020-09-03] MEDS ORDERED: HumuLIN R SUBCUT PRN (11:00)
[2020-09-03] MEDS ORDERED: PHARMACY CONSULT - TPN XX SCH (11:00)
--- NOTE | 2020-09-03 11:52 | PCM.PROG ---
Progress Note - Progress Note for Day of Date of Exam: 09/02/20 - Subjective Subjective: IS BEING TREATED FOR PNEUMONIA DUE TO COVID-19 AND HYPOXIA. SHE REMAINS ON THE MECHANICAL VENT. TODAY, HER SETTINGS ON THE VENT ARE: SIMV, VENT RATE 16, TIDAL VOLUME 400, PEEP 10, FI02 45%. HER SATURATIONS HAVE BEEN 90-98% THIS MORNING AND THROUGHOUT THE NIGHT. HER SEDATION HAS BEEN DECREASED. ON EXAMINATION, SHE CONTINUES TO MOVE HEAD FROM SIDE TO SIDE. HEART IS REGULAR IN RATE AND RHYTHM. BILATERAL LUNGS ARE NOTED WITH DIMINISHEDL LUNG SOUNDS THROUGHOUT. ABDOMEN IS ROUND, SOFT, AND NON-TENDER WITH NORMAL BOWEL SOUNDS NOTED IN ALL QUADRANTS. NO EDEMA NOTED TO UPPER OR LOWER EXTREMITIES. HER VITALS THIS MORNING ARE: 98.7-93-26-90%-165/79. LABS WERE OBTAINED. ABNORMAL LAB VALUES INCLUDE THE FOLLOWING: WBC 19.3, RBC 2.95, HGB 8.7, HCT 25.9, PLT COUNT 129, D-DIMER 1.04, SODIUM 146, POTASSIUM 3.3, BUN 28, GLUCOSE 156, FERRITIN 352, CRP 40.50, BNP 176, TOTAL PROTEIN 6.0. ABG WAS OBTAINED THIS MORNING AND REVEALED: PH 7.450, PC02 54, P02 61, HC03 37.5, 02 SAT 92, FI02 45. A CHEST XRAY WAS OBTAINED AND REVEALED: No change. SHE IS CURRENTLY RECEIVING 1/2NS AT 75 ML/HR, LEVAQUIN 750MG IV HS, FORTAZ 1G IV Q8H, AMINOPHYLLINE DRIP, ASCORBIC ACID 1500MG IV Q6H, ALBUTEROL NEBS QID, MUCOMYST IN NEBS BID, SOLU-MEDROL 125 MG IV Q6H, PROTONIX 40MG IV DAILY, PEPCID 20MG IV BID, CATAPRES 0.5MG/HR TD PATCH, APRESOLINE 10MG IV Q4H PRN, THIAMINE 200MG IV BID, ZOFRAN 4MG IV Q4H PRN, DIFLUCAN 100MG IV DAILY, ELIQUIS 5MG PO BID, POTASSIUM AND MAGNESIUM PROTOCOLS, AN ATIVAN DRIP FOR SEDATION. TODAY, WE WILL CONTINUE TO DECREASE SEDATION AND ATTEMPT TO EXTUBATE PATIENT TODAY. OTHERWISE, WE WILL FOLLOW UP WITH AM LABS, CHEST XRAY, ABG, AND CONTINUE TO MONITOR. TIME SPENT ON CLINICAL ASSESSMENT, REVIEWING LABS AND IMAGING, DECISION MAKING, AND DOCUMENTATION GREATER THAN 75 MINUTES. - Past Medical Family Social History Past Med/Fam/Surg Hx: No changes since H&P Allergies: Allergies No Known Drug Allergies Allergy (Verified 08/27/19 22:19) - Review of Systems ROS: No change since H&P - Vital Signs and I&O's Vital Signs: Temperature 97.6 F Pulse Rate [Left] 78 Pulse Rate [Bilateral Radial] 92 Pulse Rate 56 Respiratory Rate 17 Blood Pressure [Right Radial 193/77 Artery] Blood Pressure [Left Arm] 173/62 Blood Pressure 127/60 O2 Sat by Pulse Oximetry 89 Intake and Output: Intake & Output 08/31/20 09/01/20 09/02/20 09/03/20 11:59 11:59 11:59 11:59 Intake Total 4894 / 4894 2401 / 2401 2543 / 2543 2545 / 2545 Output Total 2189 / 2189 2350 / 2350 2450 / 2450 1600 / 1600 Balance 2705 / 2705 51 / 51 93 / 93 945 / 945 - Physical Exam Oriented: Unable to test Eyes: Normal Ear: Normal Nose: Normal Throat: Normal Respiratory: Generalized, Diminished, Rales Cardiovascular: Normal : Normal Auscultation: Bowel Sounds: Normal Palpation: Normal Tenderness: Normal Skin: Normal Musculoskeletal: Normal Psychiatric: Other (SEDATED ) Mood Description: Calm Affect: Normal Speech Pattern: Artificially Ventilated - Laboratory and Diagnostics Result Diagrams: 09/03/20 06:26 09/03/20 06:26 Labs: 09/02/20 10:58 Sputum - Endotracheal Wash Sputum Culture - Preliminary 09/02/20 10:58 Sputum - Endotracheal Wash - Final 08/18/20 11:40 Blood Blood Culture - Final 08/18/20 12:00 Blood Blood Culture - Final Laboratory WBC 10.1 X10^3/uL (3.6-10.0) H D 09/03/20 06:26 RBC 2.68 X10^6/uL (3.5-5.4) L 09/03/20 06:26 Hgb 8.0 g/dL (12.0-16.0) L 09/03/20 06:26 Hct 23.6 % (36.0-47.0) L 09/03/20 06:26 MCV 87.8 fL (80.0-100.0) 09/03/20 06:26 MCH 29.7 pg (27.0-34.0) 09/03/20 06:26 MCHC 33.8 g/dL (33.0-35.0) 09/03/20 06:26 RDW 13.6 % (11.6-16.5) 09/03/20 06:26 Plt Count 106 X10^3/uL (150.0-450.0) L 09/03/20 06:26 Plt Count Comment Decreased (ADEQUATE) A 09/03/20 06:26 MPV 9.0 fL (7.4-11.0) 09/03/20 06:26 Neut % (Auto) 93.4 % (42.0-75.0) H 09/03/20 06:26 Lymph % (Auto) 2.0 % (21.0-51.0) L 09/03/20 06:26 [place] % (Auto) 4.5 % (0.0-13.0) 09/03/20 06:26 Eos % (Auto) 0.0 % (0.9-2.9) L 09/03/20 06:26 Baso % (Auto) 0.1 % (0.2-1.0) L 09/03/20 06:26 Neut # (Auto) 9.4 x10^3/uL (2.2-4.8) H 09/03/20 06:26 Lymph # (Auto) 0.2 X10^3/uL (1.3-2.9) L 09/03/20 06:26 [place] # (Auto) 0.5 x10^3/uL (0.3-0.8) 09/03/20 06:26 Eos # (Auto) 0.0 x10^3/uL (0.0-0.2) 09/03/20 06:26 Baso # (Auto) 0.0 X10^3/uL (0.0-0.1) 09/03/20 06:26 Absolute Nucleated RBC 0.1 /100WBC 09/03/20 06:26 Total Counted 100 09/03/20 06:26 Neutrophils % (Manual) 92 % (39-76) H 09/03/20 06:26 Band Neutrophils % 6 % (0-10) 09/03/20 06:26 Lymphocytes % (Manual) 1 % (13-43) L 09/03/20 06:26 Monocytes % (Manual) 1 % (4-9) L 09/03/20 06:26 Eosinophils % (Manual) 1 % (0-6) 08/31/20 05:50 Metamyelocytes % 2 08/31/20 05:50 Plt Morphology Comment Normal (NORMAL) 09/03/20 06:26 RBC Morphology Normal (NORMAL) 09/03/20 06:26 PT 17.9 SECONDS (11.8-14.3) 08/22/20 17:00 INR Target Range - 08/22/20 17:00 INR 1.53 (0.8-1.3) H 08/22/20 17:00 APTT 22.8 SECONDS (22.9-36.5) L 08/30/20 06:30 PTT Comment - 08/30/20 06:30 D-Dimer 0.81 ug/ml (0.0-0.57) H* 09/03/20 06:26 Sample Site Artline 09/03/20 06:09 ABG pH 7.470 (7.35-7.45) H 09/03/20 06:09 ABG pCO2 48.0 mmHg (35.0-45.0) H 09/03/20 06:09 ABG pO2 68.0 mmHg (80.0-100.0) L 09/03/20 06:09 ABG HCO3 34.9 mmol/L (22-26) H* 09/03/20 06:09 ABG O2 Saturation 94.0 % (90-100) 09/03/20 06:09 ABG Base Excess 9.8 mmol/L (-2.0-2.0) H 09/03/20 06:09 Juan Test Na 09/03/20 06:09 A-a Gradient 122.0 mmHg 09/03/20 06:09 FiO2 35.0 09/03/20 06:09 Blood Gas Comments [facility] 09/03/20 06:09 Sodium 142 mmol/L (136-145) 09/03/20 06:26 Corrected Sodium 144 mmol/L (136-145) 09/03/20 06:26 Potassium 3.8 mmol/L (3.5-5.1) 09/03/20 06:26 Chloride 103 mmol/L (98-107) 09/03/20 06:26 Carbon Dioxide 30.6 mmol/L (21-32) 09/03/20 06:26 BUN 32 mg/dL (7-18) H 09/03/20 06:26 Creatinine 0.50 mg/dL (0.55-1.02) L 09/03/20 06:26 Est GFR (MDRD) Af Amer > 60 (>60) 09/03/20 06:26 Est GFR (MDRD) Non-Af > 60 (>60) 09/03/20 06:26 Glucose 163 mg/dL (65-99) H 09/03/20 06:26 Lactic Acid 1.0 mmol/L (0.4-2.0) 08/18/20 11:40 Calcium 8.7 mg/dL (8.5-10.1) 09/03/20 06:26 Corrected Calcium 9.4 mg/dL (8.5-10.1) 09/03/20 06:26 Magnesium 2.2 mg/dL (1.7-2.9) 09/03/20 06:26 Ferritin 328 ng/mL (8-252) H 09/03/20 06:26 Total Bilirubin 0.70 mg/dL (0.2-1.0) 09/03/20 06:26 AST 18 Units/L (15-37) 09/03/20 06:26 ALT 16 Units/L (12-78) 09/03/20 06:26 Alkaline Phosphatase 51 Units/L (46-116) 09/03/20 06:26 Creatine Kinase 83 Units/L (26-192) 08/18/20 19:07 CK-MB (CK-2) 1.0 ng/mL (0-4.0) 08/18/20 19:07 CK/CKMB % Calc 1.2 % (<4) 08/18/20 19:07 Troponin I < 0.02 ng/mL (0-1.5) 08/18/20 19:07 C-Reactive Protein 25.10 mg/L (0-3.0) H 09/03/20 06:26 B-Natriuretic Peptide 95.1 pg/mL (0-79) H 09/03/20 06:26 Total Protein 5.5 g/dL (6.4-8.2) L 09/03/20 06:26 Albumin 3.1 g/dL (3.4-5.0) L 09/03/20 06:26 Globulin 2.4 g/dL (2.5-4.5) L 09/03/20 06:26 Albumin/Globulin Ratio 1.3 Ratio (1.1-2.1) 09/03/20 06:26 Amylase 50 Units/L (25-115) 08/18/20 11:40 Lipase 137 Units/L (73-393) 08/18/20 11:40 Specimen Type Catherized urine 08/18/20 23:07 Urine Color Dark yellow (YELLOW) 08/18/20 23:07 Urine Appearance Clear (CLEAR) 08/18/20 23:07 Urine pH 7.0 (5.0 - 8.0) 08/18/20 23:07 Ur Specific [place] 1.010 (1.000-1.030) 08/18/20 23:07 Urine Protein 2+ (NEGATIVE) 08/18/20 23:07 Urine Glucose (UA) Negative (NEGATIVE) 08/18/20 23:07 Urine Ketones 1+ (NEGATIVE) 08/18/20 23:07 Urine Occult Blood Negative (NEGATIVE) 08/18/20 23:07 Urine Nitrite Negative (NEGATIVE) 08/18/20 23:07 Urine Bilirubin Negative (NEGATIVE) 08/18/20 23:07 Urine Urobilinogen 1+ (NORMAL) 08/18/20 23:07 Ur Leukocyte Esterase Negative (NEGATIVE) 08/18/20 23:07 Urine RBC None seen /HPF (0-3) 08/18/20 23:07 Urine WBC None seen /HPF (0-5) 08/18/20 23:07 Ur Squamous Epith Cells Rare /HPF (NEGATIVE) 08/18/20 23:07 Urine Bacteria Negative /HPF (NEGATIVE) 08/18/20 23:07 Ur Culture Indicated? No/not indicated 08/18/20 23:07 Theophylline 15.2 ug/mL (10-20) 08/30/20 06:30 Influenza Type A (PCR) Negative (NEGATIVE) 08/18/20 12:46 Influenza Type B (PCR) Negative (NEGATIVE) 08/18/20 12:46 SARS CoV-2 RNA Rapid LUIS Positive (NEGATIVE) A 08/18/20 18:12 Blood Type B POSITIVE 08/21/20 14:30 - Plan (1) Pneumonia due to 2019 novel coronavirus Status: Acute Plan: ATTEMPT TO EXTUBATE TODAY, 1/2NS AT 75 ML/HR, LEVAQUIN 750MG IV HS, FORTAZ 1G IV Q8H, AMINOPHYLLINE DRIP, ASCORBIC ACID 1500MG IV Q6H, ALBUTEROL NEBS QID, MUCOMYST IN NEBS BID, SOLU-MEDROL 125 MG IV Q6H, PROTONIX 40MG IV DAILY, PEPCID 20MG IV BID, CATAPRES 0.5MG/HR TD PATCH, APRESOLINE 10MG IV Q4H PRN, THIAMINE 200MG IV BID, ZOFRAN 4MG IV Q4H PRN, DIFLUCAN 100MG IV DAILY, ELIQUIS 5MG PO BID, POTASSIUM AND MAGNESIUM PROTOCOLS, AN ATIVAN DRIP FOR SEDATION. (2) Hypoxia Status: Acute
[2020-09-03] MEDS ORDERED: TPN ELECTROLYTES IV SCH ×4 (12:00)
[2020-09-03] MEDS ORDERED: [UNRECOGNIZED DRUG - OTHER] IV SCH ×4 (12:00)
[2020-09-03] MEDS ORDERED: CLINIMIX IV SCH ×4 (12:00)
[2020-09-03] MEDS ORDERED: THIAMINE HCL IV SCH ×4 (12:00)
[2020-09-03] MEDS: VERSED 100 MG in NS 100 ML IV 80 ML IV SCH (12:22)
[2020-09-03] MEDS ORDERED: DEXTROSE 10% 1,000 ML IV PRN (12:35)
[2020-09-03 12:57] LABS: PHOSPHORUS 2.7 mg/dL (2.6-4.7)
[2020-09-03] MEDS: [UNRECOGNIZED DRUG - OTHER] NG SCH ×3 (13:30→22:55)
[2020-09-03] MEDS: HumuLIN R SUBCUT PRN ×3 (13:35→22:51)
[2020-09-03] MEDS: [UNRECOGNIZED DRUG - OTHER] IV SCH ×4 (14:06)
[2020-09-03] MEDS: CLINIMIX IV SCH ×4 (14:06)
[2020-09-03] MEDS: THIAMINE HCL IV SCH ×4 (14:06)
[2020-09-03] MEDS: TPN ELECTROLYTES IV SCH ×4 (14:06)
[2020-09-03] MEDS: LEVAQUIN PREMIX IV 750 MG 750 MG/150 ML BAG IV SCH ×2 (21:38→23:00)
--- NOTE | 2020-09-03 22:11 | PCM.PROG ---
Progress Note - Progress Note for Day of Date of Exam: 09/03/20 - Subjective Subjective: IS BEING TREATED FOR PNEUMONIA DUE TO COVID-19 AND HYPOXIA. SHE REMAINS ON THE MECHANICAL VENT. TODAY, HER SETTINGS ON THE VENT ARE: SIMV, VENT RATE 16, TIDAL VOLUME 400, PEEP 5, FI02 35%. HER SATURATIONS HAVE BEEN 86-97% THIS MORNING AND THROUGHOUT THE NIGHT. HER SEDATION HAS BEEN DECREASED. ON EXAMINATION, SHE CONTINUES TO MOVE HEAD FROM SIDE TO SIDE. HEART IS REGULAR IN RATE AND RHYTHM. BILATERAL LUNGS ARE NOTED WITH DIMINISHEDL LUNG SOUNDS THROUGHOUT. ABDOMEN IS ROUND, SOFT, AND NON-TENDER WITH NORMAL BOWEL SOUNDS NOTED IN ALL QUADRANTS. NO EDEMA NOTED TO UPPER OR LOWER EXTREMITIES. HER VITALS THIS MORNING ARE: 97.1-56-16-87%-106/51. LABS WERE OBTAINED. ABNORMAL LAB VALUES INCLUDE THE FOLLOWING: WBC 10.1, RBC 2.68, HGB 8.0, HCT 23.6, PLT COUNT 106, D-DIMER 0.81, BUN 32, CREATININE 0.50, GLUCOSE 163, FERRITIN 328, CRP 25.10, BNP 95.1, TOTAL PROTEIN 5.5, ALBUMIN 3.1, GLOBULIN 2.4, TRIGLYCERIDES 173. ABG WAS OBTAINED THIS MORNING AND REVEALED: PH 7.470, PC02 48, P02 68, HC03 34.9, 02 SAT 94, A-A GRADIENT 122, FI02 35. A CHEST XRAY WAS OBTAINED AND REVEALED: No change diffuse bilateral interstitial and ground-glass infiltrates. SHE IS CURRENTLY RECEIVING 1/2NS AT 75 ML/HR, LEVAQUIN 750MG IV HS, FORTAZ 1G IV Q8H, AMINOPHYLLINE DRIP, ASCORBIC ACID 1500MG IV Q6H, ALBUTEROL NEBS QID, MUCOMYST IN NEBS BID, SOLU-MEDROL 125 MG IV Q6H, PROTONIX 40MG IV DAILY, PEPCID 20MG IV BID, CATAPRES 0.5MG/HR TD PATCH, APRESOLINE 10MG IV Q4H PRN, THIAMINE 200MG IV BID, ZOFRAN 4MG IV Q4H PRN, DIFLUCAN 100MG IV DAILY, ELIQUIS 5MG PO BID, POTASSIUM AND MAGNESIUM PROTOCOLS, AN ATIVAN DRIP FOR SEDATION. TODAY, WE WILL CHANGE ELIQUIS TO LOVENOX 30MG SC BID, ADD TPN, ADD ENSURE FEEDINGS THROUGH THE NG TUBE TID, AND CONTINUE TO WEAN SEDATION. OTHERWISE, WE WILL FOLLOW UP WIT H AM LABS, CHEST XRAY, ABG, AND CONTINUE TO MONITOR. TIME SPENT ON CLINICAL ASSESSMENT, REVIEWING LABS AND IMAGING, DECISION MAKING, AND DOCUMENTATION GREATER THAN 75 MINUTES. - Past Medical Family Social History Past Med/Fam/Surg Hx: No changes since H&P Allergies: Allergies No Known Drug Allergies Allergy (Verified 08/27/19 22:19) - Review of Systems ROS: No change since H&P - Vital Signs and I&O's Vital Signs: Temperature 98.8 F Pulse Rate [Left] 78 Pulse Rate [Bilateral Radial] 92 Pulse Rate 47 Respiratory Rate 26 Blood Pressure [Right Radial 193/77 Artery] Blood Pressure [Left Arm] 173/62 Blood Pressure 134/61 O2 Sat by Pulse Oximetry 94 Intake and Output: Intake & Output 09/01/20 09/02/20 09/03/20 09/04/20 11:59 11:59 11:59 11:59 Intake Total 2401 / 2401 2543 / 2543 2547.6 / 2547.6 1503.4 / 1503.4 Output Total 2350 / 2350 2450 / 2450 1600 / 1600 900 / 900 Balance 51 / 51 93 / 93 947.6 / 947.6 603.4 / 603.4 - Physical Exam Oriented: Unable to test Eyes: Normal Ear: Normal Nose: Normal Throat: Normal Respiratory: Generalized, Diminished, Rales Cardiovascular: Normal : Normal Auscultation: Bowel Sounds: Normal Palpation: Normal Tenderness: Normal Skin: Normal Musculoskeletal: Normal Psychiatric: Other (SEDATED ) Mood Description: Calm Affect: Normal Speech Pattern: Artificially Ventilated - Laboratory and Diagnostics Result Diagrams: 09/03/20 06:26 09/03/20 06:26 Labs: 09/02/20 10:58 Sputum - Endotracheal Wash Sputum Culture - Preliminary 09/02/20 10:58 Sputum - Endotracheal Wash - Final 08/18/20 11:40 Blood Blood Culture - Final 08/18/20 12:00 Blood Blood Culture - Final Laboratory WBC 10.1 X10^3/uL (3.6-10.0) H D 09/03/20 06:26 RBC 2.68 X10^6/uL (3.5-5.4) L 09/03/20 06:26 Hgb 8.0 g/dL (12.0-16.0) L 09/03/20 06:26 Hct 23.6 % (36.0-47.0) L 09/03/20 06:26 MCV 87.8 fL (80.0-100.0) 09/03/20 06:26 MCH 29.7 pg (27.0-34.0) 09/03/20 06:26 MCHC 33.8 g/dL (33.0-35.0) 09/03/20 06:26 RDW 13.6 % (11.6-16.5) 09/03/20 06:26 Plt Count 106 X10^3/uL (150.0-450.0) L 09/03/20 06:26 Plt Count Comment Decreased (ADEQUATE) A 09/03/20 06:26 MPV 9.0 fL (7.4-11.0) 09/03/20 06:26 Neut % (Auto) 93.4 % (42.0-75.0) H 09/03/20 06:26 Lymph % (Auto) 2.0 % (21.0-51.0) L 09/03/20 06:26 [place] % (Auto) 4.5 % (0.0-13.0) 09/03/20 06:26 Eos % (Auto) 0.0 % (0.9-2.9) L 09/03/20 06:26 Baso % (Auto) 0.1 % (0.2-1.0) L 09/03/20 06:26 Neut # (Auto) 9.4 x10^3/uL (2.2-4.8) H 09/03/20 06:26 Lymph # (Auto) 0.2 X10^3/uL (1.3-2.9) L 09/03/20 06:26 [place] # (Auto) 0.5 x10^3/uL (0.3-0.8) 09/03/20 06:26 Eos # (Auto) 0.0 x10^3/uL (0.0-0.2) 09/03/20 06:26 Baso # (Auto) 0.0 X10^3/uL (0.0-0.1) 01/21/21 06:26 Absolute Nucleated RBC 0.1 /100WBC 09/03/20 06:26 Total Counted 100 09/03/20 06:26 Neutrophils % (Manual) 92 % (39-76) H 09/03/20 06:26 Band Neutrophils % 6 % (0-10) 09/03/20 06:26 Lymphocytes % (Manual) 1 % (13-43) L 09/03/20 06:26 Monocytes % (Manual) 1 % (4-9) L 09/03/20 06:26 Eosinophils % (Manual) 1 % (0-6) 08/31/20 05:50 Metamyelocytes % 2 08/31/20 05:50 Plt Morphology Comment Normal (NORMAL) 09/03/20 06:26 RBC Morphology Normal (NORMAL) 09/03/20 06:26 PT 17.9 SECONDS (11.8-14.3) 08/22/20 17:00 INR Target Range - 08/22/20 17:00 INR 1.53 (0.8-1.3) H 08/22/20 17:00 APTT 22.8 SECONDS (22.9-36.5) L 08/30/20 06:30 PTT Comment - 08/30/20 06:30 D-Dimer 0.81 ug/ml (0.0-0.57) H* 09/03/20 06:26 Sample Site Artline 09/03/20 06:09 ABG pH 7.470 (7.35-7.45) H 09/03/20 06:09 ABG pCO2 48.0 mmHg (35.0-45.0) H 09/03/20 06:09 ABG pO2 68.0 mmHg (80.0-100.0) L 09/03/20 06:09 ABG HCO3 34.9 mmol/L (22-26) H* 09/03/20 06:09 ABG O2 Saturation 94.0 % (90-100) 09/03/20 06:09 ABG Base Excess 9.8 mmol/L (-2.0-2.0) H 09/03/20 06:09 Juan Test Na 09/03/20 06:09 A-a Gradient 122.0 mmHg 09/03/20 06:09 FiO2 35.0 09/03/20 06:09 Blood Gas Comments [place] [facility] 09/03/20 06:09 Sodium 142 mmol/L (136-145) 09/03/20 06:26 Corrected Sodium 144 mmol/L (136-145) 09/03/20 06:26 Potassium 3.8 mmol/L (3.5-5.1) 09/03/20 06:26 Chloride 103 mmol/L (98-107) 09/03/20 06:26 Carbon Dioxide 30.6 mmol/L (21-32) 09/03/20 06:26 BUN 32 mg/dL (7-18) H 09/03/20 06:26 Creatinine 0.50 mg/dL (0.55-1.02) L 09/03/20 06:26 Est GFR (MDRD) Af Amer > 60 (>60) 09/03/20 06:26 Est GFR (MDRD) Non-Af > 60 (>60) 09/03/20 06:26 Glucose 163 mg/dL (65-99) H 09/03/20 06:26 POC Glucose (mg/dL) 277 mg/dL (65-99) H 09/03/20 16:32 Lactic Acid 1.0 mmol/L (0.4-2.0) 08/18/20 11:40 Calcium 8.7 mg/dL (8.5-10.1) 09/03/20 06:26 Corrected Calcium 9.4 mg/dL (8.5-10.1) 09/03/20 06:26 Phosphorus 2.7 mg/dL (2.6-4.7) 09/03/20 12:38 Magnesium 2.2 mg/dL (1.7-2.9) 09/03/20 06:26 Ferritin 328 ng/mL (8-252) H 09/03/20 06:26 Total Bilirubin 0.70 mg/dL (0.2-1.0) 09/03/20 06:26 AST 18 Units/L (15-37) 09/03/20 06:26 ALT 16 Units/L (12-78) 09/03/20 06:26 Alkaline Phosphatase 51 Units/L (46-116) 09/03/20 06:26 Creatine Kinase 83 Units/L (26-192) 08/18/20 19:07 CK-MB (CK-2) 1.0 ng/mL (0-4.0) 08/18/20 19:07 CK/CKMB % Calc 1.2 % (<4) 08/18/20 19:07 Troponin I < 0.02 ng/mL (0-1.5) 08/18/20 19:07 C-Reactive Protein 25.10 mg/L (0-3.0) H 09/03/20 06:26 B-Natriuretic Peptide 95.1 pg/mL (0-79) H 09/03/20 06:26 Total Protein 5.5 g/dL (6.4-8.2) L 09/03/20 06:26 Albumin 3.1 g/dL (3.4-5.0) L 09/03/20 06:26 Globulin 2.4 g/dL (2.5-4.5) L 09/03/20 06:26 Albumin/Globulin Ratio 1.3 Ratio (1.1-2.1) 09/03/20 06:26 Prealbumin 24.6 mg/dL (18-35.7) 09/03/20 12:38 Triglycerides 173 mg/dL (0-150) H 09/03/20 12:38 Amylase 50 Units/L (25-115) 08/18/20 11:40 Lipase 137 Units/L (73-393) 08/18/20 11:40 Specimen Type Catherized urine 08/18/20 23:07 Urine Color Dark yellow (YELLOW) 08/18/20 23:07 Urine Appearance Clear (CLEAR) 08/18/20 23:07 Urine pH 7.0 (5.0 - 8.0) 08/18/20 23:07 Ur Specific [place] 1.010 (1.000-1.030) 08/18/20 23:07 Urine Protein 2+ (NEGATIVE) 08/18/20 23:07 Urine Glucose (UA) Negative (NEGATIVE) 08/18/20 23:07 Urine Ketones 1+ (NEGATIVE) 08/18/20 23:07 Urine Occult Blood Negative (NEGATIVE) 08/18/20 23:07 Urine Nitrite Negative (NEGATIVE) 08/18/20 23:07 Urine Bilirubin Negative (NEGATIVE) 08/18/20 23:07 Urine Urobilinogen 1+ (NORMAL) 08/18/20 23:07 Ur Leukocyte Esterase Negative (NEGATIVE) 08/18/20 23:07 Urine RBC None seen /HPF (0-3) 08/18/20 23:07 Urine WBC None seen /HPF (0-5) 08/18/20 23:07 Ur Squamous Epith Cells Rare /HPF (NEGATIVE) 08/18/20 23:07 Urine Bacteria Negative /HPF (NEGATIVE) 08/18/20 23:07 Ur Culture Indicated? No/not indicated 08/18/20 23:07 Theophylline 15.2 ug/mL (10-20) 08/30/20 06:30 Influenza Type A (PCR) Negative (NEGATIVE) 08/18/20 12:46 Influenza Type B (PCR) Negative (NEGATIVE) 08/18/20 12:46 SARS CoV-2 RNA Rapid LUIS Positive (NEGATIVE) A 08/18/20 18:12 Blood Type B POSITIVE 08/21/20 14:30 - Plan (1) Pneumonia due to 2019 novel coronavirus Status: Acute Plan: ATTEMPT TO EXTUBATE TODAY, 1/2NS AT 75 ML/HR, LEVAQUIN 750MG IV HS, FORTAZ 1G IV Q8H, AMINOPHYLLINE DRIP, ASCORBIC ACID 1500MG IV Q6H, ALBUTEROL NEBS QID, MUCOMYST IN NEBS BID, SOLU-MEDROL 125 MG IV Q6H, PROTONIX 40MG IV DAILY, PEPCID 20MG IV BID, CATAPRES 0.5MG/HR TD PATCH, APRESOLINE 10MG IV Q4H PRN, THIAMINE 200MG IV BID, ZOFRAN 4MG IV Q4H PRN, DIFLUCAN 100MG IV DAILY, LOVENOX 30MG SC BID, TPN, ENSURE TID, LIPIDS, POTASSIUM AND MAGNESIUM PROTOCOLS, AN ATIVAN DRIP FOR SEDATION. (2) Hypoxia Status: Acute
[2020-09-03] MEDS: LIPOSYN III 20% 250ML 250 ML IV SCH (22:30)
[2020-09-03] MEDS: LOVENOX INJ 30 MG SYR SC SCH (22:35)
[2020-09-04] MEDS: MORPHINE SULFATE PCA 30 MG IV PRN ×2 (00:15→15:04)
[2020-09-04] MEDS: PRECEDEX 400 MCG/100 ML PREMIX 400 MCG/100 ML INFUS..BTL IV PRN ×2 (00:48→05:05)
[2020-09-04] MEDS: VERSED 100 MG in NS 100 ML IV 80 ML IV SCH (02:40)
[2020-09-04 04:36] LABS: ABG BASE EXCESS 9.3 mmol/L (-2.0-2.0)
[2020-09-04 04:37] LABS: ABG HCO3 34.8 mmol/L (22-26)
[2020-09-04] MEDS: THIAMINE HCL IV SCH ×12 (04:46→23:49)
[2020-09-04] MEDS: TPN ELECTROLYTES IV SCH ×12 (04:46→23:49)
[2020-09-04] MEDS: CLINIMIX IV SCH ×12 (04:46→23:49)
[2020-09-04] MEDS: [UNRECOGNIZED DRUG - OTHER] IV SCH ×12 (04:46→23:49)
[2020-09-04] MEDS: FORTAZ or TAZICEF VIAL INJ IVP SCH ×3 (05:10→20:40)
[2020-09-04] MEDS: SOLU-Medrol 125 MG VIAL IVP SCH ×4 (05:10→22:00)
--- NOTE | 2020-09-04 06:17 | RAD ---
HISTORYShortness of breathSTUDYChest AP [id number] August 2020FINDINGSThere is an endotracheal tube in good position. There is a nasogastric tube coursing below the left hemidiaphragm. Its tip is not visible. There is a right IJ line in good position. The heart is upper limits normal in size. Diffuse bilateral interstitial and ground-glass infiltrates are unchanged in degree or distribution from the prior examination. No pleural effusions are identified. Bony thorax is unremarkable.IMPRESSIONNo significant change from the prior examinationElectronically signed by: BEN ONTIVEROS (Sep 04, 2020 06:15:39)
[2020-09-04 06:43] LABS: BASOPHILS % (AUTO) 0.2 % (0.2-1.0); HEMATOCRIT 22.4 % (36.0-47.0); HEMOGLOBIN 7.5 g/dL (12.0-16.0); LYMPHOCYTES # (AUTO) 0.2 X10^3/uL (1.3-2.9); LYMPHOCYTES % (AUTO) 1.4 % (21.0-51.0); MEAN CORPUSCULAR HEMOGLOBIN 29.3 pg (27.0-34.0); MEAN CORPUSCULAR HGB CONC 33.3 g/dL (33.0-35.0); MEAN CORPUSCULAR VOLUME 87.9 fL (80.0-100.0); MEAN PLATELET VOLUME 9.4 fL (7.4-11.0); MONOCYTES # (AUTO) 0.5 x10^3/uL (0.3-0.8); NEUTROPHILS # (AUTO) 11.5 x10^3/uL (2.2-4.8); NEUTROPHILS % (AUTO) 94.4 % (42.0-75.0); PLATELET COUNT 119 X10^3/uL (150.0-450.0); RED BLOOD COUNT 2.55 X10^6/uL (3.5-5.4); RED CELL DISTRIBUTION WIDTH 13.4 % (11.6-16.5); WHITE BLOOD COUNT 12.2 X10^3/uL (3.6-10.0)
[2020-09-04 06:57] LABS: ALANINE AMINOTRANSFERASE 12 Units/L (12-78); ALBUMIN 2.8 g/dL (3.4-5.0); ALKALINE PHOSPHATASE 68 Units/L (46-116); ASPARTATE AMINO TRANSFERASE 14 Units/L (15-37); BLOOD UREA NITROGEN 27 mg/dL (7-18); CALCIUM 8.1 mg/dL (8.5-10.1); CARBON DIOXIDE 30.3 mmol/L (21-32); CHLORIDE 106 mmol/L (98-107); COR CA(FOR HYPOALB) 9.1 mg/dL (8.5-10.1); COR NA(FOR HYPERGLY) 145 mmol/L (136-145); CREATININE 0.54 mg/dL (0.55-1.02); SODIUM 143 mmol/L (136-145); TOTAL PROTEIN 4.9 g/dL (6.4-8.2); eGFR NON BLACK RACES > 60 (>60)
[2020-09-04 07:53] LABS: PLATELET MORPHOLOGY COMMENT NORMAL (NORMAL)
[2020-09-04] MEDS: SYNTHROID INJ 100 mcg VIAL IM SCH (08:39)
[2020-09-04] MEDS: ALBUMIN HUMAN 25%- 100 ML 100 ML IV SCH (08:40)
[2020-09-04] MEDS: PROTONIX INJ 40 MG VIAL IVP SCH (08:40)
[2020-09-04] MEDS: LACRI-LUBE S.O.P. AFFEYE SCH ×2 (08:41→20:30)
[2020-09-04] MEDS: [UNRECOGNIZED DRUG - OTHER] NG SCH ×4 (08:41→20:50)
[2020-09-04] MEDS: PEPCID 20 MG IV PREMIX* 20 MG/50 ML BAG IV SCH ×2 (08:42→20:55)
[2020-09-04] MEDS: ACCUNEB 1.25 MG NEBULE NEB SCH ×4 (09:05→20:20)
[2020-09-04] MEDS: PULMICORT NEB TX 0.5 MG NEB SCH ×2 (09:05→20:20)
[2020-09-04] MEDS ORDERED: GEODON INJ IM ONE (09:41)
[2020-09-04] MEDS: DIPRIVAN PREMIX 1 GRAM IV 1,000 MG/100 ML VIAL IV PRN ×2 (09:45→18:28)
[2020-09-04] MEDS: GEODON INJ IM SCH ×2 (09:56→23:39)
[2020-09-04] MEDS ORDERED: TYLENOL SUPP 650 MG PR PRN (10:14)
[2020-09-04] MEDS ORDERED: BENADRYL INJ 50 MG VIAL IVP ONE (10:14)
[2020-09-04] MEDS ORDERED: LASIX IVP PRN (10:14)
[2020-09-04] MEDS: CATAPRES-TTS-2 TD SCH (13:10)
[2020-09-04] MEDS ORDERED: NS 250 ML IV 250 ML IV ONE (13:54)
[2020-09-04] MEDS ORDERED: BENADRYL INJ 50 MG VIAL ONE (13:57)
[2020-09-04] MEDS ORDERED: NS 500 ML IV 500 ML IV ONE (13:58)
[2020-09-04] MEDS: NS 500 ML IV 500 ML IV SCH (14:15)
[2020-09-04] MEDS: HumuLIN R SUBCUT PRN (14:52)
[2020-09-04] MEDS: LIPOSYN III 20% 250ML 250 ML IV SCH (20:35)
[2020-09-04 22:21] LABS: HEMATOCRIT 31.4 % (36.0-47.0); HEMOGLOBIN 10.8 g/dL (12.0-16.0)
[2020-09-05] MEDS: DIPRIVAN PREMIX 1 GRAM IV 1,000 MG/100 ML VIAL IV PRN ×3 (04:08→21:30)
[2020-09-05 05:22] LABS: ABG BASE EXCESS 9.3 mmol/L (-2.0-2.0)
[2020-09-05 05:23] LABS: ABG HCO3 38.3 mmol/L (22-26)
[2020-09-05 05:47] LABS: BASOPHILS % (AUTO) 0.3 % (0.2-1.0); HEMATOCRIT 30.3 % (36.0-47.0); HEMOGLOBIN 10.4 g/dL (12.0-16.0); LYMPHOCYTES # (AUTO) 0.2 X10^3/uL (1.3-2.9); LYMPHOCYTES % (AUTO) 1.5 % (21.0-51.0); MEAN CORPUSCULAR HEMOGLOBIN 29.9 pg (27.0-34.0); MEAN CORPUSCULAR HGB CONC 34.3 g/dL (33.0-35.0); MEAN CORPUSCULAR VOLUME 87.1 fL (80.0-100.0); MEAN PLATELET VOLUME 9.2 fL (7.4-11.0); MONOCYTES # (AUTO) 0.5 x10^3/uL (0.3-0.8); MONOCYTES % (AUTO) 3.7 % (0.0-13.0); NEUTROPHILS # (AUTO) 12.6 x10^3/uL (2.2-4.8); NEUTROPHILS % (AUTO) 94.5 % (42.0-75.0); PLATELET COUNT 126 X10^3/uL (150.0-450.0); RED BLOOD COUNT 3.48 X10^6/uL (3.5-5.4); RED CELL DISTRIBUTION WIDTH 13.9 % (11.6-16.5); WHITE BLOOD COUNT 13.3 X10^3/uL (3.6-10.0)
[2020-09-05 05:59] LABS: ALANINE AMINOTRANSFERASE 15 Units/L (12-78); ALBUMIN 2.9 g/dL (3.4-5.0); ALKALINE PHOSPHATASE 67 Units/L (46-116); ASPARTATE AMINO TRANSFERASE 15 Units/L (15-37); BLOOD UREA NITROGEN 28 mg/dL (7-18); CALCIUM 8.4 mg/dL (8.5-10.1); CARBON DIOXIDE 36.7 mmol/L (21-32); CHLORIDE 105 mmol/L (98-107); COR CA(FOR HYPOALB) 9.3 mg/dL (8.5-10.1); COR NA(FOR HYPERGLY) 147 mmol/L (136-145); CREATININE 0.48 mg/dL (0.55-1.02); SODIUM 143 mmol/L (136-145); TOTAL PROTEIN 5.1 g/dL (6.4-8.2); eGFR NON BLACK RACES > 60 (>60)
[2020-09-05] MEDS: SOLU-Medrol 125 MG VIAL IVP SCH ×4 (06:00→23:52)
[2020-09-05] MEDS: FORTAZ or TAZICEF VIAL INJ IVP SCH ×3 (06:05→21:46)
[2020-09-05] MEDS: HumuLIN R SUBCUT PRN ×2 (06:36→21:47)
--- NOTE | 2020-09-05 07:21 | RAD ---
HISTORYcovidSTUDYAP chestCOMPARISONBanner Md Anderson Cancer Centeruary 2020FINDINGSThe heart is stable and not significantly enlarged. Multiple support lines are unchanged in position. There is slight progression of diffuse bilateral airspace disease without evidence for complicating pneumothorax.IMPRESSIONInterval progression of bilateral pulmonary infiltrates consistent with pneumonia.Electronically signed by: KATHY STEVENS (Sep 05, 2020 07:20:27)
[2020-09-05] MEDS ORDERED: GEODON INJ IM ONE ×2 (07:47→20:23)
[2020-09-05 08:02] LABS: BAND NEUTROPHILS % 6 % (0-10)
[2020-09-05 08:03] LABS: PLATELET MORPHOLOGY COMMENT NORMAL (NORMAL)
[2020-09-05] MEDS: MORPHINE SULFATE PCA 30 MG IV PRN (08:03)
[2020-09-05] MEDS: MILK OF MAGNESIA PO SCH (08:16)
[2020-09-05] MEDS: ALBUMIN HUMAN 25%- 100 ML 100 ML IV SCH (08:16)
[2020-09-05] MEDS: [UNRECOGNIZED DRUG - OTHER] NG SCH ×4 (08:16→21:46)
[2020-09-05] MEDS: GEODON INJ IM SCH ×2 (08:16→21:45)
[2020-09-05] MEDS: LACRI-LUBE S.O.P. AFFEYE SCH ×2 (08:16→20:02)
[2020-09-05] MEDS: PEPCID 20 MG IV PREMIX* 20 MG/50 ML BAG IV SCH ×2 (08:17→20:15)
[2020-09-05] MEDS: SYNTHROID INJ 100 mcg VIAL IM SCH (08:18)
[2020-09-05] MEDS: PROTONIX INJ 40 MG VIAL IVP SCH (08:18)
[2020-09-05] MEDS: ACCUNEB 1.25 MG NEBULE NEB SCH ×4 (08:53→20:35)
[2020-09-05] MEDS: PULMICORT NEB TX 0.5 MG NEB SCH ×2 (08:53→20:35)
[2020-09-05] MEDS ORDERED: MORPHINE SULFATE PCA 30 MG IVP SCH (10:00)
--- NOTE | 2020-09-05 11:23 | PCM.PROG ---
Progress Note - Progress Note for Day of Date of Exam: 09/04/20 - Subjective Subjective: IS BEING TREATED FOR PNEUMONIA DUE TO COVID-19 AND HYPOXIA. SHE REMAINS ON THE MECHANICAL VENT. TODAY, HER SETTINGS ON THE VENT ARE: SIMV, VENT RATE 16, TIDAL VOLUME 400, PEEP 5, FI02 55%. FI02 WAS INCREASED YESTERDAY DUE TO DROP IN SATURATIONS. HER SATURATIONS HAVE BEEN 85-97% THIS MORNING AND THROUGHOUT THE NIGHT. ON EXAMINATION, SHE IS LYING IN BED WITH EYES CLOSED. SHE IS UNABLE TO FOLLOW COMMANDS AND DID NOT OPEN EYES TO VERBAL STIMULI. HEART IS REGULAR IN RATE AND RHYTHM. BILATERAL LUNGS ARE NOTED WITH DIMINISHED LUNG SOUNDS THROUGHOUT. ABDOMEN IS ROUND, SOFT, AND NON-TENDER WITH NORMAL BOWEL SOUNDS NOTED IN ALL QUADRANTS. NO EDEMA NOTED TO UPPER OR LOWER EXTREMITIES. HER VITALS THIS MORNING ARE: 97.4-72-20-86%-124/58. LABS WERE OBTAINED. ABNORMAL LAB VALUES INCLUDE THE FOLLOWING: WBC 12.2, RBC 2.55, HGB 7.5, HCT 22.4, PLT COUNT 119, D-DIMER 1.35, BUN 27, CREATININE 0.54, GLUCOSE 193, CALCIUM 8.1, FERRITIN 347, AST 14, CRP 11.70, BNP 109, TOTAL PROTEIN 4.9, ALBUMIN 2.8, GLOBULIN 2.1. ABG WAS OBTAINED THIS MORNING AND REVEALED: PH 7.450, PC02 50, P02 56, HC03 34.8, P02 90, BASE EXCESS 9.3, FI02 55. A CHEST XRAY WAS OBTAINED AND REVEALED: No significant change from the prior examination. TODAY, WE WILL TRANSFUSE 2 UNITS OF PBRC AND ADMINISTER LASIX 40MG IV X 1 IN BETWEEN UNITS OF BLOOD. SHE IS RECEIVING ENSURE FEEDINGS WELL TPN. OTHERWISE, WE W ILL CONTINUE WITH CURRENT PLAN OF CARE TODAY. WE WILL FOLLOW UP WITH AM LABS, CHEST XRAY, ABG, AND CONTINUE TO MONITOR. TIME SPENT ON CLINICAL ASSESSMENT, REVIEWING LABS AND IMAGING, DECISION MAKING, AND DOCUMENTATION GREATER THAN 75 MINUTES. - Past Medical Family Social History Past Med/Fam/Surg Hx: No changes since H&P Allergies: Allergies No Known Drug Allergies Allergy (Verified 08/27/19 22:19) - Review of Systems ROS: No change since H&P - Vital Signs and I&O's Vital Signs: Temperature 98.7 F Pulse Rate [Left] 78 Pulse Rate [Bilateral Radial] 92 Pulse Rate 76 Respiratory Rate 16 Blood Pressure [Right Radial 155/52 Artery] Blood Pressure [Left Arm] 173/62 Blood Pressure 136/62 O2 Sat by Pulse Oximetry 90 Intake and Output: Intake & Output 09/02/20 09/03/20 09/04/20 09/05/20 11:59 11:59 11:59 11:59 Intake Total 2543 / 2543 2547.6 / 2547.6 1813.4 / 1813.4 3410 / 3410 Output Total 2450 / 2450 1600 / 1600 1925 / 1925 2900 / 2900 Balance 93 / 93 947.6 / 947.6 -111.6 / -111.6 510 / 510 - Physical Exam Oriented: Unable to test Eyes: Normal Ear: Normal Nose: Normal Throat: Normal Respiratory: Generalized, Diminished, Rales Cardiovascular: Normal : Normal Auscultation: Bowel Sounds: Normal Palpation: Normal Tenderness: Normal Skin: Normal Musculoskeletal: Normal Psychiatric: Other (SEDATED ) Mood Description: Calm Affect: Normal Speech Pattern: Artificially Ventilated - Laboratory and Diagnostics Result Diagrams: 09/21/20 16:32 09/21/20 03:45 Labs: 09/02/20 10:58 Sputum - Endotracheal Wash Sputum Culture - Final 09/02/20 10:58 Sputum - Endotracheal Wash - Final 08/18/20 11:40 Blood Blood Culture - Final 08/18/20 12:00 Blood Blood Culture - Final Laboratory WBC 13.3 X10^3/uL (3.6-10.0) H 09/05/20 04:15 RBC 3.48 X10^6/uL (3.5-5.4) L 09/05/20 04:15 Hgb 10.4 g/dL (12.0-16.0) L 09/05/20 04:15 Hct 30.3 % (36.0-47.0) L 09/05/20 04:15 MCV 87.1 fL (80.0-100.0) 09/05/20 04:15 MCH 29.9 pg (27.0-34.0) 09/05/20 04:15 MCHC 34.3 g/dL (33.0-35.0) 09/05/20 04:15 RDW 13.9 % (11.6-16.5) 09/05/20 04:15 Plt Count 126 X10^3/uL (150.0-450.0) L 09/05/20 04:15 Plt Count Comment Decreased (ADEQUATE) A 09/05/20 04:15 MPV 9.2 fL (7.4-11.0) 09/05/20 04:15 Neut % (Auto) 94.5 % (42.0-75.0) H 09/05/20 04:15 Lymph % (Auto) 1.5 % (21.0-51.0) L 09/05/20 04:15 [place] % (Auto) 3.7 % (0.0-13.0) 09/05/20 04:15 Eos % (Auto) 0.0 % (0.9-2.9) L 09/05/20 04:15 Baso % (Auto) 0.3 % (0.2-1.0) 09/05/20 04:15 Neut # (Auto) 12.6 x10^3/uL (2.2-4.8) H 09/05/20 04:15 Lymph # (Auto) 0.2 X10^3/uL (1.3-2.9) L 09/05/20 04:15 [place] # (Auto) 0.5 x10^3/uL (0.3-0.8) 09/05/20 04:15 Eos # (Auto) 0.0 x10^3/uL (0.0-0.2) 09/05/20 04:15 Baso # (Auto) 0.0 X10^3/uL (0.0-0.1) 09/05/20 04:15 Absolute Nucleated RBC 0.2 /100WBC 09/05/20 04:15 Total Counted 100 09/05/20 04:15 Neutrophils % (Manual) 90 % (39-76) H 09/05/20 04:15 Band Neutrophils % 6 % (0-10) 09/05/20 04:15 Lymphocytes % (Manual) 0 % (13-43) L 09/05/20 04:15 Monocytes % (Manual) 4 % (4-9) 09/05/20 04:15 Eosinophils % (Manual) 1 % (0-6) 08/31/20 05:50 Metamyelocytes % 2 08/31/20 05:50 Plt Morphology Comment Normal (NORMAL) 09/05/20 04:15 RBC Morphology Normal (NORMAL) 09/05/20 04:15 PT 17.9 SECONDS (11.8-14.3) 08/22/20 17:00 INR Target Range - 08/22/20 17:00 INR 1.53 (0.8-1.3) H 08/22/20 17:00 APTT 22.8 SECONDS (22.9-36.5) L 08/30/20 06:30 PTT Comment - 08/30/20 06:30 D-Dimer 1.40 ug/ml (0.0-0.57) H* 09/05/20 04:20 Sample Site A line 09/05/20 05:00 ABG pH 7.310 (7.35-7.45) L 09/05/20 05:00 ABG pCO2 76.0 mmHg (35.0-45.0) H* 09/05/20 05:00 ABG pO2 58.0 mmHg (80.0-100.0) L 09/05/20 05:00 ABG HCO3 38.3 mmol/L (22-26) H* 09/05/20 05:00 ABG O2 Saturation 87.0 % (90-100) L 09/05/20 05:00 ABG Base Excess 9.3 mmol/L (-2.0-2.0) H 09/05/20 05:00 Juan Test Na 09/05/20 05:00 A-a Gradient 239.0 mmHg 09/05/20 05:00 FiO2 55.0 09/05/20 05:00 Blood Gas Comments [place] well sw 09/05/20 05:00 Sodium 143 mmol/L (136-145) 09/05/20 04:15 Corrected Sodium 147 mmol/L (136-145) H 09/05/20 04:15 Potassium 4.3 mmol/L (3.5-5.1) 09/05/20 04:15 Chloride 105 mmol/L (98-107) 09/05/20 04:15 Carbon Dioxide 36.7 mmol/L (21-32) H 09/05/20 04:15 BUN 28 mg/dL (7-18) H 09/05/20 04:15 Creatinine 0.48 mg/dL (0.55-1.02) L 09/05/20 04:15 Est GFR (MDRD) Af Amer > 60 (>60) 09/05/20 04:15 Est GFR (MDRD) Non-Af > 60 (>60) 09/05/20 04:15 Glucose 282 mg/dL (65-99) H 09/05/20 04:15 POC Glucose (mg/dL) 235 mg/dL (65-99) H 09/05/20 05:56 Lactic Acid 1.0 mmol/L (0.4-2.0) 08/18/20 11:40 Calcium 8.4 mg/dL (8.5-10.1) L 09/05/20 04:15 Corrected Calcium 9.3 mg/dL (8.5-10.1) 09/05/20 04:15 Phosphorus 2.7 mg/dL (2.6-4.7) 09/03/20 12:38 Magnesium 2.2 mg/dL (1.7-2.9) 09/03/20 06:26 Ferritin 347 ng/mL (8-252) H 09/04/20 05:23 Total Bilirubin 0.50 mg/dL (0.2-1.0) 09/05/20 04:15 AST 15 Units/L (15-37) 09/05/20 04:15 ALT 15 Units/L (12-78) 09/05/20 04:15 Alkaline Phosphatase 67 Units/L (46-116) 09/05/20 04:15 Creatine Kinase 83 Units/L (26-192) 08/18/20 19:07 CK-MB (CK-2) 1.0 ng/mL (0-4.0) 08/18/20 19:07 CK/CKMB % Calc 1.2 % (<4) 08/18/20 19:07 Troponin I < 0.02 ng/mL (0-1.5) 08/18/20 19:07 C-Reactive Protein 13.00 mg/L (0-3.0) H 09/05/20 04:15 B-Natriuretic Peptide 122 pg/mL (0-79) H 09/05/20 04:15 Total Protein 5.1 g/dL (6.4-8.2) L 09/05/20 04:15 Albumin 2.9 g/dL (3.4-5.0) L 09/05/20 04:15 Globulin 2.2 g/dL (2.5-4.5) L 09/05/20 04:15 Albumin/Globulin Ratio 1.3 Ratio (1.1-2.1) 09/05/20 04:15 Prealbumin 24.6 mg/dL (18-35.7) 09/03/20 12:38 Triglycerides 173 mg/dL (0-150) H 09/03/20 12:38 Amylase 50 Units/L (25-115) 08/18/20 11:40 Lipase 137 Units/L (73-393) 08/18/20 11:40 Specimen Type Catherized urine 08/18/20 23:07 Urine Color Dark yellow (YELLOW) 08/18/20 23:07 Urine Appearance Clear (CLEAR) 08/18/20 23:07 Urine pH 7.0 (5.0 - 8.0) 08/18/20 23:07 Ur Specific [place] 1.010 (1.000-1.030) 08/18/20 23:07 Urine Protein 2+ (NEGATIVE) 08/18/20 23:07 Urine Glucose (UA) Negative (NEGATIVE) 08/18/20 23:07 Urine Ketones 1+ (NEGATIVE) 08/18/20 23:07 Urine Occult Blood Negative (NEGATIVE) 08/18/20 23:07 Urine Nitrite Negative (NEGATIVE) 08/18/20 23:07 Urine Bilirubin Negative (NEGATIVE) 08/18/20 23:07 Urine Urobilinogen 1+ (NORMAL) 08/18/20 23:07 Ur Leukocyte Esterase Negative (NEGATIVE) 08/18/20 23:07 Urine RBC None seen /HPF (0-3) 08/18/20 23:07 Urine WBC None seen /HPF (0-5) 08/18/20 23:07 Ur Squamous Epith Cells Rare /HPF (NEGATIVE) 08/18/20 23:07 Urine Bacteria Negative /HPF (NEGATIVE) 08/18/20 23:07 Ur Culture Indicated? No/not indicated 08/18/20 23:07 Theophylline 15.2 ug/mL (10-20) 08/30/20 06:30 Influenza Type A (PCR) Negative (NEGATIVE) 08/18/20 12:46 Influenza Type B (PCR) Negative (NEGATIVE) 08/18/20 12:46 SARS CoV-2 RNA Rapid LUIS Positive (NEGATIVE) A 08/18/20 18:12 Miscellaneous Test Resp panel 09/02/20 10:12 Blood Type B POSITIVE 09/04/20 10:26 Antibody Screen Negative 09/04/20 10:26 Crossmatch See Detail 09/04/20 10:26 - Plan (1) Pneumonia due to 2019 novel coronavirus Status: Acute Plan: CONTINUE MECHANICAL VENT, CONTINUE IV ANTIBIOTICS, RESPIRATORY TX, CORTICOSTEROIDS, DVT PROPHYLASIX, BLOOD GLUCOSE CONTROL, TUBE FEEDINGS, POTASSIUM AND MAGNESIUM REPLACEMENT PER PROTOCOL, TPN, SEDATION (2) Hypoxia Status: Acute (3) Anemia Status: Acute Qualifiers: Anemia type: iron deficiency Iron deficiency anemia type: unspecified iron deficiency Qualified Code(s): D50.9 - Iron deficiency anemia, unspecified Plan: TRANSFUSE 2 UNITS PRBC, CONTINUE TO MONITOR
--- NOTE | 2020-09-05 11:28 | PCM.PROG ---
Progress Note - Progress Note for Day of Date of Exam: 09/05/20 - Subjective Subjective: IS BEING TREATED FOR PNEUMONIA DUE TO COVID-19 AND HYPOXIA. SHE REMAINS ON THE MECHANICAL VENT. TODAY, HER SETTINGS ON THE VENT ARE: SIMV, VENT RATE 16, TIDAL VOLUME 400, PEEP 5, PRESSURE SUPPORT 8, FI02 55%. FI02 WAS INCREASED YESTERDAY DUE TO DROP IN SATURATIONS. HER SATURATIONS HAVE BEEN 89-95% THIS MORNING AND THROUGHOUT THE NIGHT. ON EXAMINATION, SHE IS LYING IN BED WITH EYES CLOSED. SHE IS DOES OPEN EYES TO VERBAL STIMULI, BUT IS UNABLE TO FOLLOW COMMANDS. HEART IS REGULAR IN RATE AND RHYTHM. BILATERAL LUNGS ARE NOTED WITH DIMINISHED LUNG SOUNDS THROUGHOUT. ABDOMEN IS ROUND, SOFT, AND NON- TENDER WITH NORMAL BOWEL SOUNDS NOTED IN ALL QUADRANTS. NO EDEMA NOTED TO UPPER OR LOWER EXTREMITIES. HER VITALS THIS MORNING ARE: 98.7-69-16-90%-141/63. LABS WERE OBTAINED. ABNORMAL LAB VALUES INCLUDE THE FOLLOWING: WBC 13.3, RBC 3.48, HGB 10.4, HCT 30.3, PLT COUNT 126, D-DIMER 1.40, CARBON DIOXIDE 36.7, BUN 28, CREATININE 0.48, GLUCOSE 282, CALCIUM 8.4, CRP 13, BNP 122, TOTAL PROTEIN 5.1, ALBUMIN 2.9. ABG WAS OBTAINED THIS MORNING AND REVEALED: PH 7.310, PC02 76, P02 58, HC03 38.3, 02 SAT 87, BASE EXCESS 9.3, A-A GRADIENT 239, FI02 55.0. A CHEST XRAY WAS OBTAINED AND REVEALED: Interval progression of bilateral pulmonary infiltrates consistent with pneumonia. SHE RECEIVED TWO UNITS OF PRBC YESTERDAY. TODAY, WE WILL DECREASE THE MORPHINE DRIP AND DISCONTINUE THE GEODON. WE WILL WEAN HER OXYGEN TODAY. SHE IS RECEIVING ENSURE FEEDINGS WELL TPN. OTHERWISE, WE WILL CONTINUE WITH CURRENT PLAN OF CARE TODAY. WE WILL FOLLOW UP WITH AM LABS, CHEST XRAY, ABG, AND CONTINUE TO MONITOR. CRITICAL CARE TIME SPENT ON CLINICAL ASSESSMENT, REVIEWING LABS AND IMAGING, DECISION MAKING, AND DOCUMENTATION GREATER THAN 75 MINUTES. - Past Medical Family Social History Past Med/Fam/Surg Hx: No changes since H&P Allergies: Allergies No Known Drug Allergies Allergy (Verified 08/27/19 22:19) - Review of Systems ROS: No change since H&P - Vital Signs and I&O's Vital Signs: Temperature 98.7 F Pulse Rate [Left] 78 Pulse Rate [Bilateral Radial] 92 Pulse Rate 76 Respiratory Rate 16 Blood Pressure [Right Radial 155/52 Artery] Blood Pressure [Left Arm] 173/62 Blood Pressure 136/62 O2 Sat by Pulse Oximetry 90 Intake and Output: Intake & Output 09/02/20 09/03/20 09/04/20 09/05/20 11:59 11:59 11:59 11:59 Intake Total 2543 / 2543 2547.6 / 2547.6 1813.4 / 1813.4 3410 / 3410 Output Total 2450 / 2450 1600 / 1600 1925 / 1925 2900 / 2900 Balance 93 / 93 947.6 / 947.6 -111.6 / -111.6 510 / 510 - Physical Exam Oriented: Unable to test Eyes: Normal Ear: Normal Nose: Normal Throat: Normal Respiratory: Generalized, Diminished, Rales Cardiovascular: Normal : Normal Auscultation: Bowel Sounds: Normal Palpation: Normal Tenderness: Normal Skin: Normal Musculoskeletal: Normal Psychiatric: Other (SEDATED ) Mood Description: Calm Affect: Normal Speech Pattern: Artificially Ventilated - Laboratory and Diagnostics Result Diagrams: 09/21/20 16:32 09/21/20 03:45 Labs: 09/02/20 10:58 Sputum - Endotracheal Wash Sputum Culture - Final 09/02/20 10:58 Sputum - Endotracheal Wash - Final 08/18/20 11:40 Blood Blood Culture - Final 08/18/20 12:00 Blood Blood Culture - Final Laboratory WBC 13.3 X10^3/uL (3.6-10.0) H 09/05/20 04:15 RBC 3.48 X10^6/uL (3.5-5.4) L 09/05/20 04:15 Hgb 10.4 g/dL (12.0-16.0) L 09/05/20 04:15 Hct 30.3 % (36.0-47.0) L 09/05/20 04:15 MCV 87.1 fL (80.0-100.0) 09/05/20 04:15 MCH 29.9 pg (27.0-34.0) 09/05/20 04:15 MCHC 34.3 g/dL (33.0-35.0) 09/05/20 04:15 RDW 13.9 % (11.6-16.5) 09/05/20 04:15 Plt Count 126 X10^3/uL (150.0-450.0) L 09/05/20 04:15 Plt Count Comment Decreased (ADEQUATE) A 09/05/20 04:15 MPV 9.2 fL (7.4-11.0) 09/05/20 04:15 Neut % (Auto) 94.5 % (42.0-75.0) H 09/05/20 04:15 Lymph % (Auto) 1.5 % (21.0-51.0) L 09/05/20 04:15 [place] % (Auto) 3.7 % (0.0-13.0) 09/05/20 04:15 Eos % (Auto) 0.0 % (0.9-2.9) L 09/05/20 04:15 Baso % (Auto) 0.3 % (0.2-1.0) 09/05/20 04:15 Neut # (Auto) 12.6 x10^3/uL (2.2-4.8) H 09/05/20 04:15 Lymph # (Auto) 0.2 X10^3/uL (1.3-2.9) L 09/05/20 04:15 [place] # (Auto) 0.5 x10^3/uL (0.3-0.8) 09/05/20 04:15 Eos # (Auto) 0.0 x10^3/uL (0.0-0.2) 09/05/20 04:15 Baso # (Auto) 0.0 X10^3/uL (0.0-0.1) 09/05/20 04:15 Absolute Nucleated RBC 0.2 /100WBC 09/05/20 04:15 Total Counted 100 09/05/20 04:15 Neutrophils % (Manual) 90 % (39-76) H 09/05/20 04:15 Band Neutrophils % 6 % (0-10) 09/05/20 04:15 Lymphocytes % (Manual) 0 % (13-43) L 09/05/20 04:15 Monocytes % (Manual) 4 % (4-9) 09/05/20 04:15 Eosinophils % (Manual) 1 % (0-6) 08/31/20 05:50 Metamyelocytes % 2 08/31/20 05:50 Plt Morphology Comment Normal (NORMAL) 09/05/20 04:15 RBC Morphology Normal (NORMAL) 09/05/20 04:15 PT 17.9 SECONDS (11.8-14.3) 08/22/20 17:00 INR Target Range - 08/22/20 17:00 INR 1.53 (0.8-1.3) H 08/22/20 17:00 APTT 22.8 SECONDS (22.9-36.5) L 08/30/20 06:30 PTT Comment - 08/30/20 06:30 D-Dimer 1.40 ug/ml (0.0-0.57) H* 09/05/20 04:20 Sample Site A line 09/05/20 05:00 ABG pH 7.310 (7.35-7.45) L 09/05/20 05:00 ABG pCO2 76.0 mmHg (35.0-45.0) H* 09/05/20 05:00 ABG pO2 58.0 mmHg (80.0-100.0) L 09/05/20 05:00 ABG HCO3 38.3 mmol/L (22-26) H* 09/05/20 05:00 ABG O2 Saturation 87.0 % (90-100) L 09/05/20 05:00 ABG Base Excess 9.3 mmol/L (-2.0-2.0) H 09/05/20 05:00 Juan Test Na 09/05/20 05:00 A-a Gradient 239.0 mmHg 09/05/20 05:00 FiO2 55.0 09/05/20 05:00 Blood Gas Comments [place] well sw 09/05/20 05:00 Sodium 143 mmol/L (136-145) 09/05/20 04:15 Corrected Sodium 147 mmol/L (136-145) H 09/05/20 04:15 Potassium 4.3 mmol/L (3.5-5.1) 09/05/20 04:15 Chloride 105 mmol/L (98-107) 09/05/20 04:15 Carbon Dioxide 36.7 mmol/L (21-32) H 09/05/20 04:15 BUN 28 mg/dL (7-18) H 09/05/20 04:15 Creatinine 0.48 mg/dL (0.55-1.02) L 09/05/20 04:15 Est GFR (MDRD) Af Amer > 60 (>60) 09/05/20 04:15 Est GFR (MDRD) Non-Af > 60 (>60) 09/05/20 04:15 Glucose 282 mg/dL (65-99) H 09/05/20 04:15 POC Glucose (mg/dL) 235 mg/dL (65-99) H 09/05/20 05:56 Lactic Acid 1.0 mmol/L (0.4-2.0) 08/18/20 11:40 Calcium 8.4 mg/dL (8.5-10.1) L 09/05/20 04:15 Corrected Calcium 9.3 mg/dL (8.5-10.1) 09/05/20 04:15 Phosphorus 2.7 mg/dL (2.6-4.7) 09/03/20 12:38 Magnesium 2.2 mg/dL (1.7-2.9) 09/03/20 06:26 Ferritin 347 ng/mL (8-252) H 09/04/20 05:23 Total Bilirubin 0.50 mg/dL (0.2-1.0) 09/05/20 04:15 AST 15 Units/L (15-37) 09/05/20 04:15 ALT 15 Units/L (12-78) 09/05/20 04:15 Alkaline Phosphatase 67 Units/L (46-116) 09/05/20 04:15 Creatine Kinase 83 Units/L (26-192) 08/18/20 19:07 CK-MB (CK-2) 1.0 ng/mL (0-4.0) 08/18/20 19:07 CK/CKMB % Calc 1.2 % (<4) 08/18/20 19:07 Troponin I < 0.02 ng/mL (0-1.5) 08/18/20 19:07 C-Reactive Protein 13.00 mg/L (0-3.0) H 09/05/20 04:15 B-Natriuretic Peptide 122 pg/mL (0-79) H 09/05/20 04:15 Total Protein 5.1 g/dL (6.4-8.2) L 09/05/20 04:15 Albumin 2.9 g/dL (3.4-5.0) L 09/05/20 04:15 Globulin 2.2 g/dL (2.5-4.5) L 09/05/20 04:15 Albumin/Globulin Ratio 1.3 Ratio (1.1-2.1) 09/05/20 04:15 Prealbumin 24.6 mg/dL (18-35.7) 09/03/20 12:38 Triglycerides 173 mg/dL (0-150) H 09/03/20 12:38 Amylase 50 Units/L (25-115) 08/18/20 11:40 Lipase 137 Units/L (73-393) 08/18/20 11:40 Specimen Type Catherized urine 08/18/20 23:07 Urine Color Dark yellow (YELLOW) 08/18/20 23:07 Urine Appearance Clear (CLEAR) 08/18/20 23:07 Urine pH 7.0 (5.0 - 8.0) 08/18/20 23:07 Ur Specific [place] 1.010 (1.000-1.030) 08/18/20 23:07 Urine Protein 2+ (NEGATIVE) 08/18/20 23:07 Urine Glucose (UA) Negative (NEGATIVE) 08/18/20 23:07 Urine Ketones 1+ (NEGATIVE) 08/18/20 23:07 Urine Occult Blood Negative (NEGATIVE) 08/18/20 23:07 Urine Nitrite Negative (NEGATIVE) 08/18/20 23:07 Urine Bilirubin Negative (NEGATIVE) 08/18/20 23:07 Urine Urobilinogen 1+ (NORMAL) 08/18/20 23:07 Ur Leukocyte Esterase Negative (NEGATIVE) 08/18/20 23:07 Urine RBC None seen /HPF (0-3) 08/18/20 23:07 Urine WBC None seen /HPF (0-5) 08/18/20 23:07 Ur Squamous Epith Cells Rare /HPF (NEGATIVE) 08/18/20 23:07 Urine Bacteria Negative /HPF (NEGATIVE) 08/18/20 23:07 Ur Culture Indicated? No/not indicated 08/18/20 23:07 Theophylline 15.2 ug/mL (10-20) 01/17/21 06:30 Influenza Type A (PCR) Negative (NEGATIVE) 08/18/20 12:46 Influenza Type B (PCR) Negative (NEGATIVE) 08/18/20 12:46 SARS CoV-2 RNA Rapid ULIS Positive (NEGATIVE) A 08/18/20 18:12 Miscellaneous Test Resp panel 09/02/20 10:12 Blood Type B POSITIVE 09/04/20 10:26 Antibody Screen Negative 09/04/20 10:26 Crossmatch See Detail 09/04/20 10:26 - Plan (1) Pneumonia due to 2019 novel coronavirus Status: Acute Plan: CONTINUE MECHANICAL VENT, CONTINUE IV ANTIBIOTICS, RESPIRATORY TX, CORTICOSTEROIDS, DVT PROPHYLASIX, BLOOD GLUCOSE CONTROL, TUBE FEEDINGS, POTASSIUM AND MAGNESIUM REPLACEMENT PER PROTOCOL, TPN, SEDATION (2) Hypoxia Status: Acute (3) Anemia Status: Acute Qualifiers: Anemia type: iron deficiency Iron deficiency anemia type: unspecified iron deficiency Qualified Code(s): D50.9 - Iron deficiency anemia, unspecified Plan: CONTINUE TO MONITOR
[2020-09-05] MEDS: NS 500 ML IV 500 ML IV SCH (13:18)
[2020-09-05] MEDS: TPN ELECTROLYTES IV SCH ×4 (15:44)
[2020-09-05] MEDS: THIAMINE HCL IV SCH ×4 (15:44)
[2020-09-05] MEDS: [UNRECOGNIZED DRUG - OTHER] IV SCH ×4 (15:44)
[2020-09-05] MEDS: CLINIMIX IV SCH ×4 (15:44)
[2020-09-05] MEDS: LEVAQUIN PREMIX IV 750 MG 750 MG/150 ML BAG IV SCH (20:02)
[2020-09-05] MEDS: LIPOSYN III 20% 250ML 250 ML IV SCH (20:14)
[2020-09-05] MEDS: LOVENOX INJ 30 MG SYR SC SCH (20:14)
[2020-09-06] MEDS: APRESOLINE INJ 20 MG VIAL IVP PRN ×3 (03:32→21:48)
[2020-09-06 03:52] LABS: ABG BASE EXCESS 12.5 mmol/L (-2.0-2.0)
[2020-09-06 03:53] LABS: ABG HCO3 41.5 mmol/L (22-26)
[2020-09-06 05:15] LABS: BASOPHILS # (AUTO) 0.1 X10^3/uL (0.0-0.1); BASOPHILS % (AUTO) 0.4 % (0.2-1.0); HEMATOCRIT 37.8 % (36.0-47.0); HEMOGLOBIN 12.3 g/dL (12.0-16.0); LYMPHOCYTES # (AUTO) 0.4 X10^3/uL (1.3-2.9); LYMPHOCYTES % (AUTO) 2.1 % (21.0-51.0); MEAN CORPUSCULAR HEMOGLOBIN 28.7 pg (27.0-34.0); MEAN CORPUSCULAR HGB CONC 32.6 g/dL (33.0-35.0); MEAN PLATELET VOLUME 9.3 fL (7.4-11.0); MONOCYTES # (AUTO) 0.9 x10^3/uL (0.3-0.8); MONOCYTES % (AUTO) 4.7 % (0.0-13.0); NEUTROPHILS # (AUTO) 18.5 x10^3/uL (2.2-4.8); NEUTROPHILS % (AUTO) 92.8 % (42.0-75.0); PLATELET COUNT 201 X10^3/uL (150.0-450.0); RED BLOOD COUNT 4.29 X10^6/uL (3.5-5.4); RED CELL DISTRIBUTION WIDTH 14.1 % (11.6-16.5); WHITE BLOOD COUNT 19.9 X10^3/uL (3.6-10.0)
[2020-09-06 05:19] LABS: ALANINE AMINOTRANSFERASE 20 Units/L (12-78); ALBUMIN 3.4 g/dL (3.4-5.0); ALKALINE PHOSPHATASE 92 Units/L (46-116); ASPARTATE AMINO TRANSFERASE 15 Units/L (15-37); BLOOD UREA NITROGEN 28 mg/dL (7-18); CARBON DIOXIDE 35.3 mmol/L (21-32); CHLORIDE 102 mmol/L (98-107); COR NA(FOR HYPERGLY) 146 mmol/L (136-145); CREATININE 0.57 mg/dL (0.55-1.02); MAGNESIUM 2.3 mg/dL (1.7-2.9); PHOSPHORUS 2.7 mg/dL (2.6-4.7); SODIUM 142 mmol/L (136-145); THEOPHYLLINE < 2.0 ug/mL (10-20); TRIGLYCERIDES 353 mg/dL (0-150); eGFR NON BLACK RACES > 60 (>60)
[2020-09-06 05:49] LABS: PLATELET MORPHOLOGY COMMENT NORMAL (NORMAL)
[2020-09-06] MEDS: HumuLIN R SUBCUT PRN ×2 (06:00→22:14)
[2020-09-06] MEDS: FORTAZ or TAZICEF VIAL INJ IVP SCH ×3 (06:02→22:13)
[2020-09-06] MEDS: SOLU-Medrol 125 MG VIAL IVP SCH ×4 (06:02→22:13)
[2020-09-06] MEDS: [UNRECOGNIZED DRUG - OTHER] IV SCH ×8 (06:04→07:58)
[2020-09-06] MEDS: TPN ELECTROLYTES IV SCH ×8 (06:04→07:58)
[2020-09-06] MEDS: CLINIMIX IV SCH ×8 (06:04→07:58)
[2020-09-06] MEDS: THIAMINE HCL IV SCH ×8 (06:04→07:58)
--- NOTE | 2020-09-06 07:08 | RAD ---
HISTORYcovidSTUDYPortable AP [id number] is no significant change in appearance of heart or lungs. Diffuse bilateral confluent airspace disease again noted, partly obscuring the cardiac margins. Stable position of support lines; ET tube tip is 3.0 cm above berenice.IMPRESSIONNo change. Stable appearance of bilateral airspace disease consistent with pneumonia.Electronically signed by: KATHY STEVENS (Sep 06, 2020 07:06:22)
[2020-09-06] MEDS ORDERED: GEODON INJ IM ONE (07:41)
[2020-09-06] MEDS: GEODON INJ IM SCH ×2 (08:17→20:06)
[2020-09-06] MEDS: LOVENOX INJ 30 MG SYR SC SCH ×2 (08:17→20:07)
[2020-09-06] MEDS: ALBUMIN HUMAN 25%- 100 ML 100 ML IV SCH (08:17)
[2020-09-06] MEDS: [UNRECOGNIZED DRUG - OTHER] NG SCH ×4 (08:17→20:05)
[2020-09-06] MEDS: PEPCID 20 MG IV PREMIX* 20 MG/50 ML BAG IV SCH ×2 (08:18→20:07)
[2020-09-06] MEDS: LACRI-LUBE S.O.P. AFFEYE SCH ×2 (08:18→20:06)
[2020-09-06] MEDS: PROTONIX INJ 40 MG VIAL IVP SCH (08:18)
[2020-09-06] MEDS: SYNTHROID INJ 100 mcg VIAL IM SCH (08:18)
[2020-09-06] MEDS: MILK OF MAGNESIA PO SCH (08:18)
[2020-09-06] MEDS: ACCUNEB 1.25 MG NEBULE NEB SCH ×4 (08:29→20:30)
[2020-09-06] MEDS: PULMICORT NEB TX 0.5 MG NEB SCH ×2 (08:29→20:30)
[2020-09-06] MEDS: DIPRIVAN PREMIX 1 GRAM IV 1,000 MG/100 ML VIAL IV PRN ×3 (09:28→22:30)
[2020-09-06] MEDS: MORPHINE SULFATE PCA 30 MG IVP PRN (12:45)
[2020-09-06] MEDS: NS 500 ML IV 500 ML IV SCH (14:01)
[2020-09-06] MEDS: LEVAQUIN PREMIX IV 750 MG 750 MG/150 ML BAG IV SCH (20:06)
[2020-09-06] MEDS: LIPOSYN III 20% 250ML 250 ML IV SCH (20:07)
[2020-09-06] MEDS ORDERED: FORTAZ or TAZICEF VIAL INJ ONE (22:48)
[2020-09-07] MEDS: CLINIMIX IV SCH ×11 (01:00→16:21)
[2020-09-07] MEDS: [UNRECOGNIZED DRUG - OTHER] IV SCH ×4 (01:00)
[2020-09-07] MEDS: THIAMINE HCL IV SCH ×4 (01:00)
[2020-09-07] MEDS: TPN ELECTROLYTES IV SCH ×10 (01:00→14:03)
[2020-09-07] MEDS: DIPRIVAN PREMIX 1 GRAM IV 1,000 MG/100 ML VIAL IV PRN ×3 (05:15→18:27)
[2020-09-07 05:22] LABS: BASOPHILS # (AUTO) 0.1 X10^3/uL (0.0-0.1); BASOPHILS % (AUTO) 0.3 % (0.2-1.0); HEMATOCRIT 35.1 % (36.0-47.0); HEMOGLOBIN 11.5 g/dL (12.0-16.0); LYMPHOCYTES # (AUTO) 0.2 X10^3/uL (1.3-2.9); LYMPHOCYTES % (AUTO) 0.9 % (21.0-51.0); MEAN CORPUSCULAR HEMOGLOBIN 29.2 pg (27.0-34.0); MEAN CORPUSCULAR HGB CONC 32.7 g/dL (33.0-35.0); MEAN CORPUSCULAR VOLUME 89.5 fL (80.0-100.0); MEAN PLATELET VOLUME 9.1 fL (7.4-11.0); MONOCYTES # (AUTO) 0.7 x10^3/uL (0.3-0.8); MONOCYTES % (AUTO) 3.4 % (0.0-13.0); NEUTROPHILS # (AUTO) 18.2 x10^3/uL (2.2-4.8); NEUTROPHILS % (AUTO) 95.4 % (42.0-75.0); PLATELET COUNT 144 X10^3/uL (150.0-450.0); RED BLOOD COUNT 3.92 X10^6/uL (3.5-5.4); WHITE BLOOD COUNT 19.1 X10^3/uL (3.6-10.0)
[2020-09-07] MEDS: FORTAZ or TAZICEF VIAL INJ IVP SCH ×3 (05:25→22:07)
[2020-09-07 05:27] LABS: ALANINE AMINOTRANSFERASE 26 Units/L (12-78); ALBUMIN 3.1 g/dL (3.4-5.0); ALKALINE PHOSPHATASE 89 Units/L (46-116); ASPARTATE AMINO TRANSFERASE 19 Units/L (15-37); BLOOD UREA NITROGEN 31 mg/dL (7-18); CALCIUM 8.3 mg/dL (8.5-10.1); CARBON DIOXIDE 37.4 mmol/L (21-32); CHLORIDE 98 mmol/L (98-107); COR NA(FOR HYPERGLY) 145 mmol/L (136-145); CREATININE 0.51 mg/dL (0.55-1.02); SODIUM 141 mmol/L (136-145); TOTAL PROTEIN 5.5 g/dL (6.4-8.2); eGFR NON BLACK RACES > 60 (>60)
[2020-09-07] MEDS: SOLU-Medrol 125 MG VIAL IVP SCH ×4 (05:27→23:10)
[2020-09-07 05:33] LABS: ABG BASE EXCESS 17.9 mmol/L (-2.0-2.0)
[2020-09-07 05:34] LABS: ABG HCO3 46.5 mmol/L (22-26)
[2020-09-07 06:06] LABS: PLATELET MORPHOLOGY COMMENT NORMAL (NORMAL)
[2020-09-07] MEDS: HumuLIN R SUBCUT PRN ×3 (06:51→22:08)
--- NOTE | 2020-09-07 07:19 | RAD ---
HISTORYShortness of breathSTUDYChest AP [id number] is an endotracheal tube in good position. There is a nasoga stric tube coursing below the left hemidiaphragm. Its tip is not visible. There is a right IJ line in good position. Heart is upper limits normal in size. Diffuse bilateral confluent alveolar filling is identified. The infiltrates are unchanged from the prior examination. No pleural effusions are ident ified. Bony thorax is unremarkable.IMPRESSIONNo change diffuse bilateral alveolar fillingElectronical ly signed by: BEN ONTIVEROS (Sep 07, 2020 07:17:55)
[2020-09-07] MEDS: ALBUMIN HUMAN 25%- 100 ML 100 ML IV SCH (08:59)
[2020-09-07] MEDS: PROTONIX INJ 40 MG VIAL IVP SCH (09:03)
[2020-09-07] MEDS: LACRI-LUBE S.O.P. AFFEYE SCH ×2 (09:04→21:20)
[2020-09-07] MEDS: GEODON INJ IM SCH ×2 (09:05→21:19)
[2020-09-07] MEDS: MILK OF MAGNESIA PO SCH ×2 (09:06→21:19)
[2020-09-07] MEDS: LOVENOX INJ 30 MG SYR SC SCH ×2 (09:06→21:20)
[2020-09-07] MEDS: ACCUNEB 1.25 MG NEBULE NEB SCH (09:06)
[2020-09-07] MEDS: PULMICORT NEB TX 0.5 MG NEB SCH ×2 (09:06→20:31)
[2020-09-07] MEDS: [UNRECOGNIZED DRUG - OTHER] NG SCH ×4 (09:06→21:19)
[2020-09-07] MEDS: SYNTHROID INJ 100 mcg VIAL IM SCH (09:08)
[2020-09-07] MEDS: PEPCID 20 MG IV PREMIX* 20 MG/50 ML BAG IV SCH ×2 (09:51→21:19)
[2020-09-07] MEDS: PROVENTIL NEB TX 0.083% 2.5MG/ 3ML NEB SCH ×4 (10:36→20:31)
[2020-09-07 11:05] LABS: ABG BASE EXCESS 18.3 mmol/L (-2.0-2.0)
[2020-09-07 11:07] LABS: ABG HCO3 47.2 mmol/L (22-26)
[2020-09-07] MEDS: MVI IV SCH ×6 (11:15→14:03)
[2020-09-07] MEDS: NS 500 ML IV 500 ML IV SCH (13:38)
[2020-09-07] MEDS ORDERED: CLINIMIX IV SCH ×2 (14:00)
[2020-09-07] MEDS ORDERED: THIAMINE HCL IV SCH ×2 (14:00)
--- NOTE | 2020-09-07 14:44 | PCM.PROG ---
Progress Note - Progress Note for Day of Date of Exam: 09/06/20 - Subjective Subjective: IS BEING TREATED FOR PNEUMONIA DUE TO COVID-19 AND HYPOXIA. SHE REMAINS ON THE MECHANICAL VENT. TODAY, HER SETTINGS ON THE VENT ARE: SIMV, VENT RATE 16, TIDAL VOLUME 400, PEEP 5, PRESSURE SUPPORT 8, FI02 60%. HER SATURATIONS HAVE BEEN 89-95% THIS MORNING AND THROUGHOUT THE NIGHT. ON EXAMINATION, SHE IS LYING IN BED WITH EYES CLOSED. SHE IS DOES OPEN EYES TO VERBAL STIMULI, BUT IS UNABLE TO FOLLOW COMMANDS. HEART IS REGULAR IN RATE AND RHYTHM. BILATERAL LUNGS ARE NOTED WITH DIMINISHED LUNG SOUNDS THROUGHOUT. ABDOMEN IS ROUND, SOFT, AND NON-TENDER WITH NORMAL BOWEL SOUNDS NOTED IN ALL QUADRANTS. 1+ PITTING EDEMA NOTED TO UPPER EXTREMITIES. THERE IS A CARPIO CATHETER NOTED TO BEDSIDE DRAINAGE. URINE IS TEA COLORED AND IS NOTED WITH BLOOD IN TUBING. SH ALSO HAS AN ART LINE, CENTRAL LINE, AND NG TUBE IN PLACE. HER VITALS THIS MORNING ARE: 98.6-92-15-92%-161/54. LABS WERE OBTAINED. ABNORMAL LAB VALUES INCLUDE THE FOLLOWING: WBC 19.9, D-DIMER 2.15, CARBON DIOXIDE 35.3, BUN 28, GLUCOSE 264, CRP 6.40, BNP 216, TRIGLYCERIDES 353. ABG WAS OBTAINED THIS MORNING AND REVEALED: PH 7.400, PC02 75, P02 69, HC03 46.5, 02 SAT 94, BASE EXCESS 17.9, A-A GRADIENT 265, FI02 60. A CHEST XRAY WAS OBTAINED AND REVEALED: No change. Stable appearance of bilateral airspace disease consistent with pneumonia. SHE HAS RECEIVED TWO UNITS OF PRBC SINCE ADMISSION. WE WILL CONTINUE TO WEAN HER OXYGEN AND SEDATION TODAY. SHE IS RECEIVING ENSURE FEEDINGS WELL TPN. OTHERWISE, WE WILL CONTINUE WITH IV ANTIBIOTICS, RESPIRATORY THERAPY, SUPPLEMENTAL OXYGEN, STEROID THERAPY, AND CURRENT PLAN OF CARE. WE WILL FOLLOW UP WITH AM LABS, CHEST XRAY, ABG, AND CONTINUE TO MONITOR. CRITICAL CARE TIME SPENT ON CLINICAL ASSESSMENT, REVIEWING LABS AND IMAGING, DECISION MAKING, AND DOCUMENTATION GREATER THAN 75 MINUTES. - Past Medical Family Social History Past Med/Fam/Surg Hx: No changes since H&P Allergies: Allergies No Known Drug Allergies Allergy (Verified 08/27/19 22:19) - Review of Systems ROS: No change since H&P - Vital Signs and I&O's Vital Signs: Temperature 98.8 F Pulse Rate [Left] 78 Pulse Rate [Bilateral Radial] 92 Pulse Rate 81 Respiratory Rate 24 Blood Pressure [Right Radial 167/56 Artery] Blood Pressure [Left Arm] 179/76 Blood Pressure 174/74 O2 Sat by Pulse Oximetry 93 Intake and Output: Intake & Output 09/05/20 09/06/20 09/07/20 09/08/20 11:59 11:59 11:59 11:59 Intake Total 3410 / 3410 3346.0 / 3346.0 4656 / 4656 1142 / 1142 Output Total 2900 / 2900 2550 / 2550 2850 / 2850 1025 / 1025 Balance 510 / 510 796.0 / 796.0 1806 / 1806 117 / 117 - Physical Exam Oriented: Unable to test Eyes: Normal Ear: Normal Nose: Normal Throat: Normal Respiratory: Generalized, Diminished, Rales Cardiovascular: Normal : Normal Auscultation: Bowel Sounds: Normal Tenderness: Normal Skin: Normal Musculoskeletal: Normal Psychiatric: Other (SEDATED ) Mood Description: Calm Affect: Normal Speech Pattern: Artificially Ventilated - Laboratory and Diagnostics Result Diagrams: 09/07/20 04:25 09/07/20 04:25 Labs: 09/02/20 10:58 Sputum - Endotracheal Wash Sputum Culture - Final 09/02/20 10:58 Sputum - Endotracheal Wash - Final 08/18/20 11:40 Blood Blood Culture - Final 08/18/20 12:00 Blood Blood Culture - Final Laboratory WBC 19.1 X10^3/uL (3.6-10.0) H 09/07/20 04:25 RBC 3.92 X10^6/uL (3.5-5.4) 09/07/20 04:25 Hgb 11.5 g/dL (12.0-16.0) L 09/07/20 04:25 Hct 35.1 % (36.0-47.0) L 09/07/20 04:25 MCV 89.5 fL (80.0-100.0) 09/07/20 04:25 MCH 29.2 pg (27.0-34.0) 09/07/20 04:25 MCHC 32.7 g/dL (33.0-35.0) L 09/07/20 04:25 RDW 14.0 % (11.6-16.5) 09/07/20 04:25 Plt Count 144 X10^3/uL (150.0-450.0) L 09/07/20 04:25 Plt Count Comment Decreased (ADEQUATE) A 09/07/20 04:25 MPV 9.1 fL (7.4-11.0) 09/07/20 04:25 Neut % (Auto) 95.4 % (42.0-75.0) H 09/07/20 04:25 Lymph % (Auto) 0.9 % (21.0-51.0) L 09/07/20 04:25 [place] % (Auto) 3.4 % (0.0-13.0) 09/07/20 04:25 Eos % (Auto) 0.0 % (0.9-2.9) L 09/07/20 04:25 Baso % (Auto) 0.3 % (0.2-1.0) 09/07/20 04:25 Neut # (Auto) 18.2 x10^3/uL (2.2-4.8) H 09/07/20 04:25 Lymph # (Auto) 0.2 X10^3/uL (1.3-2.9) L 09/07/20 04:25 [place] # (Auto) 0.7 x10^3/uL (0.3-0.8) 09/07/20 04:25 Eos # (Auto) 0.0 x10^3/uL (0.0-0.2) 09/07/20 04:25 Baso # (Auto) 0.1 X10^3/uL (0.0-0.1) 09/07/20 04:25 Absolute Nucleated RBC 0.0 /100WBC 09/07/20 04:25 Total Counted 100 09/07/20 04:25 Neutrophils % (Manual) 96 % (39-76) H 09/07/20 04:25 Band Neutrophils % 6 % (0-10) 09/05/20 04:15 Lymphocytes % (Manual) 4 % (13-43) L 09/07/20 04:25 Monocytes % (Manual) 2 % (4-9) L 09/06/20 04:10 Eosinophils % (Manual) 1 % (0-6) 08/31/20 05:50 Metamyelocytes % 2 08/31/20 05:50 Plt Morphology Comment Normal (NORMAL) 09/07/20 04:25 RBC Morphology Normal (NORMAL) 09/07/20 04:25 PT 17.9 SECONDS (11.8-14.3) 08/22/20 17:00 INR Target Range - 08/22/20 17:00 INR 1.53 (0.8-1.3) H 08/22/20 17:00 APTT 22.8 SECONDS (22.9-36.5) L 08/30/20 06:30 PTT Comment - 08/30/20 06:30 D-Dimer 1.64 ug/ml (0.0-0.57) H* 09/07/20 04:30 Sample Site Art line 09/07/20 11:00 ABG pH 7.390 (7.35-7.45) 09/07/20 11:00 ABG pCO2 78.0 mmHg (35.0-45.0) H* 09/07/20 11:00 ABG pO2 82.0 mmHg (80.0-100.0) 09/07/20 11:00 ABG HCO3 47.2 mmol/L (22-26) H* 09/07/20 11:00 ABG O2 Saturation 96.0 % (90-100) 09/07/20 11:00 ABG Base Excess 18.3 mmol/L (-2.0-2.0) H 09/07/20 11:00 Juan Test Na 09/07/20 05:23 A-a Gradient 248.0 mmHg 09/07/20 11:00 FiO2 60.0 09/07/20 11:00 Blood Gas Comments [place] well mt 09/07/20 11:00 Sodium 141 mmol/L (136-145) 09/07/20 04:25 Corrected Sodium 145 mmol/L (136-145) 09/07/20 04:25 Potassium 4.4 mmol/L (3.5-5.1) 09/07/20 04:25 Chloride 98 mmol/L (98-107) 09/07/20 04:25 Carbon Dioxide 37.4 mmol/L (21-32) H 09/07/20 04:25 BUN 31 mg/dL (7-18) H 09/07/20 04:25 Creatinine 0.51 mg/dL (0.55-1.02) L 09/07/20 04:25 Est GFR (MDRD) Af Amer > 60 (>60) 09/07/20 04:25 Est GFR (MDRD) Non-Af > 60 (>60) 09/07/20 04:25 Glucose 282 mg/dL (65-99) H 09/07/20 04:25 POC Glucose (mg/dL) 320 mg/dL (65-99) H 09/07/20 14:11 Lactic Acid 1.0 mmol/L (0.4-2.0) 08/18/20 11:40 Calcium 8.3 mg/dL (8.5-10.1) L 09/07/20 04:25 Corrected Calcium 9.0 mg/dL (8.5-10.1) 09/07/20 04:25 Phosphorus 2.7 mg/dL (2.6-4.7) 09/06/20 04:10 Magnesium 2.3 mg/dL (1.7-2.9) 09/06/20 04:10 Ferritin 347 ng/mL (8-252) H 09/04/20 05:23 Total Bilirubin 0.70 mg/dL (0.2-1.0) 09/07/20 04:25 AST 19 Units/L (15-37) 09/07/20 04:25 ALT 26 Units/L (12-78) 09/07/20 04:25 Alkaline Phosphatase 89 Units/L (46-116) 09/07/20 04:25 Creatine Kinase 83 Units/L (26-192) 08/18/20 19:07 CK-MB (CK-2) 1.0 ng/mL (0-4.0) 08/18/20 19:07 CK/CKMB % Calc 1.2 % (<4) 08/18/20 19:07 Troponin I < 0.02 ng/mL (0-1.5) 08/18/20 19:07 C-Reactive Protein 22.00 mg/L (0-3.0) H 09/07/20 04:25 B-Natriuretic Peptide 422 pg/mL (0-79) H 09/07/20 04:25 Total Protein 5.5 g/dL (6.4-8.2) L 09/07/20 04:25 Albumin 3.1 g/dL (3.4-5.0) L 09/07/20 04:25 Globulin 2.4 g/dL (2.5-4.5) L 09/07/20 04:25 Albumin/Globulin Ratio 1.3 Ratio (1.1-2.1) 09/07/20 04:25 Prealbumin 24.6 mg/dL (18-35.7) 09/03/20 12:38 Triglycerides 353 mg/dL (0-150) H 09/06/20 04:10 Amylase 50 Units/L (25-115) 08/18/20 11:40 Lipase 137 Units/L (73-393) 08/18/20 11:40 Specimen Type Catherized urine 08/18/20 23:07 Urine Color Dark yellow (YELLOW) 08/18/20 23:07 Urine Appearance Clear (CLEAR) 08/18/20 23:07 Urine pH 7.0 (5.0 - 8.0) 08/18/20 23:07 Ur Specific [place] 1.010 (1.000-1.030) 08/18/20 23:07 Urine Protein 2+ (NEGATIVE) 08/18/20 23:07 Urine Glucose (UA) Negative (NEGATIVE) 08/18/20 23:07 Urine Ketones 1+ (NEGATIVE) 08/18/20 23:07 Urine Occult Blood Negative (NEGATIVE) 08/18/20 23:07 Urine Nitrite Negative (NEGATIVE) 08/18/20 23:07 Urine Bilirubin Negative (NEGATIVE) 08/18/20 23:07 Urine Urobilinogen 1+ (NORMAL) 08/18/20 23:07 Ur Leukocyte Esterase Negative (NEGATIVE) 08/18/20 23:07 Urine RBC None seen /HPF (0-3) 08/18/20 23:07 Urine WBC None seen /HPF (0-5) 08/18/20 23:07 Ur Squamous Epith Cells Rare /HPF (NEGATIVE) 08/18/20 23:07 Urine Bacteria Negative /HPF (NEGATIVE) 08/18/20 23:07 Ur Culture Indicated? No/not indicated 08/18/20 23:07 Theophylline < 2.0 ug/mL (10-20) L 09/06/20 04:10 Influenza Type A (PCR) Negative (NEGATIVE) 01/05/21 12:46 Influenza Type B (PCR) Negative (NEGATIVE) 08/18/20 12:46 SARS CoV-2 RNA Rapid LUIS Positive (NEGATIVE) A 08/18/20 18:12 Miscellaneous Test Resp panel 09/02/20 10:12 Blood Type B POSITIVE 09/04/20 10:26 Antibody Screen Negative 09/04/20 10:26 Crossmatch See Detail 09/04/20 10:26 - Plan (1) Pneumonia due to 2019 novel coronavirus Status: Acute Plan: LEVAQUIN 750MG IV HS, FORTAZ 1G IV Q8H, AMINOPHYLLINE DRIP, ASCORBIC ACID 1500MG IV Q6H, ALBUTEROL NEBS QID, MUCOMYST IN NEBS BID, SOLU-MEDROL 125 MG IV Q6H, PROTONIX 40MG IV DAILY, PEPCID 20MG IV BID, CATAPRES 0.5MG/HR TD PATCH, APRESOLINE 10MG IV Q4H PRN, THIAMINE 200MG IV BID, ZOFRAN 4MG IV Q4H PRN, DIFLUCAN 100MG IV DAILY, LOVENOX 30MG SC BID, TPN, ENSURE TID, LIPIDS, POTASSIUM AND MAGNESIUM PROTOCOLS, AN ATIVAN DRIP FOR SEDATION. (2) Hypoxia Status: Acute (3) Anemia Status: Acute Qualifiers: Anemia type: iron deficiency Iron deficiency anemia type: unspecified iron deficiency Qualified Code(s): D50.9 - Iron deficiency anemia, unspecified Plan: CONTINUE TO MONITOR
[2020-09-07 14:57] LABS: ABG BASE EXCESS 18.9 mmol/L (-2.0-2.0)
[2020-09-07 14:58] LABS: ABG HCO3 46.2 mmol/L (22-26)
--- NOTE | 2020-09-07 15:00 | PCM.PROG ---
Progress Note - Progress Note for Day of Date of Exam: 09/07/20 - Subjective Subjective: IS BEING TREATED FOR PNEUMONIA DUE TO COVID-19 AND HYPOXIA. SHE REMAINS ON THE MECHANICAL VENT. STAFF ATTEMPTED TO WEAN OXYGEN AND SEDATION YESTERDAY, HOWEVER, PATIENT BECAME AGITATED AND HER OXYGEN SATURATIONS DECREASED TO THE 80s. TODAY, HER SETTINGS ON THE VENT ARE: SIMV, VENT RATE 20, TIDAL VOLUME 400, PEEP 5, PRESSURE SUPPORT 8, FI02 60%. HER SATURATIONS HAVE BEEN 89-95% THIS MORNING AND THROUGHOUT THE NIGHT. ON EXAMINATION, SHE IS LYING IN BED WITH EYES CLOSED. SHE IS DOES OPEN EYES TO VERBAL STIMULI, BUT IS UNABLE TO FOLLOW COMMANDS. HEART IS REGULAR IN RATE AND RHYTHM. BILATERAL LUNGS ARE NOTED WITH DIMINISHED LUNG SOUNDS THROUGHOUT. ABDOMEN IS ROUND, SOFT, AND NON- TENDER WITH NORMAL BOWEL SOUNDS NOTED IN ALL QUADRANTS. 1+ PITTING EDEMA NOTED TO UPPER EXTREMITIES. THERE IS A CARPIO CATHETER NOTED TO BEDSIDE DRAINAGE. URINE IS TEA COLORED AND IS NOTED WITH BLOOD IN TUBING. SHE ALSO HAS AN ART LINE, CENTRAL LINE, AND NG TUBE IN PLACE. HER VITALS THIS MORNING ARE: 97.2-87-24-91%-180/78. LABS WERE OBTAINED. ABNORMAL LAB VALUES INCLUDE THE FOLLOWING: WBC 19.1, HGB 11.5, HCT 35.1, PLT COUNT 144, D-DIMER 1.64, CARBON DIOXIDE 37.4, BUN 31, CREATININE 0.51, GLUCOSE 282, CALCIUM 8.3, CRP 22.00, BNP 422, TOTAL PROTEIN 5.5, ALBUMIN 3.1. ABG WAS OBTAINED THIS MORNING AND REVEALED: PH 7.390, PC02 78, P02 82, HC03 47.2, 02 SAT 96, BASE EXCESS 18.3, A-A GRADIENT 248, FI02 60. A CHEST XRAY WAS OBTAINED AND REVEALED: No change diffuse bilateral alveolar filling. SHE HAS RECEIVED TWO UNITS OF PRBC SINCE ADMISSION. WE WILL CONTINUE TO WEAN HER OXYGEN AND SEDATION TODAY. SHE IS RECEIVING ENSURE FEEDINGS WELL TPN. TODAY, WE WILL INCREASE ALBUTEROL NEB TX TO 2.5 ML QID. OTHERWISE, WE WILL CONTINUE WITH IV ANTIBIOTICS, RESPIRATORY THERAPY, SUPPLEMENTAL OXYGEN, STEROID THERAPY, AND CURRENT PLAN OF CARE. WE WILL FOLLOW UP WITH AM LABS, CHEST XRAY, ABG, AND CONTINUE TO MONITOR. CRITICAL CARE TIME SPENT ON CLINICAL ASSESSMENT, REVIEWING LABS AND IMAGING, DECISION MAKING, AND DOCUMENTATION GREATER THAN 75 MINUTES. - Past Medical Family Social History Past Med/Fam/Surg Hx: No changes since H&P Allergies: Allergies No Known Drug Allergies Allergy (Verified 08/27/19 22:19) - Review of Systems ROS: No change since H&P - Vital Signs and I&O's Vital Signs: Temperature 98.8 F Pulse Rate [Left] 78 Pulse Rate [Bilateral Radial] 92 Pulse Rate 81 Respiratory Rate 24 Blood Pressure [Right Radial 167/56 Artery] Blood Pressure [Left Arm] 179/76 Blood Pressure 174/74 O2 Sat by Pulse Oximetry 93 Intake and Output: Intake & Output 09/05/20 09/06/20 09/07/20 09/08/20 11:59 11:59 11:59 11:59 Intake Total 3410 / 3410 3346.0 / 3346.0 4656 / 4656 1142 / 1142 Output Total 2900 / 2900 2550 / 2550 2850 / 2850 1025 / 1025 Balance 510 / 510 796.0 / 796.0 1806 / 1806 117 / 117 - Physical Exam Oriented: Unable to test Eyes: Normal Ear: Normal Nose: Normal Throat: Normal Respiratory: Generalized, Diminished, Rales Cardiovascular: Normal : Normal Auscultation: Bowel Sounds: Normal Palpation: Normal Tenderness: Normal Skin: Normal Musculoskeletal: Normal Psychiatric: Other (SEDATED ) Mood Description: Calm Affect: Normal Speech Pattern: Artificially Ventilated - Laboratory and Diagnostics Result Diagrams: 09/07/20 04:25 09/07/20 04:25 Labs: 09/02/20 10:58 Sputum - Endotracheal Wash Sputum Culture - Final 09/02/20 10:58 Sputum - Endotracheal Wash - Final 08/18/20 11:40 Blood Blood Culture - Final 08/18/20 12:00 Blood Blood Culture - Final Laboratory WBC 19.1 X10^3/uL (3.6-10.0) H 09/07/20 04:25 RBC 3.92 X10^6/uL (3.5-5.4) 09/07/20 04:25 Hgb 11.5 g/dL (12.0-16.0) L 09/07/20 04:25 Hct 35.1 % (36.0-47.0) L 09/07/20 04:25 MCV 89.5 fL (80.0-100.0) 09/07/20 04:25 MCH 29.2 pg (27.0-34.0) 09/07/20 04:25 MCHC 32.7 g/dL (33.0-35.0) L 09/07/20 04:25 RDW 14.0 % (11.6-16.5) 09/07/20 04:25 Plt Count 144 X10^3/uL (150.0-450.0) L 09/07/20 04:25 Plt Count Comment Decreased (ADEQUATE) A 09/07/20 04:25 MPV 9.1 fL (7.4-11.0) 09/07/20 04:25 Neut % (Auto) 95.4 % (42.0-75.0) H 09/07/20 04:25 Lymph % (Auto) 0.9 % (21.0-51.0) L 09/07/20 04:25 [place] % (Auto) 3.4 % (0.0-13.0) 09/07/20 04:25 Eos % (Auto) 0.0 % (0.9-2.9) L 09/07/20 04:25 Baso % (Auto) 0.3 % (0.2-1.0) 09/07/20 04:25 Neut # (Auto) 18.2 x10^3/uL (2.2-4.8) H 09/07/20 04:25 Lymph # (Auto) 0.2 X10^3/uL (1.3-2.9) L 09/07/20 04:25 [place] # (Auto) 0.7 x10^3/uL (0.3-0.8) 09/07/20 04:25 Eos # (Auto) 0.0 x10^3/uL (0.0-0.2) 09/07/20 04:25 Baso # (Auto) 0.1 X10^3/uL (0.0-0.1) 09/07/20 04:25 Absolute Nucleated RBC 0.0 /100WBC 09/07/20 04:25 Total Counted 100 09/07/20 04:25 Neutrophils % (Manual) 96 % (39-76) H 09/07/20 04:25 Band Neutrophils % 6 % (0-10) 09/05/20 04:15 Lymphocytes % (Manual) 4 % (13-43) L 09/07/20 04:25 Monocytes % (Manual) 2 % (4-9) L 09/06/20 04:10 Eosinophils % (Manual) 1 % (0-6) 08/31/20 05:50 Metamyelocytes % 2 08/31/20 05:50 Plt Morphology Comment Normal (NORMAL) 09/07/20 04:25 RBC Morphology Normal (NORMAL) 09/07/20 04:25 PT 17.9 SECONDS (11.8-14.3) 08/22/20 17:00 INR Target Range - 08/22/20 17:00 INR 1.53 (0.8-1.3) H 08/22/20 17:00 APTT 22.8 SECONDS (22.9-36.5) L 08/30/20 06:30 PTT Comment - 08/30/20 06:30 D-Dimer 1.64 ug/ml (0.0-0.57) H* 09/07/20 04:30 Sample Site Art-line 09/07/20 14:47 ABG pH 7.460 (7.35-7.45) H 09/07/20 14:47 ABG pCO2 65.0 mmHg (35.0-45.0) H* 09/07/20 14:47 ABG pO2 67.0 mmHg (80.0-100.0) L 09/07/20 14:47 ABG HCO3 46.2 mmol/L (22-26) H* 09/07/20 14:47 ABG O2 Saturation 94.0 % (90-100) 09/07/20 14:47 ABG Base Excess 18.9 mmol/L (-2.0-2.0) H 09/07/20 14:47 Juan Test Na 09/07/20 14:47 A-a Gradient 280.0 mmHg 09/07/20 14:47 FiO2 60.0 09/07/20 14:47 Blood Gas Comments [place] well aw 09/07/20 14:47 Sodium 141 mmol/L (136-145) 09/07/20 04:25 Corrected Sodium 145 mmol/L (136-145) 09/07/20 04:25 Potassium 4.4 mmol/L (3.5-5.1) 09/07/20 04:25 Chloride 98 mmol/L (98-107) 09/07/20 04:25 Carbon Dioxide 37.4 mmol/L (21-32) H 09/07/20 04:25 BUN 31 mg/dL (7-18) H 09/07/20 04:25 Creatinine 0.51 mg/dL (0.55-1.02) L 09/07/20 04:25 Est GFR (MDRD) Af Amer > 60 (>60) 09/07/20 04:25 Est GFR (MDRD) Non-Af > 60 (>60) 09/07/20 04:25 Glucose 282 mg/dL (65-99) H 09/07/20 04:25 POC Glucose (mg/dL) 320 mg/dL (65-99) H 09/07/20 14:11 Lactic Acid 1.0 mmol/L (0.4-2.0) 08/18/20 11:40 Calcium 8.3 mg/dL (8.5-10.1) L 09/07/20 04:25 Corrected Calcium 9.0 mg/dL (8.5-10.1) 09/07/20 04:25 Phosphorus 2.7 mg/dL (2.6-4.7) 09/06/20 04:10 Magnesium 2.3 mg/dL (1.7-2.9) 09/06/20 04:10 Ferritin 347 ng/mL (8-252) H 09/04/20 05:23 Total Bilirubin 0.70 mg/dL (0.2-1.0) 09/07/20 04:25 AST 19 Units/L (15-37) 09/07/20 04:25 ALT 26 Units/L (12-78) 09/07/20 04:25 Alkaline Phosphatase 89 Units/L (46-116) 09/07/20 04:25 Creatine Kinase 83 Units/L (26-192) 08/18/20 19:07 CK-MB (CK-2) 1.0 ng/mL (0-4.0) 08/18/20 19:07 CK/CKMB % Calc 1.2 % (<4) 08/18/20 19:07 Troponin I < 0.02 ng/mL (0-1.5) 08/18/20 19:07 C-Reactive Protein 22.00 mg/L (0-3.0) H 09/07/20 04:25 B-Natriuretic Peptide 422 pg/mL (0-79) H 09/07/20 04:25 Total Protein 5.5 g/dL (6.4-8.2) L 09/07/20 04:25 Albumin 3.1 g/dL (3.4-5.0) L 09/07/20 04:25 Globulin 2.4 g/dL (2.5-4.5) L 09/07/20 04:25 Albumin/Globulin Ratio 1.3 Ratio (1.1-2.1) 09/07/20 04:25 Prealbumin 24.6 mg/dL (18-35.7) 09/03/20 12:38 Triglycerides 353 mg/dL (0-150) H 09/06/20 04:10 Amylase 50 Units/L (25-115) 08/18/20 11:40 Lipase 137 Units/L (73-393) 08/18/20 11:40 Specimen Type Catherized urine 08/18/20 23:07 Urine Color Dark yellow (YELLOW) 08/18/20 23:07 Urine Appearance Clear (CLEAR) 08/18/20 23:07 Urine pH 7.0 (5.0 - 8.0) 08/18/20 23:07 Ur Specific [place] 1.010 (1.000-1.030) 08/18/20 23:07 Urine Protein 2+ (NEGATIVE) 08/18/20 23:07 Urine Glucose (UA) Negative (NEGATIVE) 08/18/20 23:07 Urine Ketones 1+ (NEGATIVE) 08/18/20 23:07 Urine Occult Blood Negative (NEGATIVE) 08/18/20 23:07 Urine Nitrite Negative (NEGATIVE) 08/18/20 23:07 Urine Bilirubin Negative (NEGATIVE) 08/18/20 23:07 Urine Urobilinogen 1+ (NORMAL) 08/18/20 23:07 Ur Leukocyte Esterase Negative (NEGATIVE) 08/18/20 23:07 Urine RBC None seen /HPF (0-3) 08/18/20 23:07 Urine WBC None seen /HPF (0-5) 08/18/20 23:07 Ur Squamous Epith Cells Rare /HPF (NEGATIVE) 08/18/20 23:07 Urine Bacteria Negative /HPF (NEGATIVE) 08/18/20 23:07 Ur Culture Indicated? No/not indicated 08/18/20 23:07 Theophylline < 2.0 ug/mL (10-20) L 09/06/20 04:10 Influenza Type A (PCR) Negative (NEGATIVE) 08/18/20 12:46 Influenza Type B (PCR) Negative (NEGATIVE) 08/18/20 12:46 SARS CoV-2 RNA Rapid LUIS Positive (NEGATIVE) A 08/18/20 18:12 Miscellaneous Test Resp panel 09/02/20 10:12 Blood Type B POSITIVE 09/04/20 10:26 Antibody Screen Negative 09/04/20 10:26 Crossmatch See Detail 09/04/20 10:26 - Plan (1) Pneumonia due to 2019 novel coronavirus Status: Acute Plan: LEVAQUIN 750MG IV HS, FORTAZ 1G IV Q8H, AMINOPHYLLINE DRIP, ASCORBIC ACID 1500MG IV Q6H, ALBUTEROL NEBS QID, MUCOMYST IN NEBS BID, SOLU-MEDROL 125 MG IV Q6H, PROTONIX 40MG IV DAILY, PEPCID 20MG IV BID, CATAPRES 0.5MG/HR TD PATCH, APRESOLINE 10MG IV Q4H PRN, THIAMINE 200MG IV BID, ZOFRAN 4MG IV Q4H PRN, DIFLUCAN 100MG IV DAILY, LOVENOX 30MG SC BID, TPN, ENSURE TID, LIPIDS, POTASSIUM AND MAGNESIUM PROTOCOLS, AN ATIVAN DRIP FOR SEDATION. (2) Hypoxia Status: Acute (3) Anemia Status: Acute Qualifiers: Anemia type: iron deficiency Iron deficiency anemia type: unspecified iron deficiency Qualified Code(s): D50.9 - Iron deficiency anemia, unspecified Plan: CONTINUE TO MONITOR
[2020-09-07] MEDS: MORPHINE SULFATE PCA 30 MG IVP PRN (18:15)
[2020-09-07] MEDS ORDERED: GEODON INJ IM ONE (20:50)
[2020-09-07] MEDS: COLACE SYRUP 100 MG UDC PO SCH (21:19)
[2020-09-07] MEDS: LIPOSYN III 20% 250ML 250 ML IV SCH (21:20)
[2020-09-07] MEDS: LEVAQUIN PREMIX IV 750 MG 750 MG/150 ML BAG IV SCH (21:20)
[2020-09-08 04:37] LABS: ABG BASE EXCESS 19.5 mmol/L (-2.0-2.0)
[2020-09-08 04:40] LABS: ABG HCO3 46.6 mmol/L (22-26)
[2020-09-08] MEDS: SOLU-Medrol 125 MG VIAL IVP SCH ×4 (05:08→22:00)
[2020-09-08] MEDS: FORTAZ or TAZICEF VIAL INJ IVP SCH ×3 (05:08→22:00)
[2020-09-08] MEDS: APRESOLINE INJ 20 MG VIAL IVP PRN (05:44)
[2020-09-08] MEDS: HumuLIN R SUBCUT PRN ×3 (06:02→22:30)
[2020-09-08 06:20] LABS: BASOPHILS % (AUTO) 0.2 % (0.2-1.0); HEMATOCRIT 28.9 % (36.0-47.0); LYMPHOCYTES # (AUTO) 0.1 X10^3/uL (1.3-2.9); LYMPHOCYTES % (AUTO) 1.1 % (21.0-51.0); MEAN CORPUSCULAR HEMOGLOBIN 30.7 pg (27.0-34.0); MEAN CORPUSCULAR HGB CONC 34.7 g/dL (33.0-35.0); MEAN CORPUSCULAR VOLUME 88.4 fL (80.0-100.0); MEAN PLATELET VOLUME 9.4 fL (7.4-11.0); MONOCYTES # (AUTO) 0.4 x10^3/uL (0.3-0.8); MONOCYTES % (AUTO) 3.9 % (0.0-13.0); NEUTROPHILS # (AUTO) 10.3 x10^3/uL (2.2-4.8); NEUTROPHILS % (AUTO) 94.8 % (42.0-75.0); PLATELET COUNT 124 X10^3/uL (150.0-450.0); RED BLOOD COUNT 3.27 X10^6/uL (3.5-5.4); RED CELL DISTRIBUTION WIDTH 13.8 % (11.6-16.5); WHITE BLOOD COUNT 10.9 X10^3/uL (3.6-10.0)
[2020-09-08 06:26] LABS: ALANINE AMINOTRANSFERASE 21 Units/L (12-78); ALBUMIN 2.8 g/dL (3.4-5.0); ALKALINE PHOSPHATASE 68 Units/L (46-116); ASPARTATE AMINO TRANSFERASE 17 Units/L (15-37); BLOOD UREA NITROGEN 27 mg/dL (7-18); CALCIUM 8.2 mg/dL (8.5-10.1); CARBON DIOXIDE 38.9 mmol/L (21-32); CHLORIDE 100 mmol/L (98-107); COR CA(FOR HYPOALB) 9.2 mg/dL (8.5-10.1); COR NA(FOR HYPERGLY) 148 mmol/L (136-145); CREATININE 0.51 mg/dL (0.55-1.02); SODIUM 142 mmol/L (136-145); TOTAL PROTEIN 5.2 g/dL (6.4-8.2); eGFR NON BLACK RACES > 60 (>60)
[2020-09-08] MEDS: CLINIMIX IV SCH ×2 (06:52→08:39)
[2020-09-08 06:59] LABS: BAND NEUTROPHILS % 6 % (0-10); METAMYELOCYTES % 1
[2020-09-08 07:00] LABS: PLATELET MORPHOLOGY COMMENT NORMAL (NORMAL)
--- NOTE | 2020-09-08 07:16 | RAD ---
HISTORYSOBSTUDYCHEST, 1 VIEWCOMPARISONOne day prior.TECHNIQUEAP view of the chestFINDINGSET tube in good position. NG tube courses below the visualized field of view. Right IJ central line in good position. Patient is rotated. Cardiac and mediastinal contours are within normal limits. No significant change in bilateral airspace and interstitial opacities. No definite pleural effusion or pneumothorax. Soft tissue attenuation limits evaluation.IMPRESSIONNo significant change.Electronically signed by: Jose M Stockton (Sep 08, 2020 07:14:19)
[2020-09-08] MEDS: PULMICORT NEB TX 0.5 MG NEB SCH ×2 (07:55→20:20)
[2020-09-08] MEDS: PROVENTIL NEB TX 0.083% 2.5MG/ 3ML NEB SCH ×4 (07:55→20:20)
[2020-09-08] MEDS: DIPRIVAN PREMIX 1 GRAM IV 1,000 MG/100 ML VIAL IV PRN ×3 (08:00→18:13)
[2020-09-08] MEDS: LACRI-LUBE S.O.P. AFFEYE SCH ×2 (09:22→22:00)
[2020-09-08] MEDS: PROTONIX INJ 40 MG VIAL IVP SCH (09:22)
[2020-09-08] MEDS: SYNTHROID INJ 100 mcg VIAL IVP SCH (09:22)
[2020-09-08] MEDS: PEPCID 20 MG IV PREMIX* 20 MG/50 ML BAG IV SCH ×2 (09:25→22:00)
[2020-09-08] MEDS: MILK OF MAGNESIA PO SCH ×2 (09:25→22:00)
[2020-09-08] MEDS: [UNRECOGNIZED DRUG - OTHER] NG SCH ×4 (09:25→22:00)
[2020-09-08] MEDS: LOVENOX INJ 30 MG SYR SC SCH ×2 (09:26→22:17)
[2020-09-08] MEDS: ALBUMIN HUMAN 25%- 100 ML 100 ML IV SCH (10:20)
[2020-09-08] MEDS: GEODON INJ IM SCH (10:38)
[2020-09-08] MEDS ORDERED: DULCOLAX SUPPOSITORY 10 MG RECTAL ONE (10:39)
--- NOTE | 2020-09-08 12:18 | RAD ---
HISTORYABDOMINAL DISTENTION, CONSTIPATIONSTUDYKUB, x-ray abdomen one viewCOMPARISONX-ray 08/28/2020FINDINGSEnteric tube passes into the body of the stomach. Likely mild constipation in the descending colon and rectosigmoid colon without evidence of fecal impaction. Little retained fecal material is seen in the right-side of the colon. Bone island in the right sacral ala is unchanged. Phleboliths are suspect in the pelvis. No suggestion of small-bowel obstruction. Prior cholecystectomy.IMPRESSIONPossible mild constipation in the descending colon and rectosigmoid colon.Electronically signed by: Beau Galvan (Sep 08, 2020 12:15:40)
--- NOTE | 2020-09-08 12:37 | PCM.PROG ---
Progress Note - Progress Note for Day of Date of Exam: 09/08/20 - Subjective Subjective: IS BEING TREATED FOR PNEUMONIA DUE TO COVID-19 AND HYPOXIA. SHE REMAINS ON THE MECHANICAL VENT. TODAY, HER SETTINGS ON THE VENT ARE: SIMV, VENT RATE 20, TIDAL VOLUME 450, PEEP 5, PRESSURE SUPPORT 8, FI02 60%. HER SATURATIONS HAVE BEEN 89-97% THIS MORNING AND THROUGHOUT THE NIGHT. ON EXAMINATION, SHE IS LYING IN BED WITH EYES CLOSED. SHE IS DOES OPEN EYES TO VERBAL STIMULI, BUT IS UNABLE TO FOLLOW COMMANDS. HEART IS REGULAR IN RATE AND RHYTHM. BILATERAL LUNGS ARE NOTED WITH DIMINISHED LUNG SOUNDS THROUGHOUT. ABDOMEN IS ROUND, SOFT, AND NON-TENDER WITH NORMAL BOWEL SOUNDS NOTED IN ALL QUADRANTS. 1+ PITTING EDEMA NOTED TO UPPER EXTREMITIES. THERE IS A CARPIO CATHETER NOTED TO BEDSIDE DRAINAGE. URINE IS TEA COLORED AND IS NOTED WITH BLOOD IN TUBING. SHE ALSO HAS AN ART LINE, CENTRAL LINE, AND NG TUBE IN PLACE. HER VITALS THIS MORNING ARE: 99.8-94-20-95%-163/72. LABS WERE OBTAINED. ABNORMAL LAB VALUES INCLUDE THE FOLLOWING: WBC 10.9, RBC 3.27, HGB 10.0, HCT 28.9, PLT COUNT 124, D-DIMER 1.21, CARBON DIOXIDE 38.9, BUN 27, CREATININE 0.51, GLUCOSE 333, CALCIUM 8.2, CRP 16.60, BNP 181, TOTAL PROTEIN 5.2, ALBUMIN 2.8. ABG WAS OBTAINED THIS MORNING AND REVEALED: PH 7.470, PC02 64, P02 71, HC03 46.6, 02 SAT 95, BASE EXCESS 19.5, A-A GRADIENT 277, FI02 60. A CHEST XRAY WAS OBTAINED AND REVEALED: ET tube in good position. NG tube courses below the visualized field of view. Right IJ central line in good position. Patient is rotated. Cardiac and mediastinal contours are within normal limits. No significant change in bilateral airspace and interstitial opacities. No definite pleural effusion or pneumothorax. Soft tissue attenuation limits evaluation. SHE HAS RECEIVED TWO UNITS OF PRBC SINCE ADMISSION. WE WILL CONTINUE TO WEAN HER OXYGEN AND SEDATION TODAY. SHE IS RECEIVING ENSURE FEEDINGS WELL TPN. TODAY, WE WILL OBTAIN A KUB AND ADMINISTER A DULCOLAX SUPPOSITORY. WE WILL DISCONTINUE THE MORPHINE AND GEODON. WE WILL ALSO OBTAIN A CHEST CTA. OTHERWISE, WE WILL CONTINUE WITH IV ANTIBIOTICS, RESPIRATORY THERAPY, SUPPLEMENTAL OXYGEN, STEROID THERAPY, AND C URRENT PLAN OF CARE. WE WILL FOLLOW UP WITH AM LABS, CHEST XRAY, ABG, AND CONTINUE TO MONITOR. CRITICAL CARE TIME SPENT ON CLINICAL ASSESSMENT, REVIEWING LABS AND IMAGING, DECISION MAKING, AND DOCUMENTATION GREATER THAN 75 MINUTES. - Past Medical Family Social History Past Med/Fam/Surg Hx: No changes since H&P Allergies: Allergies No Known Drug Allergies Allergy (Verified 08/27/19 22:19) - Review of Systems ROS: No change since H&P - Vital Signs and I&O's Vital Signs: Temperature 97.3 F Pulse Rate [Left] 78 Pulse Rate [Bilateral Radial] 92 Pulse Rate 94 Respiratory Rate 24 Blood Pressure [Right Radial 167/56 Artery] Blood Pressure [Left Arm] 179/76 Blood Pressure 153/68 O2 Sat by Pulse Oximetry 91 Intake and Output: Intake & Output 09/06/20 09/07/20 09/08/20 09/09/20 11:59 11:59 11:59 11:59 Intake Total 3346.0 / 3346.0 4656 / 4656 4362 / 4362 Output Total 2550 / 2550 2850 / 2850 4225 / 4225 Balance 796.0 / 796.0 1806 / 1806 137 / 137 - Physical Exam Oriented: Unable to test Eyes: Normal Ear: Normal Nose: Normal Throat: Normal Respiratory: Generalized, Diminished, Rales Cardiovascular: Normal : Normal Auscultation: Bowel Sounds: Normal Palpation: Normal Tenderness: Normal Skin: Normal Musculoskeletal: Normal Psychiatric: Other (SEDATED ) Mood Description: Calm Affect: Normal Speech Pattern: Artificially Ventilated - Laboratory and Diagnostics Result Diagrams: 09/21/20 16:32 09/21/20 03:45 Labs: 09/02/20 10:58 Sputum - Endotracheal Wash Sputum Culture - Final 09/02/20 10:58 Sputum - Endotracheal Wash - Final 08/18/20 11:40 Blood Blood Culture - Final 08/18/20 12:00 Blood Blood Culture - Final Laboratory WBC 10.9 X10^3/uL (3.6-10.0) H D 09/08/20 04:45 RBC 3.27 X10^6/uL (3.5-5.4) L 09/08/20 04:45 Hgb 10.0 g/dL (12.0-16.0) L 09/08/20 04:45 Hct 28.9 % (36.0-47.0) L 09/08/20 04:45 MCV 88.4 fL (80.0-100.0) 09/08/20 04:45 MCH 30.7 pg (27.0-34.0) 09/08/20 04:45 MCHC 34.7 g/dL (33.0-35.0) 09/08/20 04:45 RDW 13.8 % (11.6-16.5) 09/08/20 04:45 Plt Count 124 X10^3/uL (150.0-450.0) L 09/08/20 04:45 Plt Count Comment Decreased (ADEQUATE) A 09/08/20 04:45 MPV 9.4 fL (7.4-11.0) 09/08/20 04:45 Neut % (Auto) 94.8 % (42.0-75.0) H 09/08/20 04:45 Lymph % (Auto) 1.1 % (21.0-51.0) L 09/08/20 04:45 Iron % (Auto) 3.9 % (0.0-13.0) 09/08/20 04:45 Eos % (Auto) 0.0 % (0.9-2.9) L 09/08/20 04:45 Baso % (Auto) 0.2 % (0.2-1.0) 09/08/20 04:45 Neut # (Auto) 10.3 x10^3/uL (2.2-4.8) H 09/08/20 04:45 Lymph # (Auto) 0.1 X10^3/uL (1.3-2.9) L 09/08/20 04:45 Iron # (Auto) 0.4 x10^3/uL (0.3-0.8) 09/08/20 04:45 Eos # (Auto) 0.0 x10^3/uL (0.0-0.2) 09/08/20 04:45 Baso # (Auto) 0.0 X10^3/uL (0.0-0.1) 09/08/20 04:45 Absolute Nucleated RBC 0.1 /100WBC 09/08/20 04:45 Total Counted 100 09/08/20 04:45 Neutrophils % (Manual) 91 % (39-76) H 09/08/20 04:45 Band Neutrophils % 6 % (0-10) 09/08/20 04:45 Lymphocytes % (Manual) 1 % (13-43) L 09/08/20 04:45 Monocytes % (Manual) 1 % (4-9) L 09/08/20 04:45 Eosinophils % (Manual) 1 % (0-6) 08/31/20 05:50 Metamyelocytes % 1 09/08/20 04:45 Plt Morphology Comment Normal (NORMAL) 09/08/20 04:45 RBC Morphology Normal (NORMAL) 09/08/20 04:45 PT 17.9 SECONDS (11.8-14.3) 08/22/20 17:00 INR Target Range - 08/22/20 17:00 INR 1.53 (0.8-1.3) H 08/22/20 17:00 APTT 22.8 SECONDS (22.9-36.5) L 08/30/20 06:30 PTT Comment - 08/30/20 06:30 D-Dimer 1.21 ug/ml (0.0-0.57) H* 09/08/20 04:50 Sample Site Arianna 09/08/20 04:35 ABG pH 7.470 (7.35-7.45) H 09/08/20 04:35 ABG pCO2 64.0 mmHg (35.0-45.0) H* 09/08/20 04:35 ABG pO2 71.0 mmHg (80.0-100.0) L 09/08/20 04:35 ABG HCO3 46.6 mmol/L (22-26) H* 09/08/20 04:35 ABG O2 Saturation 95.0 % (90-100) 09/08/20 04:35 ABG Base Excess 19.5 mmol/L (-2.0-2.0) H 09/08/20 04:35 Juan Test Na 09/08/20 04:35 A-a Gradient 277.0 mmHg 09/08/20 04:35 FiO2 60.0 09/08/20 04:35 Blood Gas Comments [place] well-mtf 09/08/20 04:35 Sodium 142 mmol/L (136-145) 09/08/20 04:45 Corrected Sodium 148 mmol/L (136-145) H 09/08/20 04:45 Potassium 4.2 mmol/L (3.5-5.1) 09/08/20 04:45 Chloride 100 mmol/L (98-107) 09/08/20 04:45 Carbon Dioxide 38.9 mmol/L (21-32) H 09/08/20 04:45 BUN 27 mg/dL (7-18) H 09/08/20 04:45 Creatinine 0.51 mg/dL (0.55-1.02) L 09/08/20 04:45 Est GFR (MDRD) Af Amer > 60 (>60) 09/08/20 04:45 Est GFR (MDRD) Non-Af > 60 (>60) 09/08/20 04:45 Glucose 333 mg/dL (65-99) H 09/08/20 04:45 POC Glucose (mg/dL) 316 mg/dL (65-99) H 09/08/20 05:40 Lactic Acid 1.0 mmol/L (0.4-2.0) 08/18/20 11:40 Calcium 8.2 mg/dL (8.5-10.1) L 09/08/20 04:45 Corrected Calcium 9.2 mg/dL (8.5-10.1) 09/08/20 04:45 Phosphorus 2.7 mg/dL (2.6-4.7) 09/06/20 04:10 Magnesium 2.3 mg/dL (1.7-2.9) 09/06/20 04:10 Ferritin 347 ng/mL (8-252) H 09/04/20 05:23 Total Bilirubin 0.60 mg/dL (0.2-1.0) 09/08/20 04:45 AST 17 Units/L (15-37) 09/08/20 04:45 ALT 21 Units/L (12-78) 09/08/20 04:45 Alkaline Phosphatase 68 Units/L (46-116) 09/08/20 04:45 Creatine Kinase 83 Units/L (26-192) 08/18/20 19:07 CK-MB (CK-2) 1.0 ng/mL (0-4.0) 08/18/20 19:07 CK/CKMB % Calc 1.2 % (<4) 08/18/20 19:07 Troponin I < 0.02 ng/mL (0-1.5) 08/18/20 19:07 C-Reactive Protein 16.60 mg/L (0-3.0) H 09/08/20 04:45 B-Natriuretic Peptide 181 pg/mL (0-79) H 09/08/20 04:45 Total Protein 5.2 g/dL (6.4-8.2) L 09/08/20 04:45 Albumin 2.8 g/dL (3.4-5.0) L 09/08/20 04:45 Globulin 2.4 g/dL (2.5-4.5) L 09/08/20 04:45 Albumin/Globulin Ratio 1.2 Ratio (1.1-2.1) 09/08/20 04:45 Prealbumin 24.6 mg/dL (18-35.7) 09/03/20 12:38 Triglycerides 353 mg/dL (0-150) H 09/06/20 04:10 Amylase 50 Units/L (25-115) 08/18/20 11:40 Lipase 137 Units/L (73-393) 08/18/20 11:40 Specimen Type Catherized urine 08/18/20 23:07 Urine Color Dark yellow (YELLOW) 08/18/20 23:07 Urine Appearance Clear (CLEAR) 08/18/20 23:07 Urine pH 7.0 (5.0 - 8.0) 08/18/20 23:07 Ur Specific [place] 1.010 (1.000-1.030) 08/18/20 23:07 Urine Protein 2+ (NEGATIVE) 08/18/20 23:07 Urine Glucose (UA) Negative (NEGATIVE) 08/18/20 23:07 Urine Ketones 1+ (NEGATIVE) 08/18/20 23:07 Urine Occult Blood Negative (NEGATIVE) 08/18/20 23:07 Urine Nitrite Negative (NEGATIVE) 08/18/20 23:07 Urine Bilirubin Negative (NEGATIVE) 08/18/20 23:07 Urine Urobilinogen 1+ (NORMAL) 08/18/20 23:07 Ur Leukocyte Esterase Negative (NEGATIVE) 08/18/20 23:07 Urine RBC None seen /HPF (0-3) 08/18/20 23:07 Urine WBC None seen /HPF (0-5) 08/18/20 23:07 Ur Squamous Epith Cells Rare /HPF (NEGATIVE) 08/18/20 23:07 Urine Bacteria Negative /HPF (NEGATIVE) 08/18/20 23:07 Ur Culture Indicated? No/not indicated 08/18/20 23:07 Theophylline < 2.0 ug/mL (10-20) L 09/06/20 04:10 Influenza Type A (PCR) Negative (NEGATIVE) 08/18/20 12:46 Influenza Type B (PCR) Negative (NEGATIVE) 08/18/20 12:46 SARS CoV-2 RNA Rapid LUIS Positive (NEGATIVE) A 08/18/20 18:12 Miscellaneous Test Resp panel 09/02/20 10:12 Blood Type B POSITIVE 09/04/20 10:26 Antibody Screen Negative 09/04/20 10:26 Crossmatch See Detail 09/04/20 10:26 - Plan (1) Pneumonia due to 2019 novel coronavirus Status: Acute Plan: CONTINUE MECHANICAL VENT, CONTINUE IV ANTIBIOTICS, RESPIRATORY TX, CORTICOSTEROIDS, DVT PROPHYLASIX, BLOOD GLUCOSE CONTROL, TUBE FEEDINGS, POTASSIUM AND MAGNESIUM REPLACEMENT PER PROTOCOL, TPN, SEDATION (2) Hypoxia Status: Acute (3) Anemia Status: Acute Qualifiers: Anemia type: iron deficiency Iron deficiency anemia type: unspecified iron deficiency Qualified Code(s): D50.9 - Iron deficiency anemia, unspecified Plan: CONTINUE TO MONITOR
[2020-09-08] MEDS: NS 500 ML IV 500 ML IV SCH (13:02)
[2020-09-08] MEDS ORDERED: CLINIMIX IV SCH ×2 (14:00)
[2020-09-08] MEDS ORDERED: TRACE ELEMENTS IV SCH ×2 (14:00)
[2020-09-08] MEDS: NS 100 ML IV 100 ML IV ONE ×2 (15:15→15:16)
--- NOTE | 2020-09-08 15:22 | CT ---
HISTORYCOVID, RESPIRATORY FAILURESTUDYCTA CHESTCOMPARISONChest radiograph 09/08/2020TECHNIQUEMultiple CT axial images of the chest were obtained with IV contrast. Coronal and sagittal images were reconstructed. 3D reconstructions using axial MIPS imaging was performed and reviewed. Dose reduction techniques included Automated Exposure Control (AEC) and adjustment of mA and kV.Stenoses are measured using NASCET criteria.FINDINGSPulmonary arteries are identified to segmental branches. There are no pulmonary emboli.Patchy bilateral areas of ground-glass and airspace opacity are present. Some of these have a crazy paving appearance. The findings are compatible with bronchopneumonia and typical for COVID-19.No significant effusion. No pneumothorax.Heart size is normal.The pulmonary artery and aorta have a normal caliber. Mediastinal lymph nodes are most likely reactive.The thyroid has a normal size and configuration. No axillary mass or significant axillary lymphadenopathy is identified.Bilateral breast implants are noted. Findings suggest capsular rupture on both sides but right side may have a capsular extrusion along the lateral inferior margin.Limited views of the upper abdomen show no significant abnormality. Degenerative changes are present in the spine.The endotracheal tube is anatomic in position in the trachea. The enteric tube extends into the upper abdomen. Right jugular central venous catheter is in the superior vena cava.IMPRESSION1. No pulmonary emboli2. BronchopneumoniaElectronically signed by: Thiago Naranjo (Sep 08, 2020 15:20:49)
[2020-09-08] MEDS: LEVAQUIN PREMIX IV 750 MG 750 MG/150 ML BAG IV SCH (22:00)
[2020-09-08] MEDS: COLACE SYRUP 100 MG UDC PO SCH (22:00)
[2020-09-08] MEDS: LIPOSYN III 20% 250ML 250 ML IV SCH (22:00)
[2020-09-09] MEDS: DIPRIVAN PREMIX 1 GRAM IV 1,000 MG/100 ML VIAL IV PRN ×3 (02:45→09:39)
[2020-09-09 04:36] LABS: ABG BASE EXCESS 14.8 mmol/L (-2.0-2.0)
[2020-09-09] MEDS: SOLU-Medrol 125 MG VIAL IVP SCH ×4 (05:37→23:05)
[2020-09-09 05:38] LABS: BASOPHILS # (AUTO) 0.2 X10^3/uL (0.0-0.1); BASOPHILS % (AUTO) 1.1 % (0.2-1.0); HEMATOCRIT 30.9 % (36.0-47.0); HEMOGLOBIN 10.4 g/dL (12.0-16.0); LYMPHOCYTES # (AUTO) 0.2 X10^3/uL (1.3-2.9); LYMPHOCYTES % (AUTO) 0.9 % (21.0-51.0); MEAN CORPUSCULAR HGB CONC 33.6 g/dL (33.0-35.0); MEAN CORPUSCULAR VOLUME 89.2 fL (80.0-100.0); MONOCYTES # (AUTO) 0.1 x10^3/uL (0.3-0.8); MONOCYTES % (AUTO) 0.5 % (0.0-13.0); NEUTROPHILS # (AUTO) 21.3 x10^3/uL (2.2-4.8); NEUTROPHILS % (AUTO) 97.5 % (42.0-75.0); PLATELET COUNT 159 X10^3/uL (150.0-450.0); RED BLOOD COUNT 3.47 X10^6/uL (3.5-5.4); RED CELL DISTRIBUTION WIDTH 13.8 % (11.6-16.5); WHITE BLOOD COUNT 21.8 X10^3/uL (3.6-10.0)
[2020-09-09] MEDS: FORTAZ or TAZICEF VIAL INJ IVP SCH (05:38)
[2020-09-09 05:42] LABS: PREALBUMIN 33.1 mg/dL (18-35.7)
[2020-09-09 05:49] LABS: ALANINE AMINOTRANSFERASE 22 Units/L (12-78); ALKALINE PHOSPHATASE 90 Units/L (46-116); BLOOD UREA NITROGEN 29 mg/dL (7-18); CALCIUM 7.8 mg/dL (8.5-10.1); CARBON DIOXIDE 38.6 mmol/L (21-32); CHLORIDE 98 mmol/L (98-107); COR CA(FOR HYPOALB) 8.6 mg/dL (8.5-10.1); COR NA(FOR HYPERGLY) 143 mmol/L (136-145); CREATININE 0.48 mg/dL (0.55-1.02); MAGNESIUM 2.6 mg/dL (1.7-2.9); PHOSPHORUS 2.5 mg/dL (2.6-4.7); SODIUM 139 mmol/L (136-145); TOTAL PROTEIN 5.5 g/dL (6.4-8.2); TRIGLYCERIDES 498 mg/dL (0-150); eGFR NON BLACK RACES > 60 (>60)
[2020-09-09 06:08] LABS: ASPARTATE AMINO TRANSFERASE 28 Units/L (15-37)
--- NOTE | 2020-09-09 06:34 | RAD ---
HISTORYSOBSTUDYCHEST, 1 VIEWCOMPARISONOne day prior.TECHNIQUEAP view of the chestFINDINGSET tube in good position. Right IJ central line in good position. NG tube courses below the visualized field of view.The cardiac and mediastinal contours appear stable. No significant change in left worse than right diffuse airspace opacities. Elevated right hemidiaphragm. No definite pleural effusion or pneumothorax.IMPRESSIONNo significant change.Electronically signed by: Jose M Stockton (Sep 09, 2020 06:32:36)
[2020-09-09 06:36] LABS: BAND NEUTROPHILS % 14 % (0-10); METAMYELOCYTES % 1; PLATELET MORPHOLOGY COMMENT NORMAL (NORMAL)
[2020-09-09] MEDS: HumuLIN R SUBCUT PRN (06:44)
[2020-09-09] MEDS: TRACE ELEMENTS IV SCH ×14 (07:02→08:53)
[2020-09-09] MEDS: HUMULIN R IV SCH ×14 (07:02→08:53)
[2020-09-09] MEDS: CLINIMIX IV SCH ×14 (07:02→08:53)
[2020-09-09] MEDS: [UNRECOGNIZED DRUG - OTHER] IV SCH ×14 (07:02→08:53)
[2020-09-09] MEDS: PROVENTIL NEB TX 0.083% 2.5MG/ 3ML NEB SCH ×5 (08:20→20:15)
[2020-09-09] MEDS: PULMICORT NEB TX 0.5 MG NEB SCH ×2 (08:20→20:15)
[2020-09-09] MEDS: NS 500 ML IV 500 ML IV SCH ×2 (08:30→14:08)
[2020-09-09] MEDS ORDERED: SALINE 0.9% 3 ML NEB TX ONE (08:34)
[2020-09-09] MEDS: ALBUMIN HUMAN 25%- 100 ML 100 ML IV SCH (08:53)
[2020-09-09] MEDS: LACRI-LUBE S.O.P. AFFEYE SCH ×2 (08:54→20:45)
[2020-09-09] MEDS: LOVENOX INJ 30 MG SYR SC SCH ×2 (08:54→20:45)
[2020-09-09] MEDS: SYNTHROID INJ 100 mcg VIAL IVP SCH (08:54)
[2020-09-09] MEDS: MILK OF MAGNESIA PO SCH ×2 (08:54→20:45)
[2020-09-09] MEDS: [UNRECOGNIZED DRUG - OTHER] NG SCH ×4 (08:54→20:45)
[2020-09-09] MEDS: PROTONIX INJ 40 MG VIAL IVP SCH (08:55)
[2020-09-09] MEDS: PEPCID 20 MG IV PREMIX* 20 MG/50 ML BAG IV SCH ×2 (09:38→20:35)
[2020-09-09] MEDS ORDERED: PHARMACY CONSULT - VANCOMYCIN XX SCH (11:00)
[2020-09-09] MEDS: VANCOMYCIN IV *PREMIX 1 G/200 ML BAG 1 G/200 ML PIGGYBACK IV SCH ×2 (11:29→22:00)
[2020-09-09] MEDS: ZOSYN VIAL 3.375 GRAMS 3.375 G in NS 100 ML IV + SPIKE MINIBAG* 100 ML IV SCH ×3 (12:35→23:00)
--- NOTE | 2020-09-09 12:53 | PCM.PROG ---
Progress Note - Progress Note for Day of Date of Exam: 09/09/20 - Subjective Subjective: IS BEING TREATED FOR PNEUMONIA DUE TO COVID-19 AND HYPOXIA. SHE REMAINS ON THE MECHANICAL VENT. TODAY, HER SETTINGS ON THE VENT ARE: SIMV, VENT RATE 20, TIDAL VOLUME 450, PEEP 5, PRESSURE SUPPORT 8, FI02 100%. STAFF REPORTS THAT PATIENT WAS UNABLE TO TOLERATE WEANING DOWN SETTINGS YESTERDAY. SHE BECAME AGITATED AND HER SATURATIONS DROPPED. HER SATURATIONS HAVE BEEN 87-90% THIS MORNING AND THROUGHOUT THE NIGHT ON 100% FI02. ON EXAMINATION, SHE IS LYING IN BED WITH EYES CLOSED. HEART IS REGULAR IN RATE AND RHYTHM. BILATERAL LUNGS ARE NOTED WITH DIMINISHED LUNG SOUNDS THROUGHOUT. ABDOMEN IS ROUND, SOFT, AND NON-TENDER WITH NORMAL BOWEL SOUNDS NOTED IN ALL QUADRANTS. 1+ PITTING EDEMA NOTED TO UPPER EXTREMITIES. THERE IS A CARPIO CATHETER NOTED TO BEDSIDE DRAINAGE. URINE IS TEA COLORED. SHE ALSO HAS AN ART LINE, CENTRAL LINE, AND NG TUBE IN PLACE. HER VITALS THIS MORNING ARE: 98.6-98-25-89%-108/51. LABS WERE OBTAINED. ABNORMAL LAB VALUES INCLUDE THE FOLLOWING: WBC 21.8, RBC 3.47, HGB 10.4, HCT 30.9, D-DIMER 1.65, CARBON DIOXIDE 38.6, BUN 29, CREATININE 0.48, GLUCOSE 271, CALCIUM 7.8, PHOSPHORUS 2.5, CRP 52.30, BNP 224, TOTAL PROTEIN 5.5, ALBUMIN 3.0, TRIGLYCERIDES 498. ABG WAS OBTAINED THIS MORNING AND REVEALED: PH 7.390, PC02 71, P02 62, HC03 43, 02 SAT 91, BASE EXCESS 14.8, A-A GRADIENT 420, FI02 80. A CHEST XRAY WAS OBTAINED AND REVEALED: ET tube in good position. Right IJ central line in good position. NG tube courses below the visualized field of view.The cardiac and mediastinal contours appear stable. No significant change in left worse than right diffuse airspace opacities. Elevated right hemidiaphragm. No definite pleural effusion or pneumothorax. A CHEST CTA WAS OBTAINED YESTERDAY AND REVEALED: 1. No pulmonary emboli 2. Bronchopneumonia. SHE HAS RECEIVED TWO UNITS OF PRBC SINCE ADMISSION. TODAY, WE WILL DISCONTINUE THE FORTAZ AND START ZOSYN 3.375G IV TID AND VANCOMYCIN 1G IV Q12H. WE WILL REPEAT A SPUTUM CULTURE. SHE IS RECEIVING ENSURE FEEDINGS WELL TPN. OTHERWISE, WE WILL CONTINUE WITH IV ANTIBIOTICS, RESPIRATORY THERAPY, SUPPLEMENTAL OXYGEN, STEROID THERAPY, AND CURRENT PLAN OF CARE. WE WILL FOLLOW UP WITH AM LABS, CHEST XRAY, ABG, AND CONTINUE TO MONITOR. CRITICAL CARE TIME SPENT ON CLINICAL ASSESSMENT, REVIEWING LABS AND IMAGING, DECISION MAKING, AND DOCUMENTATION GREATER THAN 75 MINUTES. - Past Medical Family Social History Past Med/Fam/Surg Hx: No changes since H&P Allergies: Allergies No Known Drug Allergies Allergy (Verified 08/27/19 22:19) - Review of Systems ROS: No change since H&P - Vital Signs and I&O's Vital Signs: Temperature 98.6 F Pulse Rate [Left] 78 Pulse Rate [Bilateral Radial] 92 Pulse Rate 100 Respiratory Rate 20 Blood Pressure [Right Radial 167/56 Artery] Blood Pressure [Left Arm] 179/76 Blood Pressure 95/55 O2 Sat by Pulse Oximetry 92 Intake and Output: Intake & Output 09/07/20 09/08/20 09/09/20 09/10/20 11:59 11:59 11:59 11:59 Intake Total 4656 / 4656 4862 / 4862 5463 / 5463 Output Total 2850 / 2850 4225 / 4225 3400 / 3400 Balance 1806 / 1806 637 / 637 2062 / 2062 - Physical Exam Oriented: Unable to test Eyes: Normal Ear: Normal Nose: Normal Throat: Normal Respiratory: Generalized, Diminished, Rales Cardiovascular: Normal : Normal Auscultation: Bowel Sounds: Normal Palpation: Normal Tenderness: Normal Skin: Normal Musculoskeletal: Normal Psychiatric: Other (SEDATED ) Mood Description: Calm Affect: Normal Speech Pattern: Artificially Ventilated - Laboratory and Diagnostics Result Diagrams: 09/09/20 04:50 09/09/20 04:50 Labs: 09/02/20 10:58 Sputum - Endotracheal Wash Sputum Culture - Final 09/02/20 10:58 Sputum - Endotracheal Wash - Final 08/18/20 11:40 Blood Blood Culture - Final 08/18/20 12:00 Blood Blood Culture - Final Laboratory WBC 21.8 X10^3/uL (3.6-10.0) H D 09/09/20 04:50 RBC 3.47 X10^6/uL (3.5-5.4) L 09/09/20 04:50 Hgb 10.4 g/dL (12.0-16.0) L 09/09/20 04:50 Hct 30.9 % (36.0-47.0) L 09/09/20 04:50 MCV 89.2 fL (80.0-100.0) 09/09/20 04:50 MCH 30.0 pg (27.0-34.0) 09/09/20 04:50 MCHC 33.6 g/dL (33.0-35.0) 09/09/20 04:50 RDW 13.8 % (11.6-16.5) 09/09/20 04:50 Plt Count 159 X10^3/uL (150.0-450.0) 09/09/20 04:50 Plt Count Comment Adequate (ADEQUATE) 09/09/20 04:50 MPV 9.0 fL (7.4-11.0) 09/09/20 04:50 Neut % (Auto) 97.5 % (42.0-75.0) H 09/09/20 04:50 Lymph % (Auto) 0.9 % (21.0-51.0) L 09/09/20 04:50 [place] % (Auto) 0.5 % (0.0-13.0) 09/09/20 04:50 Eos % (Auto) 0.0 % (0.9-2.9) L 09/09/20 04:50 Baso % (Auto) 1.1 % (0.2-1.0) H 09/09/20 04:50 Neut # (Auto) 21.3 x10^3/uL (2.2-4.8) H 09/09/20 04:50 Lymph # (Auto) 0.2 X10^3/uL (1.3-2.9) L 09/09/20 04:50 [place] # (Auto) 0.1 x10^3/uL (0.3-0.8) L 09/09/20 04:50 Eos # (Auto) 0.0 x10^3/uL (0.0-0.2) 09/09/20 04:50 Baso # (Auto) 0.2 X10^3/uL (0.0-0.1) H 09/09/20 04:50 Absolute Nucleated RBC 0.0 /100WBC 09/09/20 04:50 Total Counted 100 09/09/20 04:50 Neutrophils % (Manual) 84 % (39-76) H 09/09/20 04:50 Band Neutrophils % 14 % (0-10) H 09/09/20 04:50 Lymphocytes % (Manual) 1 % (13-43) L 09/09/20 04:50 Monocytes % (Manual) 1 % (4-9) L 09/08/20 04:45 Eosinophils % (Manual) 1 % (0-6) 08/31/20 05:50 Metamyelocytes % 1 09/09/20 04:50 Plt Morphology Comment Normal (NORMAL) 09/09/20 04:50 RBC Morphology Normal (NORMAL) 09/09/20 04:50 PT 17.9 SECONDS (11.8-14.3) 08/22/20 17:00 INR Target Range - 08/22/20 17:00 INR 1.53 (0.8-1.3) H 08/22/20 17:00 APTT 22.8 SECONDS (22.9-36.5) L 08/30/20 06:30 PTT Comment - 08/30/20 06:30 D-Dimer 1.65 ug/ml (0.0-0.57) H* 09/09/20 04:45 Sample Site A line 09/09/20 04:30 ABG pH 7.390 (7.35-7.45) 09/09/20 04:30 ABG pCO2 71.0 mmHg (35.0-45.0) H* 09/09/20 04:30 ABG pO2 62.0 mmHg (80.0-100.0) L 09/09/20 04:30 ABG HCO3 43.0 mmol/L (22-26) H* 09/09/20 04:30 ABG O2 Saturation 91.0 % (90-100) 09/09/20 04:30 ABG Base Excess 14.8 mmol/L (-2.0-2.0) H 09/09/20 04:30 Juan Test Na 09/09/20 04:30 A-a Gradient 420.0 mmHg 09/09/20 04:30 FiO2 80.0 09/09/20 04:30 Blood Gas Comments [place] well sw 09/09/20 04:30 Sodium 139 mmol/L (136-145) 09/09/20 04:50 Corrected Sodium 143 mmol/L (136-145) 09/09/20 04:50 Potassium 3.5 mmol/L (3.5-5.1) 09/09/20 04:50 Chloride 98 mmol/L (98-107) 09/09/20 04:50 Carbon Dioxide 38.6 mmol/L (21-32) H 09/09/20 04:50 BUN 29 mg/dL (7-18) H 09/09/20 04:50 Creatinine 0.48 mg/dL (0.55-1.02) L 09/09/20 04:50 Est GFR (MDRD) Af Amer > 60 (>60) 09/09/20 04:50 Est GFR (MDRD) Non-Af > 60 (>60) 09/09/20 04:50 Glucose 271 mg/dL (65-99) H 09/09/20 04:50 POC Glucose (mg/dL) 242 mg/dL (65-99) H 09/09/20 06:37 Lactic Acid 1.0 mmol/L (0.4-2.0) 08/18/20 11:40 Calcium 7.8 mg/dL (8.5-10.1) L 09/09/20 04:50 Corrected Calcium 8.6 mg/dL (8.5-10.1) 09/09/20 04:50 Phosphorus 2.5 mg/dL (2.6-4.7) L 09/09/20 04:50 Magnesium 2.6 mg/dL (1.7-2.9) 09/09/20 04:50 Ferritin 347 ng/mL (8-252) H 09/04/20 05:23 Total Bilirubin 0.80 mg/dL (0.2-1.0) 09/09/20 04:50 AST 28 Units/L (15-37) 09/09/20 04:50 ALT 22 Units/L (12-78) 09/09/20 04:50 Alkaline Phosphatase 90 Units/L (46-116) 09/09/20 04:50 Creatine Kinase 83 Units/L (26-192) 08/18/20 19:07 CK-MB (CK-2) 1.0 ng/mL (0-4.0) 08/18/20 19:07 CK/CKMB % Calc 1.2 % (<4) 08/18/20 19:07 Troponin I < 0.02 ng/mL (0-1.5) 08/18/20 19:07 C-Reactive Protein 52.30 mg/L (0-3.0) H 09/09/20 04:50 B-Natriuretic Peptide 224 pg/mL (0-79) H 09/09/20 04:50 Total Protein 5.5 g/dL (6.4-8.2) L 09/09/20 04:50 Albumin 3.0 g/dL (3.4-5.0) L 09/09/20 04:50 Globulin 2.5 g/dL (2.5-4.5) 09/09/20 04:50 Albumin/Globulin Ratio 1.2 Ratio (1.1-2.1) 09/09/20 04:50 Prealbumin 33.1 mg/dL (18-35.7) 09/09/20 04:50 Triglycerides 498 mg/dL (0-150) H 09/09/20 04:50 Amylase 50 Units/L (25-115) 08/18/20 11:40 Lipase 137 Units/L (73-393) 08/18/20 11:40 Specimen Type Catherized urine 08/18/20 23:07 Urine Color Dark yellow (YELLOW) 08/18/20 23:07 Urine Appearance Clear (CLEAR) 08/18/20 23:07 Urine pH 7.0 (5.0 - 8.0) 08/18/20 23:07 Ur Specific [place] 1.010 (1.000-1.030) 08/18/20 23:07 Urine Protein 2+ (NEGATIVE) 08/18/20 23:07 Urine Glucose (UA) Negative (NEGATIVE) 08/18/20 23:07 Urine Ketones 1+ (NEGATIVE) 08/18/20 23:07 Urine Occult Blood Negative (NEGATIVE) 08/18/20 23:07 Urine Nitrite Negative (NEGATIVE) 08/18/20 23:07 Urine Bilirubin Negative (NEGATIVE) 08/18/20 23:07 Urine Urobilinogen 1+ (NORMAL) 08/18/20 23:07 Ur Leukocyte Esterase Negative (NEGATIVE) 08/18/20 23:07 Urine RBC None seen /HPF (0-3) 08/18/20 23:07 Urine WBC None seen /HPF (0-5) 08/18/20 23:07 Ur Squamous Epith Cells Rare /HPF (NEGATIVE) 08/18/20 23:07 Urine Bacteria Negative /HPF (NEGATIVE) 08/18/20 23:07 Ur Culture Indicated? No/not indicated 08/18/20 23:07 Theophylline < 2.0 ug/mL (10-20) L 09/06/20 04:10 Influenza Type A (PCR) Negative (NEGATIVE) 08/18/20 12:46 Influenza Type B (PCR) Negative (NEGATIVE) 08/18/20 12:46 SARS CoV-2 RNA Rapid LUIS Positive (NEGATIVE) A 08/18/20 18:12 Miscellaneous Test Resp panel 09/02/20 10:12 Blood Type B POSITIVE 09/04/20 10:26 Antibody Screen Negative 09/04/20 10:26 Crossmatch See Detail 09/04/20 10:26 - Plan (1) Pneumonia due to 2019 novel coronavirus Status: Acute Plan: LEVAQUIN 750MG IV HS, FORTAZ 1G IV Q8H, AMINOPHYLLINE DRIP, ASCORBIC ACID 1500MG IV Q6H, ALBUTEROL NEBS QID, MUCOMYST IN NEBS BID, SOLU-MEDROL 125 MG IV Q6H, PROTONIX 40MG IV DAILY, PEPCID 20MG IV BID, CATAPRES 0.5MG/HR TD PATCH, APRESOLINE 10MG IV Q4H PRN, THIAMINE 200MG IV BID, ZOFRAN 4MG IV Q4H PRN, DIFLUCAN 100MG IV DAILY, LOVENOX 30MG SC BID, TPN, ENSURE TID, LIPIDS, POTASSIUM AND MAGNESIUM PROTOCOLS, AN ATIVAN DRIP FOR SEDATION. (2) Hypoxia Status: Acute (3) Anemia Status: Acute Qualifiers: Anemia type: iron deficiency Iron deficiency anemia type: unspecified iron deficiency Qualified Code(s): D50.9 - Iron deficiency anemia, unspecified Plan: CONTINUE TO MONITOR
[2020-09-09] MEDS ORDERED: DOPAMINE IV PREMIX 400 MG/250 ML 400 MG/250 ML BAG IV PRN (18:59)
[2020-09-09] MEDS ORDERED: DOPAMINE IV PREMIX 400 MG/250 ML 400 MG/250 ML BAG IV ONE (19:00)
[2020-09-09 19:10] LABS: ABG BASE EXCESS 11.7 mmol/L (-2.0-2.0)
[2020-09-09 19:25] LABS: LYMPHOCYTES # (AUTO) 0.1 X10^3/uL (1.3-2.9); MONOCYTES # (AUTO) 0.1 x10^3/uL (0.3-0.8)
[2020-09-09 19:58] LABS: BASOPHILS % (AUTO) 0.1 % (0.2-1.0); EOSINOPHILS % (AUTO) 0.3 % (0.9-2.9); HEMATOCRIT 23.5 % (36.0-47.0); HEMOGLOBIN 8.1 g/dL (12.0-16.0); LYMPHOCYTES % (AUTO) 1.3 % (21.0-51.0); MEAN CORPUSCULAR HEMOGLOBIN 30.3 pg (27.0-34.0); MEAN CORPUSCULAR HGB CONC 34.5 g/dL (33.0-35.0); MEAN CORPUSCULAR VOLUME 87.9 fL (80.0-100.0); MEAN PLATELET VOLUME 8.9 fL (7.4-11.0); MONOCYTES % (AUTO) 0.7 % (0.0-13.0); NEUTROPHILS # (AUTO) 8.6 x10^3/uL (2.2-4.8); NEUTROPHILS % (AUTO) 97.6 % (42.0-75.0); PLATELET COUNT 87 X10^3/uL (150.0-450.0); RED BLOOD COUNT 2.67 X10^6/uL (3.5-5.4); WHITE BLOOD COUNT 8.8 X10^3/uL (3.6-10.0)
[2020-09-09 20:37] LABS: BAND NEUTROPHILS % 37 % (0-10); PLATELET MORPHOLOGY COMMENT NORMAL (NORMAL)
[2020-09-09] MEDS: LEVAQUIN PREMIX IV 750 MG 750 MG/150 ML BAG IV SCH (20:45)
[2020-09-09] MEDS: COLACE SYRUP 100 MG UDC PO SCH (20:45)
[2020-09-09] MEDS ORDERED: LANOXIN INJ IVP ONE (22:09)
[2020-09-09] MEDS ORDERED: LANOXIN INJ ONE (22:09)
[2020-09-09] MEDS: LIPOSYN III 20% 250ML 250 ML IV SCH (23:30)
[2020-09-10] MEDS: HUMULIN R IV SCH ×14 (01:19→19:00)
[2020-09-10] MEDS: [UNRECOGNIZED DRUG - OTHER] IV SCH ×14 (01:19→19:00)
[2020-09-10] MEDS: TRACE ELEMENTS IV SCH ×14 (01:19→19:00)
[2020-09-10] MEDS: CLINIMIX IV SCH ×14 (01:19→19:00)
[2020-09-10] MEDS: DIPRIVAN PREMIX 1 GRAM IV 1,000 MG/100 ML VIAL IV PRN ×3 (01:20→22:45)
[2020-09-10 05:07] LABS: ABG BASE EXCESS 14.8 mmol/L (-2.0-2.0)
[2020-09-10 05:08] LABS: ABG HCO3 42.5 mmol/L (22-26)
[2020-09-10 05:35] LABS: BASOPHILS % (AUTO) 0.2 % (0.2-1.0); EOSINOPHILS % (AUTO) 0.1 % (0.9-2.9); HEMATOCRIT 33.2 % (36.0-47.0); HEMOGLOBIN 11.1 g/dL (12.0-16.0); LYMPHOCYTES # (AUTO) 0.1 X10^3/uL (1.3-2.9); LYMPHOCYTES % (AUTO) 1.3 % (21.0-51.0); MEAN CORPUSCULAR HEMOGLOBIN 29.7 pg (27.0-34.0); MEAN CORPUSCULAR HGB CONC 33.4 g/dL (33.0-35.0); MEAN CORPUSCULAR VOLUME 88.8 fL (80.0-100.0); MEAN PLATELET VOLUME 9.5 fL (7.4-11.0); MONOCYTES # (AUTO) 0.1 x10^3/uL (0.3-0.8); MONOCYTES % (AUTO) 1.5 % (0.0-13.0); NEUTROPHILS # (AUTO) 8.4 x10^3/uL (2.2-4.8); NEUTROPHILS % (AUTO) 96.9 % (42.0-75.0); PLATELET COUNT 83 X10^3/uL (150.0-450.0); RED BLOOD COUNT 3.73 X10^6/uL (3.5-5.4); RED CELL DISTRIBUTION WIDTH 14.4 % (11.6-16.5); WHITE BLOOD COUNT 8.7 X10^3/uL (3.6-10.0)
[2020-09-10] MEDS: SOLU-Medrol 125 MG VIAL IVP SCH ×4 (05:55→22:00)
[2020-09-10 05:56] LABS: ALANINE AMINOTRANSFERASE 17 Units/L (12-78); ALBUMIN 2.4 g/dL (3.4-5.0); ALKALINE PHOSPHATASE 95 Units/L (46-116); ASPARTATE AMINO TRANSFERASE 23 Units/L (15-37); BLOOD UREA NITROGEN 25 mg/dL (7-18); CALCIUM 8.3 mg/dL (8.5-10.1); CHLORIDE 103 mmol/L (98-107); COR CA(FOR HYPOALB) 9.6 mg/dL (8.5-10.1); COR NA(FOR HYPERGLY) 144 mmol/L (136-145); CREATININE 0.45 mg/dL (0.55-1.02); SODIUM 142 mmol/L (136-145); TOTAL PROTEIN 5.3 g/dL (6.4-8.2); eGFR NON BLACK RACES > 60 (>60)
[2020-09-10 06:29] LABS: PLATELET MORPHOLOGY COMMENT NORMAL (NORMAL)
[2020-09-10] MEDS: ZOSYN VIAL 3.375 GRAMS 3.375 G in NS 100 ML IV + SPIKE MINIBAG* 100 ML IV SCH ×3 (06:31→22:45)
--- NOTE | 2020-09-10 07:50 | RAD ---
HISTORYSOBSTUDYCHEST, 1 VIEWCOMPARISONJanuary 2020TECHNIQUEPortable chest x-rayFINDINGSNo significant change in the pattern of diffuse bilateral alveolar opacities/infiltrates associated with pneumonia. Lines and support tubes are unchanged in position. No evolving pleural fluid collections, free air or pneumothorax.IMPRESSIONNo significant overall change in the pattern of diffuse bilateral alveolar opacities/infiltrates associated with pneumonia.Lines and support tubes are adequately positioned.Electronically signed by: MILES TALAVERA (Sep 10, 2020 07:50:14)
[2020-09-10] MEDS ORDERED: DOPAMINE IV PREMIX 400 MG/250 ML 400 MG/250 ML BAG IV PRN (08:01)
[2020-09-10] MEDS: PROVENTIL NEB TX 0.083% 2.5MG/ 3ML NEB SCH ×3 (09:04→21:06)
[2020-09-10] MEDS: PULMICORT NEB TX 0.5 MG NEB SCH ×2 (09:04→21:06)
[2020-09-10 10:46] LABS: BILIRUBIN,URINE NEGATIVE (NEGATIVE); BLOOD/HEMOGLOBIN,URINE 5+ (NEGATIVE); GLUCOSE, URINE 2+ (NEGATIVE); KETONES,URINE NEGATIVE (NEGATIVE); LEUKOCYTE ESTERASE ,URINE 2+ (NEGATIVE); NITRITES,URINE NEGATIVE (NEGATIVE); PROTEIN,URINE 3+ (NEGATIVE); UROBILINOGEN,URINE NORMAL (NORMAL)
[2020-09-10] MEDS: [UNRECOGNIZED DRUG - OTHER] NG SCH ×4 (10:48→21:30)
[2020-09-10] MEDS: PROTONIX INJ 40 MG VIAL IVP SCH (10:49)
[2020-09-10] MEDS: LOVENOX INJ 30 MG SYR SC SCH ×2 (10:49→20:30)
[2020-09-10] MEDS: LACRI-LUBE S.O.P. AFFEYE SCH ×2 (10:49→20:30)
[2020-09-10] MEDS: VANCOMYCIN IV *PREMIX 1 G/200 ML BAG 1 G/200 ML PIGGYBACK IV SCH ×2 (10:49→22:00)
[2020-09-10] MEDS: MILK OF MAGNESIA PO SCH ×2 (10:50→22:40)
[2020-09-10] MEDS: SYNTHROID INJ 100 mcg VIAL IVP SCH (10:51)
[2020-09-10 11:08] LABS: APPEARANCE,URINE CLOUDY (CLEAR); COLOR,URINE RED (YELLOW)
[2020-09-10 11:09] LABS: BACTERIA,URINE NEGATIVE /HPF (NEGATIVE); RBC,URINE TNTC /HPF (0-3); SQUAMOUS EPITHELIAL CELL,UR RARE /HPF (NEGATIVE)
[2020-09-10] MEDS: ALBUMIN HUMAN 25%- 100 ML 100 ML IV SCH (11:45)
[2020-09-10] MEDS: PEPCID 20 MG IV PREMIX* 20 MG/50 ML BAG IV SCH ×2 (11:45→20:30)
[2020-09-10] MEDS ORDERED: LEVOPHED INJ 8 MG in D5W 250 ML IV 242 ML IV PRN ×2 (12:35→12:49)
[2020-09-10] MEDS: NS 500 ML IV 500 ML IV SCH (15:10)
[2020-09-10] MEDS: HumuLIN R SUBCUT PRN ×2 (15:28→22:00)
[2020-09-10] MEDS ORDERED: LANOXIN INJ IVP ONE (17:27)
[2020-09-10] MEDS ORDERED: LANOXIN INJ ONE (17:39)
[2020-09-10] MEDS ORDERED: LOPRESSOR INJ 5 MG AMP IVP ONE (18:01)
[2020-09-10] MEDS ORDERED: PHARMACY COMMENT IV NR (20:30)
[2020-09-10] MEDS: LEVAQUIN PREMIX IV 750 MG 750 MG/150 ML BAG IV SCH (21:30)
[2020-09-10 21:38] LABS: CREATININE 0.48 mg/dL (0.55-1.02); VANCOMYCIN,TROUGH 8.9 ug/mL (15-20)
[2020-09-10] MEDS: COLACE SYRUP 100 MG UDC PO SCH (22:39)
[2020-09-10] MEDS: LIPOSYN III 20% 250ML 250 ML IV SCH (23:58)
[2020-09-11 05:53] LABS: ALANINE AMINOTRANSFERASE 18 Units/L (12-78); ALBUMIN 2.1 g/dL (3.4-5.0); ALKALINE PHOSPHATASE 85 Units/L (46-116); ASPARTATE AMINO TRANSFERASE 17 Units/L (15-37); BLOOD UREA NITROGEN 28 mg/dL (7-18); CALCIUM 8.2 mg/dL (8.5-10.1); CARBON DIOXIDE 37.9 mmol/L (21-32); CHLORIDE 106 mmol/L (98-107); COR CA(FOR HYPOALB) 9.7 mg/dL (8.5-10.1); COR NA(FOR HYPERGLY) 148 mmol/L (136-145); CREATININE 0.49 mg/dL (0.55-1.02); MAGNESIUM 2.3 mg/dL (1.7-2.9); SODIUM 144 mmol/L (136-145); eGFR NON BLACK RACES > 60 (>60)
[2020-09-11] MEDS: SOLU-Medrol 125 MG VIAL IVP SCH ×4 (05:55→23:00)
[2020-09-11] MEDS: ZOSYN VIAL 3.375 GRAMS 3.375 G in NS 100 ML IV + SPIKE MINIBAG* 100 ML IV SCH ×3 (05:56→21:56)
[2020-09-11] MEDS: HumuLIN R SUBCUT PRN ×3 (05:56→21:57)
[2020-09-11] MEDS: DIPRIVAN PREMIX 1 GRAM IV 1,000 MG/100 ML VIAL IV PRN ×3 (06:07→20:30)
[2020-09-11 06:22] LABS: ABG BASE EXCESS 15.9 mmol/L (-2.0-2.0)
[2020-09-11 06:24] LABS: ABG HCO3 40.2 mmol/L (22-26)
--- NOTE | 2020-09-11 06:27 | RAD ---
HISTORYShortness of breath, follow-up lung infiltratesSTUDYChest AP [id number]/28/2021FINDINGSPatient is rotated to the right. There is an endotracheal tube in good position. There is a nasogastric tube in good position. There is a right-sided IJ line in good position. Heart size is normal. Diffuse bilateral perihilar alveolar infiltrates are unchanged in deg ree or distribution from the prior examination. No pleural effusions are identified. Bony thorax is u nremarkable.IMPRESSIONNo change diffuse bilateral perihilar alveolar infiltratesElectronically signed by: BEN ONTIVEROS (Sep 11, 2020 06:26:32)
[2020-09-11 07:08] LABS: BASOPHILS # (AUTO) 0.1 X10^3/uL (0.0-0.1); BASOPHILS % (AUTO) 0.8 % (0.2-1.0); EOSINOPHILS % (AUTO) 0.1 % (0.9-2.9); HEMATOCRIT 20.5 % (36.0-47.0); HEMOGLOBIN 7.1 g/dL (12.0-16.0); LYMPHOCYTES # (AUTO) 0.1 X10^3/uL (1.3-2.9); LYMPHOCYTES % (AUTO) 1.2 % (21.0-51.0); MEAN CORPUSCULAR HEMOGLOBIN 30.2 pg (27.0-34.0); MEAN CORPUSCULAR HGB CONC 34.4 g/dL (33.0-35.0); MEAN CORPUSCULAR VOLUME 87.8 fL (80.0-100.0); MEAN PLATELET VOLUME 9.3 fL (7.4-11.0); MONOCYTES # (AUTO) 0.3 x10^3/uL (0.3-0.8); MONOCYTES % (AUTO) 3.5 % (0.0-13.0); NEUTROPHILS # (AUTO) 8.8 x10^3/uL (2.2-4.8); NEUTROPHILS % (AUTO) 94.4 % (42.0-75.0); PLATELET COUNT 102 X10^3/uL (150.0-450.0); RED BLOOD COUNT 2.34 X10^6/uL (3.5-5.4); WHITE BLOOD COUNT 9.4 X10^3/uL (3.6-10.0)
[2020-09-11 07:53] LABS: BAND NEUTROPHILS % 18 % (0-10); PLATELET MORPHOLOGY COMMENT NORMAL (NORMAL)
[2020-09-11] MEDS: TRACE ELEMENTS IV SCH ×7 (08:00)
[2020-09-11] MEDS: CLINIMIX IV SCH ×7 (08:00)
[2020-09-11] MEDS: HUMULIN R IV SCH ×7 (08:00)
[2020-09-11] MEDS: [UNRECOGNIZED DRUG - OTHER] IV SCH ×7 (08:00)
[2020-09-11] MEDS: LOVENOX INJ 30 MG SYR SC SCH ×2 (09:09→20:40)
[2020-09-11] MEDS: [UNRECOGNIZED DRUG - OTHER] NG SCH ×4 (09:10→20:38)
[2020-09-11] MEDS: PEPCID 20 MG IV PREMIX* 20 MG/50 ML BAG IV SCH ×2 (09:11→20:41)
[2020-09-11] MEDS: ALBUMIN HUMAN 25%- 100 ML 100 ML IV SCH (09:11)
[2020-09-11] MEDS: LACRI-LUBE S.O.P. AFFEYE SCH ×2 (09:11→20:38)
[2020-09-11] MEDS: PROTONIX INJ 40 MG VIAL IVP SCH (09:12)
[2020-09-11] MEDS: VANCOMYCIN IV *PREMIX 1 G/200 ML BAG 1 G/200 ML PIGGYBACK IV SCH ×2 (09:13→20:40)
[2020-09-11] MEDS: SYNTHROID INJ 100 mcg VIAL IVP SCH (09:13)
[2020-09-11] MEDS: PROVENTIL NEB TX 0.083% 2.5MG/ 3ML NEB SCH ×4 (09:14→21:59)
[2020-09-11] MEDS: PULMICORT NEB TX 0.5 MG NEB SCH ×2 (09:14→21:59)
[2020-09-11] MEDS: LASIX IVP SCH ×2 (12:28→20:38)
[2020-09-11] MEDS: DIFLUCAN 200 MG IV PREMIX* 200 MG/100 ML BAG IV SCH (12:28)
[2020-09-11] MEDS: NS 500 ML IV 500 ML IV SCH (12:30)
[2020-09-11] MEDS: MILK OF MAGNESIA PO SCH ×2 (14:02→20:41)
[2020-09-11] MEDS: CATAPRES-TTS-2 TD SCH (14:03)
[2020-09-11] MEDS ORDERED: BENADRYL INJ 50 MG VIAL IVP ONE ×2 (16:10)
[2020-09-11] MEDS ORDERED: NS 250 ML IV 250 ML IV ONE ×2 (18:20→18:32)
[2020-09-11] MEDS ORDERED: BENADRYL INJ 50 MG VIAL ONE (18:20)
[2020-09-11] MEDS ORDERED: TYLENOL ELIXIR 325 MG UDC PO PRN (18:25)
[2020-09-11] MEDS: COLACE SYRUP 100 MG UDC PO SCH (20:37)
[2020-09-11] MEDS: LIPOSYN III 20% 250ML 250 ML IV SCH (20:39)
[2020-09-11] MEDS: LEVAQUIN PREMIX IV 750 MG 750 MG/150 ML BAG IV SCH (20:39)
[2020-09-12] MEDS: TRACE ELEMENTS IV SCH ×13 (03:00→12:33)
[2020-09-12] MEDS: CLINIMIX IV SCH ×13 (03:00→12:33)
[2020-09-12] MEDS: [UNRECOGNIZED DRUG - OTHER] IV SCH ×7 (03:00)
[2020-09-12] MEDS: HUMULIN R IV SCH ×13 (03:00→12:33)
[2020-09-12] MEDS: SOLU-Medrol 125 MG VIAL IVP SCH ×4 (05:00→21:45)
--- NOTE | 2020-09-12 05:48 | RAD ---
PROCEDURE: Chest X-ray 1 View .HISTORY: SOB, COVID PNEUMONIA .TECHNIQUE: AP portable upright view done at 5:28 a.m..COMPARISON: 09/11/2020.TECHNICAL QUALITY: Satisfactory .FINDINGS:Patient is rotated to the right.Endotracheal tube tip 5 cm above the berenice. NG tube tip off the bottom of the exam either in the stomach or duodenum. Right internal jugular central venous line tip projected over the superior cavoatrial junction.Unremarkable cardio mediastinal silhouette.Normal central vascularity.Unchanged bilateral pneumonia greatest on the left with no pleural fluid or pneumothorax.IMPRESSION:Unchanged bilateral pneumonia.Electronically signed by: Pasha Werner (Sep 12, 2020 05:46:58)
[2020-09-12 05:57] LABS: ABG BASE EXCESS 16.6 mmol/L (-2.0-2.0)
[2020-09-12 05:58] LABS: ABG ALLEN TEST POS; ABG HCO3 43.4 mmol/L (22-26)
[2020-09-12] MEDS: ZOSYN VIAL 3.375 GRAMS 3.375 G in NS 100 ML IV + SPIKE MINIBAG* 100 ML IV SCH ×3 (06:55→22:08)
[2020-09-12 07:00] LABS: BASOPHILS % (AUTO) 0.5 % (0.2-1.0); EOSINOPHILS % (AUTO) 0.1 % (0.9-2.9); HEMATOCRIT 23.2 % (36.0-47.0); HEMOGLOBIN 7.9 g/dL (12.0-16.0); LYMPHOCYTES # (AUTO) 0.1 X10^3/uL (1.3-2.9); LYMPHOCYTES % (AUTO) 1.4 % (21.0-51.0); MEAN CORPUSCULAR HEMOGLOBIN 29.3 pg (27.0-34.0); MEAN CORPUSCULAR HGB CONC 33.9 g/dL (33.0-35.0); MEAN CORPUSCULAR VOLUME 86.6 fL (80.0-100.0); MEAN PLATELET VOLUME 9.2 fL (7.4-11.0); MONOCYTES # (AUTO) 0.4 x10^3/uL (0.3-0.8); NEUTROPHILS # (AUTO) 6.9 x10^3/uL (2.2-4.8); PLATELET COUNT 120 X10^3/uL (150.0-450.0); RED BLOOD COUNT 2.67 X10^6/uL (3.5-5.4); RED CELL DISTRIBUTION WIDTH 15.1 % (11.6-16.5); WHITE BLOOD COUNT 7.4 X10^3/uL (3.6-10.0)
[2020-09-12 07:17] LABS: ALANINE AMINOTRANSFERASE 20 Units/L (12-78); ALBUMIN 2.4 g/dL (3.4-5.0); ALKALINE PHOSPHATASE 83 Units/L (46-116); ASPARTATE AMINO TRANSFERASE 15 Units/L (15-37); BLOOD UREA NITROGEN 39 mg/dL (7-18); CALCIUM 8.4 mg/dL (8.5-10.1); CARBON DIOXIDE 36.3 mmol/L (21-32); CHLORIDE 99 mmol/L (98-107); COR CA(FOR HYPOALB) 9.7 mg/dL (8.5-10.1); COR NA(FOR HYPERGLY) 146 mmol/L (136-145); CREATININE 0.58 mg/dL (0.55-1.02); SODIUM 141 mmol/L (136-145); TOTAL PROTEIN 5.2 g/dL (6.4-8.2); eGFR NON BLACK RACES > 60 (>60)
[2020-09-12 07:57] LABS: BAND NEUTROPHILS % 22 % (0-10); PLATELET MORPHOLOGY COMMENT NORMAL (NORMAL)
[2020-09-12] MEDS: PEPCID 20 MG IV PREMIX* 20 MG/50 ML BAG IV SCH ×2 (08:04→21:42)
[2020-09-12] MEDS: [UNRECOGNIZED DRUG - OTHER] NG SCH (08:30)
[2020-09-12] MEDS: PROVENTIL NEB TX 0.083% 2.5MG/ 3ML NEB SCH ×4 (08:50→21:21)
[2020-09-12] MEDS: PULMICORT NEB TX 0.5 MG NEB SCH ×2 (08:50→21:21)
[2020-09-12] MEDS: LACRI-LUBE S.O.P. AFFEYE SCH ×2 (09:00→21:40)
[2020-09-12] MEDS: ALBUMIN HUMAN 25%- 100 ML 100 ML IV SCH (09:00)
[2020-09-12] MEDS: DIFLUCAN 200 MG IV PREMIX* 200 MG/100 ML BAG IV SCH (09:00)
[2020-09-12] MEDS: SYNTHROID INJ 100 mcg VIAL IVP SCH (09:00)
[2020-09-12] MEDS: PROTONIX INJ 40 MG VIAL IVP SCH (09:30)
[2020-09-12 09:39] LABS: CREATININE 0.65 mg/dL (0.55-1.02)
[2020-09-12] MEDS: VANCOMYCIN IV *PREMIX 1 G/200 ML BAG 1 G/200 ML PIGGYBACK IV SCH ×2 (10:00→22:07)
[2020-09-12] MEDS ORDERED: K-RIDER 10 MEQ/NS 100 ML 10 MEQ/100 ML BAG IV ONE ×2 (10:26→13:30)
[2020-09-12] MEDS ORDERED: DIPRIVAN VIAL 20 ML ONE (11:30)
[2020-09-12] MEDS ORDERED: VERSED IV PREMIX 100 MG/100 ML IV.SOLN IV ONE (11:31)
[2020-09-12] MEDS ORDERED: DIPRIVAN VIAL IVP ONE (11:36)
[2020-09-12] MEDS: VERSED IV PREMIX 100 MG/100 ML IV.SOLN IV PRN (11:37)
--- NOTE | 2020-09-12 11:39 | RAD ---
HISTORYcovid pneumoniaSTUDYPortable AP chestCOMPARISON5:28 a.m. 09/12/2020FINDINGSThere is no significant change in appearance of heart or lungs. Diffuse confluent bilateral airspace disease is again noted, left greater than right. ET tube terminates 3 cm above berenice. NG tube tip is noted at or just below the GE junction. No pneumothorax seen.IMPRESSIONStable appearance of extensive bilateral pneumonia. Suboptimal position of NG tube.Electronically signed by: KATHY STEVENS (Sep 12, 2020 11:37:26)
[2020-09-12] MEDS: LOVENOX INJ 30 MG SYR SC SCH (12:04)
[2020-09-12] MEDS: MILK OF MAGNESIA PO SCH (12:05)
--- NOTE | 2020-09-12 12:05 | RAD ---
HISTORYET tube replacement, pneumoniaSTUDYPortable AP [id number] a.m, 09/12/2020FINDINGSThere is no change in appearance of heart, lungs or mediastinum since earlier today. Bilateral infiltrates persist. ET tube is in mid trachea, the tip 2.7 cm above berenice. NG tube terminates at or just below the GE junction.IMPRESSIONNo significant change. ET position as noted. Suboptimal position of enteric tube.Electronically signed by: KATHY STEVENS (Sep 12, 2020 12:04:19)
--- NOTE | 2020-09-12 12:31 | PCM.PROG ---
Progress Note Progress Note for Day of Date of Exam: 09/12/20 Subjective Subjective: IS BEING TREATED FOR PNEUMONIA DUE TO COVID-19 AND HYPOXIA. THIS MORNING SHE IS STILL ON MECHANICAL VENTILATION WITH HER SETTINGS BEING: SIMV, VENT RATE 20, TIDAL VOLUME 450, PEEP 15, PRESSURE SUPPORT 8, FI02 60%. HER SATURATIONS HAVE BEEN IN THE 90'S% WITH FI02 60%. ON EXAMINATION, SHE IS LYING IN BED. HEART IS REGULAR IN RATE AND RHYTHM. BILATERAL LUNGS ARE NOTED WITH DIMINISHED LUNG SOUNDS THROUGHOUT. ABDOMEN IS ROUND, SOFT, AND NON-TENDER WITH NORMAL BOWEL SOUNDS NOTED IN ALL QUADRANTS. 1+ PITTING EDEMA NOTED TO UPPER EXTREMITIES. THERE IS A CARPIO CATHETER NOTED TO BEDSIDE DRAINAGE. SHE DOES HAVE AN ART LINE, CENTRAL LINE, AND NG TUBE IN PLACE. HER VITALS THIS MORNING ARE: 98.6-69-18-96%-156/70. LABS/IMAGING: WBC 7.4, HGB 7.9, PLT 120, NA 146, K 3.1, CREATININE 0.58, GLUCOSE 314, CRP 52>82, BNP 691, ABG WAS OBTAINED THIS MORNING AND REVEALED: PH 7.46, PC02 61, P02 77, HC03 43, 02 SAT 96, FI02 60%. A CHEST XRAY WAS OBTAINED AND REVEALED: Stable appearance of extensive bilateral pneumonia. Suboptimal position of NG tube. PT RECEIVED 1 UNIT OF PRBC OVERNIGHT, HEMOGLOBIN RESPONDED APPROPRIATELY. SHE IS SCHEDULED TO RECEIVE ANOTHER UNIT TODAY. SHE IS ON ANTIBIOTICS ZOSYN, VANCOMYCIN, AND DIFLUCAN. URINE AND SPUTUM CULTURE POSITIVE FOR YEAST. SHE IS RECEIVING ENSURE FEEDINGS WELL TPN. OTHERWISE, WE WILL CONTINUE WITH IV ANTIBIOTICS, RESPIRATORY THERAPY, SUPPLEMENTAL OXYGEN, STEROID THERAPY, AND CURRENT PLAN OF CARE. FOLLOW UP WITH AM LABS, CHEST XRAY, ABG, AND CONTINUE TO MONITOR. CRITICAL CARE TIME SPENT ON CLINICAL ASSESSMENT, REVIEWING LABS AND IMAGING, DECISION MAKING, AND DOCUMENTATION GREATER THAN 75 MINUTES. Past Medical Family Social History Past Med/Fam/Surg Hx: No changes since H&P Allergies: Allergies No Known Drug Allergies Allergy (Verified 08/27/19 22:19) Review of Systems ROS: No change since H&P Vital Signs and I&O's Vital Signs: Temperature 98.5 F Pulse Rate [Left] 78 Pulse Rate [Bilateral Radial] 92 Pulse Rate 69 Respiratory Rate 18 Blood Pressure [Right Radial 167/56 Artery] Blood Pressure [Left Arm] 179/76 Blood Pressure 156/70 O2 Sat by Pulse Oximetry 100 Intake and Output: Intake & Output 09/09/20 09/10/20 09/11/20 09/12/20 23:59 23:59 23:59 23:59 Intake Total 7349 / 7349 5321 / 5321 6028 / 6028 2168 / 2168 Output Total 3525 / 3525 5400 / 5400 4700 / 4700 1200 / 1200 Balance 3824 / 3824 -79 / -79 1328 / 1328 968 / 968 Physical Exam Oriented: Unable to test Eyes: Normal Ear: Normal Nose: Normal Throat: Normal Respiratory: Generalized, Diminished and Rales Cardiovascular: Normal : Normal Auscultation: Bowel Sounds: Normal Tenderness: Normal Skin: Normal Musculoskeletal: Normal Psychiatric: Other (SEDATED ) Mood Description: Calm Affect: Normal Speech Pattern: Artificially Ventilated Laboratory and Diagnostics Result Diagrams: 09/12/20 05:19 09/12/20 08:47 Labs: 09/10/20 10:37 Blood Blood Culture - Preliminary 09/10/20 08:45 Blood Blood Culture - Preliminary 09/10/20 10:21 Sputum - Expectorated Sputum Sputum Culture - Final 09/10/20 10:21 Sputum - Expectorated Sputum - Final 09/10/20 08:48 Urine,Clean Catch Urine Culture - Final 09/02/20 10:58 Sputum - Endotracheal Wash Sputum Culture - Final 09/02/20 10:58 Sputum - Endotracheal Wash - Final 08/18/20 11:40 Blood Blood Culture - Final 08/18/20 12:00 Blood Blood Culture - Final Laboratory WBC 7.4 X10^3/uL (3.6-10.0) 09/12/20 05:19 RBC 2.67 X10^6/uL (3.5-5.4) L 09/12/20 05:19 Hgb 7.9 g/dL (12.0-16.0) L 09/12/20 05:19 Hct 23.2 % (36.0-47.0) L 09/12/20 05:19 MCV 86.6 fL (80.0-100.0) 09/12/20 05:19 MCH 29.3 pg (27.0-34.0) 09/12/20 05:19 MCHC 33.9 g/dL (33.0-35.0) 09/12/20 05:19 RDW 15.1 % (11.6-16.5) 09/12/20 05:19 Plt Count 120 X10^3/uL (150.0-450.0) L 09/12/20 05:19 Plt Count Comment Decreased (ADEQUATE) A 09/12/20 05:19 MPV 9.2 fL (7.4-11.0) 09/12/20 05:19 Neut % (Auto) 93.0 % (42.0-75.0) H 09/12/20 05:19 Lymph % (Auto) 1.4 % (21.0-51.0) L 09/12/20 05:19 [place] % (Auto) 5.0 % (0.0-13.0) 09/12/20 05:19 Eos % (Auto) 0.1 % (0.9-2.9) L 09/12/20 05:19 Baso % (Auto) 0.5 % (0.2-1.0) 09/12/20 05:19 Neut # (Auto) 6.9 x10^3/uL (2.2-4.8) H 09/12/20 05:19 Lymph # (Auto) 0.1 X10^3/uL (1.3-2.9) L 09/12/20 05:19 [place] # (Auto) 0.4 x10^3/uL (0.3-0.8) 09/12/20 05:19 Eos # (Auto) 0.0 x10^3/uL (0.0-0.2) 09/12/20 05:19 Baso # (Auto) 0.0 X10^3/uL (0.0-0.1) 09/12/20 05:19 Absolute Nucleated RBC 0.0 /100WBC 09/12/20 05:19 Total Counted 100 09/12/20 05:19 Neutrophils % (Manual) 63 % (39-76) 09/12/20 05:19 Band Neutrophils % 22 % (0-10) H 09/12/20 05:19 Lymphocytes % (Manual) 7 % (13-43) L 09/12/20 05:19 Monocytes % (Manual) 8 % (4-9) 09/12/20 05:19 Eosinophils % (Manual) 1 % (0-6) 08/31/20 05:50 Metamyelocytes % 1 09/09/20 04:50 Plt Morphology Comment Normal (NORMAL) 09/12/20 05:19 RBC Morphology Normal (NORMAL) 09/12/20 05:19 PT 17.9 SECONDS (11.8-14.3) 08/22/20 17:00 INR Target Range - 08/22/20 17:00 INR 1.53 (0.8-1.3) H 08/22/20 17:00 APTT 22.8 SECONDS (22.9-36.5) L 08/30/20 06:30 PTT Comment - 08/30/20 06:30 D-Dimer 2.72 ug/ml (0.0-0.57) H* 09/12/20 05:19 Sample Site [place] 09/12/20 05:50 ABG pH 7.460 (7.35-7.45) H 09/12/20 05:50 ABG pCO2 61.0 mmHg (35.0-45.0) H* 09/12/20 05:50 ABG pO2 77.0 mmHg (80.0-100.0) L 09/12/20 05:50 ABG HCO3 43.4 mmol/L (22-26) H* 09/12/20 05:50 ABG O2 Saturation 96.0 % (90-100) 09/12/20 05:50 ABG Base Excess 16.6 mmol/L (-2.0-2.0) H 09/12/20 05:50 Juan Test Pos 09/12/20 05:50 A-a Gradient 275.0 mmHg 09/12/20 05:50 FiO2 60.0 09/12/20 05:50 Blood Gas Comments [place] well, mf 09/12/20 05:50 Sodium 141 mmol/L (136-145) 09/12/20 05:10 Corrected Sodium 146 mmol/L (136-145) H 09/12/20 05:10 Potassium 3.1 mmol/L (3.5-5.1) L 09/12/20 05:10 Chloride 99 mmol/L (98-107) 09/12/20 05:10 Carbon Dioxide 36.3 mmol/L (21-32) H 09/12/20 05:10 BUN 39 mg/dL (7-18) H 09/12/20 05:10 Creatinine 0.65 mg/dL (0.55-1.02) 09/12/20 08:47 Est GFR (MDRD) Af Amer > 60 (>60) 09/12/20 05:10 Est GFR (MDRD) Non-Af > 60 (>60) 09/12/20 05:10 Glucose 314 mg/dL (65-99) H 09/12/20 05:10 POC Glucose (mg/dL) 225 mg/dL (65-99) H 09/11/20 20:25 Lactic Acid 0.8 mmol/L (0.4-2.0) 09/10/20 08:45 Calcium 8.4 mg/dL (8.5-10.1) L 09/12/20 05:10 Corrected Calcium 9.7 mg/dL (8.5-10.1) 09/12/20 05:10 Phosphorus 2.5 mg/dL (2.6-4.7) L 09/09/20 04:50 Magnesium 2.3 mg/dL (1.7-2.9) 09/11/20 05:05 Ferritin 347 ng/mL (8-252) H 09/04/20 05:23 Total Bilirubin 0.50 mg/dL (0.2-1.0) 09/12/20 05:10 AST 15 Units/L (15-37) 09/12/20 05:10 ALT 20 Units/L (12-78) 09/12/20 05:10 Alkaline Phosphatase 83 Units/L (46-116) 09/12/20 05:10 Creatine Kinase 83 Units/L (26-192) 08/18/20 19:07 CK-MB (CK-2) 1.0 ng/mL (0-4.0) 08/18/20 19:07 CK/CKMB % Calc 1.2 % (<4) 08/18/20 19:07 Troponin I < 0.02 ng/mL (0-1.5) 08/18/20 19:07 C-Reactive Protein 82.00 mg/L (0-3.0) H 09/12/20 05:10 B-Natriuretic Peptide 691 pg/mL (0-79) H* 09/12/20 05:10 Total Protein 5.2 g/dL (6.4-8.2) L 09/12/20 05:10 Albumin 2.4 g/dL (3.4-5.0) L 09/12/20 05:10 Globulin 2.8 g/dL (2.5-4.5) 09/12/20 05:10 Albumin/Globulin Ratio 0.9 Ratio (1.1-2.1) L 09/12/20 05:10 Prealbumin 33.1 mg/dL (18-35.7) 09/09/20 04:50 Triglycerides 498 mg/dL (0-150) H 09/09/20 04:50 Amylase 50 Units/L (25-115) 08/18/20 11:40 Lipase 137 Units/L (73-393) 08/18/20 11:40 Specimen Type Catherized urine 09/10/20 10:21 Urine Color Red (YELLOW) 09/10/20 10:21 Urine Appearance Cloudy (CLEAR) 09/10/20 10:21 Urine pH 7.0 (5.0 - 8.0) 09/10/20 10:21 Ur Specific [place] 1.010 (1.000-1.030) 09/10/20 10:21 Urine Protein 3+ (NEGATIVE) 09/10/20 10:21 Urine Glucose (UA) 2+ (NEGATIVE) 09/10/20 10:21 Urine Ketones Negative (NEGATIVE) 09/10/20 10:21 Urine Occult Blood 5+ (NEGATIVE) 09/10/20 10:21 Urine Nitrite Negative (NEGATIVE) 09/10/20 10:21 Urine Bilirubin Negative (NEGATIVE) 09/10/20 10:21 Urine Urobilinogen Normal (NORMAL) 09/10/20 10:21 Ur Leukocyte Esterase 2+ (NEGATIVE) 09/10/20 10:21 Urine RBC Tntc /HPF (0-3) A 09/10/20 10:21 Urine WBC 0-2 /HPF (0-5) 09/10/20 10:21 Ur Squamous Epith Cells Rare /HPF (NEGATIVE) 09/10/20 10:21 Urine Bacteria Negative /HPF (NEGATIVE) 09/10/20 10:21 Ur Culture Indicated? No/not indicated 09/10/20 10:21 Vancomycin Trough 14.0 ug/mL (15-20) L 09/12/20 08:47 Theophylline < 2.0 ug/mL (10-20) L 09/06/20 04:10 Influenza Type A (PCR) Negative (NEGATIVE) 08/18/20 12:46 Influenza Type B (PCR) Negative (NEGATIVE) 08/18/20 12:46 SARS CoV-2 RNA Rapid LUIS Positive (NEGATIVE) A 08/18/20 18:12 Miscellaneous Test Resp panel 09/02/20 10:12 Blood Type B POSITIVE 09/11/20 06:34 Antibody Screen Negative 09/11/20 06:34 Crossmatch See Detail 09/11/20 06:34 Plan (1) Pneumonia due to 2019 novel coronavirus: Status: Acute Plan: LEVAQUIN 750MG IV HS, FORTAZ 1G IV Q8H, AMINOPHYLLINE DRIP, ASCORBIC ACID 1500MG IV Q6H, ALBUTEROL NEBS QID, MUCOMYST IN NEBS BID, SOLU-MEDROL 125 MG IV Q6H, PROTONIX 40MG IV DAILY, PEPCID 20MG IV BID, CATAPRES 0.5MG/HR TD PATCH, APRESOLINE 10MG IV Q4H PRN, THIAMINE 200MG IV BID, ZOFRAN 4MG IV Q4H PRN, DIF LUCAN 100MG IV DAILY, LOVENOX 30MG SC BID, TPN, ENSURE TID, LIPIDS, POTASSIUM AND MAGNESIUM PROTOCOLS, AN ATIVAN DRIP FOR SEDATION. (2) Hypoxia: Status: Acute (3) Anemia: Status: Acute Qualifiers: Anemia type: iron deficiency Iron deficiency anemia type: unspecified iron deficiency Qualified Code(s): D50.9 - Iron deficiency anemia, unspecified Plan: CONTINUE TO MONITOR
[2020-09-12] MEDS: [UNRECOGNIZED DRUG - OTHER] IV SCH ×6 (12:33)
[2020-09-12] MEDS: HumuLIN R SUBCUT PRN ×2 (14:27→21:40)
[2020-09-12] MEDS: DIPRIVAN PREMIX 1 GRAM IV 1,000 MG/100 ML VIAL IV PRN ×2 (17:20→23:50)
[2020-09-12] MEDS: NS 500 ML IV 500 ML IV SCH (17:26)
[2020-09-12] MEDS: LEVAQUIN PREMIX IV 750 MG 750 MG/150 ML BAG IV SCH (23:15)
[2020-09-12] MEDS: LIPOSYN III 20% 250ML 250 ML IV SCH (23:15)
[2020-09-13] MEDS ORDERED: SALINE 3% 15 ML NEB TX ONE (00:35)
[2020-09-13] MEDS: COLACE SYRUP 100 MG UDC PO SCH (01:16)
[2020-09-13] MEDS: LOVENOX INJ 30 MG SYR SC SCH ×2 (01:17→10:29)
[2020-09-13] MEDS: MILK OF MAGNESIA PO SCH ×2 (01:17→09:06)
[2020-09-13] MEDS ORDERED: NS 100 ML IV 100 ML IV ONE (02:06)
[2020-09-13] MEDS: DIPRIVAN PREMIX 1 GRAM IV 1,000 MG/100 ML VIAL IV PRN ×2 (03:00→20:43)
[2020-09-13] MEDS: [UNRECOGNIZED DRUG - OTHER] IV SCH ×6 (03:12)
[2020-09-13] MEDS: TRACE ELEMENTS IV SCH ×12 (03:12→11:53)
[2020-09-13] MEDS: CLINIMIX IV SCH ×12 (03:12→11:53)
[2020-09-13] MEDS: HUMULIN R IV SCH ×12 (03:12→11:53)
[2020-09-13] MEDS: ZOSYN VIAL 3.375 GRAMS 3.375 G in NS 100 ML IV + SPIKE MINIBAG* 100 ML IV SCH ×3 (05:10→21:00)
[2020-09-13] MEDS: SOLU-Medrol 125 MG VIAL IVP SCH ×4 (05:10→22:27)
[2020-09-13] MEDS: HumuLIN R SUBCUT PRN ×2 (06:18→14:17)
[2020-09-13 06:29] LABS: ABG BASE EXCESS 11.5 mmol/L (-2.0-2.0)
[2020-09-13 06:30] LABS: ABG HCO3 37.5 mmol/L (22-26)
--- NOTE | 2020-09-13 07:39 | RAD ---
HISTORYSOB pneumoniaSTUDYPortable AP [id number] normal heart size and contour. Diffuse bilateral airspace disease is unchanged in the left lung and minimally improved in the right base. ET tube tip is in mid trachea. Right IJ line extends to the cavoatrial junction. NG tube tip is poorly identified but may be in the distal esophagus.IMPRESSIONPersistent bilateral pneumonia with minimal improvement right lower lung. NG tube may be in the distal esophagus, see above.Electronically signed by: KATHY STEVENS (Sep 13, 2020 07:37:27)
[2020-09-13 07:48] LABS: BASOPHILS % (AUTO) 0.3 % (0.2-1.0); EOSINOPHILS % (AUTO) 0.3 % (0.9-2.9); HEMATOCRIT 32.4 % (36.0-47.0); HEMOGLOBIN 11.2 g/dL (12.0-16.0); LYMPHOCYTES # (AUTO) 0.2 X10^3/uL (1.3-2.9); LYMPHOCYTES % (AUTO) 1.8 % (21.0-51.0); MEAN CORPUSCULAR HEMOGLOBIN 29.5 pg (27.0-34.0); MEAN CORPUSCULAR HGB CONC 34.7 g/dL (33.0-35.0); MEAN CORPUSCULAR VOLUME 85.1 fL (80.0-100.0); MONOCYTES # (AUTO) 0.4 x10^3/uL (0.3-0.8); MONOCYTES % (AUTO) 4.3 % (0.0-13.0); NEUTROPHILS % (AUTO) 93.3 % (42.0-75.0); PLATELET COUNT 131 X10^3/uL (150.0-450.0); RED CELL DISTRIBUTION WIDTH 14.3 % (11.6-16.5); WHITE BLOOD COUNT 9.7 X10^3/uL (3.6-10.0)
[2020-09-13 07:54] LABS: ALANINE AMINOTRANSFERASE 21 Units/L (12-78); ALBUMIN 2.3 g/dL (3.4-5.0); ALKALINE PHOSPHATASE 80 Units/L (46-116); ASPARTATE AMINO TRANSFERASE 18 Units/L (15-37); BLOOD UREA NITROGEN 39 mg/dL (7-18); CALCIUM 8.6 mg/dL (8.5-10.1); CARBON DIOXIDE 33.4 mmol/L (21-32); CHLORIDE 101 mmol/L (98-107); COR NA(FOR HYPERGLY) 145 mmol/L (136-145); CREATININE 0.54 mg/dL (0.55-1.02); SODIUM 142 mmol/L (136-145); TOTAL PROTEIN 5.4 g/dL (6.4-8.2); eGFR NON BLACK RACES > 60 (>60)
[2020-09-13] MEDS: DIFLUCAN 200 MG IV PREMIX* 200 MG/100 ML BAG IV SCH (09:04)
[2020-09-13] MEDS: VANCOMYCIN IV *PREMIX 1 G/200 ML BAG 1 G/200 ML PIGGYBACK IV SCH ×2 (09:05→20:06)
[2020-09-13] MEDS: SYNTHROID INJ 100 mcg VIAL IVP SCH (09:05)
[2020-09-13] MEDS: LACRI-LUBE S.O.P. AFFEYE SCH ×2 (09:05→20:00)
[2020-09-13] MEDS: PROTONIX INJ 40 MG VIAL IVP SCH (09:05)
[2020-09-13] MEDS: PEPCID 20 MG IV PREMIX* 20 MG/50 ML BAG IV SCH ×2 (09:06→20:00)
[2020-09-13 09:10] LABS: BAND NEUTROPHILS % 8 % (0-10)
[2020-09-13 09:11] LABS: PLATELET MORPHOLOGY COMMENT NORMAL (NORMAL)
[2020-09-13] MEDS: PULMICORT NEB TX 0.5 MG NEB SCH ×2 (09:40→21:18)
[2020-09-13] MEDS: PROVENTIL NEB TX 0.083% 2.5MG/ 3ML NEB SCH ×4 (09:40→21:18)
--- NOTE | 2020-09-13 10:51 | PCM.PROG ---
Progress Note Progress Note for Day of Date of Exam: 09/13/20 Subjective Subjective: PT IS A 60 YEAR OLD FEMALE BEING TREATED FOR PNEUMONIA DUE TO COVID- 19 AND HYPOXIA. SHE IS CURRENTLY ON MECHANICAL VENTILATION WITH SETTINGS: AC, VENT RATE 20, TIDAL VOLUME 425, PEEP 7, PRESSURE SUPPORT 8, FI02 75%. HER SATURATIONS HAVE BEEN IN THE 90'S% WITH FI02 75%. NO ACUTE EVENTS OVERNIGHT. ON EXAMINATION, SHE IS LYING IN BED. HEART IS REGULAR IN RATE AND RHYTHM. BILATERAL LUNGS ARE NOTED WITH DIMINISHED LUNG SOUNDS THROUGHOUT. ABDOMEN IS ROUND, SOFT, AND NON-TENDER WITH NORMAL BOWEL SOUNDS NOTED IN ALL QUADRANTS. 1+ PITTING EDEMA NOTED TO UPPER EXTREMITIES. THERE IS A CARPIO CATHETER NOTED TO BEDSIDE DRAINAGE. PT HAS ART LINE, CENTRAL LINE, AND NG TUBE IN PLACE. HER VITALS THIS MORNING ARE: 98.6-52-21-99%-146/65. LABS/IMAGING: WBC 9.7, HGB 11.2, PLT 131, NA 142, K 3.9, CREATININE 0.54, GLUCOSE 229, CRP 82>53, ABG WAS OBTAINED THIS MORNING AND REVEALED: PH 7.45, PC02 54, P02 51, HC03 37, 02 SAT 87, FI02 75%. A CHEST XRAY WAS OBTAINED AND REVEALED: Persistent bilateral pneumonia with minimal improvement right lower lung. NG tube may be in the distal esophagus, see above. SHE IS ON ANTIBIOTICS ZOSYN, VANCOMYCIN, AND DIFLUCAN. URINE AND SPUTUM CULTURE POSITIVE FOR YEAST. SHE IS RECEIVING ENSURE FEEDINGS WELL TPN. OTHERWISE, WE WILL CONTINUE WITH IV ANTIBIOTICS, RESPIRATORY THERAPY, SUPPLEMENTAL OXYGEN, STEROID THERAPY, AND CURRENT PLAN OF CARE. WILL HAVE NGT ADVANCED DUE TO LOCATION ON CXR. FOLLOW UP WITH AM LABS, CHEST XRAY, ABG, AND CONTINUE TO MONITOR. CRITICAL CARE TIME SPENT ON CLINICAL ASSESSMENT, REVIEWING LABS AND IMAGING, DECISION MAKING, AND DOCUMENTATION GREATER THAN 75 MINUTES. Past Medical Family Social History Past Med/Fam/Surg Hx: No changes since H&P Allergies: Allergies No Known Drug Allergies Allergy (Verified 08/27/19 22:19) Review of Systems ROS: No change since H&P Vital Signs and I&O's Vital Signs: Temperature 97.0 F Pulse Rate [Left] 64 Pulse Rate [Bilateral Radial] 92 Pulse Rate 52 Respiratory Rate 21 Blood Pressure [Right Radial 167/56 Artery] Blood Pressure [Left Arm] 157/71 Blood Pressure 146/65 O2 Sat by Pulse Oximetry 99 Intake and Output: Intake & Output 09/10/20 09/11/20 09/12/20 09/13/20 23:59 23:59 23:59 23:59 Intake Total 5321 / 5321 6028 / 6028 5391 / 5391 1068 / 1068 Output Total 5400 / 5400 4700 / 4700 2750 / 2750 225 / 225 Balance -79 / -79 1328 / 1328 2641 / 2641 843 / 843 Physical Exam Oriented: Unable to test Eyes: Normal Ear: Normal Nose: Normal Throat: Normal Respiratory: Generalized, Diminished and Rales Cardiovascular: Normal : Normal Auscultation: Bowel Sounds: Normal Tenderness: Normal Skin: Normal Musculoskeletal: Normal Psychiatric: Other (SEDATED ) Mood Description: Calm Affect: Normal Speech Pattern: Artificially Ventilated Laboratory and Diagnostics Result Diagrams: 09/13/20 06:48 09/13/20 06:48 Labs: 09/10/20 10:37 Blood Blood Culture - Final Staphylococcus Epidermidis 09/10/20 08:45 Blood Blood Culture - Final Enterococcus Faecalis 09/10/20 10:21 Sputum - Expectorated Sputum Sputum Culture - Final 09/10/20 10:21 Sputum - Expectorated Sputum - Final 09/10/20 08:48 Urine,Clean Catch Urine Culture - Final 09/02/20 10:58 Sputum - Endotracheal Wash Sputum Culture - Final 09/02/20 10:58 Sputum - Endotracheal Wash - Final 08/18/20 11:40 Blood Blood Culture - Final 08/18/20 12:00 Blood Blood Culture - Final Laboratory WBC 9.7 X10^3/uL (3.6-10.0) 09/13/20 06:48 RBC 3.80 X10^6/uL (3.5-5.4) 09/13/20 06:48 Hgb 11.2 g/dL (12.0-16.0) L D 09/13/20 06:48 Hct 32.4 % (36.0-47.0) L 09/13/20 06:48 MCV 85.1 fL (80.0-100.0) 09/13/20 06:48 MCH 29.5 pg (27.0-34.0) 09/13/20 06:48 MCHC 34.7 g/dL (33.0-35.0) 09/13/20 06:48 RDW 14.3 % (11.6-16.5) 09/13/20 06:48 Plt Count 131 X10^3/uL (150.0-450.0) L 09/13/20 06:48 Plt Count Comment Decreased (ADEQUATE) A 09/13/20 06:48 MPV 9.0 fL (7.4-11.0) 09/13/20 06:48 Neut % (Auto) 93.3 % (42.0-75.0) H 09/13/20 06:48 Lymph % (Auto) 1.8 % (21.0-51.0) L 09/13/20 06:48 [place] % (Auto) 4.3 % (0.0-13.0) 09/13/20 06:48 Eos % (Auto) 0.3 % (0.9-2.9) L 09/13/20 06:48 Baso % (Auto) 0.3 % (0.2-1.0) 09/13/20 06:48 Neut # (Auto) 9.0 x10^3/uL (2.2-4.8) H 09/13/20 06:48 Lymph # (Auto) 0.2 X10^3/uL (1.3-2.9) L 09/13/20 06:48 [place] # (Auto) 0.4 x10^3/uL (0.3-0.8) 09/13/20 06:48 Eos # (Auto) 0.0 x10^3/uL (0.0-0.2) 09/13/20 06:48 Baso # (Auto) 0.0 X10^3/uL (0.0-0.1) 09/13/20 06:48 Absolute Nucleated RBC 0.1 /100WBC 09/13/20 06:48 Total Counted 100 09/13/20 06:48 Neutrophils % (Manual) 67 % (39-76) 09/13/20 06:48 Band Neutrophils % 8 % (0-10) 09/13/20 06:48 Lymphocytes % (Manual) 15 % (13-43) 09/13/20 06:48 Monocytes % (Manual) 10 % (4-9) H 09/13/20 06:48 Eosinophils % (Manual) 1 % (0-6) 08/31/20 05:50 Metamyelocytes % 1 09/09/20 04:50 Plt Morphology Comment Normal (NORMAL) 09/13/20 06:48 RBC Morphology Normal (NORMAL) 09/13/20 06:48 PT 17.9 SECONDS (11.8-14.3) 08/22/20 17:00 INR Target Range - 08/22/20 17:00 INR 1.53 (0.8-1.3) H 08/22/20 17:00 APTT 22.8 SECONDS (22.9-36.5) L 08/30/20 06:30 PTT Comment - 08/30/20 06:30 D-Dimer 2.94 ug/ml (0.0-0.57) H* 09/13/20 06:48 Sample Site [place] 09/13/20 06:22 ABG pH 7.450 (7.35-7.45) 09/13/20 06:22 ABG pCO2 54.0 mmHg (35.0-45.0) H* 09/13/20 06:22 ABG pO2 51.0 mmHg (80.0-100.0) L 09/13/20 06:22 ABG HCO3 37.5 mmol/L (22-26) H* 09/13/20 06:22 ABG O2 Saturation 87.0 % (90-100) L 09/13/20 06:22 ABG Base Excess 11.5 mmol/L (-2.0-2.0) H 09/13/20 06:22 Juan Test Na 09/13/20 06:22 A-a Gradient 416.0 mmHg 09/13/20 06:22 FiO2 75.0 09/13/20 06:22 Blood Gas Comments [place] well 09/13/20 06:22 Sodium 142 mmol/L (136-145) 09/13/20 06:48 Corrected Sodium 145 mmol/L (136-145) 09/13/20 06:48 Potassium 3.9 mmol/L (3.5-5.1) 09/13/20 06:48 Chloride 101 mmol/L (98-107) 09/13/20 06:48 Carbon Dioxide 33.4 mmol/L (21-32) H 09/13/20 06:48 BUN 39 mg/dL (7-18) H 09/13/20 06:48 Creatinine 0.54 mg/dL (0.55-1.02) L 09/13/20 06:48 Est GFR (MDRD) Af Amer > 60 (>60) 09/13/20 06:48 Est GFR (MDRD) Non-Af > 60 (>60) 09/13/20 06:48 Glucose 229 mg/dL (65-99) H 09/13/20 06:48 POC Glucose (mg/dL) 213 mg/dL (65-99) H 09/13/20 06:07 Lactic Acid 0.8 mmol/L (0.4-2.0) 09/10/20 08:45 Calcium 8.6 mg/dL (8.5-10.1) 09/13/20 06:48 Corrected Calcium 10.0 mg/dL (8.5-10.1) 09/13/20 06:48 Phosphorus 2.5 mg/dL (2.6-4.7) L 09/09/20 04:50 Magnesium 2.3 mg/dL (1.7-2.9) 09/11/20 05:05 Ferritin 347 ng/mL (8-252) H 09/04/20 05:23 Total Bilirubin 0.60 mg/dL (0.2-1.0) 09/13/20 06:48 AST 18 Units/L (15-37) 09/13/20 06:48 ALT 21 Units/L (12-78) 09/13/20 06:48 Alkaline Phosphatase 80 Units/L (46-116) 09/13/20 06:48 Creatine Kinase 83 Units/L (26-192) 08/18/20 19:07 CK-MB (CK-2) 1.0 ng/mL (0-4.0) 08/18/20 19:07 CK/CKMB % Calc 1.2 % (<4) 08/18/20 19:07 Troponin I < 0.02 ng/mL (0-1.5) 08/18/20 19:07 C-Reactive Protein 53.60 mg/L (0-3.0) H 09/13/20 06:48 B-Natriuretic Peptide 645 pg/mL (0-79) H* 09/13/20 06:48 Total Protein 5.4 g/dL (6.4-8.2) L 09/13/20 06:48 Albumin 2.3 g/dL (3.4-5.0) L 09/13/20 06:48 Globulin 3.1 g/dL (2.5-4.5) 09/13/20 06:48 Albumin/Globulin Ratio 0.7 Ratio (1.1-2.1) L 09/13/20 06:48 Prealbumin 33.1 mg/dL (18-35.7) 09/09/20 04:50 Triglycerides 498 mg/dL (0-150) H 09/09/20 04:50 Amylase 50 Units/L (25-115) 08/18/20 11:40 Lipase 137 Units/L (73-393) 08/18/20 11:40 Specimen Type Catherized urine 09/10/20 10:21 Urine Color Red (YELLOW) 09/10/20 10:21 Urine Appearance Cloudy (CLEAR) 09/10/20 10:21 Urine pH 7.0 (5.0 - 8.0) 09/10/20 10:21 Ur Specific [place] 1.010 (1.000-1.030) 09/10/20 10:21 Urine Protein 3+ (NEGATIVE) 09/10/20 10:21 Urine Glucose (UA) 2+ (NEGATIVE) 09/10/20 10:21 Urine Ketones Negative (NEGATIVE) 09/10/20 10:21 Urine Occult Blood 5+ (NEGATIVE) 09/10/20 10:21 Urine Nitrite Negative (NEGATIVE) 09/10/20 10:21 Urine Bilirubin Negative (NEGATIVE) 09/10/20 10:21 Urine Urobilinogen Normal (NORMAL) 09/10/20 10:21 Ur Leukocyte Esterase 2+ (NEGATIVE) 09/10/20 10:21 Urine RBC Tntc /HPF (0-3) A 09/10/20 10:21 Urine WBC 0-2 /HPF (0-5) 09/10/20 10:21 Ur Squamous Epith Cells Rare /HPF (NEGATIVE) 09/10/20 10:21 Urine Bacteria Negative /HPF (NEGATIVE) 09/10/20 10:21 Ur Culture Indicated? No/not indicated 09/10/20 10:21 Vancomycin Trough 14.0 ug/mL (15-20) L 09/12/20 08:47 Theophylline < 2.0 ug/mL (10-20) L 09/06/20 04:10 Influenza Type A (PCR) Negative (NEGATIVE) 08/18/20 12:46 Influenza Type B (PCR) Negative (NEGATIVE) 08/18/20 12:46 SARS CoV-2 RNA Rapid LUIS Positive (NEGATIVE) A 08/18/20 18:12 Miscellaneous Test Resp panel 09/02/20 10:12 Blood Type B POSITIVE 09/11/20 06:34 Antibody Screen Negative 09/11/20 06:34 Crossmatch See Detail 09/11/20 06:34 Plan (1) Pneumonia due to 2019 novel coronavirus: Status: Acute Plan: LEVAQUIN 750MG IV HS, FORTAZ 1G IV Q8H, AMINOPHYLLINE DRIP, ASCORBIC ACID 1500MG IV Q6H, ALBUTEROL NEBS QID, MUCOMYST IN NEBS BID, SOLU-MEDROL 125 MG IV Q6H, PROTONIX 40MG IV DAILY, PEPCID 20MG IV BID, CATAPRES 0.5MG/HR TD PATCH, APRESOLINE 10MG IV Q4H PRN, THIAMINE 200MG IV BID, ZOFRAN 4MG IV Q4H PRN, DIFLUCAN 100MG IV DAILY, LOVENOX 30MG SC BID, TPN, ENSURE TID, LIPIDS, POTASSIUM AND MAGNESIUM PROTOCOLS, AN ATIVAN DRIP FOR SEDATION. (2) Hypoxia: Status: Acute (3) Anemia: Status: Acute Qualifiers: Anemia type: iron deficiency Iron deficiency anemia type: unspecified iron deficiency Qualified Code(s): D50.9 - Iron deficiency anemia, unspecified Plan: CONTINUE TO MONITOR
[2020-09-13] MEDS: ALBUMIN HUMAN 25%- 100 ML 100 ML IV SCH (11:52)
[2020-09-13] MEDS: [UNRECOGNIZED DRUG - OTHER] IV SCH ×6 (11:53)
[2020-09-13] MEDS: NS 500 ML IV 500 ML IV SCH ×2 (18:58→22:27)
[2020-09-13] MEDS: VERSED IV PREMIX 100 MG/100 ML IV.SOLN IV PRN (19:40)
[2020-09-13] MEDS: LIPOSYN III 20% 250ML 250 ML IV SCH (21:05)
[2020-09-13] MEDS ORDERED: SALINE 0.9% 3 ML NEB TX ONE (23:26)
[2020-09-13] MEDS: LEVAQUIN PREMIX IV 750 MG 750 MG/150 ML BAG IV SCH (23:45)
[2020-09-14] MEDS: COLACE SYRUP 100 MG UDC PO SCH ×2 (00:21→21:50)
[2020-09-14] MEDS: LOVENOX INJ 30 MG SYR SC SCH ×3 (00:23→21:54)
[2020-09-14] MEDS: MILK OF MAGNESIA PO SCH ×3 (00:23→21:52)
[2020-09-14] MEDS: DIPRIVAN PREMIX 1 GRAM IV 1,000 MG/100 ML VIAL IV PRN ×6 (01:25→22:07)
[2020-09-14] MEDS ORDERED: MORPHINE SULFATE INJ 2 MG INJ ONE (02:12)
[2020-09-14] MEDS: MORPHINE SULFATE INJ 2 MG INJ IVP PRN ×2 (02:18→10:56)
[2020-09-14] MEDS: HUMULIN R IV SCH ×18 (03:23→11:20)
[2020-09-14] MEDS: CLINIMIX IV SCH ×18 (03:23→11:20)
[2020-09-14] MEDS: TRACE ELEMENTS IV SCH ×18 (03:23→11:20)
[2020-09-14] MEDS: [UNRECOGNIZED DRUG - OTHER] IV SCH ×18 (03:23→11:20)
[2020-09-14 05:14] LABS: ABG BASE EXCESS 10.7 mmol/L (-2.0-2.0); ABG HCO3 35.7 mmol/L (22-26)
--- NOTE | 2020-09-14 05:56 | RAD ---
PROCEDURE: Chest X-ray 1 View .HISTORY: Short of breath.TECHNIQUE: AP view .COMPARISON: 09/13/2020.TECHNICAL QUALITY: Satisfactory .FINDINGS:Endotracheal tube tip 3 cm above the berenice. Right internal jugular central venous line tip projected over the right atrium. NG tube tip off the bottom of the exam probably in the stomach.Unremarkable cardiomediastinal silhouette.Normal central vascularity.Continued moderate consolidation throughout both lung tarango with no pleural fluid or pneumothorax.IMPRESSION:Unchanged moderate pneumonia bilaterally.Electronically signed by: Pasha Werner (Sep 14, 2020 05:54:28)
[2020-09-14] MEDS: SOLU-Medrol 125 MG VIAL IVP SCH ×4 (06:24→23:05)
[2020-09-14] MEDS: HumuLIN R SUBCUT PRN ×2 (06:25→22:08)
[2020-09-14] MEDS: ZOSYN VIAL 3.375 GRAMS 3.375 G in NS 100 ML IV + SPIKE MINIBAG* 100 ML IV SCH ×3 (06:26→21:54)
[2020-09-14 07:10] LABS: BASOPHILS % (AUTO) 0.2 % (0.2-1.0); EOSINOPHILS % (AUTO) 0.1 % (0.9-2.9); HEMATOCRIT 31.1 % (36.0-47.0); HEMOGLOBIN 10.5 g/dL (12.0-16.0); LYMPHOCYTES # (AUTO) 0.2 X10^3/uL (1.3-2.9); LYMPHOCYTES % (AUTO) 1.4 % (21.0-51.0); MEAN CORPUSCULAR HEMOGLOBIN 29.3 pg (27.0-34.0); MEAN CORPUSCULAR HGB CONC 33.9 g/dL (33.0-35.0); MEAN CORPUSCULAR VOLUME 86.4 fL (80.0-100.0); MEAN PLATELET VOLUME 9.4 fL (7.4-11.0); MONOCYTES # (AUTO) 0.1 x10^3/uL (0.3-0.8); MONOCYTES % (AUTO) 1.1 % (0.0-13.0); NEUTROPHILS # (AUTO) 10.9 x10^3/uL (2.2-4.8); NEUTROPHILS % (AUTO) 97.2 % (42.0-75.0); PLATELET COUNT 171 X10^3/uL (150.0-450.0); RED CELL DISTRIBUTION WIDTH 14.3 % (11.6-16.5); WHITE BLOOD COUNT 11.3 X10^3/uL (3.6-10.0)
[2020-09-14 07:20] LABS: ALANINE AMINOTRANSFERASE 23 Units/L (12-78); ALBUMIN 2.2 g/dL (3.4-5.0); ALKALINE PHOSPHATASE 71 Units/L (46-116); BLOOD UREA NITROGEN 35 mg/dL (7-18); CALCIUM 8.3 mg/dL (8.5-10.1); CARBON DIOXIDE 30.7 mmol/L (21-32); CHLORIDE 101 mmol/L (98-107); COR CA(FOR HYPOALB) 9.7 mg/dL (8.5-10.1); COR NA(FOR HYPERGLY) 144 mmol/L (136-145); CREATININE 0.57 mg/dL (0.55-1.02); SODIUM 140 mmol/L (136-145); TOTAL PROTEIN 5.1 g/dL (6.4-8.2); eGFR NON BLACK RACES > 60 (>60)
[2020-09-14 07:34] LABS: ASPARTATE AMINO TRANSFERASE 22 Units/L (15-37)
[2020-09-14 08:06] LABS: BAND NEUTROPHILS % 14 % (0-10); METAMYELOCYTES % 3; MYELOCYTES % 1; PLATELET MORPHOLOGY COMMENT NORMAL (NORMAL)
--- NOTE | 2020-09-14 08:59 | PCM.PROG ---
Progress Note - Progress Note for Day of Date of Exam: 09/10/19 - Subjective Subjective: IS BEING TREATED FOR PNEUMONIA DUE TO COVID-19 AND HYPOXIA. SHE REMAINS ON THE MECHANICAL VENT. TODAY, HER SETTINGS ON THE VENT ARE: SIMV, VENT RATE 20, TIDAL VOLUME 450, PEEP 15, PRESSURE SUPPORT 8, FI02 80%. HER SATURATIONS HAVE BEEN 96-99% THIS MORNING AND THROUGHOUT THE NIGHT. ON EXAMINATION, SHE IS LYING IN BED WITH EYES CLOSED. HEART IS REGULAR IN RATE AND RHYTHM. BILATERAL LUNGS ARE NOTED WITH DIMINISHED LUNG SOUNDS THROUGHOUT. ABDOMEN IS ROUND, SOFT, AND NON-TENDER WITH NORMAL BOWEL SOUNDS NOTED IN ALL QUADRANTS. 1+ PITTING EDEMA NOTED TO UPPER EXTREMITIES. THERE IS A CARPIO CATHETER NOTED TO BEDSIDE DRAINAGE. URINE IS TEA COLORED. SHE ALSO HAS AN ART LINE, CENTRAL LINE, AND NG TUBE IN PLACE. HER VITALS THIS MORNING ARE: 99.3-86-27-97%-88/48. LABS WERE OBTAINED. ABNORMAL LAB VALUES INCLUDE THE FOLLOWING: HGB 11.1, HCT 33.2, PLT COUNT 83, D-DIMER 2.73, CARBON DIOXIDE 39.0, BUN 25, CREATININE 0.46, GLUCOSE 179, CALCIUM 8.3, CRP 348.90, BNP 404, TOTAL PROTEIN 5.3, ALBUMIN 2.4. ABG WAS OBTAINED THIS MORNING AND REVEALED: PH 7.410, PC02 67, P02 154, HC03 42.5, 02 SAT 99, BASE EXCESS 14.8, A-A GRADIENT 475, FI02 100. A CHEST XRAY WAS OBTAINED AND REVEALED: No significant overall change in the pattern of diffuse bilateral alveolar opacities/infiltrates associated with pneumonia. Lines and support tubes are adequately positioned. SHE HAS RECEIVED TWO UNITS OF PRBC SINCE ADMISSION. TODAY, WE WILL SET UP NEW BLOOD AND SPUTUM CULTURES. OTHERWISE, WE WILL CONTINUE WITH IV ANTIBIOTICS, RESPIRATORY THERAPY, SUPPLEMENTAL OXYGEN, STEROID THERAPY, AND CURRENT PLAN OF CARE. WE WILL FOLLOW UP WITH AM LABS, CHEST XRAY, ABG, AND CONTINUE TO MONITOR. CRITICAL CARE TIME SPENT ON CLINICAL ASSESSMENT, REVIEWING LABS AND IMAGING, DECISION MAKING, AND DOCUMENTATION GREATER THAN 75 MINUTES. - Past Medical Family Social History Past Med/Fam/Surg Hx: No changes since H&P Allergies: Allergies No Known Drug Allergies Allergy (Verified 08/27/19 22:19) - Review of Systems ROS: No change since H&P - Vital Signs and I&O's Vital Signs: Temperature 99.0 F Pulse Rate [Left] 64 Pulse Rate [Bilateral Radial] 92 Pulse Rate 75 Respiratory Rate 29 Blood Pressure [Right Radial 167/56 Artery] Blood Pressure [Left Arm] 157/71 Blood Pressure 147/67 O2 Sat by Pulse Oximetry 93 Intake and Output: Intake & Output 09/11/20 09/12/20 09/13/20 09/14/20 11:59 11:59 11:59 11:59 Intake Total 5357 / 5357 6970 / 6970 4291 / 4291 3269 / 3269 Output Total 4700 / 4700 4900 / 4900 1775 / 1775 1450 / 1450 Balance 657 / 657 2070 / 2070 2516 / 2516 1819 / 1819 - Physical Exam Oriented: Unable to test Eyes: Normal Ear: Normal Nose: Normal Throat: Normal Respiratory: Generalized, Diminished, Rales Cardiovascular: Normal : Normal Auscultation: Bowel Sounds: Normal Palpation: Normal Tenderness: Normal Skin: Normal Musculoskeletal: Normal Psychiatric: Other (SEDATED) Mood Description: Calm Affect: Normal Speech Pattern: Artificially Ventilated - Laboratory and Diagnostics Result Diagrams: 09/21/20 16:32 09/21/20 03:45 Labs: 09/10/20 10:37 Blood Blood Culture - Final Staphylococcus Epidermidis 09/10/20 08:45 Blood Blood Culture - Final Enterococcus Faecalis 09/10/20 10:21 Sputum - Expectorated Sputum Sputum Culture - Final 09/10/20 10:21 Sputum - Expectorated Sputum - Final 09/10/20 08:48 Urine,Clean Catch Urine Culture - Final 09/02/20 10:58 Sputum - Endotracheal Wash Sputum Culture - Final 09/02/20 10:58 Sputum - Endotracheal Wash - Final 08/18/20 11:40 Blood Blood Culture - Final 08/18/20 12:00 Blood Blood Culture - Final Laboratory WBC 11.3 X10^3/uL (3.6-10.0) H 09/14/20 06:00 RBC 3.60 X10^6/uL (3.5-5.4) 09/14/20 06:00 Hgb 10.5 g/dL (12.0-16.0) L 09/14/20 06:00 Hct 31.1 % (36.0-47.0) L 09/14/20 06:00 MCV 86.4 fL (80.0-100.0) 09/14/20 06:00 MCH 29.3 pg (27.0-34.0) 09/14/20 06:00 MCHC 33.9 g/dL (33.0-35.0) 09/14/20 06:00 RDW 14.3 % (11.6-16.5) 09/14/20 06:00 Plt Count 171 X10^3/uL (150.0-450.0) 09/14/20 06:00 Plt Count Comment Adequate (ADEQUATE) 09/14/20 06:00 MPV 9.4 fL (7.4-11.0) 09/14/20 06:00 Neut % (Auto) 97.2 % (42.0-75.0) H 09/14/20 06:00 Lymph % (Auto) 1.4 % (21.0-51.0) L 09/14/20 06:00 [place] % (Auto) 1.1 % (0.0-13.0) 09/14/20 06:00 Eos % (Auto) 0.1 % (0.9-2.9) L 09/14/20 06:00 Baso % (Auto) 0.2 % (0.2-1.0) 09/14/20 06:00 Neut # (Auto) 10.9 x10^3/uL (2.2-4.8) H 09/14/20 06:00 Lymph # (Auto) 0.2 X10^3/uL (1.3-2.9) L 09/14/20 06:00 [place] # (Auto) 0.1 x10^3/uL (0.3-0.8) L 09/14/20 06:00 Eos # (Auto) 0.0 x10^3/uL (0.0-0.2) 09/14/20 06:00 Baso # (Auto) 0.0 X10^3/uL (0.0-0.1) 09/14/20 06:00 Absolute Nucleated RBC 0.3 /100WBC 09/14/20 06:00 Total Counted 100 09/14/20 06:00 Neutrophils % (Manual) 73 % (39-76) 09/14/20 06:00 Band Neutrophils % 14 % (0-10) H 09/14/20 06:00 Lymphocytes % (Manual) 4 % (13-43) L 09/14/20 06:00 Monocytes % (Manual) 5 % (4-9) 09/14/20 06:00 Eosinophils % (Manual) 1 % (0-6) 08/31/20 05:50 Metamyelocytes % 3 09/14/20 06:00 Myelocytes % 1 09/14/20 06:00 Plt Morphology Comment Normal (NORMAL) 09/14/20 06:00 RBC Morphology Normal (NORMAL) 09/14/20 06:00 PT 17.9 SECONDS (11.8-14.3) 08/22/20 17:00 INR Target Range - 08/22/20 17:00 INR 1.53 (0.8-1.3) H 08/22/20 17:00 APTT 22.8 SECONDS (22.9-36.5) L 08/30/20 06:30 PTT Comment - 08/30/20 06:30 D-Dimer 3.29 ug/ml (0.0-0.57) H* 09/14/20 06:00 Sample Site A line 09/14/20 05:00 ABG pH 7.480 (7.35-7.45) H 09/14/20 05:00 ABG pCO2 48.0 mmHg (35.0-45.0) H 09/14/20 05:00 ABG pO2 65.0 mmHg (80.0-100.0) L 09/14/20 05:00 ABG HCO3 35.7 mmol/L (22-26) H* 09/14/20 05:00 ABG O2 Saturation 94.0 % (90-100) 09/14/20 05:00 ABG Base Excess 10.7 mmol/L (-2.0-2.0) H 09/14/20 05:00 Juan Test Na 09/14/20 05:00 A-a Gradient 410.0 mmHg 09/14/20 05:00 FiO2 75.0 09/14/20 05:00 Blood Gas Comments [place] well sw 09/14/20 05:00 Sodium 140 mmol/L (136-145) 09/14/20 06:00 Corrected Sodium 144 mmol/L (136-145) 09/14/20 06:00 Potassium 4.1 mmol/L (3.5-5.1) 09/14/20 06:00 Chloride 101 mmol/L (98-107) 09/14/20 06:00 Carbon Dioxide 30.7 mmol/L (21-32) 09/14/20 06:00 BUN 35 mg/dL (7-18) H 09/14/20 06:00 Creatinine 0.57 mg/dL (0.55-1.02) 09/14/20 06:00 Est GFR (MDRD) Af Amer > 60 (>60) 09/14/20 06:00 Est GFR (MDRD) Non-Af > 60 (>60) 09/14/20 06:00 Glucose 246 mg/dL (65-99) H 09/14/20 06:00 POC Glucose (mg/dL) 232 mg/dL (65-99) H 09/14/20 06:10 Lactic Acid 0.8 mmol/L (0.4-2.0) 09/10/20 08:45 Calcium 8.3 mg/dL (8.5-10.1) L 09/14/20 06:00 Corrected Calcium 9.7 mg/dL (8.5-10.1) 09/14/20 06:00 Phosphorus 2.5 mg/dL (2.6-4.7) L 09/09/20 04:50 Magnesium 2.3 mg/dL (1.7-2.9) 09/11/20 05:05 Ferritin 347 ng/mL (8-252) H 09/04/20 05:23 Total Bilirubin 0.60 mg/dL (0.2-1.0) 09/14/20 06:00 AST 22 Units/L (15-37) 09/14/20 06:00 ALT 23 Units/L (12-78) 09/14/20 06:00 Alkaline Phosphatase 71 Units/L (46-116) 09/14/20 06:00 Creatine Kinase 83 Units/L (26-192) 08/18/20 19:07 CK-MB (CK-2) 1.0 ng/mL (0-4.0) 08/18/20 19:07 CK/CKMB % Calc 1.2 % (<4) 08/18/20 19:07 Troponin I < 0.02 ng/mL (0-1.5) 08/18/20 19:07 C-Reactive Protein 57.10 mg/L (0-3.0) H 09/14/20 06:00 B-Natriuretic Peptide 1180 pg/mL (0-79) H* 09/14/20 06:00 Total Protein 5.1 g/dL (6.4-8.2) L 09/14/20 06:00 Albumin 2.2 g/dL (3.4-5.0) L 09/14/20 06:00 Globulin 2.9 g/dL (2.5-4.5) 09/14/20 06:00 Albumin/Globulin Ratio 0.8 Ratio (1.1-2.1) L 09/14/20 06:00 Prealbumin 33.1 mg/dL (18-35.7) 09/09/20 04:50 Triglycerides 498 mg/dL (0-150) H 09/09/20 04:50 Amylase 50 Units/L (25-115) 08/18/20 11:40 Lipase 137 Units/L (73-393) 08/18/20 11:40 Specimen Type Catherized urine 09/10/20 10:21 Urine Color Red (YELLOW) 09/10/20 10:21 Urine Appearance Cloudy (CLEAR) 09/10/20 10:21 Urine pH 7.0 (5.0 - 8.0) 09/10/20 10:21 Ur Specific [place] 1.010 (1.000-1.030) 09/10/20 10:21 Urine Protein 3+ (NEGATIVE) 09/10/20 10:21 Urine Glucose (UA) 2+ (NEGATIVE) 09/10/20 10:21 Urine Ketones Negative (NEGATIVE) 09/10/20 10:21 Urine Occult Blood 5+ (NEGATIVE) 09/10/20 10:21 Urine Nitrite Negative (NEGATIVE) 09/10/20 10:21 Urine Bilirubin Negative (NEGATIVE) 09/10/20 10:21 Urine Urobilinogen Normal (NORMAL) 09/10/20 10:21 Ur Leukocyte Esterase 2+ (NEGATIVE) 09/10/20 10:21 Urine RBC Tntc /HPF (0-3) A 09/10/20 10:21 Urine WBC 0-2 /HPF (0-5) 09/10/20 10:21 Ur Squamous Epith Cells Rare /HPF (NEGATIVE) 09/10/20 10:21 Urine Bacteria Negative /HPF (NEGATIVE) 09/10/20 10:21 Ur Culture Indicated? No/not indicated 09/10/20 10:21 Vancomycin Trough 14.0 ug/mL (15-20) L 09/12/20 08:47 Theophylline < 2.0 ug/mL (10-20) L 09/06/20 04:10 Influenza Type A (PCR) Negative (NEGATIVE) 08/18/20 12:46 Influenza Type B (PCR) Negative (NEGATIVE) 08/18/20 12:46 SARS CoV-2 RNA Rapid LUIS Positive (NEGATIVE) A 08/18/20 18:12 Miscellaneous Test Resp panel 09/02/20 10:12 Blood Type B POSITIVE 09/11/20 06:34 Antibody Screen Negative 09/11/20 06:34 Crossmatch See Detail 09/11/20 06:34 - Plan (1) Pneumonia due to 2019 novel coronavirus Status: Acute Plan: CONTINUE MECHANICAL VENT, CONTINUE IV ANTIBIOTICS, RESPIRATORY TX, CORTICOSTEROIDS, DVT PROPHYLASIX, BLOOD GLUCOSE CONTROL, TUBE FEEDINGS, POTASSIUM AND MAGNESIUM REPLACEMENT PER PROTOCOL, TPN, SEDATION (2) Hypoxia Status: Acute (3) Anemia Status: Acute Qualifiers: Anemia type: iron deficiency Iron deficiency anemia type: unspecified iron deficiency Qualified Code(s): D50.9 - Iron deficiency anemia, unspecified Plan: CONTINUE TO MONITOR
[2020-09-14] MEDS: PEPCID 20 MG IV PREMIX* 20 MG/50 ML BAG IV SCH ×2 (09:00→20:03)
[2020-09-14] MEDS: VANCOMYCIN IV *PREMIX 1 G/200 ML BAG 1 G/200 ML PIGGYBACK IV SCH ×2 (09:00→21:00)
[2020-09-14] MEDS: PROTONIX INJ 40 MG VIAL IVP SCH (09:00)
[2020-09-14] MEDS: DIFLUCAN 200 MG IV PREMIX* 200 MG/100 ML BAG IV SCH (09:00)
[2020-09-14] MEDS: LACRI-LUBE S.O.P. AFFEYE SCH ×2 (09:00→21:52)
[2020-09-14] MEDS: PULMICORT NEB TX 0.5 MG NEB SCH ×2 (09:35→20:20)
[2020-09-14] MEDS: PROVENTIL NEB TX 0.083% 2.5MG/ 3ML NEB SCH ×5 (09:35→20:20)
[2020-09-14] MEDS: ALBUMIN HUMAN 25%- 100 ML 100 ML IV SCH (10:18)
[2020-09-14] MEDS: [UNRECOGNIZED DRUG - OTHER] NG SCH ×4 (10:22→21:51)
[2020-09-14] MEDS: SYNTHROID INJ 100 mcg VIAL IVP SCH (11:00)
[2020-09-14] MEDS: VERSED IV PREMIX 100 MG/100 ML IV.SOLN IV PRN (11:00)
[2020-09-14] MEDS ORDERED: SALINE 0.9% 3 ML NEB TX ONE (13:13)
[2020-09-14] MEDS ORDERED: PRECEDEX 400 MCG/100 ML PREMIX 400 MCG/100 ML INFUS..BTL IV ONE (13:20)
[2020-09-14] MEDS: PRECEDEX 400 MCG/100 ML PREMIX 400 MCG/100 ML INFUS..BTL IV PRN (13:50)
[2020-09-14] MEDS ORDERED: NS 1000 ML 1,000 ML ONE (14:00)
[2020-09-14] MEDS ORDERED: NORCURON INJ 10 MG VIAL ONE (14:05)
[2020-09-14] MEDS ORDERED: DIPRIVAN VIAL ONE (14:05)
[2020-09-14] MEDS ORDERED: ULTANE GAS IN ONE (14:05)
[2020-09-14] MEDS ORDERED: VERSED ONE (14:05)
--- NOTE | 2020-09-14 14:15 | PCM.PROG ---
Progress Note - Progress Note for Day of Date of Exam: 09/11/20 - Subjective Subjective: IS BEING TREATED FOR PNEUMONIA DUE TO COVID-19 AND HYPOXIA. SHE REMAINS ON THE MECHANICAL VENT. TODAY, HER SETTINGS ON THE VENT ARE: SIMV, VENT RATE 20, TIDAL VOLUME 450, PEEP 15, PRESSURE SUPPORT 8, FI02 70%. HER SATURATIONS HAVE BEEN 88-100% THIS MORNING AND THROUGHOUT THE NIGHT. SHE HAS BEEN ON THE VENT SINCE 08/25/20. ON EXAMINATION, SHE IS LYING IN BED WITH EYES CLOSED. HEART IS REGULAR IN RATE AND RHYTHM. BILATERAL LUNGS ARE NOTED WITH DIMINISHED LUNG SOUNDS THROUGHOUT. ABDOMEN IS ROUND, SOFT, AND NON-TENDER WITH NORMAL BOWEL SOUNDS NOTED IN ALL QUADRANTS. 1+ PITTING EDEMA NOTED TO UPPER EXTREMITIES. THERE IS A CARPIO CATHETER NOTED TO BEDSIDE DRAINAGE. URINE IS TEA COLORED. SHE ALSO HAS AN ART LINE, CENTRAL LINE, AND NG TUBE IN PLACE. HER VITALS THIS MORNING ARE: 97.9-103-27-87%-198/84. LABS WERE OBTAINED. ABNORMAL LAB VALUES INCLUDE THE FOLLOWING: RBC 2.34, HGB 7.1, HCT 20.5, CARBON DIOXIDE 37.9, BUN 28, CREATININE 0.49, GLUCOSE 248, CALCIUM 8.2, CRP 187.70, BNP 731, TOTAL PROTEIN 5.0, ALBUMIN 2.1. ABG WAS OBTAINED THIS MORNING AND REVEALED: PH 7.550, PC02 46, P02 46, HC03 40.2, 02 SAT 88, A-A GRADINET 324, FI02 60. A CHEST XRAY WAS OBTAINED AND REVEALED: Patient is rotated to the right. There is an endotracheal tube in good position. There is a nasogastric tube in good position. There is a right-sided IJ line in good position. Heart size is normal. Diffuse bilateral perihilar alveolar infiltrates are unchanged in degree or distribution from the prior examination. No pleural effusions are identified. Bony thorax is unremarkable. SHE HAS RECEIVED TWO UNITS OF PRBC SINCE ADMISSION. TODAY, WE WILL SET UP NEW BLOOD AND SPUTUM CULTURES. OTHERWISE, WE WILL CONTINUE WITH IV ANTIBIOTICS, RESPIRATORY THERAPY, SUPPLEMENTAL OXYGEN, STEROID THERAPY, AND CURRENT PLAN OF CARE TODAY. WE WILL CONSULT WITH FOR A TRACH. WE WILL ALSO ADD DIFLUCAN 200MG IV DAILY, LASIX 40MG IV Q12H X 2 DOSES. WE WILL ADMINISTER TWO ADDITIONAL UNITS OF BLOOD. OTHERWISE, WE WILL FOLLOW UP WITH AM LABS, CHEST XRAY, ABG, AND CONTINUE TO MONITOR. CRITICAL CARE TIME SPENT ON CLINICAL ASSESSMENT, REVIEWING LABS AND IMAGING, DECISION MAKING, AND DOCUMENTATION GREATER THAN 75 MINUTES. - Past Medical Family Social History Past Med/Fam/Surg Hx: No changes since H&P Allergies: Allergies No Known Drug Allergies Allergy (Verified 08/27/19 22:19) - Review of Systems ROS: No change since H&P - Vital Signs and I&O's Vital Signs: Temperature 99.6 F Pulse Rate [Left] 64 Pulse Rate [Bilateral Radial] 92 Pulse Rate 82 Respiratory Rate 29 Blood Pressure [Right Radial 167/56 Artery] Blood Pressure [Left Arm] 157/71 Blood Pressure 133/63 O2 Sat by Pulse Oximetry 92 Intake and Output: Intake & Output 09/12/20 09/13/20 09/14/20 09/15/20 11:59 11:59 11:59 11:59 Intake Total 6970 / 6970 4291 / 4291 3449 / 3449 Output Total 4900 / 4900 1775 / 1775 1450 / 1450 Balance 2070 / 2070 2516 / 2516 1998 - Physical Exam Oriented: Unable to test Eyes: Normal Ear: Normal Nose: Normal Throat: Normal Respiratory: Generalized, Diminished, Rales Cardiovascular: Normal : Normal Auscultation: Bowel Sounds: Normal Palpation: Normal Tenderness: Normal Skin: Normal Musculoskeletal: Normal Psychiatric: Other (SEDATED) Mood Description: Calm Affect: Normal Speech Pattern: Artificially Ventilated - Laboratory and Diagnostics Result Diagrams: 09/14/20 06:00 09/14/20 06:00 Labs: 09/10/20 10:37 Blood Blood Culture - Final Staphylococcus Epidermidis 09/10/20 08:45 Blood Blood Culture - Final Enterococcus Faecalis 09/10/20 10:21 Sputum - Expectorated Sputum Sputum Culture - Final 09/10/20 10:21 Sputum - Expectorated Sputum - Final 09/10/20 08:48 Urine,Clean Catch Urine Culture - Final 09/02/20 10:58 Sputum - Endotracheal Wash Sputum Culture - Final 09/02/20 10:58 Sputum - Endotracheal Wash - Final 08/18/20 11:40 Blood Blood Culture - Final 08/18/20 12:00 Blood Blood Culture - Final Laboratory WBC 11.3 X10^3/uL (3.6-10.0) H 09/14/20 06:00 RBC 3.60 X10^6/uL (3.5-5.4) 09/14/20 06:00 Hgb 10.5 g/dL (12.0-16.0) L 09/14/20 06:00 Hct 31.1 % (36.0-47.0) L 09/14/20 06:00 MCV 86.4 fL (80.0-100.0) 09/14/20 06:00 MCH 29.3 pg (27.0-34.0) 09/14/20 06:00 MCHC 33.9 g/dL (33.0-35.0) 09/14/20 06:00 RDW 14.3 % (11.6-16.5) 09/14/20 06:00 Plt Count 171 X10^3/uL (150.0-450.0) 09/14/20 06:00 Plt Count Comment Adequate (ADEQUATE) 09/14/20 06:00 MPV 9.4 fL (7.4-11.0) 09/14/20 06:00 Neut % (Auto) 97.2 % (42.0-75.0) H 09/14/20 06:00 Lymph % (Auto) 1.4 % (21.0-51.0) L 09/14/20 06:00 [place] % (Auto) 1.1 % (0.0-13.0) 09/14/20 06:00 Eos % (Auto) 0.1 % (0.9-2.9) L 09/14/20 06:00 Baso % (Auto) 0.2 % (0.2-1.0) 09/14/20 06:00 Neut # (Auto) 10.9 x10^3/uL (2.2-4.8) H 09/14/20 06:00 Lymph # (Auto) 0.2 X10^3/uL (1.3-2.9) L 09/14/20 06:00 [place] # (Auto) 0.1 x10^3/uL (0.3-0.8) L 09/14/20 06:00 Eos # (Auto) 0.0 x10^3/uL (0.0-0.2) 09/14/20 06:00 Baso # (Auto) 0.0 X10^3/uL (0.0-0.1) 09/14/20 06:00 Absolute Nucleated RBC 0.3 /100WBC 09/14/20 06:00 Total Counted 100 09/14/20 06:00 Neutrophils % (Manual) 73 % (39-76) 09/14/20 06:00 Band Neutrophils % 14 % (0-10) H 09/14/20 06:00 Lymphocytes % (Manual) 4 % (13-43) L 09/14/20 06:00 Monocytes % (Manual) 5 % (4-9) 09/14/20 06:00 Eosinophils % (Manual) 1 % (0-6) 08/31/20 05:50 Metamyelocytes % 3 09/14/20 06:00 Myelocytes % 1 09/14/20 06:00 Plt Morphology Comment Normal (NORMAL) 09/14/20 06:00 RBC Morphology Normal (NORMAL) 09/14/20 06:00 PT 17.9 SECONDS (11.8-14.3) 08/22/20 17:00 INR Target Range - 08/22/20 17:00 INR 1.53 (0.8-1.3) H 08/22/20 17:00 APTT 22.8 SECONDS (22.9-36.5) L 08/30/20 06:30 PTT Comment - 08/30/20 06:30 D-Dimer 3.29 ug/ml (0.0-0.57) H* 09/14/20 06:00 Sample Site A line 09/14/20 05:00 ABG pH 7.480 (7.35-7.45) H 09/14/20 05:00 ABG pCO2 48.0 mmHg (35.0-45.0) H 09/14/20 05:00 ABG pO2 65.0 mmHg (80.0-100.0) L 09/14/20 05:00 ABG HCO3 35.7 mmol/L (22-26) H* 09/14/20 05:00 ABG O2 Saturation 94.0 % (90-100) 09/14/20 05:00 ABG Base Excess 10.7 mmol/L (-2.0-2.0) H 09/14/20 05:00 Juan Test Na 09/14/20 05:00 A-a Gradient 410.0 mmHg 09/14/20 05:00 FiO2 75.0 09/14/20 05:00 Blood Gas Comments [place] well sw 09/14/20 05:00 Sodium 140 mmol/L (136-145) 09/14/20 06:00 Corrected Sodium 144 mmol/L (136-145) 09/14/20 06:00 Potassium 4.1 mmol/L (3.5-5.1) 09/14/20 06:00 Chloride 101 mmol/L (98-107) 09/14/20 06:00 Carbon Dioxide 30.7 mmol/L (21-32) 09/14/20 06:00 BUN 35 mg/dL (7-18) H 09/14/20 06:00 Creatinine 0.57 mg/dL (0.55-1.02) 09/14/20 06:00 Est GFR (MDRD) Af Amer > 60 (>60) 09/14/20 06:00 Est GFR (MDRD) Non-Af > 60 (>60) 09/14/20 06:00 Glucose 246 mg/dL (65-99) H 09/14/20 06:00 POC Glucose (mg/dL) 232 mg/dL (65-99) H 09/14/20 06:10 Lactic Acid 0.8 mmol/L (0.4-2.0) 09/10/20 08:45 Calcium 8.3 mg/dL (8.5-10.1) L 09/14/20 06:00 Corrected Calcium 9.7 mg/dL (8.5-10.1) 09/14/20 06:00 Phosphorus 2.5 mg/dL (2.6-4.7) L 09/09/20 04:50 Magnesium 2.3 mg/dL (1.7-2.9) 09/11/20 05:05 Ferritin 347 ng/mL (8-252) H 09/04/20 05:23 Total Bilirubin 0.60 mg/dL (0.2-1.0) 09/14/20 06:00 AST 22 Units/L (15-37) 09/14/20 06:00 ALT 23 Units/L (12-78) 09/14/20 06:00 Alkaline Phosphatase 71 Units/L (46-116) 09/14/20 06:00 Creatine Kinase 83 Units/L (26-192) 08/18/20 19:07 CK-MB (CK-2) 1.0 ng/mL (0-4.0) 08/18/20 19:07 CK/CKMB % Calc 1.2 % (<4) 08/18/20 19:07 Troponin I < 0.02 ng/mL (0-1.5) 08/18/20 19:07 C-Reactive Protein 57.10 mg/L (0-3.0) H 09/14/20 06:00 B-Natriuretic Peptide 1180 pg/mL (0-79) H* 09/14/20 06:00 Total Protein 5.1 g/dL (6.4-8.2) L 09/14/20 06:00 Albumin 2.2 g/dL (3.4-5.0) L 09/14/20 06:00 Globulin 2.9 g/dL (2.5-4.5) 09/14/20 06:00 Albumin/Globulin Ratio 0.8 Ratio (1.1-2.1) L 09/14/20 06:00 Prealbumin 33.1 mg/dL (18-35.7) 09/09/20 04:50 Triglycerides 498 mg/dL (0-150) H 09/09/20 04:50 Amylase 50 Units/L (25-115) 08/18/20 11:40 Lipase 137 Units/L (73-393) 08/18/20 11:40 Specimen Type Catherized urine 09/10/20 10:21 Urine Color Red (YELLOW) 09/10/20 10:21 Urine Appearance Cloudy (CLEAR) 09/10/20 10:21 Urine pH 7.0 (5.0 - 8.0) 09/10/20 10:21 Ur Specific [place] 1.010 (1.000-1.030) 09/10/20 10:21 Urine Protein 3+ (NEGATIVE) 09/10/20 10:21 Urine Glucose (UA) 2+ (NEGATIVE) 09/10/20 10:21 Urine Ketones Negative (NEGATIVE) 09/10/20 10:21 Urine Occult Blood 5+ (NEGATIVE) 09/10/20 10:21 Urine Nitrite Negative (NEGATIVE) 09/10/20 10:21 Urine Bilirubin Negative (NEGATIVE) 09/10/20 10:21 Urine Urobilinogen Normal (NORMAL) 09/10/20 10:21 Ur Leukocyte Esterase 2+ (NEGATIVE) 09/10/20 10:21 Urine RBC Tntc /HPF (0-3) A 09/10/20 10:21 Urine WBC 0-2 /HPF (0-5) 09/10/20 10:21 Ur Squamous Epith Cells Rare /HPF (NEGATIVE) 09/10/20 10:21 Urine Bacteria Negative /HPF (NEGATIVE) 09/10/20 10:21 Ur Culture Indicated? No/not indicated 09/10/20 10:21 Vancomycin Trough 14.0 ug/mL (15-20) L 09/12/20 08:47 Theophylline < 2.0 ug/mL (10-20) L 09/06/20 04:10 Influenza Type A (PCR) Negative (NEGATIVE) 08/18/20 12:46 Influenza Type B (PCR) Negative (NEGATIVE) 08/18/20 12:46 SARS CoV-2 RNA Rapid LUIS Positive (NEGATIVE) A 08/18/20 18:12 Miscellaneous Test Resp panel 09/02/20 10:12 Blood Type B POSITIVE 09/11/20 06:34 Antibody Screen Negative 09/11/20 06:34 Crossmatch See Detail 09/11/20 06:34 - Plan (1) Pneumonia due to 2019 novel coronavirus Status: Acute Plan: LEVAQUIN 750MG IV HS, FORTAZ 1G IV Q8H, AMINOPHYLLINE DRIP, DIFLUCAN 200MG IV DAILY, LASIX 20MG IV Q12H X 2 DOSES, ASCORBIC ACID 1500MG IV Q6H, ALBUTEROL NEBS QID, MUCOMYST IN NEBS BID, SOLU-MEDROL 125 MG IV Q6H, PROTONIX 40MG IV DAILY, PEPCID 20MG IV BID, CATAPRES 0.5MG/HR TD PATCH, APRESOLINE 10MG IV Q4H PRN, THIAMINE 200MG IV BID, ZOFRAN 4MG IV Q4H PRN, DIFLUCAN 100MG IV DAILY, LOVENOX 30MG SC BID, TPN, ENSURE TID, LIPIDS, POTASSIUM AND MAGNESIUM PROTOCOLS, AN ATIVAN DRIP FOR SEDATION. (2) Hypoxia Status: Acute (3) Anemia Status: Acute Qualifiers: Anemia type: iron deficiency Iron deficiency anemia type: unspecified iron deficiency Qualified Code(s): D50.9 - Iron deficiency anemia, unspecified Plan: TRANSFUSE 2 UNITS PRBC, CONTINUE TO MONITOR
[2020-09-14] MEDS ORDERED: FENTANYL INJ 100 mcg ONE (14:23)
--- NOTE | 2020-09-14 15:42 | RAD ---
HISTORYS/P CENTRAL LINE PLACEMENT, TRACHEOSTOMYSTUDYCHEST, 1 VIEWCOMPARISONFebruary 2020TECHNIQUEChest radiographic imaging, AP portable projection, 1 imageFINDINGSNo cardiomegaly.Diffuse bilateral airspace opacities.Status post tracheostomy placement with the tip of the tracheostomy tube in the mid trachea.Interval placement of a left subclavian central line with the tip near the cavoatrial junction.Esophagogastric tube with the tip in the body of the stomach based on the side-port positioning.No pleural effusion.No pneumothorax.No acute osseous abnormality.IMPRESSION1. No significant interval acute cardiopulmonary changes.2. Support apparatus as described above.Electronically signed by: Harinder Sidhu (Sep 14, 2020 15:41:36)
--- NOTE | 2020-09-14 15:51 | RAD ---
HISTORYNG TUBE : MV PROLAPSE SX: HYSTERECTOMY, GBSTUDYKUBCOMPARISONAbdominal film September 08, 2020FINDINGSEvaluation of the abdomen demonstrates a normal bowel gas pattern. No pathological soft tissue mass or calcification can be observed. The bony structures are grossly intact. An NG tube is been placed but the side-hole lies at the EG junction and the tip of the NG tube lies in the proximal body of the stomach. I recommend advancing the tube [address] the side hole beyond the EG junction note is made of bilateral infiltrates in the midlung tarango and left lower lung field.IMPRESSIONNo evidence for acute abdominal pathology identified. Bilateral pneumoniaRecommend advancing the NG tube [address] the side hole of the NG tube beyond the EG junction.Electronically signed by: PATY CONTRERAS (Sep 14, 2020 15:49:52)
[2020-09-14] MEDS: NS 500 ML IV 500 ML IV SCH (16:03)
[2020-09-14] MEDS: LIPOSYN III 20% 250ML 250 ML IV SCH (21:53)
[2020-09-15] MEDS: LEVAQUIN PREMIX IV 750 MG 750 MG/150 ML BAG IV SCH (00:10)
[2020-09-15] MEDS: CLINIMIX IV SCH ×12 (01:31→13:25)
[2020-09-15] MEDS: TRACE ELEMENTS IV SCH ×12 (01:31→13:25)
[2020-09-15] MEDS: [UNRECOGNIZED DRUG - OTHER] IV SCH ×12 (01:31→13:25)
[2020-09-15] MEDS: HUMULIN R IV SCH ×12 (01:31→13:25)
[2020-09-15] MEDS: DIPRIVAN PREMIX 1 GRAM IV 1,000 MG/100 ML VIAL IV PRN ×5 (01:40→22:44)
[2020-09-15] MEDS: SOLU-Medrol 125 MG VIAL IVP SCH ×4 (05:26→22:43)
[2020-09-15] MEDS: ZOSYN VIAL 3.375 GRAMS 3.375 G in NS 100 ML IV + SPIKE MINIBAG* 100 ML IV SCH ×2 (05:27→13:32)
[2020-09-15] MEDS: HumuLIN R SUBCUT PRN ×2 (05:27→22:45)
[2020-09-15 05:33] LABS: ABG BASE EXCESS 6.7 mmol/L (-2.0-2.0)
[2020-09-15 05:34] LABS: ABG HCO3 32.4 mmol/L (22-26)
--- NOTE | 2020-09-15 05:56 | RAD ---
PROCEDURE: Chest X-ray 1 View .HISTORY: Short of breath.TECHNIQUE: AP view .COMPARISON: 09/14/2020.TECHNICAL QUALITY: Satisfactory .FINDINGS:Tracheostomy tubes in good position. Left sub KUB in central venous line tip at the superior cavoatrial junction.Unremarkable cardio mediastinal silhouette.Moderately severe bilateral diffuse consolidation similar to previous study with no pleural fluid or pneumothorax.IMPRESSION:Unchanged bilateral moderately-severe pneumonia.Electronically signed by: Pasha Werner (Sep 15, 2020 05:54:35)
[2020-09-15 06:18] LABS: BASOPHILS % (AUTO) 0.1 % (0.2-1.0); EOSINOPHILS % (AUTO) 0.1 % (0.9-2.9); HEMATOCRIT 28.6 % (36.0-47.0); HEMOGLOBIN 9.8 g/dL (12.0-16.0); LYMPHOCYTES # (AUTO) 0.2 X10^3/uL (1.3-2.9); LYMPHOCYTES % (AUTO) 1.5 % (21.0-51.0); MEAN CORPUSCULAR HEMOGLOBIN 29.4 pg (27.0-34.0); MEAN CORPUSCULAR HGB CONC 34.1 g/dL (33.0-35.0); MEAN CORPUSCULAR VOLUME 86.1 fL (80.0-100.0); MEAN PLATELET VOLUME 8.9 fL (7.4-11.0); MONOCYTES # (AUTO) 0.1 x10^3/uL (0.3-0.8); MONOCYTES % (AUTO) 0.5 % (0.0-13.0); NEUTROPHILS # (AUTO) 13.8 x10^3/uL (2.2-4.8); NEUTROPHILS % (AUTO) 97.8 % (42.0-75.0); PLATELET COUNT 149 X10^3/uL (150.0-450.0); RED BLOOD COUNT 3.32 X10^6/uL (3.5-5.4); RED CELL DISTRIBUTION WIDTH 14.2 % (11.6-16.5); WHITE BLOOD COUNT 14.1 X10^3/uL (3.6-10.0)
[2020-09-15 06:29] LABS: ALANINE AMINOTRANSFERASE 17 Units/L (12-78); ALBUMIN 2.1 g/dL (3.4-5.0); ALKALINE PHOSPHATASE 50 Units/L (46-116); BLOOD UREA NITROGEN 37 mg/dL (7-18); CALCIUM 7.9 mg/dL (8.5-10.1); CHLORIDE 102 mmol/L (98-107); COR CA(FOR HYPOALB) 9.4 mg/dL (8.5-10.1); COR NA(FOR HYPERGLY) 142 mmol/L (136-145); CREATININE 0.65 mg/dL (0.55-1.02); MAGNESIUM 2.1 mg/dL (1.7-2.9); SODIUM 139 mmol/L (136-145); TOTAL PROTEIN 4.9 g/dL (6.4-8.2); eGFR NON BLACK RACES > 60 (>60)
[2020-09-15 06:30] LABS: BAND NEUTROPHILS % 25 % (0-10); METAMYELOCYTES % 1; PLATELET MORPHOLOGY COMMENT NORMAL (NORMAL)
[2020-09-15] MEDS: PRECEDEX 400 MCG/100 ML PREMIX 400 MCG/100 ML INFUS..BTL IV PRN (06:35)
[2020-09-15 06:39] LABS: PREALBUMIN 18.9 mg/dL (18-35.7)
[2020-09-15 06:52] LABS: ASPARTATE AMINO TRANSFERASE 11 Units/L (15-37)
[2020-09-15] MEDS: VANCOMYCIN IV *PREMIX 1 G/200 ML BAG 1 G/200 ML PIGGYBACK IV SCH ×2 (09:00→21:00)
[2020-09-15] MEDS: SYNTHROID INJ 100 mcg VIAL IVP SCH (09:00)
[2020-09-15] MEDS: PEPCID 20 MG IV PREMIX* 20 MG/50 ML BAG IV SCH ×2 (09:00→20:00)
[2020-09-15] MEDS: PROTONIX INJ 40 MG VIAL IVP SCH (09:00)
[2020-09-15] MEDS: ALBUMIN HUMAN 25%- 100 ML 100 ML IV SCH (09:00)
[2020-09-15] MEDS: LOVENOX INJ 30 MG SYR SC SCH ×2 (09:00→20:41)
[2020-09-15] MEDS: LACRI-LUBE S.O.P. AFFEYE SCH ×2 (09:00→20:41)
[2020-09-15] MEDS: DIFLUCAN 200 MG IV PREMIX* 200 MG/100 ML BAG IV SCH (09:00)
[2020-09-15] MEDS: PROVENTIL NEB TX 0.083% 2.5MG/ 3ML NEB SCH ×4 (09:57→21:35)
[2020-09-15] MEDS: PULMICORT NEB TX 0.5 MG NEB SCH ×2 (09:57→21:35)
--- NOTE | 2020-09-15 12:46 | PCM.PROG ---
Progress Note - Progress Note for Day of Date of Exam: 09/14/20 - Subjective Subjective: IS BEING TREATED FOR PNEUMONIA DUE TO COVID-19 AND HYPOXIA. SHE REMAINS ON THE MECHANICAL VENT. TODAY, HER SETTINGS ON THE VENT ARE: A/C, VENT RATE 20, TIDAL VOLUME 425, PEAK FLOW 44, PEEP 7, FI02 75. HER SATURATIONS HAVE BEEN 88-93% THIS MORNING AND THROUGHOUT THE NIGHT. SHE HAS BEEN ON THE VENT SINCE 08/25/20. SHE WAS SUSPECTED TO HAVE POSSIBLY ASPIRATED OVER THE WEEKEND ON HER TUBE FEEDINGS. ON EXAMINATION TODAY, SHE IS SEDATED, LYING IN BED WITH EYES CLOSED. HEART IS REGULAR IN RATE AND RHYTHM. BILATERAL LUNGS ARE NOTED WITH DIMINISHED LUNG SOUNDS THROUGHOUT. ABDOMEN IS ROUND, SOFT, AND NON-TENDER WITH NORMAL BOWEL SOUNDS NOTED IN ALL QUADRANTS. 1+ PITTING EDEMA NOTED TO UPPER EXTREMITIES. THERE IS A CARPIO CATHETER NOTED TO BEDSIDE DRAINAGE. SHE ALSO HAS AN ART LINE, CENTRAL LINE, AND NG TUBE IN PLACE. HER VITALS THIS MORNING ARE: 99.8-81-29-90%-130/60. LABS WERE OBTAINED. ABNORMAL LAB VALUES INCLUDE THE FOLLOWING: WBC 11.3, HGB 10.5, HCT 31.1, D-DIMER 3.01, BUN 35, GLUCOSE 246, CALCIUM 8.3, CRP 57.10, BNP 1180, TOTAL PROTEIN 5.1, ALBUMIN 2.2. ABG WAS OBTAI RACHEL THIS MORNING AND REVEALED: PH 7.480, PC02 48, P02 65, HC03 35.7, 02 SAT 94, A-A GRADIENT 410, FI02 75. BLOOD CULTURES THAT WERE OBTAINED ON 09/10/19 REPORT GROWTH OF ENTEROCOCCUS FAECALIS. SPUTUM CULTURES REVEALED GROWTH OF YEAST. A CHEST XRAY WAS OBTAINED AND REVEALED: Unchanged moderate pneumonia bilaterally. SHE HAS RECEIVED FOUR UNITS OF PRBC SINCE ADMISSION. PLANS TO TAKE PATIENT TO THE OR TODAY FOR PLACEMENT OF A TRACHEOSTOMY. WHILE THERE, THEY WILL ALSO REMOVE THE CURRENT CENTRAL LINE AND INSERT ANOTHER. OTHERWISE, WE WILL CONTINUE WITH IV ANTIBIOTICS, RESPIRATORY THERAPY, SUPPLEMENTAL OXYGEN, STEROID THERAPY, AND CURRENT PLAN OF CARE TODAY. WE WILL FOLLOW UP WITH AM LABS, CHEST XRAY, ABG, AND CONTINUE TO MONITOR. CRITICAL CARE TIME SPENT ON CLINICAL ASSESSMENT, REVIEWING LABS AND IMAGING, DECISION MAKING, AND DOCUMENTATION GREATER THAN 75 MINUTES. - Past Medical Family Social History Past Med/Fam/Surg Hx: No changes since H&P Allergies: Allergies No Known Drug Allergies Allergy (Verified 08/27/19 22:19) - Review of Systems ROS: No change since H&P - Vital Signs and I&O's Vital Signs: Temperature 97.8 F Pulse Rate [Left] 64 Pulse Rate [Bilateral Radial] 92 Pulse Rate 54 Respiratory Rate 23 Blood Pressure [Right Radial 167/56 Artery] Blood Pressure [Left Arm] 157/71 Blood Pressure 105/54 O2 Sat by Pulse Oximetry 94 Intake and Output: Intake & Output 09/13/20 09/14/20 09/15/20 09/16/20 11:59 11:59 11:59 11:59 Intake Total 4291 / 4291 3449 / 3449 1958 / 1958 Output Total 1775 / 1775 1450 / 1450 1325 / 1325 Balance 2516 / 2516 1998 634 / 634 - Physical Exam Oriented: Unable to test Eyes: Normal Ear: Normal Nose: Normal Throat: Normal Respiratory: Generalized, Diminished, Rales Cardiovascular: Normal : Normal Auscultation: Bowel Sounds: Normal Palpation: Normal Tenderness: Normal Skin: Normal Musculoskeletal: Normal Psychiatric: Other (SEDATED) Mood Description: Calm Affect: Normal Speech Pattern: Artificially Ventilated - Laboratory and Diagnostics Result Diagrams: 09/21/20 16:32 09/21/20 03:45 Labs: 09/14/20 14:57 Catheter Tip - Other - Preliminary 09/10/20 10:37 Blood Blood Culture - Final Staphylococcus Epidermidis 09/10/20 08:45 Blood Blood Culture - Final Enterococcus Faecalis 09/10/20 10:21 Sputum - Expectorated Sputum Sputum Culture - Final 09/10/20 10:21 Sputum - Expectorated Sputum - Final 09/10/20 08:48 Urine,Clean Catch Urine Culture - Final 09/02/20 10:58 Sputum - Endotracheal Wash Sputum Culture - Final 09/02/20 10:58 Sputum - Endotracheal Wash - Final 08/18/20 11:40 Blood Blood Culture - Final 08/18/20 12:00 Blood Blood Culture - Final Laboratory WBC 14.1 X10^3/uL (3.6-10.0) H 09/15/20 06:00 RBC 3.32 X10^6/uL (3.5-5.4) L 09/15/20 06:00 Hgb 9.8 g/dL (12.0-16.0) L 09/15/20 06:00 Hct 28.6 % (36.0-47.0) L 09/15/20 06:00 MCV 86.1 fL (80.0-100.0) 09/15/20 06:00 MCH 29.4 pg (27.0-34.0) 09/15/20 06:00 MCHC 34.1 g/dL (33.0-35.0) 09/15/20 06:00 RDW 14.2 % (11.6-16.5) 09/15/20 06:00 Plt Count 149 X10^3/uL (150.0-450.0) L 09/15/20 06:00 Plt Count Comment Decreased (ADEQUATE) A 09/15/20 06:00 MPV 8.9 fL (7.4-11.0) 09/15/20 06:00 Neut % (Auto) 97.8 % (42.0-75.0) H 09/15/20 06:00 Lymph % (Auto) 1.5 % (21.0-51.0) L 09/15/20 06:00 [place] % (Auto) 0.5 % (0.0-13.0) 09/15/20 06:00 Eos % (Auto) 0.1 % (0.9-2.9) L 09/15/20 06:00 Baso % (Auto) 0.1 % (0.2-1.0) L 09/15/20 06:00 Neut # (Auto) 13.8 x10^3/uL (2.2-4.8) H 09/15/20 06:00 Lymph # (Auto) 0.2 X10^3/uL (1.3-2.9) L 09/15/20 06:00 [place] # (Auto) 0.1 x10^3/uL (0.3-0.8) L 09/15/20 06:00 Eos # (Auto) 0.0 x10^3/uL (0.0-0.2) 09/15/20 06:00 Baso # (Auto) 0.0 X10^3/uL (0.0-0.1) 09/15/20 06:00 Absolute Nucleated RBC 0.1 /100WBC 09/15/20 06:00 Total Counted 100 09/15/20 06:00 Neutrophils % (Manual) 67 % (39-76) 09/15/20 06:00 Band Neutrophils % 25 % (0-10) H 09/15/20 06:00 Lymphocytes % (Manual) 3 % (13-43) L 09/15/20 06:00 Monocytes % (Manual) 4 % (4-9) 09/15/20 06:00 Eosinophils % (Manual) 1 % (0-6) 08/31/20 05:50 Metamyelocytes % 1 09/15/20 06:00 Myelocytes % 1 09/14/20 06:00 Plt Morphology Comment Normal (NORMAL) 09/15/20 06:00 RBC Morphology Normal (NORMAL) 09/15/20 06:00 PT 17.9 SECONDS (11.8-14.3) 08/22/20 17:00 INR Target Range - 08/22/20 17:00 INR 1.53 (0.8-1.3) H 08/22/20 17:00 APTT 22.8 SECONDS (22.9-36.5) L 08/30/20 06:30 PTT Comment - 08/30/20 06:30 D-Dimer 3.01 ug/ml (0.0-0.57) H* 09/15/20 06:00 Sample Site A line 09/15/20 05:25 ABG pH 7.420 (7.35-7.45) 09/15/20 05:25 ABG pCO2 50.0 mmHg (35.0-45.0) H 09/15/20 05:25 ABG pO2 83.0 mmHg (80.0-100.0) 09/15/20 05:25 ABG HCO3 32.4 mmol/L (22-26) H* 09/15/20 05:25 ABG O2 Saturation 96.0 % (90-100) 09/15/20 05:25 ABG Base Excess 6.7 mmol/L (-2.0-2.0) H 09/15/20 05:25 Juan Test Na 09/15/20 05:25 A-a Gradient 410.0 mmHg 09/14/20 05:00 FiO2 100.0 09/15/20 05:25 Blood Gas Comments [place] well, kh 09/15/20 05:25 Sodium 139 mmol/L (136-145) 09/15/20 06:00 Corrected Sodium 142 mmol/L (136-145) 09/15/20 06:00 Potassium 3.8 mmol/L (3.5-5.1) 09/15/20 06:00 Chloride 102 mmol/L (98-107) 09/15/20 06:00 Carbon Dioxide 29.0 mmol/L (21-32) 09/15/20 06:00 BUN 37 mg/dL (7-18) H 09/15/20 06:00 Creatinine 0.65 mg/dL (0.55-1.02) 09/15/20 06:00 Est GFR (MDRD) Af Amer > 60 (>60) 09/15/20 06:00 Est GFR (MDRD) Non-Af > 60 (>60) 09/15/20 06:00 Glucose 233 mg/dL (65-99) H 09/15/20 06:00 POC Glucose (mg/dL) 234 mg/dL (65-99) H 09/15/20 05:25 Lactic Acid 0.8 mmol/L (0.4-2.0) 09/10/20 08:45 Calcium 7.9 mg/dL (8.5-10.1) L 09/15/20 06:00 Corrected Calcium 9.4 mg/dL (8.5-10.1) 09/15/20 06:00 Phosphorus 2.5 mg/dL (2.6-4.7) L 09/09/20 04:50 Magnesium 2.1 mg/dL (1.7-2.9) 09/15/20 06:00 Ferritin 835 ng/mL (8-252) H 09/15/20 06:00 Total Bilirubin 0.60 mg/dL (0.2-1.0) 09/15/20 06:00 AST 11 Units/L (15-37) L 09/15/20 06:00 ALT 17 Units/L (12-78) 09/15/20 06:00 Alkaline Phosphatase 50 Units/L (46-116) 09/15/20 06:00 Creatine Kinase 83 Units/L (26-192) 08/18/20 19:07 CK-MB (CK-2) 1.0 ng/mL (0-4.0) 08/18/20 19:07 CK/CKMB % Calc 1.2 % (<4) 08/18/20 19:07 Troponin I < 0.02 ng/mL (0-1.5) 08/18/20 19:07 C-Reactive Protein 150.00 mg/L (0-3.0) H 09/15/20 06:00 B-Natriuretic Peptide 1260 pg/mL (0-79) H* 09/15/20 06:00 Total Protein 4.9 g/dL (6.4-8.2) L 09/15/20 06:00 Albumin 2.1 g/dL (3.4-5.0) L 09/15/20 06:00 Globulin 2.8 g/dL (2.5-4.5) 09/15/20 06:00 Albumin/Globulin Ratio 0.8 Ratio (1.1-2.1) L 09/15/20 06:00 Prealbumin 18.9 mg/dL (18-35.7) 09/15/20 06:00 Triglycerides 498 mg/dL (0-150) H 09/09/20 04:50 Amylase 50 Units/L (25-115) 08/18/20 11:40 Lipase 137 Units/L (73-393) 08/18/20 11:40 Specimen Type Catherized urine 09/10/20 10:21 Urine Color Red (YELLOW) 09/10/20 10:21 Urine Appearance Cloudy (CLEAR) 09/10/20 10:21 Urine pH 7.0 (5.0 - 8.0) 09/10/20 10:21 Ur Specific [place] 1.010 (1.000-1.030) 09/10/20 10:21 Urine Protein 3+ (NEGATIVE) 09/10/20 10:21 Urine Glucose (UA) 2+ (NEGATIVE) 09/10/20 10:21 Urine Ketones Negative (NEGATIVE) 09/10/20 10:21 Urine Occult Blood 5+ (NEGATIVE) 09/10/20 10:21 Urine Nitrite Negative (NEGATIVE) 09/10/20 10:21 Urine Bilirubin Negative (NEGATIVE) 09/10/20 10:21 Urine Urobilinogen Normal (NORMAL) 09/10/20 10:21 Ur Leukocyte Esterase 2+ (NEGATIVE) 09/10/20 10:21 Urine RBC Tntc /HPF (0-3) A 09/10/20 10:21 Urine WBC 0-2 /HPF (0-5) 09/10/20 10:21 Ur Squamous Epith Cells Rare /HPF (NEGATIVE) 09/10/20 10:21 Urine Bacteria Negative /HPF (NEGATIVE) 09/10/20 10:21 Ur Culture Indicated? No/not indicated 09/10/20 10:21 Vancomycin Trough 14.0 ug/mL (15-20) L 09/12/20 08:47 Theophylline < 2.0 ug/mL (10-20) L 09/15/20 06:00 Influenza Type A (PCR) Negative (NEGATIVE) 08/18/20 12:46 Influenza Type B (PCR) Negative (NEGATIVE) 08/18/20 12:46 SARS CoV-2 RNA Rapid LUIS Positive (NEGATIVE) A 08/18/20 18:12 Miscellaneous Test Resp panel 09/02/20 10:12 Blood Type B POSITIVE 09/11/20 06:34 Antibody Screen Negative 09/11/20 06:34 Crossmatch See Detail 09/11/20 06:34 - Plan (1) Pneumonia due to 2019 novel coronavirus Status: Acute Plan: CONTINUE MECHANICAL VENT, CONTINUE IV ANTIBIOTICS, RESPIRATORY TX, CORTICOSTEROIDS,BLOOD GLUCOSE CONTROL, POTASSIUM AND MAGNESIUM REPLACEMENT PER PROTOCOL, TPN, SEDATION (2) Hypoxia Status: Acute (3) Anemia Status: Acute Qualifiers: Anemia type: iron deficiency Iron deficiency anemia type: unspecified iron deficiency Qualified Code(s): D50.9 - Iron deficiency anemia, unspecified Plan: CONTINUE TO MONITOR
[2020-09-15] MEDS: [UNRECOGNIZED DRUG - OTHER] NG SCH ×4 (13:21→20:30)
[2020-09-15] MEDS: MILK OF MAGNESIA PO SCH ×2 (13:22→20:42)
[2020-09-15] MEDS: NS 500 ML IV 500 ML IV SCH (13:29)
[2020-09-15] MEDS: VERSED IV PREMIX 100 MG/100 ML IV.SOLN IV PRN (17:45)
[2020-09-15] MEDS: COLACE SYRUP 100 MG UDC PO SCH (20:39)
[2020-09-16] MEDS: LIPOSYN III 20% 250ML 250 ML IV SCH ×2 (00:30→20:23)
[2020-09-16] MEDS: LEVAQUIN PREMIX IV 750 MG 750 MG/150 ML BAG IV SCH (00:30)
[2020-09-16] MEDS: VERSED IV PREMIX 100 MG/100 ML IV.SOLN IV PRN ×3 (03:48→21:46)
[2020-09-16] MEDS: DIPRIVAN PREMIX 1 GRAM IV 1,000 MG/100 ML VIAL IV PRN ×4 (05:23→21:45)
[2020-09-16] MEDS: PRECEDEX 400 MCG/100 ML PREMIX 400 MCG/100 ML INFUS..BTL IV PRN (05:23)
[2020-09-16 05:31] LABS: ABG HCO3 30.2 mmol/L (22-26)
[2020-09-16] MEDS: SOLU-Medrol 125 MG VIAL IVP SCH ×4 (05:35→23:00)
[2020-09-16] MEDS: HumuLIN R SUBCUT PRN ×3 (05:35→21:45)
[2020-09-16] MEDS: ZOSYN VIAL 3.375 GRAMS 3.375 G in NS 100 ML IV + SPIKE MINIBAG* 100 ML IV SCH ×5 (05:35→21:43)
[2020-09-16 06:28] LABS: BASOPHILS # (AUTO) 0.1 X10^3/uL (0.0-0.1); BASOPHILS % (AUTO) 0.4 % (0.2-1.0); HEMATOCRIT 29.2 % (36.0-47.0); HEMOGLOBIN 10.4 g/dL (12.0-16.0); LYMPHOCYTES # (AUTO) 0.3 X10^3/uL (1.3-2.9); MEAN CORPUSCULAR HEMOGLOBIN 30.8 pg (27.0-34.0); MEAN CORPUSCULAR HGB CONC 35.7 g/dL (33.0-35.0); MEAN CORPUSCULAR VOLUME 86.4 fL (80.0-100.0); MEAN PLATELET VOLUME 9.5 fL (7.4-11.0); MONOCYTES # (AUTO) 0.1 x10^3/uL (0.3-0.8); MONOCYTES % (AUTO) 0.3 % (0.0-13.0); NEUTROPHILS # (AUTO) 16.4 x10^3/uL (2.2-4.8); NEUTROPHILS % (AUTO) 97.3 % (42.0-75.0); PLATELET COUNT 204 X10^3/uL (150.0-450.0); RED BLOOD COUNT 3.38 X10^6/uL (3.5-5.4); RED CELL DISTRIBUTION WIDTH 14.9 % (11.6-16.5); WHITE BLOOD COUNT 16.9 X10^3/uL (3.6-10.0)
[2020-09-16 07:02] LABS: ALBUMIN 2.1 g/dL (3.4-5.0); ALKALINE PHOSPHATASE 53 Units/L (46-116); BLOOD UREA NITROGEN 43 mg/dL (7-18); CALCIUM 8.2 mg/dL (8.5-10.1); CARBON DIOXIDE 26.1 mmol/L (21-32); CHLORIDE 103 mmol/L (98-107); COR CA(FOR HYPOALB) 9.7 mg/dL (8.5-10.1); COR NA(FOR HYPERGLY) 143 mmol/L (136-145); CREATININE 0.65 mg/dL (0.55-1.02); SODIUM 139 mmol/L (136-145); eGFR NON BLACK RACES > 60 (>60)
[2020-09-16 07:23] LABS: BAND NEUTROPHILS % 23 % (0-10); PLATELET MORPHOLOGY COMMENT NORMAL (NORMAL)
--- NOTE | 2020-09-16 07:46 | RAD ---
HISTORYSOBSTUDYCHEST, 1 VIEWCOMPARISONOne-view chest September 15, 2020.FINDINGSThe trachea is midline. Tracheostomy tube is in good position. A left-sided subclavian catheter is in place with the tip at the junction of the superior vena cava to the right atrium. An NG tube is in place with the tip below the fundus of the stomach. The cardiac silhouette is unremarkable . The bilateral diffuse infiltrates are stable compared to yesterday's exam. There is no evidence of pneumothorax or effusion.. The bony thorax is unremarkable.IMPRESSIONNo change in the bilateral diffuse infiltrates or positioning of the tracheostomy tube, NG tube and left subclavian central venous catheter.Electronically signed by: PATY CONTRERAS (Sep 16, 2020 07:44:34)
[2020-09-16 07:47] LABS: ASPARTATE AMINO TRANSFERASE 16 Units/L (15-37)
[2020-09-16 07:48] LABS: ALANINE AMINOTRANSFERASE 15 Units/L (12-78); TOTAL PROTEIN 5.3 g/dL (6.4-8.2)
[2020-09-16] MEDS: PULMICORT NEB TX 0.5 MG NEB SCH ×2 (09:02→20:46)
[2020-09-16] MEDS: PROVENTIL NEB TX 0.083% 2.5MG/ 3ML NEB SCH ×4 (09:02→20:46)
[2020-09-16] MEDS: ALBUMIN HUMAN 25%- 100 ML 100 ML IV SCH ×2 (09:04→20:21)
[2020-09-16] MEDS: LACRI-LUBE S.O.P. AFFEYE SCH ×2 (09:05→20:26)
[2020-09-16] MEDS: LOVENOX INJ 30 MG SYR SC SCH ×2 (09:05→20:26)
[2020-09-16] MEDS: [UNRECOGNIZED DRUG - OTHER] NG SCH ×4 (09:05→20:25)
[2020-09-16] MEDS: DIFLUCAN 200 MG IV PREMIX* 200 MG/100 ML BAG IV SCH (09:05)
[2020-09-16] MEDS: SYNTHROID INJ 100 mcg VIAL IVP SCH (09:06)
[2020-09-16] MEDS: PEPCID 20 MG IV PREMIX* 20 MG/50 ML BAG IV SCH ×2 (09:06→20:25)
[2020-09-16] MEDS: VANCOMYCIN IV *PREMIX 1 G/200 ML BAG 1 G/200 ML PIGGYBACK IV SCH ×2 (09:06→20:22)
[2020-09-16] MEDS: PROTONIX INJ 40 MG VIAL IVP SCH (09:07)
[2020-09-16] MEDS: MILK OF MAGNESIA PO SCH ×2 (11:00→21:42)
[2020-09-16] MEDS: LASIX IVP SCH ×2 (11:17→21:43)
--- NOTE | 2020-09-16 12:39 | PCM.PROG ---
Progress Note - Progress Note for Day of Date of Exam: 09/15/20 - Subjective Subjective: IS BEING TREATED FOR PNEUMONIA DUE TO COVID-19 AND HYPOXIA. SHE REMAINS ON THE MECHANICAL VENT. TODAY, HER SETTINGS ON THE VENT ARE: A/C, VENT RATE 20, TIDAL VOLUME 425, PEEP 7, FI02 100. HER SATURATIONS HAVE BEEN 93-96% THIS MORNING AND THROUGHOUT THE NIGHT. SHE HAS BEEN ON THE VENT SINCE 08/25/20. SHE HAD TRACHEOSTOMY PLACEMENT YESTERDAY. A NEW CENTRAL LINE AND NG TUBE WERE ALSO INSERTED. ON EXAMINATION TODAY, SHE IS SEDATED, LYING IN BED WITH EYES CLOSED. HEART IS REGULAR IN RATE AND RHYTHM. BILATERAL LUNGS ARE NOTED WITH DIMINISHED LUNG SOUNDS THROUGHOUT. ABDOMEN IS ROUND, SOFT, AND NON-TENDER WITH NORMAL BOWEL SOUNDS NOTED IN ALL QUADRANTS. 2+ PITTING EDEMA NOTED TO UPPER EXTREMITIES. THERE IS A CARPIO CATHETER NOTED TO BEDSIDE DRAINAGE. SHE ALSO HAS AN ART LINE, CENTRAL LINE, AND NG TUBE IN PLACE. HER VITALS THIS MORNING ARE: 96.9-58-22-95%-119/56. LABS WERE OBTAINED. ABNORMAL LAB VALUES INCLUDE THE FOLLOWING: WBC 14.1, RBC 3.32, HGB 9.8, HCT 28.6, PLT COUNT 149, D-DIMER 3.01, BUN 37, GLUCOSE 233, CALCOUM 7.9, FERRITIN 835, AST 11, CRP 150.0, BNP 1260, TOT AL PROTEIN 4.9, ALBUMIN 2.1. ABG WAS OBTAINED THIS MORNING AND REVEALED: PH 7.420, PC02 50, P02 83, HC03 32.4, 02 SAT 96, BASE EXCESS 6.7, FI02 100. BLOOD CULTURES THAT WERE OBTAINED ON 09/10/19 REPORT GROWTH OF ENTEROCOCCUS FAECALIS. SPUTUM CULTURES REVEALED GROWTH OF YEAST. A CHEST XRAY WAS OBTAINED AND REVEALED: Unchanged bilateral moderately-severe pneumonia. WE WILL CONTINUE WITH IV ANTIBIOTICS, RESPIRATORY THERAPY, SUPPLEMENTAL OXYGEN, STEROID THERAPY, TPN, AND CURRENT PLAN OF CARE TODAY. WE WILL ALSO RESUME HER TUBE FEEDINGS. OTHERWISE, WE WILL FOLLOW UP WITH AM LABS, CHEST XRAY, ABG, AND CONTINUE TO MONITOR. CRITICAL CARE TIME SPENT ON CLINICAL ASSESSMENT, REVIEWING LABS AND IMAGING, DECISION MAKING, AND DOCUMENTATION GREATER THAN 75 MINUTES. - Past Medical Family Social History Past Med/Fam/Surg Hx: No changes since H&P Allergies: Allergies No Known Drug Allergies Allergy (Verified 08/27/19 22:19) - Review of Systems ROS: No change since H&P - Vital Signs and I&O's Vital Signs: Temperature 98.7 F Pulse Rate [Left] 64 Pulse Rate [Bilateral Radial] 92 Pulse Rate 57 Respiratory Rate 21 Blood Pressure [right radial] 124/51 Blood Pressure [Right Radial 167/56 Artery] Blood Pressure [Left Arm] 120/50 Blood Pressure 113/59 O2 Sat by Pulse Oximetry 94 Intake and Output: Intake & Output 09/14/20 09/15/20 09/16/20 09/17/20 11:59 11:59 11:59 11:59 Intake Total 3449 / 3449 2159 / 2159 3072 / 3072 Output Total 1450 / 1450 1325 / 1325 1550 / 1550 Balance 1998 834 / 834 1522 / 1522 - Physical Exam Oriented: Unable to test Eyes: Normal Ear: Normal Nose: Normal Throat: Normal Respiratory: Generalized, Diminished, Rales Cardiovascular: Normal : Normal Auscultation: Bowel Sounds: Normal Palpation: Normal Tenderness: Normal Skin: Normal Musculoskeletal: Normal Psychiatric: Other (SEDATED) Mood Description: Calm Affect: Normal Speech Pattern: Artificially Ventilated - Laboratory and Diagnostics Result Diagrams: 09/21/20 16:32 09/21/20 03:45 Labs: 09/14/20 14:57 Catheter Tip - Other - Preliminary 09/10/20 10:37 Blood Blood Culture - Final Staphylococcus Epidermidis 09/10/20 08:45 Blood Blood Culture - Final Enterococcus Faecalis 09/10/20 10:21 Sputum - Expectorated Sputum Sputum Culture - Final 09/10/20 10:21 Sputum - Expectorated Sputum - Final 09/10/20 08:48 Urine,Clean Catch Urine Culture - Final 09/02/20 10:58 Sputum - Endotracheal Wash Sputum Culture - Final 09/02/20 10:58 Sputum - Endotracheal Wash - Final 08/18/20 11:40 Blood Blood Culture - Final 08/18/20 12:00 Blood Blood Culture - Final Laboratory WBC 16.9 X10^3/uL (3.6-10.0) H 09/16/20 05:15 RBC 3.38 X10^6/uL (3.5-5.4) L 09/16/20 05:15 Hgb 10.4 g/dL (12.0-16.0) L 09/16/20 05:15 Hct 29.2 % (36.0-47.0) L 09/16/20 05:15 MCV 86.4 fL (80.0-100.0) 09/16/20 05:15 MCH 30.8 pg (27.0-34.0) 09/16/20 05:15 MCHC 35.7 g/dL (33.0-35.0) H 09/16/20 05:15 RDW 14.9 % (11.6-16.5) 09/16/20 05:15 Plt Count 204 X10^3/uL (150.0-450.0) 09/16/20 05:15 Plt Count Comment Adequate (ADEQUATE) 09/16/20 05:15 MPV 9.5 fL (7.4-11.0) 09/16/20 05:15 Neut % (Auto) 97.3 % (42.0-75.0) H 09/16/20 05:15 Lymph % (Auto) 2.0 % (21.0-51.0) L 09/16/20 05:15 [place] % (Auto) 0.3 % (0.0-13.0) 09/16/20 05:15 Eos % (Auto) 0.0 % (0.9-2.9) L 09/16/20 05:15 Baso % (Auto) 0.4 % (0.2-1.0) 09/16/20 05:15 Neut # (Auto) 16.4 x10^3/uL (2.2-4.8) H 09/16/20 05:15 Lymph # (Auto) 0.3 X10^3/uL (1.3-2.9) L 09/16/20 05:15 [place] # (Auto) 0.1 x10^3/uL (0.3-0.8) L 09/16/20 05:15 Eos # (Auto) 0.0 x10^3/uL (0.0-0.2) 09/16/20 05:15 Baso # (Auto) 0.1 X10^3/uL (0.0-0.1) 09/16/20 05:15 Absolute Nucleated RBC 0.1 /100WBC 09/16/20 05:15 Total Counted 100 09/16/20 05:15 Neutrophils % (Manual) 69 % (39-76) 09/16/20 05:15 Band Neutrophils % 23 % (0-10) H 09/16/20 05:15 Lymphocytes % (Manual) 4 % (13-43) L 09/16/20 05:15 Monocytes % (Manual) 4 % (4-9) 09/16/20 05:15 Eosinophils % (Manual) 1 % (0-6) 08/31/20 05:50 Metamyelocytes % 1 09/15/20 06:00 Myelocytes % 1 09/14/20 06:00 Plt Morphology Comment Normal (NORMAL) 09/16/20 05:15 RBC Morphology Normal (NORMAL) 09/16/20 05:15 PT 17.9 SECONDS (11.8-14.3) 08/22/20 17:00 INR Target Range - 08/22/20 17:00 INR 1.53 (0.8-1.3) H 08/22/20 17:00 APTT 22.8 SECONDS (22.9-36.5) L 08/30/20 06:30 PTT Comment - 08/30/20 06:30 D-Dimer 3.51 ug/ml (0.0-0.57) H* 09/16/20 05:15 Sample Site [place] 09/16/20 05:25 ABG pH 7.380 (7.35-7.45) 09/16/20 05:25 ABG pCO2 51.0 mmHg (35.0-45.0) H* 09/16/20 05:25 ABG pO2 124.0 mmHg (80.0-100.0) H 09/16/20 05:25 ABG HCO3 30.2 mmol/L (22-26) H* 09/16/20 05:25 ABG O2 Saturation 99.0 % (90-100) 09/16/20 05:25 ABG Base Excess 4.0 mmol/L (-2.0-2.0) H 09/16/20 05:25 Juan Test Na 09/16/20 05:25 A-a Gradient 383.0 mmHg 09/16/20 05:25 FiO2 80.0 09/16/20 05:25 Blood Gas Comments [place] well-mtf 09/16/20 05:25 Sodium 139 mmol/L (136-145) 09/16/20 05:15 Corrected Sodium 143 mmol/L (136-145) 09/16/20 05:15 Potassium 3.9 mmol/L (3.5-5.1) 09/16/20 05:15 Chloride 103 mmol/L (98-107) 09/16/20 05:15 Carbon Dioxide 26.1 mmol/L (21-32) 09/16/20 05:15 BUN 43 mg/dL (7-18) H 09/16/20 05:15 Creatinine 0.65 mg/dL (0.55-1.02) 09/16/20 05:15 Est GFR (MDRD) Af Amer > 60 (>60) 09/16/20 05:15 Est GFR (MDRD) Non-Af > 60 (>60) 09/16/20 05:15 Glucose 282 mg/dL (65-99) H 09/16/20 05:15 POC Glucose (mg/dL) 260 mg/dL (65-99) H 09/16/20 05:19 Lactic Acid 0.8 mmol/L (0.4-2.0) 09/10/20 08:45 Calcium 8.2 mg/dL (8.5-10.1) L 09/16/20 05:15 Corrected Calcium 9.7 mg/dL (8.5-10.1) 09/16/20 05:15 Phosphorus 2.5 mg/dL (2.6-4.7) L 09/09/20 04:50 Magnesium 2.1 mg/dL (1.7-2.9) 09/15/20 06:00 Ferritin 1597 ng/mL (8-252) H 09/16/20 05:15 Total Bilirubin 0.60 mg/dL (0.2-1.0) 09/16/20 05:15 AST 16 Units/L (15-37) 09/16/20 05:15 ALT 15 Units/L (12-78) 09/16/20 05:15 Alkaline Phosphatase 53 Units/L (46-116) 09/16/20 05:15 Creatine Kinase 83 Units/L (26-192) 08/18/20 19:07 CK-MB (CK-2) 1.0 ng/mL (0-4.0) 08/18/20 19:07 CK/CKMB % Calc 1.2 % (<4) 08/18/20 19:07 Troponin I < 0.02 ng/mL (0-1.5) 08/18/20 19:07 C-Reactive Protein 149.30 mg/L (0-3.0) H 09/16/20 05:15 B-Natriuretic Peptide 1230 pg/mL (0-79) H* 09/16/20 05:15 Total Protein 5.3 g/dL (6.4-8.2) L 09/16/20 05:15 Albumin 2.1 g/dL (3.4-5.0) L 09/16/20 05:15 Globulin 3.2 g/dL (2.5-4.5) 09/16/20 05:15 Albumin/Globulin Ratio 0.7 Ratio (1.1-2.1) L 09/16/20 05:15 Prealbumin 18.9 mg/dL (18-35.7) 09/15/20 06:00 Triglycerides 498 mg/dL (0-150) H 09/09/20 04:50 Amylase 50 Units/L (25-115) 08/18/20 11:40 Lipase 137 Units/L (73-393) 08/18/20 11:40 Specimen Type Catherized urine 09/10/20 10:21 Urine Color Red (YELLOW) 09/10/20 10:21 Urine Appearance Cloudy (CLEAR) 09/10/20 10:21 Urine pH 7.0 (5.0 - 8.0) 09/10/20 10:21 Ur Specific [place] 1.010 (1.000-1.030) 09/10/20 10:21 Urine Protein 3+ (NEGATIVE) 09/10/20 10:21 Urine Glucose (UA) 2+ (NEGATIVE) 09/10/20 10:21 Urine Ketones Negative (NEGATIVE) 09/10/20 10:21 Urine Occult Blood 5+ (NEGATIVE) 09/10/20 10:21 Urine Nitrite Negative (NEGATIVE) 09/10/20 10:21 Urine Bilirubin Negative (NEGATIVE) 09/10/20 10:21 Urine Urobilinogen Normal (NORMAL) 09/10/20 10:21 Ur Leukocyte Esterase 2+ (NEGATIVE) 09/10/20 10:21 Urine RBC Tntc /HPF (0-3) A 09/10/20 10:21 Urine WBC 0-2 /HPF (0-5) 09/10/20 10:21 Ur Squamous Epith Cells Rare /HPF (NEGATIVE) 09/10/20 10:21 Urine Bacteria Negative /HPF (NEGATIVE) 09/10/20 10:21 Ur Culture Indicated? No/not indicated 09/10/20 10:21 Vancomycin Trough 14.0 ug/mL (15-20) L 09/12/20 08:47 Theophylline < 2.0 ug/mL (10-20) L 09/15/20 06:00 Influenza Type A (PCR) Negative (NEGATIVE) 08/18/20 12:46 Influenza Type B (PCR) Negative (NEGATIVE) 08/18/20 12:46 SARS CoV-2 RNA Rapid LUIS Positive (NEGATIVE) A 08/18/20 18:12 Miscellaneous Test Resp panel 09/02/20 10:12 Blood Type B POSITIVE 09/11/20 06:34 Antibody Screen Negative 09/11/20 06:34 Crossmatch See Detail 09/11/20 06:34 - Plan (1) Pneumonia due to 2019 novel coronavirus Status: Acute Plan: CONTINUE MECHANICAL VENT, CONTINUE IV ANTIBIOTICS, RESPIRATORY TX, CORTICOSTEROIDS, DVT PROPHYLASIX, BLOOD GLUCOSE CONTROL, TUBE FEEDINGS, POTASSIUM AND MAGNESIUM REPLACEMENT PER PROTOCOL, TPN, SEDATION (2) Hypoxia Status: Acute (3) Anemia Status: Acute Qualifiers: Anemia type: iron deficiency Iron deficiency anemia type: unspecified iron deficiency Qualified Code(s): D50.9 - Iron deficiency anemia, unspecified Plan: TRANSFUSE 2 UNITS PRBC, CONTINUE TO MONITOR
--- NOTE | 2020-09-16 12:50 | PCM.PROG ---
Progress Note - Progress Note for Day of Date of Exam: 09/16/20 - Subjective Subjective: IS BEING TREATED FOR PNEUMONIA DUE TO COVID-19 AND HYPOXIA. SHE REMAINS ON THE MECHANICAL VENT. TODAY, HER SETTINGS ON THE VENT ARE: A/C, VENT RATE 20, TIDAL VOLUME 425, PEEP 7, FI02 80. HER SATURATIONS HAVE BEEN 93-98% THIS MORNING AND THROUGHOUT THE NIGHT. SHE HAS BEEN ON THE VENT SINCE 08/25/20. SHE HAD TRACHEOSTOMY PLACEMENT ON MONDAY. A NEW CENTRAL LINE AND NG TUBE WERE ALSO INSERTED. ON EXAMINATION TODAY, SHE IS SEDATED, LYING IN BED WITH EYES CLOSED. HEART IS REGULAR IN RATE AND RHYTHM. BILATERAL LUNGS ARE NOTED WITH DIMINISHED LUNG SOUNDS THROUGHOUT. ABDOMEN IS ROUND, SOFT, AND NON-TENDER WITH NORMAL BOWEL SOUNDS NOTED IN ALL QUADRANTS. 2+ PITTING EDEMA NOTED TO UPPER EXTREMITIES. THERE IS A CARPIO CATHETER NOTED TO BEDSIDE DRAINAGE. SHE ALSO HAS AN ART LINE, CENTRAL LINE, AND NG TUBE IN PLACE. HER VITALS THIS MORNING ARE: 98.7-54-20-96%-114/61. LABS WERE OBTAINED. ABNORMAL LAB VALUES INCLUDE THE FOLLOWING: WBC 16.9, RBC 3.38, HGB 10.4, HCT 29.2, D-DIMER 3.51, BUN 43, GLUCOSE 282, CALCIUM 8.2, FERRITIN 1597, CRP 149.30, BNP 1230, TOTAL PROTEIN 5.3, ALBUM IN 2.1. ABG WAS OBTAINED THIS MORNING AND REVEALED: PH 7.380, PC02 51.0, P02 124, HC03 30.2, 02 SAT 30.2, 02 SAT 99, A-A GRADIENT 383, FI02 80. BLOOD CULTURES THAT WERE OBTAINED ON 09/10/19 REPORT GROWTH OF ENTEROCOCCUS FAECALIS. SPUTUM CULTURES REVEALED GROWTH OF YEAST. A CHEST XRAY WAS OBTAINED AND REVEALED: No change in the bilateral diffuse infiltrates or positioning of the tracheostomy tube, NG tube and left subclavian central venous catheter. WE WILL CONTINUE WITH IV ANTIBIOTICS, RESPIRATORY THERAPY, SUPPLEMENTAL OXYGEN, STEROID THERAPY, TPN, AND CURRENT PLAN OF CARE TODAY. HER TUBE FEEDINGS HAVE BEEN RESUMED. WE WILL INCREASE ALBUMIN TO BID AND START LASIX 40MG IV BID. OTHERWISE, WE WILL FOLLOW UP WITH AM LABS, CHEST XRAY, ABG, AND CONTINUE TO MONITOR. CRITICAL CARE TIME SPENT ON CLINICAL ASSESSMENT, REVIEWING LABS AND IMAGING, DECISION MAKING, AND DOCUMENTATION GREATER THAN 75 MINUTES. - Past Medical Family Social History Past Med/Fam/Surg Hx: No changes since H&P Allergies: Allergies No Known Drug Allergies Allergy (Verified 08/27/19 22:19) - Review of Systems ROS: No change since H&P - Vital Signs and I&O's Vital Signs: Temperature 98.7 F Pulse Rate [Left] 64 Pulse Rate [Bilateral Radial] 92 Pulse Rate 57 Respiratory Rate 21 Blood Pressure [right radial] 124/51 Blood Pressure [Right Radial 167/56 Artery] Blood Pressure [Left Arm] 120/50 Blood Pressure 113/59 O2 Sat by Pulse Oximetry 94 Intake and Output: Intake & Output 09/14/20 09/15/20 09/16/20 09/17/20 11:59 11:59 11:59 11:59 Intake Total 3449 / 3449 2159 / 2159 3072 / 3072 Output Total 1450 / 1450 1325 / 1325 1550 / 1550 Balance 1998 834 / 834 1522 / 1522 - Physical Exam Oriented: Unable to test Eyes: Normal Ear: Normal Nose: Normal Throat: Normal Respiratory: Generalized, Diminished, Rales Cardiovascular: Normal : Normal Auscultation: Bowel Sounds: Normal Palpation: Normal Tenderness: Normal Skin: Normal Musculoskeletal: Normal Psychiatric: Other (SEDATED) Mood Description: Calm Affect: Normal Speech Pattern: Artificially Ventilated - Laboratory and Diagnostics Result Diagrams: 09/21/20 16:32 09/21/20 03:45 Labs: 09/14/20 14:57 Catheter Tip - Other - Preliminary 09/10/20 10:37 Blood Blood Culture - Final Staphylococcus Epidermidis 09/10/20 08:45 Blood Blood Culture - Final Enterococcus Faecalis 09/10/20 10:21 Sputum - Expectorated Sputum Sputum Culture - Final 09/10/20 10:21 Sputum - Expectorated Sputum - Final 09/10/20 08:48 Urine,Clean Catch Urine Culture - Final 09/02/20 10:58 Sputum - Endotracheal Wash Sputum Culture - Final 09/02/20 10:58 Sputum - Endotracheal Wash - Final 08/18/20 11:40 Blood Blood Culture - Final 08/18/20 12:00 Blood Blood Culture - Final Laboratory WBC 16.9 X10^3/uL (3.6-10.0) H 09/16/20 05:15 RBC 3.38 X10^6/uL (3.5-5.4) L 09/16/20 05:15 Hgb 10.4 g/dL (12.0-16.0) L 09/16/20 05:15 Hct 29.2 % (36.0-47.0) L 09/16/20 05:15 MCV 86.4 fL (80.0-100.0) 09/16/20 05:15 MCH 30.8 pg (27.0-34.0) 09/16/20 05:15 MCHC 35.7 g/dL (33.0-35.0) H 09/16/20 05:15 RDW 14.9 % (11.6-16.5) 09/16/20 05:15 Plt Count 204 X10^3/uL (150.0-450.0) 09/16/20 05:15 Plt Count Comment Adequate (ADEQUATE) 09/16/20 05:15 MPV 9.5 fL (7.4-11.0) 09/16/20 05:15 Neut % (Auto) 97.3 % (42.0-75.0) H 09/16/20 05:15 Lymph % (Auto) 2.0 % (21.0-51.0) L 09/16/20 05:15 [place] % (Auto) 0.3 % (0.0-13.0) 09/16/20 05:15 Eos % (Auto) 0.0 % (0.9-2.9) L 09/16/20 05:15 Baso % (Auto) 0.4 % (0.2-1.0) 09/16/20 05:15 Neut # (Auto) 16.4 x10^3/uL (2.2-4.8) H 09/16/20 05:15 Lymph # (Auto) 0.3 X10^3/uL (1.3-2.9) L 09/16/20 05:15 [place] # (Auto) 0.1 x10^3/uL (0.3-0.8) L 09/16/20 05:15 Eos # (Auto) 0.0 x10^3/uL (0.0-0.2) 09/16/20 05:15 Baso # (Auto) 0.1 X10^3/uL (0.0-0.1) 09/16/20 05:15 Absolute Nucleated RBC 0.1 /100WBC 09/16/20 05:15 Total Counted 100 09/16/20 05:15 Neutrophils % (Manual) 69 % (39-76) 09/16/20 05:15 Band Neutrophils % 23 % (0-10) H 09/16/20 05:15 Lymphocytes % (Manual) 4 % (13-43) L 09/16/20 05:15 Monocytes % (Manual) 4 % (4-9) 09/16/20 05:15 Eosinophils % (Manual) 1 % (0-6) 08/31/20 05:50 Metamyelocytes % 1 09/15/20 06:00 Myelocytes % 1 09/14/20 06:00 Plt Morphology Comment Normal (NORMAL) 09/16/20 05:15 RBC Morphology Normal (NORMAL) 09/16/20 05:15 PT 17.9 SECONDS (11.8-14.3) 08/22/20 17:00 INR Target Range - 08/22/20 17:00 INR 1.53 (0.8-1.3) H 08/22/20 17:00 APTT 22.8 SECONDS (22.9-36.5) L 08/30/20 06:30 PTT Comment - 08/30/20 06:30 D-Dimer 3.51 ug/ml (0.0-0.57) H* 09/16/20 05:15 Sample Site [place] 09/16/20 05:25 ABG pH 7.380 (7.35-7.45) 09/16/20 05:25 ABG pCO2 51.0 mmHg (35.0-45.0) H* 09/16/20 05:25 ABG pO2 124.0 mmHg (80.0-100.0) H 09/16/20 05:25 ABG HCO3 30.2 mmol/L (22-26) H* 09/16/20 05:25 ABG O2 Saturation 99.0 % (90-100) 09/16/20 05:25 ABG Base Excess 4.0 mmol/L (-2.0-2.0) H 09/16/20 05:25 Juan Test Na 09/16/20 05:25 A-a Gradient 383.0 mmHg 09/16/20 05:25 FiO2 80.0 09/16/20 05:25 Blood Gas Comments [place] well-mtf 09/16/20 05:25 Sodium 139 mmol/L (136-145) 09/16/20 05:15 Corrected Sodium 143 mmol/L (136-145) 09/16/20 05:15 Potassium 3.9 mmol/L (3.5-5.1) 09/16/20 05:15 Chloride 103 mmol/L (98-107) 09/16/20 05:15 Carbon Dioxide 26.1 mmol/L (21-32) 09/16/20 05:15 BUN 43 mg/dL (7-18) H 09/16/20 05:15 Creatinine 0.65 mg/dL (0.55-1.02) 09/16/20 05:15 Est GFR (MDRD) Af Amer > 60 (>60) 09/16/20 05:15 Est GFR (MDRD) Non-Af > 60 (>60) 09/16/20 05:15 Glucose 282 mg/dL (65-99) H 09/16/20 05:15 POC Glucose (mg/dL) 260 mg/dL (65-99) H 09/16/20 05:19 Lactic Acid 0.8 mmol/L (0.4-2.0) 09/10/20 08:45 Calcium 8.2 mg/dL (8.5-10.1) L 09/16/20 05:15 Corrected Calcium 9.7 mg/dL (8.5-10.1) 09/16/20 05:15 Phosphorus 2.5 mg/dL (2.6-4.7) L 09/09/20 04:50 Magnesium 2.1 mg/dL (1.7-2.9) 09/15/20 06:00 Ferritin 1597 ng/mL (8-252) H 09/16/20 05:15 Total Bilirubin 0.60 mg/dL (0.2-1.0) 09/16/20 05:15 AST 16 Units/L (15-37) 09/16/20 05:15 ALT 15 Units/L (12-78) 09/16/20 05:15 Alkaline Phosphatase 53 Units/L (46-116) 09/16/20 05:15 Creatine Kinase 83 Units/L (26-192) 08/18/20 19:07 CK-MB (CK-2) 1.0 ng/mL (0-4.0) 08/18/20 19:07 CK/CKMB % Calc 1.2 % (<4) 08/18/20 19:07 Troponin I < 0.02 ng/mL (0-1.5) 08/18/20 19:07 C-Reactive Protein 149.30 mg/L (0-3.0) H 09/16/20 05:15 B-Natriuretic Peptide 1230 pg/mL (0-79) H* 09/16/20 05:15 Total Protein 5.3 g/dL (6.4-8.2) L 09/16/20 05:15 Albumin 2.1 g/dL (3.4-5.0) L 09/16/20 05:15 Globulin 3.2 g/dL (2.5-4.5) 09/16/20 05:15 Albumin/Globulin Ratio 0.7 Ratio (1.1-2.1) L 09/16/20 05:15 Prealbumin 18.9 mg/dL (18-35.7) 09/15/20 06:00 Triglycerides 498 mg/dL (0-150) H 09/09/20 04:50 Amylase 50 Units/L (25-115) 08/18/20 11:40 Lipase 137 Units/L (73-393) 08/18/20 11:40 Specimen Type Catherized urine 09/10/20 10:21 Urine Color Red (YELLOW) 09/10/20 10:21 Urine Appearance Cloudy (CLEAR) 09/10/20 10:21 Urine pH 7.0 (5.0 - 8.0) 09/10/20 10:21 Ur Specific [place] 1.010 (1.000-1.030) 09/10/20 10:21 Urine Protein 3+ (NEGATIVE) 09/10/20 10:21 Urine Glucose (UA) 2+ (NEGATIVE) 09/10/20 10:21 Urine Ketones Negative (NEGATIVE) 09/10/20 10:21 Urine Occult Blood 5+ (NEGATIVE) 09/10/20 10:21 Urine Nitrite Negative (NEGATIVE) 09/10/20 10:21 Urine Bilirubin Negative (NEGATIVE) 09/10/20 10:21 Urine Urobilinogen Normal (NORMAL) 09/10/20 10:21 Ur Leukocyte Esterase 2+ (NEGATIVE) 09/10/20 10:21 Urine RBC Tntc /HPF (0-3) A 09/10/20 10:21 Urine WBC 0-2 /HPF (0-5) 09/10/20 10:21 Ur Squamous Epith Cells Rare /HPF (NEGATIVE) 09/10/20 10:21 Urine Bacteria Negative /HPF (NEGATIVE) 09/10/20 10:21 Ur Culture Indicated? No/not indicated 09/10/20 10:21 Vancomycin Trough 14.0 ug/mL (15-20) L 09/12/20 08:47 Theophylline < 2.0 ug/mL (10-20) L 09/15/20 06:00 Influenza Type A (PCR) Negative (NEGATIVE) 08/18/20 12:46 Influenza Type B (PCR) Negative (NEGATIVE) 08/18/20 12:46 SARS CoV-2 RNA Rapid LUIS Positive (NEGATIVE) A 08/18/20 18:12 Miscellaneous Test Resp panel 09/02/20 10:12 Blood Type B POSITIVE 09/11/20 06:34 Antibody Screen Negative 09/11/20 06:34 Crossmatch See Detail 09/11/20 06:34 - Plan (1) Pneumonia due to 2019 novel coronavirus Status: Acute Plan: CONTINUE MECHANICAL VENT, CONTINUE IV ANTIBIOTICS, RESPIRATORY TX, CORTICOSTEROIDS, DVT PROPHYLASIX, BLOOD GLUCOSE CONTROL, TUBE FEEDINGS, POTASSIUM AND MAGNESIUM REPLACEMENT PER PROTOCOL, TPN, SEDATION (2) Hypoxia Status: Acute (3) Anemia Status: Acute Qualifiers: Anemia type: iron deficiency Iron deficiency anemia type: unspecified iron deficiency Qualified Code(s): D50.9 - Iron deficiency anemia, unspecified Plan: CONTINUE TO MONITOR
[2020-09-16] MEDS: NS 500 ML IV 500 ML IV SCH (14:30)
[2020-09-16] MEDS: HUMULIN R IV SCH ×6 (16:21)
[2020-09-16] MEDS: [UNRECOGNIZED DRUG - OTHER] IV SCH ×6 (16:21)
[2020-09-16] MEDS: TRACE ELEMENTS IV SCH ×6 (16:21)
[2020-09-16] MEDS: CLINIMIX IV SCH ×6 (16:21)
[2020-09-16] MEDS: COLACE SYRUP 100 MG UDC PO SCH (20:25)
[2020-09-17] MEDS: PRECEDEX 400 MCG/100 ML PREMIX 400 MCG/100 ML INFUS..BTL IV PRN
[2020-09-17] MEDS: LEVAQUIN PREMIX IV 750 MG 750 MG/150 ML BAG IV SCH ×2 (00:45→23:00)
[2020-09-17] MEDS: DIPRIVAN PREMIX 1 GRAM IV 1,000 MG/100 ML VIAL IV PRN ×3 (03:27→14:34)
[2020-09-17 05:00] LABS: ABG BASE EXCESS 6.2 mmol/L (-2.0-2.0); ABG HCO3 31.8 mmol/L (22-26)
[2020-09-17] MEDS: SOLU-Medrol 125 MG VIAL IVP SCH ×4 (05:08→22:00)
[2020-09-17] MEDS: ZOSYN VIAL 3.375 GRAMS 3.375 G in NS 100 ML IV + SPIKE MINIBAG* 100 ML IV SCH ×3 (05:08→21:30)
[2020-09-17] MEDS: HumuLIN R SUBCUT PRN ×3 (06:08→20:45)
[2020-09-17 06:52] LABS: ALBUMIN 2.5 g/dL (3.4-5.0); BLOOD UREA NITROGEN 45 mg/dL (7-18); CHLORIDE 98 mmol/L (98-107); COR NA(FOR HYPERGLY) 143 mmol/L (136-145); SODIUM 138 mmol/L (136-145); TOTAL PROTEIN 5.6 g/dL (6.4-8.2); eGFR NON BLACK RACES > 60 (>60)
[2020-09-17 07:44] LABS: BASOPHILS # (AUTO) 0.2 X10^3/uL (0.0-0.1); BASOPHILS % (AUTO) 1.2 % (0.2-1.0); EOSINOPHILS % (AUTO) 0.1 % (0.9-2.9); HEMATOCRIT 31.3 % (36.0-47.0); HEMOGLOBIN 10.8 g/dL (12.0-16.0); LYMPHOCYTES # (AUTO) 0.4 X10^3/uL (1.3-2.9); LYMPHOCYTES % (AUTO) 2.3 % (21.0-51.0); MEAN CORPUSCULAR HEMOGLOBIN 30.1 pg (27.0-34.0); MEAN CORPUSCULAR HGB CONC 34.5 g/dL (33.0-35.0); MEAN CORPUSCULAR VOLUME 87.2 fL (80.0-100.0); MEAN PLATELET VOLUME 9.8 fL (7.4-11.0); MONOCYTES # (AUTO) 0.1 x10^3/uL (0.3-0.8); MONOCYTES % (AUTO) 0.4 % (0.0-13.0); NEUTROPHILS # (AUTO) 15.9 x10^3/uL (2.2-4.8); PLATELET COUNT 293 X10^3/uL (150.0-450.0); RED BLOOD COUNT 3.59 X10^6/uL (3.5-5.4); WHITE BLOOD COUNT 16.5 X10^3/uL (3.6-10.0)
[2020-09-17 07:47] LABS: BAND NEUTROPHILS % 30 % (0-10); METAMYELOCYTES % 3; PLATELET MORPHOLOGY COMMENT NORMAL (NORMAL)
--- NOTE | 2020-09-17 07:47 | RAD ---
HISTORYSOBSTUDYCHEST, 1 VIEWCOMPARISONPortable chest September 16, 2020FINDINGSThe trachea is midline. Tracheostomy tube is in place in good position. An NG tube is in place with the tip below the diaphragm. A left-sided central venous catheter entering in the subclavian is in good position with the tip at the junction of the superior vena cava to the right atrium. The cardiac silhouette is unremarkable . The bilateral diffuse pulmonary infiltrates are unchanged from yesterday's exam. No effusion or pneumothorax is observed. The bony thorax is unremarkable.IMPRESSIONNo change in the bilateral diffuse pulmonary infiltrates position of the tracheostomy tube left subclavian venous catheter or NG tube compared to yesterday's exam.Electronically signed by: PATY CONTRERAS (Sep 17, 2020 07:45:15)
[2020-09-17] MEDS: VERSED IV PREMIX 100 MG/100 ML IV.SOLN IV PRN ×2 (07:50)
[2020-09-17 08:14] LABS: ALANINE AMINOTRANSFERASE 13 Units/L (12-78); ALKALINE PHOSPHATASE 38 Units/L (46-116); ASPARTATE AMINO TRANSFERASE 14 Units/L (15-37); CALCIUM 7.8 mg/dL (8.5-10.1); CREATININE 0.64 mg/dL (0.55-1.02)
[2020-09-17] MEDS: PULMICORT NEB TX 0.5 MG NEB SCH ×2 (08:41→21:29)
[2020-09-17] MEDS: PROVENTIL NEB TX 0.083% 2.5MG/ 3ML NEB SCH ×4 (08:41→21:29)
[2020-09-17] MEDS: ALBUMIN HUMAN 25%- 100 ML 100 ML IV SCH ×2 (08:56→20:15)
[2020-09-17] MEDS: [UNRECOGNIZED DRUG - OTHER] NG SCH ×4 (08:57→20:55)
[2020-09-17] MEDS: LOVENOX INJ 30 MG SYR SC SCH ×2 (08:57→20:45)
[2020-09-17] MEDS: LACRI-LUBE S.O.P. AFFEYE SCH ×2 (08:57→22:00)
[2020-09-17] MEDS: DIFLUCAN 200 MG IV PREMIX* 200 MG/100 ML BAG IV SCH (08:57)
[2020-09-17] MEDS: PEPCID 20 MG IV PREMIX* 20 MG/50 ML BAG IV SCH ×3 (08:58→20:00)
[2020-09-17] MEDS: SYNTHROID INJ 100 mcg VIAL IVP SCH (08:58)
[2020-09-17] MEDS: MILK OF MAGNESIA PO SCH (08:58)
[2020-09-17] MEDS: PROTONIX INJ 40 MG VIAL IVP SCH (08:58)
[2020-09-17] MEDS: LASIX IVP SCH ×2 (08:59→21:00)
[2020-09-17] MEDS: VANCOMYCIN IV *PREMIX 1 G/200 ML BAG 1 G/200 ML PIGGYBACK IV SCH ×2 (10:17→20:20)
[2020-09-17] MEDS ORDERED: DECADRON JET NEB (RESP USE) NEB SCH (13:00)
--- NOTE | 2020-09-17 14:34 | PCM.PROG ---
Progress Note - Progress Note for Day of Date of Exam: 09/17/20 - Subjective Subjective: IS BEING TREATED FOR PNEUMONIA DUE TO COVID-19 AND HYPOXIA. SHE REMAINS ON THE MECHANICAL VENT. TODAY, HER SETTINGS ON THE VENT ARE: A/C, VENT RATE 20, TIDAL VOLUME 425, PEEP 7, FI02 60. HER SATURATIONS HAVE BEEN 89-94% THIS MORNING AND THROUGHOUT THE NIGHT. SHE HAS BEEN ON THE VENT SINCE 08/25/20. SHE HAD TRACHEOSTOMY PLACEMENT ON MONDAY. A NEW CENTRAL LINE AND NG TUBE WERE ALSO INSERTED. ON EXAMINATION TODAY, SHE IS SEDATED, LYING IN BED WITH EYES CLOSED. HEART IS REGULAR IN RATE AND RHYTHM. BILATERAL LUNGS ARE NOTED WITH DIMINISHED LUNG SOUNDS THROUGHOUT. ABDOMEN IS ROUND, SOFT, AND NON-TENDER WITH NORMAL BOWEL SOUNDS NOTED IN ALL QUADRANTS. 1+ PITTING EDEMA NOTED TO UPPER EXTREMITIES. THERE IS A CARPIO CATHETER NOTED TO BEDSIDE DRAINAGE. SHE ALSO HAS AN ART LINE, CENTRAL LINE, AND NG TUBE IN PLACE. HER VITALS THIS MORNING ARE: 98.7-50-24-93%-126/62. LABS WERE OBTAINED. ABNORMAL LAB VALUES INCLUDE THE FOLLOWING: WBC 16.5, HGB 10.8, HCT 31.3, D-DIMER 1.12, POTASSIUM 2.7, BUN 45, GLUCOSE 289, CALCIUM 7.8, FERRITIN 1261, TOTAL BILI 1.20, AST 14, ALK PHOS 38, CRP 72.20, BNP 774, TOTAL PROTEIN 5.6, ALBUMIN 2.5. ABG WAS OBTAINED THIS MORNING AND REVEALED: PH 7.420, PC02 49, P02 67, HC03 31.8, 02 SAT 93, BASE EXCESS 6.2, A-A GRADIENT 300, FI02 60. BLOOD CULTURES THAT WERE OBTAINED ON 09/10/19 REPORT GROWTH OF ENTEROCOCCUS FAECALIS. SPUTUM CULTURES REVEALED GROWTH OF YEAST. A CHEST XRAY WAS OBTAINED AND REVEALED: No change in the bilateral diffuse pulmonary infiltrates position of the tracheostomy tube left subclavian venous catheter or NG tube compared to yesterday's exam. WE WILL CONTINUE WITH IV ANTIBIOTICS, RESPIRATORY THERAPY, SUPPLEMENTAL OXYGEN, STEROID THERAPY, TPN, AND CURRENT PLAN OF CARE TODAY. WE WILL ADD DECADRON TO HER NEB TX BID. HER TUBE FEEDINGS HAVE BEEN RESUMED. OTHERWISE, WE WILL FOLLOW UP WITH AM LABS, CHEST XRAY, ABG, AND CONTINUE TO MONITOR. CRITICAL CARE TIME SPENT ON CLINICAL ASSESSMENT, REVIEWING LABS AND IMAGING, DECISION MAKING, AND DOCUMENTATION GREATER THAN 75 MINUTES. - Past Medical Family Social History Past Med/Fam/Surg Hx: No changes since H&P Allergies: Allergies No Known Drug Allergies Allergy (Verified 08/27/19 22:19) - Review of Systems ROS: No change since H&P - Vital Signs and I&O's Vital Signs: Temperature 98.9 F Pulse Rate [Left] 64 Pulse Rate [Bilateral Radial] 92 Pulse Rate 78 Respiratory Rate 22 Blood Pressure [right radial] 124/51 Blood Pressure [Right Radial 167/56 Artery] Blood Pressure [Left Arm] 120/50 Blood Pressure 143/62 O2 Sat by Pulse Oximetry 91 Intake and Output: Intake & Output 09/15/20 09/16/20 09/17/20 09/18/20 11:59 11:59 11:59 11:59 Intake Total 2159 / 2159 3072 / 3072 4036 / 4036 Output Total 1325 / 1325 1550 / 1550 4585 / 4585 Balance 834 / 834 1522 / 1522 -549 / -549 - Physical Exam Oriented: Unable to test Eyes: Normal Ear: Normal Nose: Normal Throat: Normal Respiratory: Generalized, Diminished, Rales Cardiovascular: Normal : Normal Auscultation: Bowel Sounds: Normal Tenderness: Normal Skin: Normal Musculoskeletal: Normal Psychiatric: Other (SEDATED) Mood Description: Calm Affect: Normal Speech Pattern: Artificially Ventilated - Laboratory and Diagnostics Result Diagrams: 09/21/20 16:32 09/21/20 03:45 Labs: 09/14/20 14:57 Catheter Tip - Other - Preliminary 09/10/20 10:37 Blood Blood Culture - Final Staphylococcus Epidermidis 09/10/20 08:45 Blood Blood Culture - Final Enterococcus Faecalis 09/10/20 10:21 Sputum - Expectorated Sputum Sputum Culture - Final 09/10/20 10:21 Sputum - Expectorated Sputum - Final 09/10/20 08:48 Urine,Clean Catch Urine Culture - Final 09/02/20 10:58 Sputum - Endotracheal Wash Sputum Culture - Final 09/02/20 10:58 Sputum - Endotracheal Wash - Final 08/18/20 11:40 Blood Blood Culture - Final 08/18/20 12:00 Blood Blood Culture - Final Laboratory WBC 16.5 X10^3/uL (3.6-10.0) H 09/17/20 05:19 RBC 3.59 X10^6/uL (3.5-5.4) 09/17/20 05:19 Hgb 10.8 g/dL (12.0-16.0) L 09/17/20 05:19 Hct 31.3 % (36.0-47.0) L 09/17/20 05:19 MCV 87.2 fL (80.0-100.0) 09/17/20 05:19 MCH 30.1 pg (27.0-34.0) 09/17/20 05:19 MCHC 34.5 g/dL (33.0-35.0) 09/17/20 05:19 RDW 15.0 % (11.6-16.5) 09/17/20 05:19 Plt Count 293 X10^3/uL (150.0-450.0) 09/17/20 05:19 Plt Count Comment Adequate (ADEQUATE) 09/17/20 05:19 MPV 9.8 fL (7.4-11.0) 09/17/20 05:19 Neut % (Auto) 96.0 % (42.0-75.0) H 09/17/20 05:19 Lymph % (Auto) 2.3 % (21.0-51.0) L 09/17/20 05:19 [place] % (Auto) 0.4 % (0.0-13.0) 09/17/20 05:19 Eos % (Auto) 0.1 % (0.9-2.9) L 09/17/20 05:19 Baso % (Auto) 1.2 % (0.2-1.0) H 09/17/20 05:19 Neut # (Auto) 15.9 x10^3/uL (2.2-4.8) H 09/17/20 05:19 Lymph # (Auto) 0.4 X10^3/uL (1.3-2.9) L 09/17/20 05:19 [place] # (Auto) 0.1 x10^3/uL (0.3-0.8) L 09/17/20 05:19 Eos # (Auto) 0.0 x10^3/uL (0.0-0.2) 09/17/20 05:19 Baso # (Auto) 0.2 X10^3/uL (0.0-0.1) H 09/17/20 05:19 Absolute Nucleated RBC 0.1 /100WBC 09/17/20 05:19 Total Counted 100 09/17/20 05:19 Neutrophils % (Manual) 62 % (39-76) 09/17/20 05:19 Band Neutrophils % 30 % (0-10) H 09/17/20 05:19 Lymphocytes % (Manual) 5 % (13-43) L 09/17/20 05:19 Monocytes % (Manual) 4 % (4-9) 09/16/20 05:15 Eosinophils % (Manual) 1 % (0-6) 08/31/20 05:50 Metamyelocytes % 3 09/17/20 05:19 Myelocytes % 1 09/14/20 06:00 Plt Morphology Comment Normal (NORMAL) 09/17/20 05:19 RBC Morphology Normal (NORMAL) 09/17/20 05:19 PT 17.9 SECONDS (11.8-14.3) 08/22/20 17:00 INR Target Range - 08/22/20 17:00 INR 1.53 (0.8-1.3) H 08/22/20 17:00 APTT 22.8 SECONDS (22.9-36.5) L 08/30/20 06:30 PTT Comment - 08/30/20 06:30 D-Dimer 1.12 ug/ml (0.0-0.57) H* 09/17/20 05:19 Sample Site [place] 09/17/20 04:58 ABG pH 7.420 (7.35-7.45) 09/17/20 04:58 ABG pCO2 49.0 mmHg (35.0-45.0) H 09/17/20 04:58 ABG pO2 67.0 mmHg (80.0-100.0) L 09/17/20 04:58 ABG HCO3 31.8 mmol/L (22-26) H* 09/17/20 04:58 ABG O2 Saturation 93.0 % (90-100) 09/17/20 04:58 ABG Base Excess 6.2 mmol/L (-2.0-2.0) H 09/17/20 04:58 Juan Test Na 09/17/20 04:58 A-a Gradient 300.0 mmHg 09/17/20 04:58 FiO2 60.0 09/17/20 04:58 Blood Gas Comments [place] well-mtf 09/17/20 04:58 Sodium 138 mmol/L (136-145) 09/17/20 05:19 Corrected Sodium 143 mmol/L (136-145) 09/17/20 05:19 Potassium 2.7 mmol/L (3.5-5.1) L* 09/17/20 05:19 Chloride 98 mmol/L (98-107) 09/17/20 05:19 Carbon Dioxide 27.0 mmol/L (21-32) 09/17/20 05:19 BUN 45 mg/dL (7-18) H 09/17/20 05:19 Creatinine 0.64 mg/dL (0.55-1.02) 09/17/20 05:19 Est GFR (MDRD) Af Amer > 60 (>60) 09/17/20 05:19 Est GFR (MDRD) Non-Af > 60 (>60) 09/17/20 05:19 Glucose 289 mg/dL (65-99) H 09/17/20 05:19 POC Glucose (mg/dL) 305 mg/dL (65-99) H 09/17/20 13:36 Lactic Acid 0.8 mmol/L (0.4-2.0) 09/10/20 08:45 Calcium 7.8 mg/dL (8.5-10.1) L 09/17/20 05:19 Corrected Calcium 9.0 mg/dL (8.5-10.1) 09/17/20 05:19 Phosphorus 2.5 mg/dL (2.6-4.7) L 09/09/20 04:50 Magnesium 2.1 mg/dL (1.7-2.9) 09/15/20 06:00 Ferritin 1261 ng/mL (8-252) H 09/17/20 05:19 Total Bilirubin 1.20 mg/dL (0.2-1.0) H 09/17/20 05:19 AST 14 Units/L (15-37) L 09/17/20 05:19 ALT 13 Units/L (12-78) 09/17/20 05:19 Alkaline Phosphatase 38 Units/L (46-116) L 09/17/20 05:19 Creatine Kinase 83 Units/L (26-192) 08/18/20 19:07 CK-MB (CK-2) 1.0 ng/mL (0-4.0) 08/18/20 19:07 CK/CKMB % Calc 1.2 % (<4) 08/18/20 19:07 Troponin I < 0.02 ng/mL (0-1.5) 08/18/20 19:07 C-Reactive Protein 72.20 mg/L (0-3.0) H 09/17/20 05:19 B-Natriuretic Peptide 774 pg/mL (0-79) H* 09/17/20 05:19 Total Protein 5.6 g/dL (6.4-8.2) L 09/17/20 05:19 Albumin 2.5 g/dL (3.4-5.0) L 09/17/20 05:19 Globulin 3.1 g/dL (2.5-4.5) 09/17/20 05:19 Albumin/Globulin Ratio 0.8 Ratio (1.1-2.1) L 09/17/20 05:19 Prealbumin 18.9 mg/dL (18-35.7) 09/15/20 06:00 Triglycerides 498 mg/dL (0-150) H 09/09/20 04:50 Amylase 50 Units/L (25-115) 08/18/20 11:40 Lipase 137 Units/L (73-393) 08/18/20 11:40 Specimen Type Catherized urine 09/10/20 10:21 Urine Color Red (YELLOW) 09/10/20 10:21 Urine Appearance Cloudy (CLEAR) 09/10/20 10:21 Urine pH 7.0 (5.0 - 8.0) 09/10/20 10:21 Ur Specific [place] 1.010 (1.000-1.030) 09/10/20 10:21 Urine Protein 3+ (NEGATIVE) 09/10/20 10:21 Urine Glucose (UA) 2+ (NEGATIVE) 09/10/20 10:21 Urine Ketones Negative (NEGATIVE) 09/10/20 10:21 Urine Occult Blood 5+ (NEGATIVE) 09/10/20 10:21 Urine Nitrite Negative (NEGATIVE) 09/10/20 10:21 Urine Bilirubin Negative (NEGATIVE) 09/10/20 10:21 Urine Urobilinogen Normal (NORMAL) 09/10/20 10:21 Ur Leukocyte Esterase 2+ (NEGATIVE) 09/10/20 10:21 Urine RBC Tntc /HPF (0-3) A 09/10/20 10:21 Urine WBC 0-2 /HPF (0-5) 09/10/20 10:21 Ur Squamous Epith Cells Rare /HPF (NEGATIVE) 09/10/20 10:21 Urine Bacteria Negative /HPF (NEGATIVE) 09/10/20 10:21 Ur Culture Indicated? No/not indicated 09/10/20 10:21 Vancomycin Trough 14.0 ug/mL (15-20) L 09/12/20 08:47 Theophylline < 2.0 ug/mL (10-20) L 09/15/20 06:00 Influenza Type A (PCR) Negative (NEGATIVE) 08/18/20 12:46 Influenza Type B (PCR) Negative (NEGATIVE) 08/18/20 12:46 SARS CoV-2 RNA Rapid LUIS Positive (NEGATIVE) A 08/18/20 18:12 Miscellaneous Test Resp panel 09/02/20 10:12 Blood Type B POSITIVE 09/11/20 06:34 Antibody Screen Negative 09/11/20 06:34 Crossmatch See Detail 09/11/20 06:34 - Plan (1) Pneumonia due to 2019 novel coronavirus Status: Acute Plan: CONTINUE MECHANICAL VENT, CONTINUE IV ANTIBIOTICS, RESPIRATORY TX, CORTICOSTEROIDS, DVT PROPHYLASIX, BLOOD GLUCOSE CONTROL, TUBE FEEDINGS, POT ASSIUM AND MAGNESIUM REPLACEMENT PER PROTOCOL, TPN, SEDATION (2) Hypoxia Status: Acute (3) Anemia Status: Acute Qualifiers: Anemia type: iron deficiency Iron deficiency anemia type: unspecified iron deficiency Qualified Code(s): D50.9 - Iron deficiency anemia, unspecified Plan: CONTINUE TO MONITOR
[2020-09-17] MEDS: DECADRON JET NEB (RESP USE) NEB SCH ×2 (14:50→17:00)
[2020-09-17] MEDS ORDERED: SALINE 0.9% 3 ML NEB TX ONE (15:47)
[2020-09-17] MEDS: [UNRECOGNIZED DRUG - OTHER] IV SCH ×6 (19:06)
[2020-09-17] MEDS: HUMULIN R IV SCH ×6 (19:06)
[2020-09-17] MEDS: CLINIMIX IV SCH ×6 (19:06)
[2020-09-17] MEDS: TRACE ELEMENTS IV SCH ×6 (19:06)
[2020-09-17] MEDS: NS 500 ML IV 500 ML IV SCH (20:00)
[2020-09-17] MEDS ORDERED: KLOR-CON PO PRN (20:07)
[2020-09-17] MEDS ORDERED: POTASSIUM CHLORIDE LIQ 20 MEQ UDC PO PRN (20:07)
[2020-09-17] MEDS ORDERED: MICRO K EXTEN CAP 10 MEQ PO PRN (20:07)
[2020-09-17] MEDS ORDERED: K-RIDER 10 MEQ/NS 100 ML 10 MEQ/100 ML BAG IV PRN (20:07)
[2020-09-17] MEDS ORDERED: K-DUR TAB 20 MEQ PO PRN (20:07)
[2020-09-17] MEDS ORDERED: POTASSIUM CHL 40 MEQ/NS 0.45% 500 ML IV PRN (20:07)
[2020-09-17] MEDS ORDERED: POTASSIUM CHL 60 MEQ/NS 0.45% 500 ML IV PRN (20:07)
[2020-09-17] MEDS: COLACE SYRUP 100 MG UDC PO SCH (20:55)
[2020-09-17] MEDS: LIPOSYN III 20% 250ML 250 ML IV SCH (21:20)
[2020-09-18] MEDS: MILK OF MAGNESIA PO SCH ×3 (00:07→20:20)
[2020-09-18] MEDS: DIPRIVAN PREMIX 1 GRAM IV 1,000 MG/100 ML VIAL IV PRN ×2 (00:45→09:30)
[2020-09-18] MEDS: CLINIMIX IV SCH ×24 (01:26→20:19)
[2020-09-18] MEDS: [UNRECOGNIZED DRUG - OTHER] IV SCH ×12 (01:26→08:34)
[2020-09-18] MEDS: TRACE ELEMENTS IV SCH ×24 (01:26→20:19)
[2020-09-18] MEDS: HUMULIN R IV SCH ×24 (01:26→20:19)
[2020-09-18 05:33] LABS: ABG BASE EXCESS 12.7 mmol/L (-2.0-2.0)
[2020-09-18 05:34] LABS: ABG HCO3 38.9 mmol/L (22-26)
[2020-09-18] MEDS: ZOSYN VIAL 3.375 GRAMS 3.375 G in NS 100 ML IV + SPIKE MINIBAG* 100 ML IV SCH ×3 (06:05→22:50)
[2020-09-18] MEDS: SOLU-Medrol 125 MG VIAL IVP SCH ×4 (06:05→22:50)
[2020-09-18] MEDS: HumuLIN R SUBCUT PRN ×3 (06:08→21:33)
[2020-09-18 06:19] LABS: BASOPHILS # (AUTO) 0.2 X10^3/uL (0.0-0.1); BASOPHILS % (AUTO) 0.9 % (0.2-1.0); HEMATOCRIT 32.4 % (36.0-47.0); HEMOGLOBIN 11.1 g/dL (12.0-16.0); LYMPHOCYTES # (AUTO) 0.3 X10^3/uL (1.3-2.9); LYMPHOCYTES % (AUTO) 1.5 % (21.0-51.0); MEAN CORPUSCULAR HEMOGLOBIN 29.2 pg (27.0-34.0); MEAN CORPUSCULAR HGB CONC 34.4 g/dL (33.0-35.0); MEAN CORPUSCULAR VOLUME 84.9 fL (80.0-100.0); MEAN PLATELET VOLUME 9.2 fL (7.4-11.0); MONOCYTES # (AUTO) 0.6 x10^3/uL (0.3-0.8); NEUTROPHILS # (AUTO) 20.3 x10^3/uL (2.2-4.8); NEUTROPHILS % (AUTO) 94.6 % (42.0-75.0); PLATELET COUNT 325 X10^3/uL (150.0-450.0); RED BLOOD COUNT 3.82 X10^6/uL (3.5-5.4); RED CELL DISTRIBUTION WIDTH 14.3 % (11.6-16.5); WHITE BLOOD COUNT 21.5 X10^3/uL (3.6-10.0)
[2020-09-18 06:27] LABS: THEOPHYLLINE 5.8 ug/mL (10-20)
[2020-09-18 06:48] LABS: ALBUMIN 2.9 g/dL (3.4-5.0); ALKALINE PHOSPHATASE 65 Units/L (46-116); BLOOD UREA NITROGEN 45 mg/dL (7-18); CALCIUM 8.3 mg/dL (8.5-10.1); CARBON DIOXIDE 32.2 mmol/L (21-32); CHLORIDE 99 mmol/L (98-107); COR CA(FOR HYPOALB) 9.2 mg/dL (8.5-10.1); COR NA(FOR HYPERGLY) 146 mmol/L (136-145); CREATININE 0.67 mg/dL (0.55-1.02); SODIUM 142 mmol/L (136-145); TOTAL PROTEIN 5.7 g/dL (6.4-8.2); eGFR NON BLACK RACES > 60 (>60)
[2020-09-18 07:00] LABS: ALANINE AMINOTRANSFERASE 19 Units/L (12-78); ASPARTATE AMINO TRANSFERASE 17 Units/L (15-37)
[2020-09-18 07:13] LABS: CREATININE 0.67 mg/dL (0.55-1.02)
[2020-09-18 07:19] LABS: VANCOMYCIN,TROUGH 31.2 ug/mL (15-20)
[2020-09-18 07:32] LABS: BAND NEUTROPHILS % 6 % (0-10)
[2020-09-18 07:33] LABS: METAMYELOCYTES % 2; PLATELET MORPHOLOGY COMMENT NORMAL (NORMAL)
--- NOTE | 2020-09-18 07:38 | RAD ---
HISTORYsobSTUDYCHEST, 1 VIEWCOMPARISONOne-view chest September 17, 2020.FINDINGSThe trachea is midline. Tracheostomy tube is in good position. The NG tube is in good position with the tip below the diaphragm. Left subclavian central venous catheter tip is at the junction of the superior vena cava to the right atrium. The cardiac silhouette is unremarkable . The bilateral multifocal infiltrate greatest in the left lung base and right upper lobe are stable compared to yesterdays film. The bony thorax is unremarkable.IMPRESSIONNo change in the diffuse pulmonary infiltrates compared to yesterdays film. The left subclavian catheter NG tube and tracheostomy tube are also in good position.Electronically signed by: PATY CONTRERAS (Sep 18, 2020 07:36:23)
[2020-09-18] MEDS: PROVENTIL NEB TX 0.083% 2.5MG/ 3ML NEB SCH ×4 (08:32→20:25)
[2020-09-18] MEDS: PULMICORT NEB TX 0.5 MG NEB SCH ×2 (08:32→20:25)
[2020-09-18] MEDS: LACRI-LUBE S.O.P. AFFEYE SCH ×2 (08:33→20:20)
[2020-09-18] MEDS: LOVENOX INJ 30 MG SYR SC SCH (08:33)
[2020-09-18] MEDS: [UNRECOGNIZED DRUG - OTHER] NG SCH ×4 (08:33→20:20)
[2020-09-18] MEDS: SYNTHROID INJ 100 mcg VIAL IVP SCH (08:34)
[2020-09-18] MEDS: PROTONIX INJ 40 MG VIAL IVP SCH (08:35)
[2020-09-18] MEDS: PEPCID 20 MG IV PREMIX* 20 MG/50 ML BAG IV SCH ×2 (08:35→20:00)
[2020-09-18] MEDS: ALBUMIN HUMAN 25%- 100 ML 100 ML IV SCH ×2 (09:00→20:17)
[2020-09-18] MEDS: LASIX IVP SCH (09:10)
[2020-09-18] MEDS: DIFLUCAN 200 MG IV PREMIX* 200 MG/100 ML BAG IV SCH (09:10)
[2020-09-18] MEDS ORDERED: CARDIZEM INJ 125 MG VIAL 125 MG in NS 100 ML IV 100 ML IV PRN (09:43)
[2020-09-18] MEDS ORDERED: CARDIZEM INJ 50 MG VIAL IVP ONE ×2 (09:46→10:12)
[2020-09-18] MEDS ORDERED: CARDIZEM INJ 50 MG VIAL ONE ×2 (09:52→10:13)
[2020-09-18] MEDS ORDERED: HEPARIN SODIUM INJ 5000 UNITS IVP ONE (10:26)
[2020-09-18] MEDS ORDERED: HEPARIN SODIUM INJ 5000 UNITS ONE (10:27)
[2020-09-18] MEDS: HEPARIN SODIUM IN D5W 25,000 UNITS/500 ML BAG IV PRN (10:35)
[2020-09-18 10:48] LABS: CKMB % 4.3 % (<4); CREATINE KINASE MB 3.9 ng/mL (0-4.0); TROPONIN I 0.08 ng/mL (0-1.5)
[2020-09-18] MEDS: DECADRON JET NEB (RESP USE) NEB SCH ×2 (12:50→16:27)
[2020-09-18] MEDS: CATAPRES-TTS-2 TD SCH (13:00)
[2020-09-18] MEDS: [UNRECOGNIZED DRUG - OTHER] IV SCH ×12 (13:13→20:19)
[2020-09-18 14:37] LABS: CKMB % 5.5 % (<4); TROPONIN I 0.16 ng/mL (0-1.5)
[2020-09-18 14:45] LABS: CREATINE KINASE MB 4.1 ng/mL (0-4.0)
[2020-09-18] MEDS: NS 500 ML IV 500 ML IV SCH (17:36)
[2020-09-18 17:44] LABS: CKMB % 5.8 % (<4); CREATINE KINASE MB 3.9 ng/mL (0-4.0); TROPONIN I 0.12 ng/mL (0-1.5)
[2020-09-18] MEDS: COLACE SYRUP 100 MG UDC PO SCH (20:20)
[2020-09-18] MEDS: LIPOSYN III 20% 250ML 250 ML IV SCH (21:50)
[2020-09-18] MEDS: MORPHINE SULFATE INJ 2 MG INJ IVP PRN (22:59)
[2020-09-18] MEDS ORDERED: PHARMACY CONSULT - VANCOMYCIN XX SCH (23:45)
[2020-09-18] MEDS: LEVAQUIN PREMIX IV 750 MG 750 MG/150 ML BAG IV SCH (23:46)
[2020-09-19] MEDS: [UNRECOGNIZED DRUG - OTHER] IV SCH ×18 (03:47→22:00)
[2020-09-19] MEDS: HUMULIN R IV SCH ×18 (03:47→22:00)
[2020-09-19] MEDS: CLINIMIX IV SCH ×18 (03:47→22:00)
[2020-09-19] MEDS: TRACE ELEMENTS IV SCH ×18 (03:47→22:00)
[2020-09-19] MEDS: DIPRIVAN PREMIX 1 GRAM IV 1,000 MG/100 ML VIAL IV PRN (03:48)
[2020-09-19 05:15] LABS: ABG BASE EXCESS 13.5 mmol/L (-2.0-2.0)
[2020-09-19 05:16] LABS: ABG HCO3 40.1 mmol/L (22-26)
[2020-09-19] MEDS: ZOSYN VIAL 3.375 GRAMS 3.375 G in NS 100 ML IV + SPIKE MINIBAG* 100 ML IV SCH (05:22)
[2020-09-19] MEDS: SOLU-Medrol 125 MG VIAL IVP SCH ×4 (05:22→22:27)
[2020-09-19] MEDS ORDERED: BUTT CREAM (COMPOUND) ONE (06:14)
--- NOTE | 2020-09-19 06:14 | RAD ---
HISTORYCOVID PNEUMONIA, SOBSTUDYCHEST, 1 [id number]/05/2021FINDINGSThe trachea is midline. Tracheostomy tube in satisfactory position. Left central line unchanged with tip in SVC. The cardiac silhouette is stable. Bilateral multifocal infiltrates unchanged. No pneumothorax or pleural effusion.. The bony thorax is unremarkable.IMPRESSIONBilateral multifocal infiltrates; no significant change from 09/18/2020lectronically signed by: Nadeem Manning (Sep 19, 2020 06:12:32)
[2020-09-19 06:21] LABS: BASOPHILS # (AUTO) 0.2 X10^3/uL (0.0-0.1); BASOPHILS % (AUTO) 0.7 % (0.2-1.0); EOSINOPHILS % (AUTO) 0.1 % (0.9-2.9); HEMATOCRIT 27.9 % (36.0-47.0); HEMOGLOBIN 9.5 g/dL (12.0-16.0); LYMPHOCYTES # (AUTO) 0.3 X10^3/uL (1.3-2.9); LYMPHOCYTES % (AUTO) 1.4 % (21.0-51.0); MEAN CORPUSCULAR HEMOGLOBIN 28.7 pg (27.0-34.0); MEAN CORPUSCULAR HGB CONC 34.1 g/dL (33.0-35.0); MEAN CORPUSCULAR VOLUME 84.1 fL (80.0-100.0); MEAN PLATELET VOLUME 9.3 fL (7.4-11.0); MONOCYTES # (AUTO) 0.8 x10^3/uL (0.3-0.8); MONOCYTES % (AUTO) 3.5 % (0.0-13.0); NEUTROPHILS # (AUTO) 21.4 x10^3/uL (2.2-4.8); NEUTROPHILS % (AUTO) 94.3 % (42.0-75.0); PLATELET COUNT 305 X10^3/uL (150.0-450.0); RED BLOOD COUNT 3.32 X10^6/uL (3.5-5.4); RED CELL DISTRIBUTION WIDTH 14.2 % (11.6-16.5); WHITE BLOOD COUNT 22.7 X10^3/uL (3.6-10.0)
[2020-09-19 06:25] LABS: ALANINE AMINOTRANSFERASE 20 Units/L (12-78); ALBUMIN 3.1 g/dL (3.4-5.0); ALKALINE PHOSPHATASE 65 Units/L (46-116); ASPARTATE AMINO TRANSFERASE 19 Units/L (15-37); BLOOD UREA NITROGEN 41 mg/dL (7-18); CALCIUM 8.4 mg/dL (8.5-10.1); CARBON DIOXIDE 35.2 mmol/L (21-32); CHLORIDE 100 mmol/L (98-107); COR CA(FOR HYPOALB) 9.1 mg/dL (8.5-10.1); COR NA(FOR HYPERGLY) 146 mmol/L (136-145); CREATININE 0.65 mg/dL (0.55-1.02); MAGNESIUM 1.9 mg/dL (1.7-2.9); SODIUM 142 mmol/L (136-145); TOTAL PROTEIN 5.3 g/dL (6.4-8.2); eGFR NON BLACK RACES > 60 (>60)
[2020-09-19] MEDS: HumuLIN R SUBCUT PRN ×2 (06:28→14:24)
[2020-09-19] MEDS: HEPARIN SODIUM IN D5W 25,000 UNITS/500 ML BAG IV PRN (07:03)
[2020-09-19] MEDS ORDERED: BUTT CREAM (COMPOUND) TOP PRN (07:04)
[2020-09-19 07:38] LABS: BAND NEUTROPHILS % 3 % (0-10)
[2020-09-19 07:39] LABS: PLATELET MORPHOLOGY COMMENT NORMAL (NORMAL)
[2020-09-19] MEDS: ALBUMIN HUMAN 25%- 100 ML 100 ML IV SCH ×2 (08:01→20:09)
[2020-09-19] MEDS ORDERED: PHARMACY COMMENT IV NR (08:30)
[2020-09-19] MEDS: PULMICORT NEB TX 0.5 MG NEB SCH ×2 (08:40→20:40)
[2020-09-19] MEDS: PROVENTIL NEB TX 0.083% 2.5MG/ 3ML NEB SCH ×4 (08:40→20:40)
[2020-09-19] MEDS: LACRI-LUBE S.O.P. AFFEYE SCH ×2 (08:40→20:11)
[2020-09-19] MEDS: MILK OF MAGNESIA PO SCH ×2 (08:41→20:03)
[2020-09-19] MEDS: PEPCID 20 MG IV PREMIX* 20 MG/50 ML BAG IV SCH ×2 (08:41→21:00)
[2020-09-19] MEDS: PROTONIX INJ 40 MG VIAL IVP SCH (08:48)
[2020-09-19] MEDS: SYNTHROID INJ 100 mcg VIAL IVP SCH (08:49)
[2020-09-19 08:53] LABS: CREATININE 0.62 mg/dL (0.55-1.02); VANCOMYCIN,TROUGH 13.7 ug/mL (15-20)
[2020-09-19] MEDS: [UNRECOGNIZED DRUG - OTHER] NG SCH ×4 (08:56→20:11)
[2020-09-19] MEDS: DIFLUCAN 200 MG IV PREMIX* 200 MG/100 ML BAG IV SCH (10:13)
[2020-09-19] MEDS: IMODIUM CAP 2 MG PO SCH ×2 (10:51→20:11)
[2020-09-19] MEDS: VANCOMYCIN IV *PREMIX 1 G/200 ML BAG 1 G/200 ML PIGGYBACK IV SCH (12:09)
[2020-09-19] MEDS: DECADRON JET NEB (RESP USE) NEB SCH ×2 (12:38→17:16)
[2020-09-19] MEDS: POTASSIUM CHLORIDE LIQ 20 MEQ UDC PO SCH ×2 (13:00→17:47)
[2020-09-19] MEDS: NS 500 ML IV 500 ML IV SCH (17:00)
[2020-09-19] MEDS ORDERED: NYSTATIN POWDER ONE (19:58)
[2020-09-19] MEDS: COLACE SYRUP 100 MG UDC PO SCH (20:03)
[2020-09-19] MEDS ORDERED: HEPARIN SODIUM INJ 5000 UNITS IVP ONE (20:25)
[2020-09-19] MEDS ORDERED: CATAPRES-TTS-2 TD SCH (21:00)
[2020-09-19] MEDS: MORPHINE SULFATE INJ 2 MG INJ IVP PRN (21:18)
[2020-09-19] MEDS: LIPOSYN III 20% 250ML 250 ML IV SCH (21:39)
[2020-09-19] MEDS: NYSTATIN POWDER TOP SCH (22:00)
[2020-09-19] MEDS: APRESOLINE INJ 20 MG VIAL IVP PRN (22:30)
[2020-09-20] MEDS: DIPRIVAN PREMIX 1 GRAM IV 1,000 MG/100 ML VIAL IV PRN ×2 (00:07→21:00)
[2020-09-20] MEDS: LEVAQUIN PREMIX IV 750 MG 750 MG/150 ML BAG IV SCH ×2 (00:12→23:05)
[2020-09-20] MEDS: NYSTATIN SUSP PO SCH ×5 (00:39→20:07)
[2020-09-20] MEDS: MORPHINE SULFATE INJ 2 MG INJ IVP PRN ×6 (01:22→23:57)
[2020-09-20 02:50] LABS: BASOPHILS # (AUTO) 0.1 X10^3/uL (0.0-0.1); BASOPHILS % (AUTO) 0.3 % (0.2-1.0); HEMOGLOBIN 9.2 g/dL (12.0-16.0); LYMPHOCYTES # (AUTO) 0.3 X10^3/uL (1.3-2.9); LYMPHOCYTES % (AUTO) 1.4 % (21.0-51.0); MEAN CORPUSCULAR HEMOGLOBIN 28.9 pg (27.0-34.0); MEAN CORPUSCULAR HGB CONC 34.3 g/dL (33.0-35.0); MEAN CORPUSCULAR VOLUME 84.4 fL (80.0-100.0); MONOCYTES # (AUTO) 0.9 x10^3/uL (0.3-0.8); MONOCYTES % (AUTO) 3.5 % (0.0-13.0); NEUTROPHILS # (AUTO) 23.7 x10^3/uL (2.2-4.8); NEUTROPHILS % (AUTO) 94.8 % (42.0-75.0); PLATELET COUNT 346 X10^3/uL (150.0-450.0); RED BLOOD COUNT 3.19 X10^6/uL (3.5-5.4); RED CELL DISTRIBUTION WIDTH 14.8 % (11.6-16.5)
[2020-09-20] MEDS: APRESOLINE INJ 20 MG VIAL IVP PRN ×3 (02:50→21:30)
[2020-09-20 02:58] LABS: ALANINE AMINOTRANSFERASE 26 Units/L (12-78); ALBUMIN 3.7 g/dL (3.4-5.0); ALKALINE PHOSPHATASE 54 Units/L (46-116); ASPARTATE AMINO TRANSFERASE 22 Units/L (15-37); BLOOD UREA NITROGEN 43 mg/dL (7-18); CALCIUM 8.3 mg/dL (8.5-10.1); CARBON DIOXIDE 34.9 mmol/L (21-32); CHLORIDE 103 mmol/L (98-107); COR NA(FOR HYPERGLY) 147 mmol/L (136-145); CREATININE 0.53 mg/dL (0.55-1.02); SODIUM 143 mmol/L (136-145); TOTAL PROTEIN 5.8 g/dL (6.4-8.2); eGFR NON BLACK RACES > 60 (>60)
[2020-09-20 03:33] LABS: PLATELET MORPHOLOGY COMMENT NORMAL (NORMAL)
[2020-09-20] MEDS: SOLU-Medrol 125 MG VIAL IVP SCH ×4 (05:05→22:32)
[2020-09-20] MEDS: NYSTATIN POWDER TOP SCH ×3 (05:06→21:00)
[2020-09-20] MEDS: HumuLIN R SUBCUT PRN ×2 (05:50→14:13)
[2020-09-20 06:01] LABS: ABG BASE EXCESS 12.8 mmol/L (-2.0-2.0)
[2020-09-20 06:02] LABS: ABG HCO3 40.3 mmol/L (22-26)
[2020-09-20] MEDS: HEPARIN SODIUM IN D5W 25,000 UNITS/500 ML BAG IV PRN (06:29)
--- NOTE | 2020-09-20 06:31 | RAD ---
HISTORYCOVID PNEUMONIASTUDYCHEST, 1 [id number]/06/2021FINDINGSThe trachea is midline. Tracheostomy tube in satisfactory position. Left central line unchanged with tip in distal SVC. The cardiac silhouette is stable. Bilateral multifocal pulmonary infiltrates unchanged. No pneumothorax.. The bony thorax is unremarkable.IMPRESSIONStable portable chestElectronically signed by: Nadeem Manning (Sep 20, 2020 06:30:01)
[2020-09-20] MEDS: LACRI-LUBE S.O.P. AFFEYE SCH ×2 (08:03→20:05)
[2020-09-20] MEDS: [UNRECOGNIZED DRUG - OTHER] NG SCH ×4 (08:03→20:04)
[2020-09-20] MEDS: ALBUMIN HUMAN 25%- 100 ML 100 ML IV SCH ×2 (08:03→20:03)
[2020-09-20] MEDS: MILK OF MAGNESIA PO SCH ×2 (08:04→20:05)
[2020-09-20] MEDS: PROTONIX INJ 40 MG VIAL IVP SCH ×2 (08:05→20:07)
[2020-09-20] MEDS: SYNTHROID INJ 100 mcg VIAL IVP SCH (08:05)
[2020-09-20] MEDS: PEPCID 20 MG IV PREMIX* 20 MG/50 ML BAG IV SCH ×2 (08:41→20:06)
[2020-09-20] MEDS: PULMICORT NEB TX 0.5 MG NEB SCH ×2 (08:47→21:15)
[2020-09-20] MEDS: PROVENTIL NEB TX 0.083% 2.5MG/ 3ML NEB SCH ×4 (08:47→21:15)
[2020-09-20] MEDS: HUMULIN R IV SCH ×16 (08:48→21:00)
[2020-09-20] MEDS: [UNRECOGNIZED DRUG - OTHER] IV SCH ×16 (08:48→21:00)
[2020-09-20] MEDS: TRACE ELEMENTS IV SCH ×16 (08:48→21:00)
[2020-09-20] MEDS: CLINIMIX IV SCH ×16 (08:48→21:00)
[2020-09-20] MEDS: DIFLUCAN 200 MG IV PREMIX* 200 MG/100 ML BAG IV SCH (09:29)
[2020-09-20] MEDS: VANCOMYCIN IV *PREMIX 1 G/200 ML BAG 1 G/200 ML PIGGYBACK IV SCH (11:09)
[2020-09-20 11:42] LABS: BASOPHILS # (AUTO) 0.1 X10^3/uL (0.0-0.1); BASOPHILS % (AUTO) 0.3 % (0.2-1.0); HEMATOCRIT 26.1 % (36.0-47.0); HEMOGLOBIN 8.6 g/dL (12.0-16.0); LYMPHOCYTES # (AUTO) 0.4 X10^3/uL (1.3-2.9); LYMPHOCYTES % (AUTO) 1.4 % (21.0-51.0); MEAN CORPUSCULAR HGB CONC 33.1 g/dL (33.0-35.0); MEAN CORPUSCULAR VOLUME 84.6 fL (80.0-100.0); MEAN PLATELET VOLUME 8.8 fL (7.4-11.0); MONOCYTES % (AUTO) 3.8 % (0.0-13.0); NEUTROPHILS # (AUTO) 25.5 x10^3/uL (2.2-4.8); NEUTROPHILS % (AUTO) 94.5 % (42.0-75.0); PLATELET COUNT 347 X10^3/uL (150.0-450.0); RED BLOOD COUNT 3.08 X10^6/uL (3.5-5.4)
[2020-09-20 12:04] LABS: BAND NEUTROPHILS % 9 % (0-10); METAMYELOCYTES % 1; PLATELET MORPHOLOGY COMMENT NORMAL (NORMAL)
[2020-09-20] MEDS: NS 500 ML IV 500 ML IV SCH (13:25)
[2020-09-20] MEDS: DECADRON JET NEB (RESP USE) NEB SCH ×2 (14:04→17:43)
[2020-09-20 15:54] LABS: BASOPHILS # (AUTO) 0.1 X10^3/uL (0.0-0.1); BASOPHILS % (AUTO) 0.4 % (0.2-1.0); HEMATOCRIT 25.1 % (36.0-47.0); HEMOGLOBIN 8.3 g/dL (12.0-16.0); LYMPHOCYTES # (AUTO) 0.4 X10^3/uL (1.3-2.9); LYMPHOCYTES % (AUTO) 1.7 % (21.0-51.0); MEAN CORPUSCULAR HEMOGLOBIN 28.3 pg (27.0-34.0); MEAN CORPUSCULAR HGB CONC 33.2 g/dL (33.0-35.0); MEAN CORPUSCULAR VOLUME 85.4 fL (80.0-100.0); MEAN PLATELET VOLUME 8.8 fL (7.4-11.0); MONOCYTES # (AUTO) 0.6 x10^3/uL (0.3-0.8); MONOCYTES % (AUTO) 2.5 % (0.0-13.0); NEUTROPHILS # (AUTO) 22.9 x10^3/uL (2.2-4.8); NEUTROPHILS % (AUTO) 95.4 % (42.0-75.0); PLATELET COUNT 303 X10^3/uL (150.0-450.0); RED BLOOD COUNT 2.93 X10^6/uL (3.5-5.4); RED CELL DISTRIBUTION WIDTH 14.7 % (11.6-16.5)
[2020-09-20 16:24] LABS: BAND NEUTROPHILS % 10 % (0-10); METAMYELOCYTES % 2
[2020-09-20 16:25] LABS: PLATELET MORPHOLOGY COMMENT NORMAL (NORMAL)
[2020-09-20] MEDS: COLACE SYRUP 100 MG UDC PO SCH (20:04)
[2020-09-20] MEDS: LIPOSYN III 20% 250ML 250 ML IV SCH (20:05)
[2020-09-20 20:18] LABS: BASOPHILS % (AUTO) 0.2 % (0.2-1.0); HEMOGLOBIN 7.9 g/dL (12.0-16.0); LYMPHOCYTES # (AUTO) 0.2 X10^3/uL (1.3-2.9); MEAN CORPUSCULAR HEMOGLOBIN 28.1 pg (27.0-34.0); MEAN CORPUSCULAR HGB CONC 32.8 g/dL (33.0-35.0); MEAN CORPUSCULAR VOLUME 85.8 fL (80.0-100.0); MEAN PLATELET VOLUME 8.5 fL (7.4-11.0); MONOCYTES # (AUTO) 0.8 x10^3/uL (0.3-0.8); MONOCYTES % (AUTO) 4.1 % (0.0-13.0); NEUTROPHILS # (AUTO) 18.1 x10^3/uL (2.2-4.8); NEUTROPHILS % (AUTO) 94.7 % (42.0-75.0); PLATELET COUNT 283 X10^3/uL (150.0-450.0); RED CELL DISTRIBUTION WIDTH 14.6 % (11.6-16.5); WHITE BLOOD COUNT 19.1 X10^3/uL (3.6-10.0)
[2020-09-20 21:04] LABS: PLATELET MORPHOLOGY COMMENT NORMAL (NORMAL)
[2020-09-21 00:45] LABS: BASOPHILS # (AUTO) 0.2 X10^3/uL (0.0-0.1); HEMOGLOBIN 7.8 g/dL (12.0-16.0); LYMPHOCYTES # (AUTO) 0.2 X10^3/uL (1.3-2.9); LYMPHOCYTES % (AUTO) 1.2 % (21.0-51.0); MEAN CORPUSCULAR HGB CONC 33.8 g/dL (33.0-35.0); MEAN CORPUSCULAR VOLUME 85.8 fL (80.0-100.0); MEAN PLATELET VOLUME 8.6 fL (7.4-11.0); MONOCYTES # (AUTO) 0.8 x10^3/uL (0.3-0.8); MONOCYTES % (AUTO) 4.2 % (0.0-13.0); NEUTROPHILS # (AUTO) 17.2 x10^3/uL (2.2-4.8); NEUTROPHILS % (AUTO) 93.6 % (42.0-75.0); PLATELET COUNT 302 X10^3/uL (150.0-450.0); RED BLOOD COUNT 2.68 X10^6/uL (3.5-5.4); RED CELL DISTRIBUTION WIDTH 14.9 % (11.6-16.5); WHITE BLOOD COUNT 18.4 X10^3/uL (3.6-10.0)
[2020-09-21 00:49] LABS: PLATELET MORPHOLOGY COMMENT NORMAL (NORMAL)
[2020-09-21] MEDS: APRESOLINE INJ 20 MG VIAL IVP PRN ×3 (01:12→15:03)
[2020-09-21] MEDS: MORPHINE SULFATE INJ 2 MG INJ IVP PRN ×3 (04:00→15:03)
[2020-09-21 04:02] LABS: BASOPHILS % (AUTO) 0.2 % (0.2-1.0); HEMATOCRIT 22.9 % (36.0-47.0); HEMOGLOBIN 7.8 g/dL (12.0-16.0); LYMPHOCYTES # (AUTO) 0.3 X10^3/uL (1.3-2.9); LYMPHOCYTES % (AUTO) 1.4 % (21.0-51.0); MEAN CORPUSCULAR HGB CONC 33.9 g/dL (33.0-35.0); MEAN CORPUSCULAR VOLUME 85.8 fL (80.0-100.0); MEAN PLATELET VOLUME 8.5 fL (7.4-11.0); MONOCYTES # (AUTO) 0.9 x10^3/uL (0.3-0.8); MONOCYTES % (AUTO) 4.6 % (0.0-13.0); NEUTROPHILS # (AUTO) 18.9 x10^3/uL (2.2-4.8); NEUTROPHILS % (AUTO) 93.8 % (42.0-75.0); PLATELET COUNT 307 X10^3/uL (150.0-450.0); RED BLOOD COUNT 2.67 X10^6/uL (3.5-5.4); RED CELL DISTRIBUTION WIDTH 14.6 % (11.6-16.5); WHITE BLOOD COUNT 20.2 X10^3/uL (3.6-10.0)
[2020-09-21 04:06] LABS: PLATELET MORPHOLOGY COMMENT NORMAL (NORMAL)
[2020-09-21 04:17] LABS: ALANINE AMINOTRANSFERASE 26 Units/L (12-78); ALBUMIN 3.8 g/dL (3.4-5.0); ALKALINE PHOSPHATASE 51 Units/L (46-116); BLOOD UREA NITROGEN 50 mg/dL (7-18); CALCIUM 8.5 mg/dL (8.5-10.1); CHLORIDE 105 mmol/L (98-107); COR NA(FOR HYPERGLY) 148 mmol/L (136-145); CREATININE 0.46 mg/dL (0.55-1.02); SODIUM 144 mmol/L (136-145); TOTAL PROTEIN 5.8 g/dL (6.4-8.2); eGFR NON BLACK RACES > 60 (>60)
[2020-09-21 04:31] LABS: ASPARTATE AMINO TRANSFERASE 21 Units/L (15-37)
[2020-09-21] MEDS: SOLU-Medrol 125 MG VIAL IVP SCH ×2 (04:38→11:36)
[2020-09-21 05:36] LABS: ABG BASE EXCESS 11.3 mmol/L (-2.0-2.0)
[2020-09-21] MEDS: NYSTATIN POWDER TOP SCH ×2 (06:02→13:52)
[2020-09-21] MEDS: HumuLIN R SUBCUT PRN ×2 (06:04→15:02)
--- NOTE | 2020-09-21 07:13 | RAD ---
HISTORYShortness of breathSTUDYChest AP portableCOMPARISON7 September 2020FINDINGSThere is a tracheostomy tube in good position. There is a left-sided central line in good position. The heart remains enlarged. Diffuse bilateral patchy and confluent alveolar infiltrates are unchanged. No pleural effusions are identified. Bony thorax is unremarkable.IMPRESSIONNo change diffuse bilateral patchy and confluent alveolar infiltratesElectronically signed by: BEN ONTIVEROS (Sep 21, 2020 07:11:56)
[2020-09-21] MEDS: [UNRECOGNIZED DRUG - OTHER] IV SCH ×10 (07:59→14:36)
[2020-09-21] MEDS: TRACE ELEMENTS IV SCH ×10 (07:59→14:36)
[2020-09-21] MEDS: ALBUMIN HUMAN 25%- 100 ML 100 ML IV SCH (07:59)
[2020-09-21] MEDS: [UNRECOGNIZED DRUG - OTHER] NG SCH ×2 (07:59→12:22)
[2020-09-21] MEDS: CLINIMIX IV SCH ×10 (07:59→14:36)
[2020-09-21] MEDS: LACRI-LUBE S.O.P. AFFEYE SCH ×2 (07:59→21:42)
[2020-09-21] MEDS: HUMULIN R IV SCH ×10 (07:59→14:36)
[2020-09-21] MEDS: MILK OF MAGNESIA PO SCH (08:00)
[2020-09-21] MEDS: NYSTATIN SUSP PO SCH ×2 (08:00→12:22)
[2020-09-21 08:22] LABS: BASOPHILS # (AUTO) 0.3 X10^3/uL (0.0-0.1); BASOPHILS % (AUTO) 1.4 % (0.2-1.0); HEMATOCRIT 21.9 % (36.0-47.0); HEMOGLOBIN 7.6 g/dL (12.0-16.0); LYMPHOCYTES # (AUTO) 0.4 X10^3/uL (1.3-2.9); LYMPHOCYTES % (AUTO) 1.5 % (21.0-51.0); MEAN CORPUSCULAR HEMOGLOBIN 29.7 pg (27.0-34.0); MEAN CORPUSCULAR HGB CONC 34.6 g/dL (33.0-35.0); MEAN CORPUSCULAR VOLUME 85.9 fL (80.0-100.0); MEAN PLATELET VOLUME 8.4 fL (7.4-11.0); MONOCYTES % (AUTO) 4.1 % (0.0-13.0); NEUTROPHILS # (AUTO) 21.7 x10^3/uL (2.2-4.8); PLATELET COUNT 329 X10^3/uL (150.0-450.0); RED BLOOD COUNT 2.55 X10^6/uL (3.5-5.4); RED CELL DISTRIBUTION WIDTH 15.1 % (11.6-16.5); WHITE BLOOD COUNT 23.4 X10^3/uL (3.6-10.0)
[2020-09-21 08:45] LABS: BAND NEUTROPHILS % 5 % (0-10); PLATELET MORPHOLOGY COMMENT NORMAL (NORMAL)
[2020-09-21] MEDS: PEPCID 20 MG IV PREMIX* 20 MG/50 ML BAG IV SCH (08:51)
[2020-09-21] MEDS: DIPRIVAN PREMIX 1 GRAM IV 1,000 MG/100 ML VIAL IV PRN ×2 (08:52→18:08)
[2020-09-21] MEDS: SYNTHROID INJ 100 mcg VIAL IVP SCH (09:21)
[2020-09-21] MEDS: PROTONIX INJ 40 MG VIAL IVP SCH (09:21)
[2020-09-21] MEDS: VANCOMYCIN IV *PREMIX 1 G/200 ML BAG 1 G/200 ML PIGGYBACK IV SCH (09:29)
[2020-09-21] MEDS: PROVENTIL NEB TX 0.083% 2.5MG/ 3ML NEB SCH ×2 (09:42→12:10)
[2020-09-21] MEDS: PULMICORT NEB TX 0.5 MG NEB SCH (09:42)
[2020-09-21] MEDS: DIFLUCAN 200 MG IV PREMIX* 200 MG/100 ML BAG IV SCH (10:40)
[2020-09-21] MEDS: DECADRON JET NEB (RESP USE) NEB SCH (12:10)
--- NOTE | 2020-09-21 12:22 | PCM.PROG ---
Progress Note - Progress Note for Day of Date of Exam: 09/18/20 - Subjective Subjective: IS BEING TREATED FOR PNEUMONIA DUE TO COVID-19 AND HYPOXIA. SHE REMAINS ON THE MECHANICAL VENT. SHE IS STATUS POS TRACHEOSTOMY PLACEMENT. TODAY, HER SETTINGS ON THE VENT ARE: A/C, VENT RATE 20, TIDAL VOLUME 450, PEEP 7, FI02 60. HER SATURATIONS HAVE BEEN 92-96% THIS MORNING AND THROUGHOUT THE NIGHT. SHE HAS BEEN ON THE VENT SINCE 08/25/20. ON EXAMINATION TODAY, SHE IS SEDATED, LYING IN BED WITH EYES CLOSED. NG TUBE NOTED FOR FEEDINGS AND MEDICATIONS. SHE IS TACHYCARDIC THIS MORNING WITH HR IN THE 150s BILATERAL LUNGS ARE NOTED WITH DIMINISHED LUNG SOUNDS THROUGHOUT. ABDOMEN IS ROUND, SOFT, AND NON-TENDER WITH NORMAL BOWEL SOUNDS NOTED IN ALL QUADRANTS. 1+ PITTING EDEMA NOTED TO UPPER EXTREMITIES. THERE IS A CARPIO CATHETER NOTED TO BEDSIDE DRAINAGE. SHE ALSO HAS AN ART LINE, CENTRAL LINE, AND NG TUBE IN PLACE. HER VITALS THIS MORNING ARE: 98.6-150-25-94%-134/61. LABS WERE OBTAINED. ABNORMAL LAB VALUES INCLUDE THE FOLLOWING: WBC 21.5, HGB 11.4, HCT 32.4, D-DIMER 2.46, POTASSIUM 2.0, CARBON DIOXIDE 35.2, BUN 41, GLUCSOE 258, CALCIUM 8.4, FERRITIN 1126, CRP 21.40, BNP 629, TOTAL PROTEIN 5.3, ALBUMIN 3.1, GLOBULIN 2.2. ABG WAS OBTAINED THIS MORNING AND REVEALED: PH 7.450, PC02 56, P02 67, HC03 38.9, 02 SAT 94, BASE EXCESS 12.7, A-A GRADIENT 220, FI02 50. BLOOD CULTURES THAT WERE OBTAINED ON 09/10/19 REPORT GROWTH OF ENTEROCOCCUS FAECALIS. SPUTUM CULTURES REVEALED GROWTH OF YEAST. A CHEST XRAY WAS OBTAINED AND REVEALED: No change in the diffuse pulmonary infiltrates compared to yesterdays film. The left subclavian catheter NG tube and tracheostomy tube are also in good position. EKG REVEALED: SINUS TACHYCARDIA WITH HR 170. TODAY, WE WILL START A HEPARIN AND A CARDIZEM DRIP. WE WILL HOLD LASIX AND OBTAIN SERIAL CARDIAC ENZYMES AND EKGS. OTHERWISE, WE WILL CONTINUE WITH IV ANTIBIOTICS, RESPIRATORY THERAPY, SUPPLEMENTAL OXYGEN, STEROID THERAPY, TPN, AND CURRENT PLAN OF CARE TODAY. HER TUBE FEEDINGS HAVE BEEN RESUMED. OTHERWISE, WE WILL FOLLOW UP WITH AM LABS, CHEST XRAY, ABG, AND CONTINUE TO MONITOR. CRITICAL CARE TIME SPENT ON CLINICAL ASSESSMENT, REVIEWING LABS AND IMAGING, DECISION MAKING, AND DOCUMENTATION GREATER THAN 75 MINUTES. - Past Medical Family Social History Past Med/Fam/Surg Hx: No changes since H&P Allergies: Allergies No Known Drug Allergies Allergy (Verified 08/27/19 22:19) - Review of Systems ROS: No change since H&P - Vital Signs and I&O's Vital Signs: Temperature 99 F Pulse Rate [Left] 64 Pulse Rate [Bilateral Radial] 92 Pulse Rate 105 Respiratory Rate 32 Blood Pressure [right radial] 124/51 Blood Pressure [Right Radial 167/56 Artery] Blood Pressure [Left Arm] 120/50 Blood Pressure 163/69 O2 Sat by Pulse Oximetry 84 Intake and Output: Intake & Output 09/19/20 09/20/20 09/21/20 09/22/20 11:59 11:59 11:59 11:59 Intake Total 5534 / 5534 4309 / 4309 3467 / 3467 Output Total 6550 / 6550 3525 / 3525 2150 / 2150 Balance -1016 / -1016 784 / 784 1317 / 1317 - Physical Exam Oriented: Unable to test Eyes: Normal Ear: Normal Nose: Normal Throat: Normal Respiratory: Generalized, Diminished, Rales Cardiovascular: Normal : Normal Auscultation: Bowel Sounds: Normal Palpation: Normal Tenderness: Normal Skin: Normal Musculoskeletal: Normal Psychiatric: Other (SEDATED) Mood Description: Calm Affect: Normal Speech Pattern: Artificially Ventilated - Laboratory and Diagnostics Result Diagrams: 09/21/20 16:32 09/21/20 03:45 Labs: 09/19/20 10:30 Stool Stool Culture - Final 09/19/20 10:30 Stool - Final 09/14/20 14:57 Catheter Tip - Other - Final 09/10/20 10:37 Blood Blood Culture - Final Staphylococcus Epidermidis 09/10/20 08:45 Blood Blood Culture - Final Enterococcus Faecalis 09/10/20 10:21 Sputum - Expectorated Sputum Sputum Culture - Final 09/10/20 10:21 Sputum - Expectorated Sputum - Final 09/10/20 08:48 Urine,Clean Catch Urine Culture - Final 09/02/20 10:58 Sputum - Endotracheal Wash Sputum Culture - Final 09/02/20 10:58 Sputum - Endotracheal Wash - Final 08/18/20 11:40 Blood Blood Culture - Final 08/18/20 12:00 Blood Blood Culture - Final Laboratory WBC 23.4 X10^3/uL (3.6-10.0) H 09/21/20 08:10 RBC 2.55 X10^6/uL (3.5-5.4) L 09/21/20 08:10 Hgb 7.6 g/dL (12.0-16.0) L 09/21/20 08:10 Hct 21.9 % (36.0-47.0) L 09/21/20 08:10 MCV 85.9 fL (80.0-100.0) 09/21/20 08:10 MCH 29.7 pg (27.0-34.0) 09/21/20 08:10 MCHC 34.6 g/dL (33.0-35.0) 09/21/20 08:10 RDW 15.1 % (11.6-16.5) 09/21/20 08:10 Plt Count 329 X10^3/uL (150.0-450.0) 09/21/20 08:10 Plt Count Comment Adequate (ADEQUATE) 09/21/20 08:10 MPV 8.4 fL (7.4-11.0) 09/21/20 08:10 Neut % (Auto) 93.0 % (42.0-75.0) H 09/21/20 08:10 Lymph % (Auto) 1.5 % (21.0-51.0) L 09/21/20 08:10 [place] % (Auto) 4.1 % (0.0-13.0) 09/21/20 08:10 Eos % (Auto) 0.0 % (0.9-2.9) L 09/21/20 08:10 Baso % (Auto) 1.4 % (0.2-1.0) H 09/21/20 08:10 Neut # (Auto) 21.7 x10^3/uL (2.2-4.8) H 09/21/20 08:10 Lymph # (Auto) 0.4 X10^3/uL (1.3-2.9) L 09/21/20 08:10 [place] # (Auto) 1.0 x10^3/uL (0.3-0.8) H 09/21/20 08:10 Eos # (Auto) 0.0 x10^3/uL (0.0-0.2) 09/21/20 08:10 Baso # (Auto) 0.3 X10^3/uL (0.0-0.1) H 09/21/20 08:10 Absolute Nucleated RBC 0.1 /100WBC 09/21/20 08:10 Total Counted 100 09/21/20 08:10 Neutrophils % (Manual) 86 % (39-76) H 09/21/20 08:10 Band Neutrophils % 5 % (0-10) 09/21/20 08:10 Lymphocytes % (Manual) 7 % (13-43) L 09/21/20 08:10 Monocytes % (Manual) 2 % (4-9) L 09/21/20 08:10 Eosinophils % (Manual) 1 % (0-6) 08/31/20 05:50 Metamyelocytes % 2 09/20/20 14:51 Myelocytes % 1 09/14/20 06:00 Plt Morphology Comment Normal (NORMAL) 09/21/20 08:10 RBC Morphology Normal (NORMAL) 09/21/20 08:10 PT 13.5 SECONDS (11.8-14.3) 09/20/20 16:12 INR Target Range - 09/20/20 16:12 INR 1.06 (0.8-1.3) 09/20/20 16:12 APTT 40.6 SECONDS (22.9-36.5) H 09/20/20 16:12 PTT Comment - 09/20/20 16:12 Fibrinogen 318 mg/dL (239-489) 09/20/20 09:33 D-Dimer 1.37 ug/ml (0.0-0.57) H* 09/21/20 03:50 Sample Site [place]anna 09/21/20 05:35 ABG pH 7.380 (7.35-7.45) 09/21/20 05:35 ABG pCO2 66.0 mmHg (35.0-45.0) H* 09/21/20 05:35 ABG pO2 77.0 mmHg (80.0-100.0) L 09/21/20 05:35 ABG HCO3 39.0 mmol/L (22-26) H* 09/21/20 05:35 ABG O2 Saturation 95.0 % (90-100) 09/21/20 05:35 ABG Base Excess 11.3 mmol/L (-2.0-2.0) H 09/21/20 05:35 Juan Test Na 09/21/20 05:35 A-a Gradient 340.0 mmHg 09/21/20 05:35 FiO2 70.0 09/21/20 05:35 Blood Gas Comments [place] well-mtf 09/21/20 05:35 Sodium 144 mmol/L (136-145) 09/21/20 03:45 Corrected Sodium 148 mmol/L (136-145) H 09/21/20 03:45 Potassium 4.3 mmol/L (3.5-5.1) 09/21/20 03:45 Chloride 105 mmol/L (98-107) 09/21/20 03:45 Carbon Dioxide 35.0 mmol/L (21-32) H 09/21/20 03:45 BUN 50 mg/dL (7-18) H 09/21/20 03:45 Creatinine 0.46 mg/dL (0.55-1.02) L 09/21/20 03:45 Est GFR (MDRD) Af Amer > 60 (>60) 09/21/20 03:45 Est GFR (MDRD) Non-Af > 60 (>60) 09/21/20 03:45 Glucose 253 mg/dL (65-99) H 09/21/20 03:45 POC Glucose (mg/dL) 233 mg/dL (65-99) H 09/21/20 05:24 Lactic Acid 0.8 mmol/L (0.4-2.0) 09/10/20 08:45 Calcium 8.5 mg/dL (8.5-10.1) 09/21/20 03:45 Corrected Calcium TNP 09/21/20 03:45 Phosphorus 2.5 mg/dL (2.6-4.7) L 09/09/20 04:50 Magnesium 2.1 mg/dL (1.7-2.9) 09/20/20 09:49 Ferritin 1126 ng/mL (8-252) H 09/19/20 05:50 Total Bilirubin 0.80 mg/dL (0.2-1.0) 09/21/20 03:45 AST 21 Units/L (15-37) 09/21/20 03:45 ALT 26 Units/L (12-78) 09/21/20 03:45 Alkaline Phosphatase 51 Units/L (46-116) 09/21/20 03:45 Creatine Kinase 67 Units/L (26-192) 09/18/20 17:02 CK-MB (CK-2) 3.9 ng/mL (0-4.0) 09/18/20 17:02 CK/CKMB % Calc 5.8 % (<4) 09/18/20 17:02 Troponin I 0.12 ng/mL (0-1.5) 09/18/20 17:02 C-Reactive Protein 16.90 mg/L (0-3.0) H 09/21/20 03:45 B-Natriuretic Peptide 1430 pg/mL (0-79) H* 09/21/20 03:45 Total Protein 5.8 g/dL (6.4-8.2) L 09/21/20 03:45 Albumin 3.8 g/dL (3.4-5.0) 09/21/20 03:45 Globulin 2.0 g/dL (2.5-4.5) L 09/21/20 03:45 Albumin/Globulin Ratio 1.9 Ratio (1.1-2.1) 09/21/20 03:45 Prealbumin 18.9 mg/dL (18-35.7) 09/15/20 06:00 Triglycerides 498 mg/dL (0-150) H 09/09/20 04:50 Amylase 50 Units/L (25-115) 08/18/20 11:40 Lipase 137 Units/L (73-393) 08/18/20 11:40 Specimen Type Catherized urine 09/10/20 10:21 Urine Color Red (YELLOW) 09/10/20 10:21 Urine Appearance Cloudy (CLEAR) 09/10/20 10:21 Urine pH 7.0 (5.0 - 8.0) 09/10/20 10:21 Ur Specific [place] 1.010 (1.000-1.030) 09/10/20 10:21 Urine Protein 3+ (NEGATIVE) 09/10/20 10:21 Urine Glucose (UA) 2+ (NEGATIVE) 09/10/20 10:21 Urine Ketones Negative (NEGATIVE) 09/10/20 10:21 Urine Occult Blood 5+ (NEGATIVE) 09/10/20 10:21 Urine Nitrite Negative (NEGATIVE) 09/10/20 10:21 Urine Bilirubin Negative (NEGATIVE) 09/10/20 10:21 Urine Urobilinogen Normal (NORMAL) 09/10/20 10:21 Ur Leukocyte Esterase 2+ (NEGATIVE) 09/10/20 10:21 Urine RBC Tntc /HPF (0-3) A 09/10/20 10:21 Urine WBC 0-2 /HPF (0-5) 09/10/20 10:21 Ur Squamous Epith Cells Rare /HPF (NEGATIVE) 09/10/20 10:21 Urine Bacteria Negative /HPF (NEGATIVE) 09/10/20 10:21 Ur Culture Indicated? No/not indicated 09/10/20 10:21 Stool Description 5g unformed brown 09/19/20 10:30 Stl Occult Blood (IFOB) Positive (NEGATIVE) A 09/19/20 10:30 Stool for White Cells Negative (NEGATIVE) 09/19/20 10:30 Stl C. diff Tox B Gene Negative (NEGATIVE) 09/19/20 10:30 Stl C. diff [id number]-NAP1-[id number] Negative (NEGATIVE) 09/19/20 10:30 Stool H. pylori Ag Negative (NEGATIVE) 09/19/20 10:30 Vancomycin Trough 13.7 ug/mL (15-20) L 09/19/20 08:20 Theophylline < 2.0 ug/mL (10-20) L 09/21/20 11:10 Influenza Type A (PCR) Negative (NEGATIVE) 08/18/20 12:46 Influenza Type B (PCR) Negative (NEGATIVE) 08/18/20 12:46 SARS CoV-2 RNA Rapid LUIS Positive (NEGATIVE) A 08/18/20 18:12 Miscellaneous Test Resp panel 09/02/20 10:12 Blood Type B POSITIVE 09/20/20 16:12 Antibody Screen Negative 09/20/20 16:12 Crossmatch See Detail 09/20/20 16:12 - Plan (1) Pneumonia due to 2019 novel coronavirus Status: Acute Plan: CONTINUE MECHANICAL VENT, CONTINUE IV ANTIBIOTICS, RESPIRATORY TX, CORTICOSTEROIDS, DVT PROPHYLASIX, BLOOD GLUCOSE CONTROL, TUBE FEEDINGS, POTASSIUM AND MAGNESIUM REPLACEMENT PER PROTOCOL, TPN (2) Hypoxia Status: Acute (3) Anemia Status: Acute Qualifiers: Anemia type: iron deficiency Iron deficiency anemia type: unspecified iron deficiency Qualified Code(s): D50.9 - Iron deficiency anemia, unspecified Plan: CONTINUE TO MONITOR
[2020-09-21 12:26] LABS: BASOPHILS # (AUTO) 0.1 X10^3/uL (0.0-0.1); BASOPHILS % (AUTO) 0.3 % (0.2-1.0); MEAN CORPUSCULAR HEMOGLOBIN 28.2 pg (27.0-34.0); MONOCYTES # (AUTO) 0 x10^3/uL (0.3-0.8); MONOCYTES % (AUTO) 0.1 % (0.0-13.0)
[2020-09-21 12:30] LABS: EOSINOPHILS # (AUTO) 0.1 x10^3/uL (0.0-0.2); EOSINOPHILS % (AUTO) 0.4 % (0.9-2.9); HEMATOCRIT 20.7 % (36.0-47.0); LYMPHOCYTES # (AUTO) 0.3 X10^3/uL (1.3-2.9); LYMPHOCYTES % (AUTO) 1.4 % (21.0-51.0); MEAN CORPUSCULAR HGB CONC 32.9 g/dL (33.0-35.0); MEAN CORPUSCULAR VOLUME 85.7 fL (80.0-100.0); MEAN PLATELET VOLUME 8.5 fL (7.4-11.0); NEUTROPHILS # (AUTO) 20.2 x10^3/uL (2.2-4.8); NEUTROPHILS % (AUTO) 97.8 % (42.0-75.0); PLATELET COUNT 274 X10^3/uL (150.0-450.0); RED BLOOD COUNT 2.41 X10^6/uL (3.5-5.4); RED CELL DISTRIBUTION WIDTH 15.1 % (11.6-16.5); WHITE BLOOD COUNT 20.7 X10^3/uL (3.6-10.0)
[2020-09-21 12:35] LABS: HEMOGLOBIN 6.8 g/dL (12.0-16.0)
[2020-09-21] MEDS: NS 500 ML IV 500 ML IV SCH (13:52)
[2020-09-21 16:45] LABS: BASOPHILS % (AUTO) 0.1 % (0.2-1.0); EOSINOPHILS % (AUTO) 0.1 % (0.9-2.9); HEMATOCRIT 21.5 % (36.0-47.0); HEMOGLOBIN 7.1 g/dL (12.0-16.0); LYMPHOCYTES # (AUTO) 0.2 X10^3/uL (1.3-2.9); LYMPHOCYTES % (AUTO) 0.9 % (21.0-51.0); MEAN CORPUSCULAR HEMOGLOBIN 28.3 pg (27.0-34.0); MEAN CORPUSCULAR HGB CONC 32.9 g/dL (33.0-35.0); MEAN CORPUSCULAR VOLUME 86.1 fL (80.0-100.0); MEAN PLATELET VOLUME 8.7 fL (7.4-11.0); MONOCYTES # (AUTO) 0 x10^3/uL (0.3-0.8); MONOCYTES % (AUTO) 0.1 % (0.0-13.0); NEUTROPHILS # (AUTO) 21.7 x10^3/uL (2.2-4.8); NEUTROPHILS % (AUTO) 98.8 % (42.0-75.0); PLATELET COUNT 294 X10^3/uL (150.0-450.0); RED CELL DISTRIBUTION WIDTH 14.7 % (11.6-16.5)
[2020-09-21] MEDS ORDERED: NS 500 ML IV 500 ML IV ONE (16:53)
[2020-09-21 17:05] LABS: BAND NEUTROPHILS % 10 % (0-10)
[2020-09-21 17:07] LABS: HYPOCHROMASIA SLIGHT; PLATELET MORPHOLOGY COMMENT NORMAL (NORMAL)
[2020-09-21] MEDS: MORPHINE SULFATE PCA 30 MG IVP PRN (18:07)
[2020-09-22] MEDS: DIPRIVAN PREMIX 1 GRAM IV 1,000 MG/100 ML VIAL IV PRN ×2 (02:31→10:00)
[2020-09-22] MEDS ORDERED: PHARMACY COMMENT IV NR (08:30)
[2020-09-22] MEDS: MORPHINE SULFATE PCA 30 MG IVP PRN ×3 (08:35→15:43)
[2020-09-22] MEDS: LACRI-LUBE S.O.P. AFFEYE SCH (08:53)
--- NOTE | 2020-09-22 09:13 | PCM.PROG ---
Progress Note - Progress Note for Day of Date of Exam: 09/21/20 - Subjective Subjective: IS BEING TREATED FOR PNEUMONIA DUE TO COVID-19 AND HYPOXIA. SHE REMAINS ON THE MECHANICAL VENT. SHE HAS A TRACH IN PLACE. TODAY, HER SETTINGS ON THE VENT ARE: A/C, VENT RATE 20, TIDAL VOLUME 425, PEEP 7, FI02 65. HER SATURATIONS HAVE BEEN 90-94% THIS MORNING AND THROUGHOUT THE NIGHT. SHE HAS BEEN ON THE VENT SINCE 08/25/20. STAFF REPORTS THAT YESTERDAY AND THROUGHOUT THE NIGHT, PATIENT HAS HAD A MODERATE AMOUNT OF BLOOD COMING FROM MOUTH, AROUND TRACH, NG TUBE, AND IN CATHETER. ON EXAMINATION TODAY, SHE IS SEDATED, LYING IN BED WITH EYES CLOSED. NG TUBE NOTED FOR FEEDINGS AND MEDICATIONS. SHE IS TACHYCARDIC THIS MORNING WITH HR 109bpm. SHE IS TACHYPNEIC. RR IS IN THE 30s. BILATERAL LUNGS ARE NOTED WITH DIMINISHED LUNG SOUNDS THROUGHOUT. ABDOMEN IS ROUND, SOFT, AND NON-TENDER WITH NORMAL BOWEL SOUNDS NOTED IN ALL QUADRANTS. 1+ PITTING EDEMA NOTED TO UPPER EXTREMITIES. THERE IS A CARPIO CATHETER NOTED TO BEDSIDE DRAINAGE. SHE ALSO HAS AN ART LINE, CENTRAL LINE, AND NG TUBE IN PLACE. HER VITALS THIS MORNING ARE: 99.0-109-33-92%-170/70. LABS WERE OBTAINED. ABNORMAL LAB VALUES INCLUDE THE FOLLOWING: WBC 23.4, RBC 2.55, HGB 7.6, HCT 21.9, D-DIMER 1.37, CARBON DIOXIDE 35.0, BUN 50, CREATININE 0.46, GLUCOSE 253, CRP 16.90, BNP 1430, TOTAL PROTEIN 5.8. ABG WAS OBTAINED THIS MORNING AND REVEALED: PH 7.380, PC02 66, P02 77, HC03 39.0, 02 SAT 95, BASE EXCESS 11.3, A-A GRADINET 340, FI02 70. BLOOD CULTURES THAT WERE OBTAINED ON 09/10/19 REPORT GROWTH OF ENTEROCOCCUS FAECALIS. SPUTUM CULTURES REVEALED GROWTH OF YEAST. A CHEST XRAY WAS OBTAINED AND REVEALED: No change diffuse bilateral patchy and confluent alveolar infiltrates. WE DISCUSSED PATIENTS CRITICAL, DECLINING CONDITION WITH HER SPOUSE TODAY. HE WISHES TO STOP ALL TREATMENTS AND TO KEEP PATIENT COMFORTABLE FROM THIS POINT ON. HE DOES NOT WISH TO TAKE PATIENT OFF OF VENTILATOR UNTIL HE IS ABLE TO REACH PATIENTS DAUGHTER. A DNR HAS BEEN SIGNED AND PLACED ON THE CHART. WE ARE IN AGREEMENT WITH PLANS. WE WILL DISCONTINUE ALL TREATMENTS TODAY WITH THE EXCEPTION OF PAIN AND SEDATION MEDICATIONS. WHEN F KARLEYY IS READY, WE WILL EXTUBATE PATIENT. OTHERWISE, WE WILL CONTINUE TO MONITOR AND MAKE CHANGES NECESSARY. CRITICAL CARE TIME SPENT ON CLINICAL ASSESSMENT, REVIEWING LABS AND IMAGING, DECISION MAKING, AND DOCUMENTATION GREATER THAN 75 MINUTES. - Past Medical Family Social History Past Med/Fam/Surg Hx: No changes since H&P Allergies: Allergies No Known Drug Allergies Allergy (Verified 08/27/19 22:19) - Review of Systems ROS: No change since H&P - Vital Signs and I&O's Vital Signs: Temperature 99.6 F Pulse Rate [Left] 64 Pulse Rate [Bilateral Radial] 92 Pulse Rate 91 Respiratory Rate 24 Blood Pressure [right radial] 124/51 Blood Pressure [Right Radial 167/56 Artery] Blood Pressure [Left Arm] 120/50 Blood Pressure 156/67 O2 Sat by Pulse Oximetry 97 Intake and Output: Intake & Output 09/19/20 09/20/20 09/21/20 09/22/20 11:59 11:59 11:59 11:59 Intake Total 5534 / 5534 4309 / 4309 3467 / 3467 2076 / 2077 Output Total 6550 / 6550 3525 / 3525 2150 / 2150 1400 / 1400 Balance -1016 / -1016 784 / 784 1317 / 1317 677 / 677 - Physical Exam Oriented: Unable to test Ear: Normal Nose: Normal Throat: Normal Respiratory: Generalized, Diminished, Rales Cardiovascular: Normal : Normal Auscultation: Bowel Sounds: Normal Palpation: Normal Tenderness: Normal Skin: Normal Musculoskeletal: Normal Psychiatric: Other (SEDATED) Mood Description: Calm Affect: Normal Speech Pattern: Artificially Ventilated - Laboratory and Diagnostics Result Diagrams: 09/21/20 16:32 09/21/20 03:45 Labs: 09/19/20 10:30 Stool Stool Culture - Final 09/19/20 10:30 Stool - Final 09/14/20 14:57 Catheter Tip - Other - Final 09/10/20 10:37 Blood Blood Culture - Final Staphylococcus Epidermidis 09/10/20 08:45 Blood Blood Culture - Final Enterococcus Faecalis 09/10/20 10:21 Sputum - Expectorated Sputum Sputum Culture - Final 09/10/20 10:21 Sputum - Expectorated Sputum - Final 09/10/20 08:48 Urine,Clean Catch Urine Culture - Final 09/02/20 10:58 Sputum - Endotracheal Wash Sputum Culture - Final 09/02/20 10:58 Sputum - Endotracheal Wash - Final 08/18/20 11:40 Blood Blood Culture - Final 08/18/20 12:00 Blood Blood Culture - Final Laboratory WBC 22.0 X10^3/uL (3.6-10.0) H 09/21/20 16:32 RBC 2.50 X10^6/uL (3.5-5.4) L 09/21/20 16:32 Hgb 7.1 g/dL (12.0-16.0) L 09/21/20 16:32 Hct 21.5 % (36.0-47.0) L 09/21/20 16:32 MCV 86.1 fL (80.0-100.0) 09/21/20 16:32 MCH 28.3 pg (27.0-34.0) 09/21/20 16:32 MCHC 32.9 g/dL (33.0-35.0) L 09/21/20 16:32 RDW 14.7 % (11.6-16.5) 09/21/20 16:32 Plt Count 294 X10^3/uL (150.0-450.0) 09/21/20 16:32 Plt Count Comment Adequate (ADEQUATE) 09/21/20 16:32 MPV 8.7 fL (7.4-11.0) 09/21/20 16:32 Neut % (Auto) 98.8 % (42.0-75.0) H 09/21/20 16:32 Lymph % (Auto) 0.9 % (21.0-51.0) L 09/21/20 16:32 [place] % (Auto) 0.1 % (0.0-13.0) 09/21/20 16:32 Eos % (Auto) 0.1 % (0.9-2.9) L 09/21/20 16:32 Baso % (Auto) 0.1 % (0.2-1.0) L 09/21/20 16:32 Neut # (Auto) 21.7 x10^3/uL (2.2-4.8) H 09/21/20 16:32 Lymph # (Auto) 0.2 X10^3/uL (1.3-2.9) L 09/21/20 16:32 [place] # (Auto) 0 x10^3/uL (0.3-0.8) L 09/21/20 16:32 Eos # (Auto) 0.0 x10^3/uL (0.0-0.2) 09/21/20 16:32 Baso # (Auto) 0.0 X10^3/uL (0.0-0.1) 09/21/20 16:32 Absolute Nucleated RBC 0.1 /100WBC 09/21/20 16:32 Total Counted 100 09/21/20 16:32 Neutrophils % (Manual) 81 % (39-76) H 09/21/20 16:32 Band Neutrophils % 10 % (0-10) 09/21/20 16:32 Lymphocytes % (Manual) 5 % (13-43) L 09/21/20 16:32 Monocytes % (Manual) 4 % (4-9) 09/21/20 16:32 Eosinophils % (Manual) 1 % (0-6) 08/31/20 05:50 Metamyelocytes % 2 09/20/20 14:51 Myelocytes % 1 09/14/20 06:00 Plt Morphology Comment Normal (NORMAL) 09/21/20 16:32 RBC Morphology Abnormal (NORMAL) A 09/21/20 16:32 Hypochromasia Slight A 09/21/20 16:32 PT 13.5 SECONDS (11.8-14.3) 09/20/20 16:12 INR Target Range - 09/20/20 16:12 INR 1.06 (0.8-1.3) 09/20/20 16:12 APTT 40.6 SECONDS (22.9-36.5) H 09/20/20 16:12 PTT Comment - 09/20/20 16:12 Fibrinogen 318 mg/dL (239-489) 09/20/20 09:33 D-Dimer 1.37 ug/ml (0.0-0.57) H* 09/21/20 03:50 Sample Site [place] 09/21/20 05:35 ABG pH 7.380 (7.35-7.45) 09/21/20 05:35 ABG pCO2 66.0 mmHg (35.0-45.0) H* 09/21/20 05:35 ABG pO2 77.0 mmHg (80.0-100.0) L 09/21/20 05:35 ABG HCO3 39.0 mmol/L (22-26) H* 09/21/20 05:35 ABG O2 Saturation 95.0 % (90-100) 09/21/20 05:35 ABG Base Excess 11.3 mmol/L (-2.0-2.0) H 09/21/20 05:35 Juan Test Na 09/21/20 05:35 A-a Gradient 340.0 mmHg 09/21/20 05:35 FiO2 70.0 09/21/20 05:35 Blood Gas Comments [place] well-mtf 09/21/20 05:35 Sodium 144 mmol/L (136-145) 09/21/20 03:45 Corrected Sodium 148 mmol/L (136-145) H 09/21/20 03:45 Potassium 4.3 mmol/L (3.5-5.1) 09/21/20 03:45 Chloride 105 mmol/L (98-107) 09/21/20 03:45 Carbon Dioxide 35.0 mmol/L (21-32) H 09/21/20 03:45 BUN 50 mg/dL (7-18) H 09/21/20 03:45 Creatinine 0.46 mg/dL (0.55-1.02) L 09/21/20 03:45 Est GFR (MDRD) Af Amer > 60 (>60) 09/21/20 03:45 Est GFR (MDRD) Non-Af > 60 (>60) 09/21/20 03:45 Glucose 253 mg/dL (65-99) H 09/21/20 03:45 POC Glucose (mg/dL) 239 mg/dL (65-99) H 09/21/20 13:57 Lactic Acid 0.8 mmol/L (0.4-2.0) 09/10/20 08:45 Calcium 8.5 mg/dL (8.5-10.1) 09/21/20 03:45 Corrected Calcium TNP 09/21/20 03:45 Phosphorus 2.5 mg/dL (2.6-4.7) L 09/09/20 04:50 Magnesium 2.1 mg/dL (1.7-2.9) 09/20/20 09:49 Ferritin 1126 ng/mL (8-252) H 09/19/20 05:50 Total Bilirubin 0.80 mg/dL (0.2-1.0) 09/21/20 03:45 AST 21 Units/L (15-37) 09/21/20 03:45 ALT 26 Units/L (12-78) 09/21/20 03:45 Alkaline Phosphatase 51 Units/L (46-116) 09/21/20 03:45 Creatine Kinase 67 Units/L (26-192) 09/18/20 17:02 CK-MB (CK-2) 3.9 ng/mL (0-4.0) 09/18/20 17:02 CK/CKMB % Calc 5.8 % (<4) 09/18/20 17:02 Troponin I 0.12 ng/mL (0-1.5) 09/18/20 17:02 C-Reactive Protein 16.90 mg/L (0-3.0) H 09/21/20 03:45 B-Natriuretic Peptide 1430 pg/mL (0-79) H* 09/21/20 03:45 Total Protein 5.8 g/dL (6.4-8.2) L 09/21/20 03:45 Albumin 3.8 g/dL (3.4-5.0) 09/21/20 03:45 Globulin 2.0 g/dL (2.5-4.5) L 09/21/20 03:45 Albumin/Globulin Ratio 1.9 Ratio (1.1-2.1) 09/21/20 03:45 Prealbumin 18.9 mg/dL (18-35.7) 09/15/20 06:00 Triglycerides 498 mg/dL (0-150) H 09/09/20 04:50 Amylase 50 Units/L (25-115) 08/18/20 11:40 Lipase 137 Units/L (73-393) 08/18/20 11:40 Specimen Type Catherized urine 09/10/20 10:21 Urine Color Red (YELLOW) 09/10/20 10:21 Urine Appearance Cloudy (CLEAR) 09/10/20 10:21 Urine pH 7.0 (5.0 - 8.0) 09/10/20 10:21 Ur Specific [place] 1.010 (1.000-1.030) 09/10/20 10:21 Urine Protein 3+ (NEGATIVE) 09/10/20 10:21 Urine Glucose (UA) 2+ (NEGATIVE) 09/10/20 10:21 Urine Ketones Negative (NEGATIVE) 09/10/20 10:21 Urine Occult Blood 5+ (NEGATIVE) 09/10/20 10:21 Urine Nitrite Negative (NEGATIVE) 09/10/20 10:21 Urine Bilirubin Negative (NEGATIVE) 09/10/20 10:21 Urine Urobilinogen Normal (NORMAL) 09/10/20 10:21 Ur Leukocyte Esterase 2+ (NEGATIVE) 09/10/20 10:21 Urine RBC Tntc /HPF (0-3) A 09/10/20 10:21 Urine WBC 0-2 /HPF (0-5) 09/10/20 10:21 Ur Squamous Epith Cells Rare /HPF (NEGATIVE) 09/10/20 10:21 Urine Bacteria Negative /HPF (NEGATIVE) 09/10/20 10:21 Ur Culture Indicated? No/not indicated 09/10/20 10:21 Stool Description 5g unformed brown 09/19/20 10:30 Stl Occult Blood (IFOB) Positive (NEGATIVE) A 09/19/20 10:30 Stool for White Cells Negative (NEGATIVE) 09/19/20 10:30 Stl C. diff Tox B Gene Negative (NEGATIVE) 09/19/20 10:30 Stl C. diff [id number] Negative (NEGATIVE) 09/19/20 10:30 Stool H. pylori Ag Negative (NEGATIVE) 09/19/20 10:30 Vancomycin Trough 13.7 ug/mL (15-20) L 09/19/20 08:20 Theophylline < 2.0 ug/mL (10-20) L 09/21/20 11:10 Influenza Type A (PCR) Negative (NEGATIVE) 08/18/20 12:46 Influenza Type B (PCR) Negative (NEGATIVE) 08/18/20 12:46 SARS CoV-2 RNA Rapid LUIS Positive (NEGATIVE) A 08/18/20 18:12 Miscellaneous Test Resp panel 09/02/20 10:12 Blood Type B POSITIVE 09/20/20 16:12 Antibody Screen Negative 02/07/21 16:12 Crossmatch See Detail 09/20/20 16:12 - Plan (1) Palliative care status Status: Acute (2) Pneumonia due to 2019 novel coronavirus Status: Acute (3) Hypoxia Status: Acute (4) Anemia Status: Acute Qualifiers: Anemia type: iron deficiency Iron deficiency anemia type: unspecified iron deficiency Qualified Code(s): D50.9 - Iron deficiency anemia, unspecified Plan: CONTINUE TO MONITOR
[2020-09-22] MEDS ORDERED: VERSED IV PREMIX 100 MG/100 ML IV.SOLN IV PRN (12:57)
[2020-09-22] MEDS ORDERED: DURAGESIC 100 mcg/HR PATCH TD SCH (13:00)
[2020-09-22] MEDS ORDERED: VERSED IV PREMIX 100 MG/100 ML IV.SOLN IV ONE (13:06)
[2020-09-22 17:08] VITALS: BP 73/50
== END 2020-09-22 18:10 | disposition expired | DRG 177 ==
LOC: ER 11:21 → OBS 16:54 → MED/SURG 08-19 15:45 → ICU 08-23 03:00
PROVIDERS: ADMIT Internal Medicine; ATTEND Internal Medicine
PROC: CLINEPL (2020-09-14 13:40)
DX: B95.2 Enterococcus as the cause of diseases classified elsewhere; J12.82 Pneumonia due to coronavirus disease 2019; R79.82 Elevated C-reactive protein (CRP); Z51.5 Encounter for palliative care; R26.89 Other abnormalities of gait and mobility; R00.0 Tachycardia, unspecified; J44.9 Chronic obstructive pulmonary disease, unspecified; R31.9 Hematuria, unspecified; R79.89 Other specified abnormal findings of blood chemistry; R06.02 Shortness of breath; U07.1 COVID-19; I87.2 Venous insufficiency (chronic) (peripheral); I48.91 Unspecified atrial fibrillation; R60.0 Localized edema; R53.1 Weakness; B95.7 Other staphylococcus as the cause of diseases classified elsewhere; R62.7 Adult failure to thrive; J96.01 Acute respiratory failure with hypoxia; E11.65 Type 2 diabetes mellitus with hyperglycemia; Z66 Do not resuscitate; D50.8 Other iron deficiency anemias; I46.9 Cardiac arrest, cause unspecified